=== PATIENT | female | born 1990 | race Caucasian/White ===

== ENCOUNTER 2018-06-11 11:48 | Emergency (ER) | payer OTHER, SELFPAY ==
[2018-06-11 13:01] LABS: Urine Blood 3+ (NEG); Urine Glucose NEGATIVE (NEG); Urine Protein TRACE (NEG)
--- NOTE | 2018-06-11 13:08 | RAD REPORT ---
EXAM DESCRIPTION: CT - Stone Protocol - 06/11/2018 12:57 pm CLINICAL HISTORY: Left flank pain COMPARISON: CT April 2016 TECHNIQUE: Axial 5 mm thick images were obtained without oral or IV contrast. The [id number] span s the entirety of the system partially obscuring uppermost abdomen and lung bases. All CT scans are performed using dose optimization technique as appropriate and may include automated exposure control or mA/KV adjustment according to patient size. FINDINGS: Mild left-sided hydronephrosis is present secondary to a 4 mm calcification near the left UVJ. Left kidney is slightly edematous. No other left-sided calculi. No right-sided hydronephrosis. A 2 mm calcification is present mid right kidney. No suspicious renal masses. Isodense masses and pyel onephritis are not excluded on a stone protocol CT scan. Urinary bladder is fully contracted. No blad neena calculus seen. No significant adrenal finding. Uterus and ovaries show no suspicious findings. Liver is prominent in size and shows a diffuse fatty infiltration. No focal liver lesion on noncontra st imaging. No splenomegaly or focal splenic finding. Gallstones are present. No acute gallbladder fi nding. No biliary tree dilatation. No suspicious bowel findings. No hernia, mass or bulky lymphadenopathy noted. No free air, free fluid or inflammatory stranding. No significant bony abnormality. A 6 mm nodule is present lateral lower right lung field. Comparison did not extend this far into the chest. No other acute lung base finding. Long-term significance is doubtful. This is probably a granu juliet that is not calcified. IMPRESSION: Mild left-sided hydronephrosis secondary to a 4 mm calculus near the left UVJ. Isodense masses and pyelonephritis are not excluded on stone protocol technique.A nonobstructing calc ification is present mid right kidney. A 6 mm noncalcified pulmonary nodule is present in the lateral right lung field. Long-term significan ce is doubtful in a patient this age unless there is some additional history to elevate patient risk.
[2018-06-11 13:13] LABS: Absolute Lymphocytes (CBC) 1.9 K/uL (0.7-4.9); Absolute Monocytes 0.8 K/uL (0.1-1.3); Absolute Neutrophil 10.5 K/uL (1.8-8.0); Basophils % 0.5 % (0-1.3); Eosinophils % 0.6 % (0-4.4); Hematocrit 42.3 % (36.0-45.0); Lymphocytes % 14.2 % (15.3-44.8); MPV 7.9 fL (7.6-11.3); Monocytes % 6.1 % (3.3-12.3); RBC Red Blood Cell Count 4.83 M/uL (3.86-4.86)
[2018-06-11] MEDS ORDERED: ONDANSETRON 4 MG/2 ML VIAL ONE (13:14)
[2018-06-11] MEDS ORDERED: KETOROLAC 30 MG/ML INJ ONE (13:14)
[2018-06-11] MEDS ORDERED: NA CHLORIDE 0.9% 500 ML ONE (13:15)
[2018-06-11 13:20] LABS: Urine Bacteria <20 /HPF (<20); Urine Culture Reflex Order NOT NEEDED
[2018-06-11 13:22] LABS: Urine Mucus 1+ /HPF (NONE SEEN)
[2018-06-11 13:28] LABS: Potassium 4.5 mmol/L (3.5-5.1)
--- NOTE | 2018-06-11 13:30 | EDPHYS ---
Physician Documentation [facility] Name: Gideon Chapa Age: 27 yrs Sex: Female : 1990 Arrival Date: 06/11/2018 Time: 11:51 Bed 15 Private MD: Sterling Edward ED Physician Munira Dennis HPI: 06/11 13:15 This 27 yrs old Female presents to ER via Ambulatory with complaints of jr8 Abdominal Pain. 13:15 The patient presents with abdominal pain in the left lower quadrant. Onset: The jr8 symptoms/episode began/occurred acutely, today. The symptoms do not radiate. Associated signs and symptoms: Pertinent positives: nausea and vomiting. The symptoms are described as stabbing. Modifying factors: The symptoms are alleviated by nothing, the symptoms are aggravated by nothing. Severity of pain: At its worst the pain was moderate in the emergency department the pain is unchanged. The patient has not experienced similar symptoms in the past. The patient has not recently seen a physician. Historical: - Allergies: 12:01 Codeine; sv - PMHx: 12:01 Hypertension; Kidney stones; sv - PSHx: 12:01 None; sv ROS: 13:15 Eyes: Negative for injury, pain, redness, and discharge, ENT: Negative for injury, jr8 pain, and discharge, Neck: Negative for injury, pain, and swelling, Cardiovascular: Negative for chest pain, palpitations, and edema, Respiratory: Negative for shortness of breath, cough, wheezing, and pleuritic chest pain, Back: Negative for injury and pain, MS/Extremity: Negative for injury and deformity, Skin: Negative for injury, rash, and discoloration, Neuro: Negative for headache, weakness, numbness, tingling, and seizure. 13:15 Abdomen/GI: Positive for abdominal pain, nausea and vomiting, Negative for diarrhea, constipation, abdominal cramps, abdominal distension, anorexia, dysphagia, hematemesis, black/tarry stool, rectal pain, rectal bleeding, bowel incontinence, flatulence. Exam: 13:15 Eyes: Pupils equal round and reactive to light, extra-ocular motions intact. Lids and jr8 lashes normal. Conjunctiva and sclera are non-icteric and not injected. Cornea within normal limits. Periorbital areas with no swelling, redness, or edema. ENT: Nares patent. No nasal discharge, no septal abnormalities noted. Tympanic membranes are normal and external auditory canals are clear. Oropharynx with no redness, swelling, or masses, exudates, or evidence of obstruction, uvula midline. Mucous membranes moist. Neck: Trachea midline, no thyromegaly or masses palpated, and no cervical lymphadenopathy. Supple, full range of motion without nuchal rigidity, or vertebral point tenderness. No Meningismus. Cardiovascular: Regular rate and rhythm with a normal S1 and S2. No gallops, murmurs, or rubs. Normal PMI, no JVD. No pulse deficits. Respiratory: Lungs have equal breath sounds bilaterally, clear to auscultation and percussion. No rales, rhonchi or wheezes noted. No increased work of breathing, no retractions or nasal flaring. Back: No spinal tenderness. No costovertebral tenderness. Full range of motion. Skin: Warm, dry with normal turgor. Normal color with no rashes, no lesions, and no evidence of cellulitis. MS/ Extremity: Pulses equal, no cyanosis. Neurovascular intact. Full, normal range of motion. Neuro: Awake and alert, GCS 15, oriented to person, place, time, and situation. Cranial nerves II-XII grossly intact. Motor strength 5/5 in all extremities. Sensory grossly intact. Cerebellar exam normal. Normal gait. 13:15 Abdomen/GI: Inspection: abdomen appears normal, Bowel sounds: active, all quadrants, Palpation: soft, in all quadrants, moderate abdominal tenderness, in the anterior aspect of left lateral abdomen and left lower quadrant, mass, is not appreciated, rebound tenderness, is not appreciated, voluntary guarding, is not appreciated, involuntary guarding, is not appreciated, no appreciated organomegaly, Indicators: McBurney's point is not tender, Sandoval's sign is negative, Rovsing's sign is negative, Liver: tenderness, is not appreciated. Vital Signs: 12:01 BP 131 / 92; Pulse 84; Resp 18; Temp 98.1; Pulse Ox 99% ; Weight 102.06 kg; Height 5 sv ft. 8 in. (172.72 cm); Pain 10/10; 12:01 Body Mass Index 34.21 (102.06 kg, 172.72 cm) sv MDM: 12:05 Patient medically screened. [facility] 13:15 Data reviewed: vital signs, nurses notes, lab test result(s), radiologic studies, CT jr8 scan. Data interpreted: Pulse oximetry: on room air is 99 %. Interpretation: normal. Counseling: I had a detailed discussion with the patient and/or guardian regarding: the historical points, exam findings, and any diagnostic results supporting the discharge/admit diagnosis, lab results, radiology results, the need for outpatient follow up, a urologist, to return to the emergency department if symptoms worsen or persist or if there are any questions or concerns that arise at home. 13:25 ED course: Patient doing better. Will send home on antibiotics and pain medicine. Knows jr8 to come back if worse. 06/11 12:39 Order name: Urine Dipstick--Ancillary (enter results); Complete Time: 13:13 06/11 12:39 Order name: Urine Microscopic Only; Complete Time: 13:31 eb 06/11 12:39 Order name: Urine --Ancillary (enter results); Complete Time: 13:13 06/11 12:41 Order name: CBC with Diff; Complete Time: 13:18 8 06/11 12:41 Order name: Basic Metabolic Panel; Complete Time: 13:31 8 06/11 12:42 Order name: CT Stone Protocol; Complete Time: 13:13 8 06/11 12:41 Order name: IV; Complete Time: 12:54 jr8 Administered Medications: 13:07 Drug: TORadol - Ketorolac 15 mg Route: IVP; Site: right antecubital; aj 14:02 Follow up: Response: No adverse reaction em 13:07 Drug: Zofran 4 mg Route: IVP; Site: right antecubital; aj 14:03 Follow up: Response: No adverse reaction em 13:07 Drug: NS 0.9% 500 ml Route: IV; Rate: bolus; Site: right antecubital; aj 14:03 Follow up: IV Status: IV infiltrated; IV Intake: 200ml em 13:40 Drug: Rocephin 1 grams Route: IV; Rate: calculated rate; Site: right antecubital; aj 14:02 Follow up: Response: No adverse reaction; IV Status: Completed infusion; IV Intake: 10mlem Disposition: 17:14 Co-signature as Attending Physician, Munira Dennis MD. ma2 Disposition: 06/11/18 13:29 Discharged to Home. Impression: Hydronephrosis with renal and ureteral calculous obstruction. - Condition is Stable. - Discharge Instructions: Kidney Stones, Hydronephrosis. - Prescriptions for Ultracet 37.5- 325 mg Oral Tablet - take 2 tablet by ORAL route every 6 hours - for up to 5 days; do not exceed 8 tablets per day.; 30 tablet. Zofran 4 mg Oral Tablet - take 1 tablet by ORAL route every 12 hours As needed; 20 tablet. Flomax 0.4 mg Oral Capsule, Sust. Release 24 hr - take 1 capsule by ORAL route once daily 1/2 hour following the same meal each day; 30 capsule. Augmentin 875- 125 mg Oral Tablet - take 1 tablet by ORAL route every 12 hours for 7 days; 14 tablet. - Work release form, Medication Reconciliation Form, Thank You Letter, Antibiotic Education, Prescription Opioid Use form. - Follow up: Suleiman Mosqueda MD; When: 5 - 6 days; Reason: Recheck today's complaints, Continuance of care, Re-evaluation by your physician. - Problem is new. - Symptoms have improved. Signatures: Dispatcher [employer] Maria Del Rosario Rodríguez RN RN Connie Vega RN RN aj Munoz, Edgar, GUIDE DOG INSTRUCTOR GUIDE DOG INSTRUCTOR Sheldon Guerrero PA PA jr8 Munira Dennis MD MD ma2 Corrections: (The following items were deleted from the chart) 14:03 13:29 06/11/2018 13:29 Discharged to Home. Impression: Hydronephrosis with renal and em ureteral calculous obstruction. Condition is Stable. Forms are Medication Reconciliation Form, Thank You Letter, Antibiotic Education, Prescription Opioid Use. Follow up: Suleiman Mosqueda; When: 5 - 6 days; Reason: Recheck today's complaints, Continuance of care, Re-evaluation by your physician. Problem is new. Symptoms have improved. jr8
--- NOTE | 2018-06-11 13:30 | ER ---
[facility] Name: Gideon Chapa Age: 27 yrs Sex: Female : 1990 Arrival Date: 06/11/2018 Time: 11:51 Bed 15 Private MD: Sterling Edward Diagnosis: Hydronephrosis with renal and ureteral calculous obstruction Presentation: 06/11 12:00 Presenting complaint: Patient states: left flank pain started yesterday. Uninary sv frequency. Transition of care: patient was not received from another setting of care. Onset of symptoms was June 10, 2018. Care prior to arrival: None. 12:00 Method Of Arrival: Ambulatory sv 12:00 Acuity: AGUSTO 3 sv Historical: - Allergies: 12:01 Codeine; sv - PMHx: 12:01 Hypertension; Kidney stones; sv - PSHx: 12:01 None; sv Screenin:31 Abuse screen: Denies threats or abuse. Denies injuries from another. Nutritional aj screening: No deficits noted. Tuberculosis screening: No symptoms or risk factors identified. Fall Risk None identified. Assessment: 12:30 General: Appears in no apparent distress. comfortable, Behavior is calm, cooperative, aj appropriate for age. Pain: Complains of pain in pelvis. Neuro: Level of Consciousness is awake, alert, obeys commands, Oriented to person, place, time, situation, Appropriate for age. Respiratory: Airway is patent Respiratory effort is even, unlabored, Respiratory pattern is regular, symmetrical. GI: Abdomen is non-distended, obese, Bowel sounds present X 4 quads. Abd is soft and non tender. Derm: Skin is intact, is healthy with good turgor, Skin is pink, warm \T\ dry. normal. Vital Signs: 12:01 BP 131 / 92; Pulse 84; Resp 18; Temp 98.1; Pulse Ox 99% ; Weight 102.06 kg; Height 5 sv ft. 8 in. (172.72 cm); Pain 10/10; 12:01 Body Mass Index 34.21 (102.06 kg, 172.72 cm) sv ED Course: 11:51 Patient arrived in ED. mr 11:51 Sterling Edward MD is Private Physician. mr 12:01 Triage completed. sv 12:02 Arm band placed on. sv 12:05 Sheldon Snyder PA is PHCP. jr8 12:05 Munira Dennis MD is Attending Physician. jr8 12:28 Connie Carpenter, RN is Primary Nurse. aj 12:31 Patient has correct armband on for positive identification. aj 12:53 Initial lab(s) drawn, by Zenia paralegal secretary. Inserted saline lock: 20 gauge in right 3 antecubital area, using aseptic technique. Blood collected. 12:56 CT Stone Protocol In Process Unspecified. EDMS 13:29 Suleiman Mosqueda MD is Referral Physician. jr8 13:55 IV discontinued, intact, infiltration, warm compresses, pressure dressing applied. 3 14:01 No provider procedures requiring assistance completed. em Administered Medications: 13:07 Drug: TORadol - Ketorolac 15 mg Route: IVP; Site: right antecubital; aj 14:02 Follow up: Response: No adverse reaction em 13:07 Drug: Zofran 4 mg Route: IVP; Site: right antecubital; aj 14:03 Follow up: Response: No adverse reaction em 13:07 Drug: NS 0.9% 500 ml Route: IV; Rate: bolus; Site: right antecubital; aj 14:03 Follow up: IV Status: IV infiltrated; IV Intake: 200ml em 13:40 Drug: Rocephin 1 grams Route: IV; Rate: calculated rate; Site: right antecubital; aj 14:02 Follow up: Response: No adverse reaction; IV Status: Completed infusion; IV Intake: 10mlem Intake: 14:02 IV: 10ml; Total: 10ml. em 14:03 IV: 200ml; Total: 210ml. em Outcome: 13:29 Discharge ordered by . jr8 14:01 Discharged to home ambulatory. em 14:01 Condition: good 14:01 Discharge instructions given to patient, Instructed on discharge instructions, follow up and referral plans. medication usage, Demonstrated understanding of instructions, follow-up care, medications, Prescriptions given X 4. 14:03 Patient left the ED. em Signatures: Dispatcher [employer] EDFL Maria Del Rosario Henry, Connie Calvillo RN, RN RN aj Rivera, Leni Nair, Kavin, FUEL PILOT ENGINEER FUEL PILOT ENGINEER em Sheldon Snyder PA PA jr8 Xochitl Nolan [facility] Corrections: (The following items were deleted from the chart) 12:03 12:01 Pulse 84bpm; Resp 18bpm; Pulse Ox 99%; Temp 98.1F; 102.06 kg; Height 5 ft. 8 in.; sv BMI: 34.2; Pain 10/; sv
[2018-06-11] MEDS ORDERED: CEFTRIAXONE/SWI 1gm 1 GM/10 ML SYR ONE (13:50)
== END 2018-06-11 14:03 | disposition home or self-care (01) ==
LOC: ER 11:48
DX: N13.2 Hydronephrosis with renal and ureteral calculous obstruction (principal); Z88.6 Allergy status to analgesic agent
CPT/HCPCS: 36415; 74176; 76377; 80048; 81003; 81015; 81025; 85025; 96361; 96365; 96375; 99284; J0696; J2405

== ENCOUNTER 2018-06-20 18:29 | Emergency (ER) | payer SELFPAY ==
[2018-06-20 19:31] LABS: Urine Blood 2+ (NEG); Urine Glucose NEGATIVE (NEG); Urine Protein 2+ (NEG); Urine Specific Gravity >1.030 (1.005-1.030); Urine pH 5.5 (5.0-7.0)
[2018-06-20 19:36] LABS: Calcium Oxalate Crystals- Ur FEW (NONE SEEN); Urine Bacteria 20-50 /HPF (<20); Urine Culture Reflex Order REFLEXED
--- NOTE | 2018-06-20 20:03 | RAD REPORT ---
EXAM DESCRIPTION: CT - Stone Protocol - 06/20/2018 7:42 pm CLINICAL HISTORY: Left lower quadrant pain and history of recent stone passage COMPARISON: CT June 11 TECHNIQUE: Axial 5 mm thick images were obtained without oral or IV contrast. The [id number] span s the entirety of the system partially obscuring uppermost abdomen and lung bases. All CT scans are performed using dose optimization technique as appropriate and may include automated exposure control or mA/KV adjustment according to patient size. FINDINGS: Mild hydronephrosis of the left collecting system is present improved from the June 11 st udy. No remnant stone or stone fragment. This is believed to be incomplete resolution of the obstruct abram process. This is not unexpected given the short interval. The obstructing 4 millimeter calcificat ion is in the urinary bladder. Urinary bladder is contracted limiting assessment. No right-sided hydr onephrosis. No nonobstructing renal or ureteral calculi seen. Left kidney remains slightly edematous. No suspicious renal masses. Isodense masses and pyelonephritis are not excluded on a stone protocol CT scan. No significant adrenal finding. Imaged portions of the liver, spleen and pancreas show no suspicious findings on non-contrast imaging . Gallbladder is contracted. Gallstone is present. No biliary tree dilatation. No suspicious bowel findings. No hernia, mass or bulky lymphadenopathy noted. No free air, free fluid or inflammatory stranding. No significant bony abnormality. No acute lung base finding. Nodule seen in the lateral lower right lung field subpleural location has not changed over the very short interval from prior study. IMPRESSION: Previously detailed 4 mm left UVJ calculus is now within the urinary bladder. There is m ild remnant hydronephrosis present on the left. No renal or ureteral calculi. Isodense masses and pyelonephritis are not excluded on stone protocol technique. Cholelithiasis.
[2018-06-20] MEDS ORDERED: NA CHLORIDE 0.9% 2,000 ML ONE (20:23)
[2018-06-20] MEDS ORDERED: ONDANSETRON 4 MG/2 ML VIAL ONE (20:23)
[2018-06-20] MEDS ORDERED: MORPHINE 4 MG/ML SYR ONE (20:23)
--- NOTE | 2018-06-20 21:41 | ER ---
Nurse's Notes [facility] Name: Gideon Chapa Age: 27 yrs Sex: Female : 1990 Arrival Date: 06/20/2018 Time: 18:30 Bed 8 Private MD: Sterling Edward Diagnosis: Ureterolithiasis Presentation: 06/20 18:47 Presenting complaint: Significant other states: "she came in last week for kidney aj1 stones and they said she was going to pass it. She thought she had passed it so she stopped taking the medicine, but now she's been throwing up since Thursday." Patient reports left sided flank pain, patient did not follow up with a urologist after being seen in the emergency room. Transition of care: patient was not received from another setting of care. Onset of symptoms was June 18, 2017. Risk Assessment: Do you want to hurt yourself or someone else? Patient reports no desire to harm self or others. Initial Sepsis Screen: Does the patient meet any 2 criteria? HR > 90 bpm. No. Patient's initial sepsis screen is negative. Does the patient have a suspected source of infection? No. Patient's initial sepsis screen is negative. Care prior to arrival: None. 18:47 Method Of Arrival: Ambulatory aj1 18:47 Acuity: AGUSTO 3 aj1 Triage Assessment: 18:49 General: Appears in no apparent distress. uncomfortable, Behavior is calm, cooperative, aj1 appropriate for age. Pain: Complains of pain in posterior aspect of left lateral abdomen Pain currently is 10 out of 10 on a pain scale. Neuro: Level of Consciousness is awake, alert, obeys commands. Cardiovascular: Patient's skin is warm and dry. Respiratory: Airway is patent Respiratory effort is even, unlabored, Respiratory pattern is regular, symmetrical. GI: Reports vomiting. : Reports flank pain. MANAGER FASHION: 18:49 LMP 06/10/2018 aj1 Historical: - Allergies: 18:49 Codeine; aj1 - Home Meds: 18:49 None [Active]; aj1 - PMHx: 18:49 Hypertension; Kidney stones; gallstones; aj1 - Immunization history:: Flu vaccine is not up to date. - Social history:: Smoking status: Patient uses tobacco products, smokes one pack cigarettes per day. - Ebola Screening: : Patient denies travel to an Ebola-affected area in the 21 days before illness onset. - Family history:: not pertinent. - Hospitalizations: : No recent hospitalization is reported. Screenin:10 Abuse screen: Denies threats or abuse. Denies injuries from another. Nutritional aa1 screening: No deficits noted. Tuberculosis screening: No symptoms or risk factors identified. Fall Risk None identified. Assessment: 19:10 General: Appears in no apparent distress. uncomfortable, Behavior is calm, cooperative, aa1 appropriate for age. Pain: Complains of pain in left lower quadrant and posterior aspect of left lateral abdomen Pain began 2-3 days ago. Is continuous. Neuro: Level of Consciousness is awake, alert, obeys commands, Oriented to person, place, time, situation, Moves all extremities. Gait is steady. Cardiovascular: Denies chest pain, palpitations, shortness of breath. Respiratory: Airway is patent Respiratory effort is even, unlabored, Respiratory pattern is regular, symmetrical. GI: Abdomen is non-distended, Abd is soft X 4 quads Reports nausea, vomiting. : Reports pain in left flank(s). EENT: No signs and/or symptoms were reported regarding the EENT system. Derm: Skin is intact, is healthy with good turgor, Skin is pink, warm \\T\\ dry. Musculoskeletal: Circulation, motion, and sensation intact. Capillary refill < 3 seconds. 19:38 Reassessment: Patient appears in no apparent distress at this time. Patient is alert, aa1 oriented x 3, equal unlabored respirations, skin warm/dry/pink. Pt taken to CT at this time. Charge nurse to attempt u/s IV once pt returns. 20:26 Reassessment: Patient appears in no apparent distress at this time. Patient and/or aa1 family updated on plan of care and expected duration. Pain level reassessed. Patient is alert/active/playful, equal unlabored respirations, skin warm/dry/pink. Per MD, ok to d/c pt once 2L NS bolus complete. 21:30 Reassessment: Patient appears in no apparent distress at this time. Patient and/or aa1 family updated on plan of care and expected duration. Pain level reassessed. Patient is alert, oriented x 3, equal unlabored respirations, skin warm/dry/pink. Awaiting completion of NS bolus for d/c. 21:50 Reassessment: Patient appears in no apparent distress at this time. Patient is alert, aa1 oriented x 3, equal unlabored respirations, skin warm/dry/pink. NS bolus complete. Discussed d/c \\T\\ f/u instructions with pt; denies questions or concerns at this time. Amb to lobby with steady gait. Patient denies pain at this time. Patient states feeling better. Patient states symptoms have improved. Vital Signs: 18:49 BP 125 / 80; Pulse 97; Resp 20; Temp 98.2; Pulse Ox 97% on R/A; Weight 103.42 kg (R); aj1 Height 5 ft. 8 in. (172.72 cm) (R); Pain 10/10; 20:25 BP 125 / 76; Pulse 57; Resp 16; Pulse Ox 99% on R/A; Pain 5/10; aa1 21:30 BP 117 / 65; Pulse 64; Resp 16; Temp 97.9; Pulse Ox 98% on R/A; Pain 0/10; aa1 18:49 Body Mass Index 34.67 (103.42 kg, 172.72 cm) aj1 ED Course: 18:30 Patient arrived in ED. as 18:30 Sterling Edward MD is Private Physician. as 18:49 Triage completed. aj1 18:49 Arm band placed on Patient placed in an exam room. aj1 19:03 David Angel MD is Attending Physician. rn 19:10 Patient has correct armband on for positive identification. Bed in low position. Call aa1 light in reach. Pulse ox on. NIBP on. Warm blanket given. 19:11 Robyn Malagon, ENOC is Primary Nurse. aa1 19:16 Urine collected: clean catch specimen. aa1 19:25 Missed attempt(s): 22 gauge in right forearm. Bleeding controlled, band aid applied, aa1 catheter tip intact. 19:30 Missed attempt(s): 22 gauge in right wrist. Bleeding controlled, band aid applied, aa1 catheter tip intact. 19:42 CT completed. Patient tolerated procedure well. Patient moved back from CT. mw3 19:42 CT Stone Protocol In Process Unspecified. EDMS 20:14 Inserted saline lock: 20 gauge in right antecubital area, using aseptic technique. bb 21:54 No provider procedures requiring assistance completed. IV discontinued, intact, aa1 bleeding controlled, No redness/swelling at site. Pressure dressing applied. Administered Medications: 20:15 Drug: Zofran 4 mg Route: IVP; Site: right antecubital; aa1 21:15 Follow up: Response: No adverse reaction; Nausea is decreased aa1 20:15 Drug: NS 0.9% 1000 ml Route: IV; Rate: 1000 ml; Site: right antecubital; aa1 21:50 Follow up: IV Status: Completed infusion; IV Intake: 1000ml aa1 20:15 Drug: NS 0.9% 1000 ml Route: IV; Rate: 1000 ml; Site: right antecubital; aa1 21:50 Follow up: IV Status: Completed infusion; IV Intake: 1000ml aa1 20:17 Drug: morphine 4 mg Route: IVP; Site: right antecubital; aa1 21:17 Follow up: Response: No adverse reaction; Pain is decreased aa1 Intake: 21:50 IV: 1000ml; Total: 1000ml. aa1 21:50 IV: 1000ml; Total: 2000ml. aa1 Outcome: 21:41 Discharge ordered by . rn 21:54 Discharged to home ambulatory, with family. aa1 21:54 Condition: good 21:54 Discharge instructions given to patient, family, Instructed on discharge instructions, follow up and referral plans. medication usage, Demonstrated understanding of instructions, follow-up care, medications, Prescriptions given X 1. 21:57 Patient left the ED. aa1 Signatures: Dispatcher [employer] EDMaribell Tovar RN RN aj1 Robyn Malagon RN RN aa1 Kirstin Martinez Brenda, RN RN bb Nieto, Roman, MD MD rn Willis, Michelle mw3
--- NOTE | 2018-06-20 21:41 | EDPHYS ---
Physician Documentation [facility] Name: Gideon Chapa Age: 27 yrs Sex: Female : 1990 Arrival Date: 06/20/2018 Time: 18:30 Bed 8 Private MD: Sterling Edward ED Physician David Angel HPI: 06/20 19:18 This 27 yrs old Female presents to ER via Ambulatory with complaints of rn Vomiting. 19:18 The patient presents to the emergency department with nausea, vomiting, abdominal pain, rn of the left lower quadrant. Onset: The symptoms/episode began/occurred 2 day(s) ago. Possible causes: unknown. Associated signs and symptoms: Pertinent positives: abdominal pain, nausea, vomiting. Severity of symptoms: At their worst the symptoms were moderate in the emergency department the symptoms are unchanged. The patient has experienced similar episodes in the past. The patient has not recently seen a physician. Reports vomiting, LLQ abd pain, recently diagnosed with stone last week, got better, now having pain again similar to the other time. No diarrhea. + vomiting. . 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 - Social history:: Smoking status: Patient uses tobacco products, smokes one pack cigarettes per day. - Ebola Screening: : Patient denies travel to an Ebola-affected area in the 21 days before illness onset. - Family history:: not pertinent. - Hospitalizations: : No recent hospitalization is reported. ROS: 19:18 Constitutional: Negative for fever, chills, and weight loss, Eyes: Negative for injury, rn pain, redness, and discharge, Neck: Negative for injury, pain, and swelling, Cardiovascular: Negative for chest pain, palpitations, and edema, Respiratory: Negative for shortness of breath, cough, wheezing, and pleuritic chest pain, Abdomen/GI: Negative for diarrhea, and constipation MS/Extremity: Negative for injury and deformity, Skin: Negative for injury, rash, and discoloration, Neuro: Negative for headache, numbness, tingling, and seizure. Exam: 19:18 Constitutional: This is a well developed, well nourished patient who is awake, alert, rn vomiting Head/Face: Normocephalic, atraumatic. Eyes: Pupils equal round and reactive to light, extra-ocular motions intact. ENT: dry MM Neck: Trachea midline, no thyromegaly or masses palpated, and no cervical lymphadenopathy. Supple, full range of motion without nuchal rigidity, or vertebral point tenderness. No Meningismus. Cardiovascular: Regular rate and rhythm. No pulse deficits. Respiratory: Lungs have equal breath sounds bilaterally, clear to auscultation. No increased work of breathing, no retractions or nasal flaring. Abdomen/GI: soft, + LLQ abd tenderness, no rebound, no masses MS/ Extremity: Pulses equal, no cyanosis. Neurovascular intact. Full, normal range of motion. Equal circumference. Neuro: Awake and alert, GCS 15, oriented to person, place, time, and situation. Cranial nerves II-XII grossly intact. Motor strength 5/5 in all extremities. Sensory grossly intact Vital Signs: 18:49 BP 125 / 80; Pulse 97; Resp 20; Temp 98.2; Pulse Ox 97% on R/A; Weight 103.42 kg (R); aj1 Height 5 ft. 8 in. (172.72 cm) (R); Pain 10/10; 20:25 BP 125 / 76; Pulse 57; Resp 16; Pulse Ox 99% on R/A; Pain 5/10; aa1 21:30 BP 117 / 65; Pulse 64; Resp 16; Temp 97.9; Pulse Ox 98% on R/A; Pain 0/10; aa1 18:49 Body Mass Index 34.67 (103.42 kg, 172.72 cm) aj1 MDM: 19:03 Patient medically screened. rn 20:11 ED course: Ct shows stone in bladder and resolution of hydronephrosis, bloodwork rn canceled given obvious diagnosis and patient is now pain free, must have just passed stone into bladder between initial eval and ct scan. + dehydration so IV fluids and meds still ordered. . 21:40 Differential diagnosis: passed kidney stone, obstruction. Data reviewed: vital signs, rn nurses notes, old medical records, lab test result(s), radiologic studies, and as a result, I will discharge patient. Counseling: I had a detailed discussion with the patient and/or guardian regarding: the historical points, exam findings, and any diagnostic results supporting the discharge/admit diagnosis, lab results, radiology results, the need for outpatient follow up, to return to the emergency department if symptoms worsen or persist or if there are any questions or concerns that arise at home. Response to treatment: the patient's symptoms have markedly improved after treatment, the patient's condition has returned to base line, the patient is now symptom free, patient is well hydrated. and as a result, I will discharge patient. 06/20 19:11 Order name: Basic Metabolic Panel rn 06/20 19:11 Order name: CBC with Diff rn 06/20 19:11 Order name: Hepatic Function rn 06/20 19:11 Order name: Lipase rn 06/20 19:11 Order name: Urine Microscopic Only; Complete Time: 20:00 rn 06/20 19:11 Order name: CT Stone Protocol; Complete Time: 20:05 06/20 19:21 Order name: Urine Dipstick--Ancillary (enter results); Complete Time: 20:00 [facility] 06/20 19:21 Order name: Urine --Ancillary (enter results); Complete Time: 20:00 [facility] 06/20 19:38 Order name: Urine Culture EDMS 06/20 19:11 Order name: IV Saline Lock; Complete Time: 20:15 rn 06/20 19:11 Order name: Urine Test (obtain specimen); Complete Time: 19:37 rn 06/20 19:11 Order name: Urine Dipstick-Ancillary (obtain specimen); Complete Time: 19:37 rn Administered Medications: 20:15 Drug: Zofran 4 mg Route: IVP; Site: right antecubital; aa1 21:15 Follow up: Response: No adverse reaction; Nausea is decreased aa1 20:15 Drug: NS 0.9% 1000 ml Route: IV; Rate: 1000 ml; Site: right antecubital; aa1 21:50 Follow up: IV Status: Completed infusion; IV Intake: 1000ml aa1 20:15 Drug: NS 0.9% 1000 ml Route: IV; Rate: 1000 ml; Site: right antecubital; aa1 21:50 Follow up: IV Status: Completed infusion; IV Intake: 1000ml aa1 20:17 Drug: morphine 4 mg Route: IVP; Site: right antecubital; aa1 21:17 Follow up: Response: No adverse reaction; Pain is decreased aa1 Disposition: 06/20/18 21:41 Discharged to Home. Impression: Ureterolithiasis. - Condition is Stable. - Discharge Instructions: Kidney Stones, Dietary Guidelines to Help Prevent Kidney Stones. - Prescriptions for Diflucan 150 mg Oral Tablet - take 1 tablet by ORAL route one time for 3 days; 3 tablet. - Work release form, Medication Reconciliation Form, Thank You Letter, Antibiotic Education, Prescription Opioid Use form. - Follow up: Private Physician; When: As needed; Reason: Recheck today's complaints, Re-evaluation by your physician. - Problem is an ongoing problem. - Symptoms have improved. Signatures: Dispatcher [employer] Maribell Castillo RN RN aj1 Robyn Malagon RN RN aa1 David Angel MD MD rn Corrections: (The following items were deleted from the chart) 20:12 19:12 CBC with Automated Diff ordered. EDUT EDMS 20:13 19:12 Basic Metabolic Panel ordered. EDUT EDMS 20:13 19:12 Liver (Hepatic) Function ordered. EDMS EDMS 20:13 19:12 Lipase ordered. EDUT EDMS 20:28 19:11 Labs collected and sent ordered. rn aa1 21:57 21:41 06/20/2018 21:41 Discharged to Home. Impression: Ureterolithiasis. Condition is aa1 Stable. Discharge Instructions: Kidney Stones, Dietary Guidelines to Help Prevent Kidney Stones. Prescriptions for Diflucan 150 mg Oral Tablet - take 1 tablet by ORAL route one time for 3 days; 3 tablet. and Forms are Work release form, Medication Reconciliation Form, Thank You Letter, Antibiotic Education, Prescription Opioid Use. Follow up: Private Physician; When: As needed; Reason: Recheck today's complaints, Re-evaluation by your physician. Problem is an ongoing problem. Symptoms have improved. rn
== END 2018-06-20 21:57 | disposition home or self-care (01) ==
LOC: ER 18:29
DX: N20.1 Calculus of ureter (principal); F17.210 Nicotine dependence, cigarettes, uncomplicated; Z88.0 Allergy status to penicillin
CPT/HCPCS: 74176; 76377; 81003; 81015; 81025; 87086; 87088; 96361; 96374; 96375; 99284; J2405; J7030

== ENCOUNTER 2019-01-13 07:44 | Emergency (ER) | payer OTHER, SELFPAY ==
--- OUTSIDE RECORDS SUMMARY | 2019-01-13 07:45 | XMS REPORT ---
:1990 [facility] Address [address] [place] [address] Care Team Providers Name Role Phone Unavailable Unavailable Unavailable Problems This patient has no known problems. Allergies, Adverse Reactions, Alerts This patient has no known allergies or adverse reactions. Medications This patient has no known medications.
[2019-01-13] MEDS ORDERED: ONDANSETRON 4 MG/2 ML VIAL ONE ×2 (08:19→09:43)
[2019-01-13] MEDS ORDERED: NA CHLORIDE 0.9% 1,000 ML ONE ×2 (08:19→08:55)
[2019-01-13] MEDS ORDERED: FENTANYL CITR 100 MCG/2 ML ONE (08:19)
[2019-01-13 08:20] LABS: Absolute Lymphocytes (CBC) 2.6 K/uL (0.7-4.9); Basophils % 0.7 % (0-1.3); Hematocrit 40.6 % (36.0-45.0); Lymphocytes % 31.1 % (15.3-44.8); MPV 7.5 fL (7.6-11.3); RBC Red Blood Cell Count 4.62 M/uL (3.86-4.86)
[2019-01-13 08:59] LABS: ALT/SGPT 39 U/L (12-78); AST/SGOT 13 U/L (15-37); Albumin 3.5 g/dL (3.4-5.0); Alkaline Phosphatase 54 U/L (45-117); BUN Blood Urea Nitrogen 10 mg/dL (7-18); Bicarbonate 25 mmol/L (21-32); Bilirubin Direct 0.1 mg/dL (0-0.2); Bilirubin Total 0.3 mg/dL (0.2-1.0); Glucose Level 130 mg/dL (74-106); HCG, Quantitative 1755 mIU/mL (1-3); Lipase 54 U/L (73-393); Potassium 3.9 mmol/L (3.5-5.1); Protein, Total 6.9 g/dL (6.4-8.2); Sodium Level 139 mmol/L (136-145)
[2019-01-13] MEDS ORDERED: MORPHINE 4 MG/ML SYR ONE (09:43)
[2019-01-13 10:19] LABS: Urine Blood 2+ (NEG); Urine Glucose NEGATIVE (NEG); Urine Protein 1+ (NEG)
--- NOTE | 2019-01-13 11:23 | EDPHYS ---
Physician Documentation [facility] Name: Gideon Chapa Age: 28 yrs Sex: Female : 1990 Arrival Date: 01/13/2019 Time: 07:46 Bed 20 Private MD: Sterling Edward ED Physician Fabien Green HPI: 01/13 08:05 This 28 yrs old Female presents to ER via Ambulatory with complaints of 6 wks abdullahi , Abdominal Pain. 08:05 The patient presents with abdominal pain in the upper abdomen, in the lower abdomen. abdullahi Onset: The symptoms/episode began/occurred 1 day(s) ago. The patient presents to the emergency department with nausea, that is moderate, vomiting, that is continuous, abdominal pain, of the posterior aspect of right lateral abdomen, anterior aspect of right lateral abdomen, right upper quadrant and right lower quadrant. Onset: The symptoms/episode began/occurred just prior to arrival, this morning. Possible causes: unknown. The symptoms are aggravated by nothing. The symptoms are alleviated by nothing. Associated signs and symptoms: The patient has no apparent associated signs or symptoms. Associated signs and symptoms: none. 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 - Social history:: Smoking status: Patient uses tobacco products, smokes one pack cigarettes per day. - Ebola Screening: : No symptoms or risks identified at this time Patient denies exposure to infectious person Patient denies travel to an Ebola-affected area in the 21 days before illness onset. ROS: 08:05 Constitutional: Negative for fever, chills, and weight loss, Eyes: Negative for injury, abdullahi pain, redness, and discharge, ENT: Negative for injury, pain, and discharge, Neck: Negative for injury, pain, and swelling, Cardiovascular: Negative for chest pain, palpitations, and edema, Respiratory: Negative for shortness of breath, cough, wheezing, and pleuritic chest pain, : Negative for injury, bleeding, discharge, and swelling, MS/Extremity: Negative for injury and deformity, Skin: Negative for injury, rash, and discoloration, Neuro: Negative for headache, weakness, numbness, tingling, and seizure, Psych: Negative for depression, anxiety, suicide ideation, homicidal ideation, and hallucinations, Allergy/Immunology: Negative for hives, rash, and allergies, Endocrine: Negative for neck swelling, polydipsia, polyuria, polyphagia, and marked weight changes, Hematologic/Lymphatic: Negative for swollen nodes, abnormal bleeding, and unusual bruising. 08:05 Abdomen/GI: Positive for abdominal pain, abdominal cramps, abdominal distension, of the posterior aspect of right lateral abdomen, anterior aspect of right lateral abdomen, right upper quadrant and right lower quadrant. Exam: 08:05 Constitutional: This is a well developed, well nourished patient who is awake, alert, abdullahi and in no acute distress. Head/Face: Normocephalic, atraumatic. Eyes: Pupils equal round and reactive to light, extra-ocular motions intact. Lids and lashes normal. Conjunctiva and sclera are non-icteric and not injected. Cornea within normal limits. Periorbital areas with no swelling, redness, or edema. ENT: Nares patent. No nasal discharge, no septal abnormalities noted. Tympanic membranes are normal and external auditory canals are clear. Oropharynx with no redness, swelling, or masses, exudates, or evidence of obstruction, uvula midline. Mucous membranes moist. Neck: Trachea midline, no thyromegaly or masses palpated, and no cervical lymphadenopathy. Supple, full range of motion without nuchal rigidity, or vertebral point tenderness. No Meningismus. Chest/axilla: Normal chest wall appearance and motion. Nontender with no deformity. No lesions are appreciated. Cardiovascular: Regular rate and rhythm with a normal S1 and S2. No gallops, murmurs, or rubs. Normal PMI, no JVD. No pulse deficits. Respiratory: Lungs have equal breath sounds bilaterally, clear to auscultation and percussion. No rales, rhonchi or wheezes noted. No increased work of breathing, no retractions or nasal flaring. Back: No spinal tenderness. No costovertebral tenderness. Full range of motion. Skin: Warm, dry with normal turgor. Normal color with no rashes, no lesions, and no evidence of cellulitis. MS/ Extremity: Pulses equal, no cyanosis. Neurovascular intact. Full, normal range of motion. Neuro: Awake and alert, GCS 15, oriented to person, place, time, and situation. Cranial nerves II-XII grossly intact. Motor strength 5/5 in all extremities. Sensory grossly intact. Cerebellar exam normal. Normal gait. Psych: Awake, alert, with orientation to person, place and time. Behavior, mood, and affect are within normal limits. 08:05 Abdomen/GI: Inspection: distension, that is moderate, Bowel sounds: normal, Palpation: mild abdominal tenderness, moderate abdominal tenderness, in the posterior aspect of right lateral abdomen, anterior aspect of right lateral abdomen and right upper quadrant, Liver: no appreciated palpable abnormalities, Hernia: not appreciated. Vital Signs: 08:00 BP 133 / 85; Pulse 99; Resp 16; Temp 97.5(O); Pulse Ox 97% on R/A; Weight 112.04 kg; ss Height 5 ft. 8 in. (172.72 cm); Pain 10/10; 09:00 BP 115 / 82; Pulse 97; Resp 18; Pulse Ox 99% on R/A; ph 10:02 BP 104 / 78; Pulse 95; Resp 16; Pulse Ox 96% on R/A; ph 11:30 BP 119 / 78; Pulse 94; Resp 18; Temp 97.8; Pulse Ox 99% on R/A; Pain 3/10; ph 08:00 Body Mass Index 37.56 (112.04 kg, 172.72 cm) ss MDM: 07:50 Patient medically screened. [facility] 08:07 Data reviewed: vital signs, nurses notes, lab test result(s), radiologic studies, CT abdullahi scan, ultrasound. 01/13 08:03 Order name: Basic Metabolic Panel; Complete Time: 09:[address] [facility] 01/13 08:03 Order name: CBC with Diff; Complete Time: 09:[address] [facility] 01/13 08:03 Order name: Creatinine for Radiology; Complete Time: 09: [facility] 01/13 08:03 Order name: Hepatic Function; Complete Time: 09:[address] [facility] 01/13 08:03 Order name: Lipase; Complete Time: 09:[address] [facility] 01/13 08:03 Order name: Quantitative Hcg; Complete Time: 09: [facility] 01/13 08:03 Order name: Abo/rh Typing; Complete Time: 09:[address] [facility] 01/13 08:03 Order name: US Abdomen Limited: right renal as well [facility] 01/13 08:03 Order name: US Transvaginal Ob [facility] 01/13 08:21 Order name: Urine Dipstick--Ancillary (enter results) 01/13 08:21 Order name: Urine --Ancillary (enter results) 01/13 08:22 Order name: Urine Culture [facility] 01/13 10:19 Order name: Urine --Ancillary; Complete Time: 11:07 [facility] 01/13 10:19 Order name: Urine Dipstick-Ancillary; Complete Time: 11:07 [facility] 01/13 08:03 Order name: IV Saline Lock; Complete Time: 09:[address] [facility] 01/13 08:03 Order name: Labs collected and sent; Complete Time: 09:[address] [facility] 01/13 08:03 Order name: Urine Test (obtain specimen); Complete Time: 08:[address] [facility] 01/13 08:03 Order name: NPO; Complete Time: 08:[address] [facility] 01/13 08:03 Order name: Urine Dipstick-Ancillary (obtain specimen); Complete Time: 08:[address] [facility] 01/13 11:35 Order name: EDPA 01/13 11:37 Order name: [facility] Administered Medications: 08:30 Drug: NS 0.9% 1000 ml Route: IV; Rate: 1 bolus; Site: right antecubital; ph 10:30 Follow up: Response: No adverse reaction; IV Status: Completed infusion; IV Intake: ph 1000ml 08:30 Drug: Zofran 4 mg Route: IVP; Site: right antecubital; ph 09:00 Follow up: Response: No adverse reaction; Nausea is decreased ph 08:32 Drug: fentaNYL (PF) 50 mcg Route: IVP; Site: right antecubital; ph 09:00 Follow up: Response: No adverse reaction; Pain is decreased; RASS: Alert and Calm (0) ph 09:00 Drug: fentaNYL (PF) 50 mcg Route: IVP; Site: right antecubital; ph 09:15 Follow up: Response: No adverse reaction; Pain is decreased; RASS: Alert and Calm (0) ph 09:53 Drug: morphine 4 mg Route: IVP; Site: right antecubital; ph 10:30 Follow up: Response: No adverse reaction; Pain is decreased; RASS: Alert and Calm (0) ph 09:55 Drug: Zofran 4 mg Route: IVP; Site: right antecubital; ph 10:30 Follow up: Response: No adverse reaction; Nausea is decreased; Vomiting decreased ph 11:42 Drug: Rocephin 1 grams Route: IV; Rate: per protocol; Site: right antecubital; ph 11:50 Follow up: Response: No adverse reaction; IV Status: Completed infusion ph 13:36 Not Given (Physician Discretion): NS 0.9% 1000 ml IV at 1 bolus Per protocol; 1000 mL ph bolus 13:37 Not Given (Other Intervention Used): NS 0.9% 1000 ml IV at 125 ml/hr continuous ph Disposition: 01/13/19 11:22 Discharged to Home. Impression: Hydronephrosis with renal and ureteral calculous obstruction, related conditions, unspecified, first trimester, Abdominal tenderness, Cholelithiasis, Urinary tract infection, site not specified. - Condition is Stable. - Discharge Instructions: Abdominal Pain, Adult, Abdominal Pain During , Kidney Stones, Nausea and Vomiting, Adult, Urinary Tract Infection, Adult, First Trimester of , [id number], Kidney Stones, [id number], Urinary Tract Infection, Adult, Dlrw-[id number]-Alah, Abdominal Pain, Adult, Lznq-[id number], Hydronephrosis, First Trimester of , Pelvic Rest. - Prescriptions for Augmentin 875- 125 mg Oral Tablet - take 1 tablet by ORAL route every 12 hours for 10 days; 20 tablet. Vitamin 27- 0.8 mg Oral Tablet - take 1 tablet by ORAL route once daily; 30 tablet. Zofran 4 mg Oral Tablet - take 1 tablet by ORAL route every 12 hours As needed; 20 tablet. Diclegis 10- 10 mg Oral tablet,delayed release (DR/EC) - take 1 tablet by ORAL route 3 times per day and 2 tablets at bedtime; 60 tablet. - Medication Reconciliation Form, Thank You Letter, Antibiotic Education, Prescription Opioid Use form. - Follow up: Sterling Edward; When: 2 - 3 days; Reason: Recheck today's complaints, Continuance of care, Re-evaluation by your physician. Follow up: Nikhil Sheppard; When: 2 - 3 days; Reason: Recheck today's complaints, Re-evaluation by your physician. - Problem is new. - Symptoms have improved. Signatures: Dispatcher [employer] EDMS Fabien Green MD MD cha Smirch, Shelby, RN RN ss Livier Rojas RN RN ph Corrections: (The following items were deleted from the chart) 07:59 07:58 Social history: Smoking status: Patient uses tobacco products, smokes one pack ss cigarettes per day. 07:59 07:59 Allergies: Codeine; [facility] 07:59 07:59 Home Meds: None; [facility] 07:59 07:59 PMHx: Kidney stones; [facility] 07:59 07:59 PSHx: None; [facility] 11:43 11:22 01/13/2019 11:22 Discharged to Home. Impression: Hydronephrosis with renal and ph ureteral calculous obstruction; related conditions, unspecified, first trimester; Abdominal tenderness; Cholelithiasis; Urinary tract infection, site not specified. Condition is Stable. Discharge Instructions: Abdominal Pain, Adult, Abdominal Pain During , Kidney Stones, Nausea and Vomiting, Adult, Urinary Tract Infection, Adult, First Trimester of , Kywz-ud-Tacw, Kidney Stones, Nfah-co-Ygvx, Urinary Tract Infection, Adult, Zrkl-tz-Yzqo, Abdominal Pain, Adult, Ttuo-oh-Muyb, Hydronephrosis, First Trimester of , Pelvic Rest. Prescriptions for Augmentin 875-125 mg Oral Tablet - take 1 tablet by ORAL route every 12 hours for 10 days; 20 tablet, Vitamin 27-0.8 mg Oral Tablet - take 1 tablet by ORAL route once daily; 30 tablet, Zofran 4 mg Oral Tablet - take 1 tablet by ORAL route every 12 hours As needed; 20 tablet. and Forms are Medication Reconciliation Form, Thank You Letter, Antibiotic Education, Prescription Opioid Use. Follow up: Sterling Edward; When: 2 - 3 days; Reason: Recheck today's complaints, Continuance of care, Re-evaluation by your physician. Follow up: Nikhil Sheppard; When: 2 - 3 days; Reason: Recheck today's complaints, Re-evaluation by your physician. Problem is new. Symptoms have improved. abdullahi
--- NOTE | 2019-01-13 11:23 | ER ---
Nurse's Notes [facility] Name: Gideon Chapa Age: 28 yrs Sex: Female : 1990 Arrival Date: 01/13/2019 Time: 07:46 Bed 20 Private MD: Sterling Edward Diagnosis: Hydronephrosis with renal and ureteral calculous obstruction; related conditions, unspecified, first trimester;Abdominal tenderness;Cholelithiasis;Urinary tract infection, site not specified Presentation: 01/13 07:55 Transition of care: patient was not received from another setting of care. Onset of ph symptoms. Risk Assessment: Do you want to hurt yourself or someone else? Patient reports no desire to harm self or others. Care prior to arrival: None. 07:58 Presenting complaint: Patient states: RLQ pain and nausea that began at 0600 this AM . ss Patient states, "it feels like it's a kidney stone." Pt also reports she is 6 weeks . Initial Sepsis Screen: Does the patient meet any 2 criteria? HR > 90 bpm. Does the patient have a suspected source of infection? No. Patient's initial sepsis screen is negative. 07:58 Method Of Arrival: Ambulatory 07:58 Acuity: AGUSTO 3 ss PERFORMING ARTIST: 08:00 LMP 12/01/2018 Historical: - Allergies: 07:58 Codeine; ph - Home Meds: 08:00 None [Active]; ss - PMHx: 07:58 GALLSTONES; Hypertension; Kidney stones; ph - PSHx: 08:00 None; ss - Immunization history:: Adult Immunizations unknown, Adult Immunizations up to date. - Social history:: Smoking status: Patient uses tobacco products, smokes one pack cigarettes per day. - Ebola Screening: : No symptoms or risks identified at this time Patient denies exposure to infectious person Patient denies travel to an Ebola-affected area in the 21 days before illness onset. Screenin:59 Abuse screen: Denies threats or abuse. Denies injuries from another. Nutritional ph screening: No deficits noted. Tuberculosis screening: No symptoms or risk factors identified. Fall Risk None identified. Assessment: 08:00 General: Appears in no apparent distress. uncomfortable, obese, well groomed, Behavior ph is calm, cooperative, appropriate for age, Denies fever, chills. Pain: Complains of pain in posterior aspect of right lateral abdomen Pain radiates to right lower quadrant. Neuro: Level of Consciousness is awake, alert, obeys commands, Oriented to person, place, time, situation. Cardiovascular: Capillary refill < 3 seconds in bilateral fingers Patient's skin is warm and dry. Respiratory: Airway is patent Respiratory effort is even, unlabored. GI: Abdomen is round non-distended, Bowel sounds present X 4 quads. Reports lower abdominal pain, nausea, vomiting. : Reports pain in right flank(s), lower quadrant(s) in lower back Denies cramping in suprapubic area vaginal bleeding. Derm: Skin is intact, Skin is pink, warm \\T\\ dry. Musculoskeletal: Circulation, motion, and sensation intact. Range of motion: intact in all extremities. 09:00 Reassessment: Patient appears in no apparent distress at this time. Patient and/or ph family updated on plan of care and expected duration. Pain level reassessed. Patient is alert, oriented x 3, equal unlabored respirations, skin warm/dry/pink. 09:45 Reassessment: Pt reports that pain has returned and has moved to RLQ/groin area, also ph noted to be actively vomiting ERP notified, see MAR. 09:59 Reassessment: Patient appears in no apparent distress at this time. Patient and/or ph family updated on plan of care and expected duration. Pain level reassessed. Patient is alert, oriented x 3, equal unlabored respirations, skin warm/dry/pink. Pt reports that pain has improved after IV meds, denies nausea at this time, awaiting lab results and US. Vital Signs: 08:00 BP 133 / 85; Pulse 99; Resp 16; Temp 97.5(O); Pulse Ox 97% on R/A; Weight 112.04 kg; ss Height 5 ft. 8 in. (172.72 cm); Pain 10/10; 09:00 BP 115 / 82; Pulse 97; Resp 18; Pulse Ox 99% on R/A; ph 10:02 BP 104 / 78; Pulse 95; Resp 16; Pulse Ox 96% on R/A; ph 11:30 BP 119 / 78; Pulse 94; Resp 18; Temp 97.8; Pulse Ox 99% on R/A; Pain 3/10; ph 08:00 Body Mass Index 37.56 (112.04 kg, 172.72 cm) ED Course: 07:46 Patient arrived in ED. mr 07:46 Sterling Edward MD is Private Physician. mr 07:50 Fabien Green MD is Attending Physician. abdullahi 07:51 Livier Rojas RN is Primary Nurse. ph 07:58 Triage completed. ss 08:00 Arm band placed on right wrist. ss 08:30 Inserted saline lock: 22 gauge in right antecubital area, using aseptic technique. ph 09:59 Patient has correct armband on for positive identification. Placed in gown. Bed in low ph position. Call light in reach. Side rails up X 1. Pulse ox on. NIBP on. Door closed. Noise minimized. Lights dimmed. Warm blanket given. Pillow given. Head of bed lowered. 11:22 Sterling Edward MD is Referral Physician. abdullahi 11:22 Nikhil Sheppard MD is Referral Physician. abdullahi 11:40 Assist provider with bone marrow aspiration. IV discontinued, intact, bleeding ph controlled, No redness/swelling at site. Pressure dressing applied. Administered Medications: 08:30 Drug: NS 0.9% 1000 ml Route: IV; Rate: 1 bolus; Site: right antecubital; ph 10:30 Follow up: Response: No adverse reaction; IV Status: Completed infusion; IV Intake: ph 1000ml 08:30 Drug: Zofran 4 mg Route: IVP; Site: right antecubital; ph 09:00 Follow up: Response: No adverse reaction; Nausea is decreased ph 08:32 Drug: fentaNYL (PF) 50 mcg Route: IVP; Site: right antecubital; ph 09:00 Follow up: Response: No adverse reaction; Pain is decreased; RASS: Alert and Calm (0) ph 09:00 Drug: fentaNYL (PF) 50 mcg Route: IVP; Site: right antecubital; ph 09:15 Follow up: Response: No adverse reaction; Pain is decreased; RASS: Alert and Calm (0) ph 09:53 Drug: morphine 4 mg Route: IVP; Site: right antecubital; ph 10:30 Follow up: Response: No adverse reaction; Pain is decreased; RASS: Alert and Calm (0) ph 09:55 Drug: Zofran 4 mg Route: IVP; Site: right antecubital; ph 10:30 Follow up: Response: No adverse reaction; Nausea is decreased; Vomiting decreased ph 11:42 Drug: Rocephin 1 grams Route: IV; Rate: per protocol; Site: right antecubital; ph 11:50 Follow up: Response: No adverse reaction; IV Status: Completed infusion ph 13:36 Not Given (Physician Discretion): NS 0.9% 1000 ml IV at 1 bolus Per protocol; 1000 mL ph bolus 13:37 Not Given (Other Intervention Used): NS 0.9% 1000 ml IV at 125 ml/hr continuous ph Intake: 10:30 IV: 1000ml; Total: 1000ml. ph Outcome: 11:22 Discharge ordered by . abdullahi 11:43 Patient left the ED. ph 11:43 Discharged to home ambulatory, with significant other. ph 11:43 Condition: improved 11:43 Discharge instructions given to patient, Instructed on discharge instructions, follow up and referral plans. medication usage, Demonstrated understanding of instructions, follow-up care, medications, Prescriptions given X 4. Signatures: Fabien Green MD MD cha Rivera, Mary mr Smirch, Shelby, ENOC RN Livier Rojas RN RN ph Corrections: (The following items were deleted from the chart) 07:59 07:58 Social history: Smoking status: Patient uses tobacco products, smokes one pack ss cigarettes per day. 07:59 07:59 Allergies: Codeine; [facility] 07:59 07:59 Home Meds: None; [facility] 07:59 07:59 PMHx: Kidney stones; [facility] 07:59 07:59 PSHx: None; [facility]
[2019-01-13] MEDS ORDERED: CEFTRIAXONE/SWI 1gm 1 GM/10 ML SYR ONE (11:32)
--- NOTE | 2019-01-13 11:32 | RAD REPORT ---
EXAM DESCRIPTION: US - Abdomen Exam Limited - 01/13/2019 11:13 am CLINICAL HISTORY: Abdominal pain. COMPARISON: None. FINDINGS: Multiple gallstones are present. The gallbladder wall is not thickened. The biliary tree is normal caliber. Mild right hydronephrosis Fatty liver suspected IMPRESSION: Cholelithiasis Mild right hydronephrosis
--- NOTE | 2019-01-13 11:35 | RAD REPORT ---
EXAM DESCRIPTION: US - Transvaginal OB - 01/13/2019 11:13 am CLINICAL HISTORY: with pelvic pain COMPARISON: None. FINDINGS: The uterus 10 x 5 x 5 centimeters. A 4 millimeter sac is present within the endometrium. A yolk sac is not seen. A pole is not demonstrated Neither ovary was visualized. . An adnexal mass is not noted. No significant free fluid IMPRESSION: 4 millimeter sac within the endometrium may represent an intrauterine in which the pole is not seen secondary to the early gestation. Estimated gestational age would be 5 we eks 1 day AUSTEN 09/14/2019 Incomplete and even a pseudo gestational sac associated with an ectopic can also r esult in this appearance This all should be correlated clinically and with serial beta HCG levels. Followup endovaginal sonogr am in 1 week recommended
[2019-01-13 12:13] VITALS: TEMP 97.5
[2019-01-13 12:15] VITALS: BP 104/78; O2SAT 96
== END 2019-01-13 11:43 | disposition home or self-care (01) ==
LOC: ER 07:44
DX: O23.41 Unspecified infection of urinary tract in pregnancy, first trimester (principal); O99.611 Diseases of the digestive system complicating pregnancy, first trimester; O99.331 Smoking (tobacco) complicating pregnancy, first trimester; O99.89 Other specified diseases and conditions complicating pregnancy, childbirth and the puerperium; F17.210 Nicotine dependence, cigarettes, uncomplicated; N13.2 Hydronephrosis with renal and ureteral calculous obstruction; Z3A.01 Less than 8 weeks gestation of pregnancy; Z88.5 Allergy status to narcotic agent
CPT/HCPCS: 96361; 87088; 85025; 87086; 80048; 36415; 86900; 81025; 86901; 80076; 84702; 81003; 83690; 76705; 76817; 96375; 96374; 99284; J3010; J0696; J7030 ×2; J2405 ×2

== ENCOUNTER 2022-01-08 22:52 | Emergency (ER) | payer OTHER ==
--- OUTSIDE RECORDS SUMMARY | 2022-01-08 23:01 | XMS REPORT | Continuity of Care Document ---
:1990 Author Organization [facility] t Address [address] [place] [address] Care Team Providers Name Role Phone CHENTE NARANJO Primary Care Physician Unavailable CHENTE NARANJO Attending Clinician Unavailable Neel Contreras DO Attending Clinician Jose A [facility] Attending Clinician [phone] Jeanette Mitchell Attending Clinician JEANETTE LIVE Attending Clinician Unavailable Marcia Scott MD Attending Clinician Adin STUBBS, Maddi Davis Attending Clinician Unavailable Risk, Urp-Kcoig-Lr/High Attending Clinician Unavailable Candace Catarina PERKINS Attending Clinician [place] PERKINS Attending Clinician Doctor Unassigned, [place] Attending Clinician Unavailable Ultrasound, Ang-Mfm Attending Clinician Unavailable Hollis Soliman Attending Clinician Ben BARR, Zenia Mccoy Attending Clinician HOLLIS COHEN Attending Clinician Unavailable Jerilyn Alexnader MD Attending Clinician MERLYN RUBIN Attending Clinician Unavailable Merlyn Rubin MD Attending Clinician Buck STUBBS, China Wood Attending Clinician Unavailable Peggy STUBBS, Antonieta [place] Attending Clinician Unavailable Jose BARR, Roberto Dolan Attending Clinician ROBERTO LOBATO Attending Clinician Unavailable Faculty, Dean Marp Mfm Attending Clinician Unavailable Daina Castro Attending Clinician Jamari Hoang MD Attending Clinician MERLYN RUBIN Admitting Clinician Unavailable Tyler BARR, Marcia Admitting Clinician Merlyn Rubin MD Admitting Clinician Payers Payer Name Policy Type Policy Number Effective Date Expiration Date Katy gaston [facility] [id number] 2019 [facility] MEDICAID 00:00:00 [employer] [id number] 2021 OUT OF NETWORK 00:00:00 Problems Condition Condition Condition Status Onset Resolution Last Treating Co mments Source Name Details Category Date Date Treatment Clinician Date Other Other Disease Active 2020-0 Univers general general 9-04 ity of counseling [place] and advice and advice 00 [facility]ical for [facility] contracept contracept abram abram management management Obesity Obesity Disease Active 2020-0 Univers (BMI (BMI 9-04 ity of 30-39.9) 30-39.9) 00:00: [place] [facility] 39 weeks 39 weeks Disease Active 2020-0 Unive rs gestation gestation 7-15 ity of of of 00:00: [place] 00 [facility] BMI BMI Disease Active 2020-0 Univers 36.0-36.9, 36.0-36.9, 6-08 it y of adult adult 00:00: [place] [facility] Pain of Pain of Disease Active 2020-0 Univers round round 5-19 ity of ligament ligament 00:00: [place] during during 00 Medical Bran ch History of History of Disease Active 2020-0 Overview : Univers oligohydra oligohydra 4-21 Reports i ty of mnios mnios 00:00: with last Medical Branch Heartburn Heartburn Disease Active 2020-0 Uni vers during during 4-06 [place] of [place] [facility] [place] History of History of Disease Active 2020-0 U nivers asthma asthma 1-09 ity of 00:00: [place] [facility] Pregestati Pregestati Disease Active 2018-02 Overview : Univers onal onal 2-02 Failed ity of diabetes diabetes 00:00: 3hr gtt [place] mellitus, mellitus, 00 Medi edinson modified modified Branch White White class B class B Rh Rh Disease Active 2018-02 Overview: Univer s negative negative 03-13 Rhogam at ity of state in state in 00:00: 28 weeks [place] antepartum antepartum 00 Me dical period period Branch Rubella Rubella Disease Active 2018-02 Overview: Univ ers non-immune non-immune 03-13 Address i ty of status, status, 00:00: pp [place] antepartum antepartum 00 Me dical Branch Obesity in Obesity in Disease Active 2018-02 U nivers -25 ity of 00:00: [place] [facility] Multiparit Multiparit Disease Active 2018-02 U nivers y y -25 ity of 00:00: [place] [facility] Branch Supervisio Supervisio Disease Active 2018-02 U nivers n of high n of high -25 ity of risk risk 00:00: [place] , , 00 Me dical antepartum antepartum Br anch History of History of Disease Active U nivers pre-eclamp pre-eclamp 7-29 it y of luke luke 00:00: [place] [address] Medical Branch History of History of Disease Active U nivers anxiety anxiety 3-15 ity of 00:00: [place] 00 [facility] Allergies, Adverse Reactions, Alerts Allergy Allergy Status Severity Reaction(s) Onset Inactive Treating Comm ents Source Name Type Date Date Clinician CODEINE DRUG Active N/V 2014-02 Univers INGREDI 0-15 ity of 00:00: [place] 00 [facility] Codeine Propensi Active Rash 2014-02 Univers ty to 0-15 ity of adverse 00:00: [place] reaction 00 Medical s [place] Social History Social Habit Start Date Stop Date Quantity Comments Source ASSERTION 2018-12-15 University of 00:00:00 [facility] History of tobacco 2007-01-10 Cigarette Smoker University of use 00:00:00 [facility] Exposure to Not sure University of SARS-CoV-2 (event) [facility] Tobacco use and 2019-10-21 2019-10-21 Never used Universit y of exposure 00:00:00 00:00:00 [facility] Cigarettes smoked 2019-10-21 2019-10-21 Univers ity of current (pack per 00:00:00 00:00:00 ) - Reported Branch Cigarette 2019-10-21 2019-10-21 University of pack-years 00:00:00 00:00:00 [facility] Alcohol intake 2019-10-21 2019-10-21 Current University of 00:00:00 00:00:00 non-drinker of [facility] alcohol Branch (finding) Sex Ass[birth year] At [birth year] Universit y of 00:00:00 00:00:00 [facility] Smoking Status Start Date Stop Date Source Current every day smoker 2019-10-21 00:00:00 Uni versity of [facility] Medications Ordered Filled Start Stop Current Ordering Indication Dosage Frequency Signature Comments Components Source Medication Medication Date Date Medication? Clinician (SIG) Name Name norethindro 2020-0 Yes [id number] 1{tbl} Take 1 Univers ne-ethinyl 9-04 tablet by ity of estradiol 00:00: mouth [place] (LOESTRIN 00 daily. Medical ,) Branch 1-20 mg-mcg per tablet norethindro 2020-0 Yes [id number] 1{tbl} Take 1 Univers ne-ethinyl 9-04 tablet by ity of estradiol 00:00: mouth [place] (LOESTRIN 00 daily. Medical ,) Branch 1-20 mg-mcg per tablet norethindro 2020-0 Yes [id number] 1{tbl} Take 1 Univers ne-ethinyl 9-04 tablet by ity of estradiol 00:00: mouth [place] (LOESTRIN 00 daily. Medical ,) Branch 1-20 mg-mcg per tablet metFORMIN 2020-0 Yes 500mg 500 mg, Univ ers (GLUCOPHAGE 7-17 Oral, QAM ity of ) tablet 13:00: WITH [place] 500 mg 00 BREAKFAST, Medical First dose Branch on Thu09/02/19 at 0800, Until Discontinu ed, Routine PNV 2019-0 2020- No Take by [facility] [place] [facility] no.153/FA/o 7-17 07-17 mouth. ity o f m3/dha/epa/ 11:13: 00:00 [place] fish 01 :00 Medical ( Branch GUMMIES ORAL) 2020-0 Yes [id number] 1{tbl} Take 1 Univers vitamin 7-17 tablet by ity of w/FA tablet 00:00: mouth [place] 00 daily. Medical Branch docusate 2020-0 Yes [id number] 240mg Take 1 U nivers calcium 240 7-17 capsule by it y of mg capsule 00:00: mouth once [place] 00 daily as Medical needed for Branch Constipati on. ferrous 2020-0 Yes [id number] 325mg Take 1 Un [place] sulfate 325 7-17 tablet by ity of mg (65 mg 00:00: mouth 2 [place] iron) 00 (two) Medical tablet times Branch daily. ibuprofen 2020-0 Yes [id number] 600mg Take 1 Univers 600 mg 7-17 tablet by ity of tablet 00:00: mouth [place] 00 every 6 Medical (six) Branch hours as needed (Pain). Take with food or milk. 2020-0 Yes [id number] 1{tbl} Take 1 Univers vitamin 7-17 tablet by ity of w/FA tablet 00:00: mouth [place] 00 daily. Medical Branch docusate 2020-0 Yes [id number] 240mg Take 1 U nivers calcium 240 7-17 capsule by it y of mg capsule 00:00: mouth once [place] 00 daily as Medical needed for Branch Constipati on. ferrous 2020-0 Yes [id number] 325mg Take 1 Un [place] sulfate 325 7-17 tablet by ity of mg (65 mg 00:00: mouth 2 [place] iron) 00 (two) Medical tablet times Branch daily. ibuprofen 2020-0 Yes [id number] 600mg Take 1 Univers 600 mg 7-17 tablet by ity of tablet 00:00: mouth [place] 00 every 6 Medical (six) Branch hours as needed (Pain). Take with food or milk. 2020-0 Yes [id number] 1{tbl} Take 1 Univers vitamin 7-17 tablet by ity of w/FA tablet 00:00: mouth [place] 00 daily. Medical Branch ferrous 2020-0 Yes [id number] 325mg Take 1 Un [place] sulfate 325 7-17 tablet by ity of mg (65 mg 00:00: mouth 2 [place] iron) 00 (two) Medical tablet times Branch daily. ibuprofen 2020-0 Yes [id number] 600mg Take 1 Univers 600 mg 7-17 tablet by ity of tablet 00:00: mouth [place] 00 every 6 Medical (six) Branch hours as needed (Pain). Take with food or milk. 2020-0 Yes [id number] 1{tbl} Take 1 Univers vitamin 7-17 tablet by ity of w/FA tablet 00:00: mouth [place] 00 daily. Medical Branch ferrous 2020-0 Yes [id number] 325mg Take 1 Un [place] sulfate 325 7-17 tablet by ity of mg (65 mg 00:00: mouth 2 [place] iron) 00 (two) Medical tablet times Branch daily. ibuprofen 2020-0 Yes [id number] 600mg Take 1 Univers 600 mg 7-17 tablet by ity of tablet 00:00: mouth [place] 00 every 6 Medical (six) Branch hours as needed (Pain). Take with food or milk. 2020-0 Yes [id number] 1{tbl} Take 1 Univers vitamin 7-17 tablet by ity of w/FA tablet 00:00: mouth [place] 00 daily. Medical Branch ferrous 2020-0 Yes [id number] 325mg Take 1 Un [place] sulfate 325 7-17 tablet by ity of mg (65 mg 00:00: mouth 2 [place] iron) 00 (two) Medical tablet times Branch daily. ibuprofen 2020-0 Yes [id number] 600mg Take 1 Univers 600 mg 7-17 tablet by ity of tablet 00:00: mouth [place] 00 every 6 Medical (six) Branch hours as needed (Pain). Take with food or milk. 2020-0 Yes [id number] 1{tbl} Take 1 Univers vitamin 7-17 tablet by ity of w/FA tablet 00:00: mouth [place] 00 daily. Medical Branch ferrous 2020-0 Yes [id number] 325mg Take 1 Un [place] sulfate 325 7-17 tablet by ity of mg (65 mg 00:00: mouth 2 [place] iron) 00 (two) Medical tablet times Branch daily. ibuprofen 2020-0 Yes [id number] 600mg Take 1 Univers 600 mg 7-17 tablet by ity of tablet 00:00: mouth [place] 00 every 6 Medical (six) Branch hours as needed (Pain). Take with food or milk. 2020-0 Yes [id number] 1{tbl} Take 1 Univers vitamin 7-17 tablet by ity of w/FA tablet 00:00: mouth [place] 00 daily. Medical Branch ferrous 2020-0 Yes [id number] 325mg Take 1 Un [place] sulfate 325 7-17 tablet by ity of mg (65 mg 00:00: mouth 2 [place] iron) 00 (two) Medical tablet times Branch daily. ibuprofen 2020-0 Yes [id number] 600mg Take 1 Univers 600 mg 7-17 tablet by ity of tablet 00:00: mouth [place] 00 every 6 Medical (six) Branch hours as needed (Pain). Take with food or milk. 2020-0 Yes [id number] 1{tbl} Take 1 Univers vitamin 7-17 tablet by ity of w/FA tablet 00:00: mouth [place] 00 daily. Medical Branch ferrous 2020-0 Yes [id number] 325mg Take 1 Un [place] sulfate 325 7-17 tablet by ity of mg (65 mg 00:00: mouth 2 [place] iron) 00 (two) Medical tablet times Branch daily. ibuprofen 2020-0 Yes [id number] 600mg Take 1 Univers 600 mg 7-17 tablet by ity of tablet 00:00: mouth [place] 00 every 6 Medical (six) Branch hours as needed (Pain). Take with food or milk. 2020-0 Yes [id number] 1{tbl} Take 1 Univers vitamin 7-17 tablet by ity of w/FA tablet 00:00: mouth [place] 00 daily. Medical Branch ferrous 2020-0 Yes [id number] 325mg Take 1 Un [place] sulfate 325 7-17 tablet by ity of mg (65 mg 00:00: mouth 2 [place] iron) 00 (two) Medical tablet times Branch daily. ibuprofen 2020-0 Yes [id number] 600mg Take 1 Univers 600 mg 7-17 tablet by ity of tablet 00:00: mouth [place] 00 every 6 Medical (six) Branch hours as needed (Pain). Take with food or milk. 2020-0 Yes [id number] 1{tbl} Take 1 Univers vitamin 7-17 tablet by ity of w/FA tablet 00:00: mouth [place] 00 daily. Medical Branch ferrous 2020-0 Yes [id number] 325mg Take 1 Un [place] sulfate 325 7-17 tablet by ity of mg (65 mg 00:00: mouth 2 [place] iron) 00 (two) Medical tablet times Branch daily. ibuprofen 2020-0 Yes [id number] 600mg Take 1 Univers 600 mg 7-17 tablet by ity of tablet 00:00: mouth [place] 00 every 6 Medical (six) Branch hours as needed (Pain). Take with food or milk. 2020-0 Yes [id number] 1{tbl} Take 1 Univers vitamin 7-17 tablet by ity of w/FA tablet 00:00: mouth [place] 00 daily. Medical Branch ferrous 2020-0 Yes [id number] 325mg Take 1 Un [place] sulfate 325 7-17 tablet by ity of mg (65 mg 00:00: mouth 2 [place] iron) 00 (two) Medical tablet times Branch daily. ibuprofen 2019-0 Yes [id number] 600mg Take 1 Univers 600 mg 7-17 tablet by ity of tablet 00:00: mouth [place] 00 every 6 Medical (six) Branch hours as needed (Pain). Take with food or milk. metFORMIN 2019- 2020- No [id number] 500mg Take 1 Univers 500 mg 7-17 -16 tablet by ity of tablet 00:00: 04:59 mouth [place] 00 :00 daily with Medical breakfast Branch for 60 days. metFORMIN 2019-0 2020- No [id number] 500mg Take 1 Univers 500 mg 7-17 -16 tablet by ity of tablet 00:00: 04:59 mouth [place] 00 :00 daily with Medical breakfast Branch for 60 days. docusate 2019- 2020- No [id number] 240mg Take 1 Univers calcium 240 7-17 08-20 capsule by i ty of mg capsule 00:00: 00:00 mouth once [place] 00 :00 daily as Medical needed for Branch Constipati on. metFORMIN 2019- 2020- No [id number] 500mg Take 1 Univers 500 mg 7-17 08-20 tablet by ity of tablet 00:00: 00:00 mouth [place] 00 :00 daily with Medical breakfast Branch for 60 days. human 2019-0 Yes .5mL 0.5 mL, Univers papillomav -16 Intramuscu ity of vac,9-deb(P 10:46: lar, [place] F) 54 ONCE-PRIOR Medical (GARDASIL-9 TO Branch ) syringe DISCHARGE, 0.5 mL 1 dose, Starting [place] 09/01/19 at 0546, Until Discontinu ed, Routine, Give vaccine prior to discharge rho(D) 0 Yes 300ug 300 mcg, Univer s immune 7-16 Intramuscu ity of globulin 09:57: lar, ONCE, [place]hav[place] as (RHOGAM) 09 For 1 Medical syringe 300 dose, Branch mcg Conditiona l, Routine ibuprofen 0 Yes 600mg 600 mg, Univ ers (IBU) 7-16 Oral, ity of tablet 600 09:57: Q6HPRN, [place] mg 05 Starting Medical [place] Branch 09/01/19 at 0457, Until Discontinu ed, Routine, Pain (scale 4-6) diphenhydrA 2020-0 Yes 25mg 25 mg, IV U nivers MINE-0.9 % 08-31 Piggyback, ity of sod.chlr 09:57: Administer [place] as (BENADRYL) 05 over 30 Medica l 25 mg/50 mL Minutes, Bran ch piggyback Q6HPRN, 25 mg Starting [place] 09/01/19 at 0457, Until Discontinu ed, Routine, Itching ondansetron 2020-0 Yes 4mg 4 mg, Slow Univers (ZOFRAN 08-31 IV Push, ity of (PF)) 09:57: Q8HPRN, [place] injection 4 05 Starting Medi edinson mg [place] Branch 09/01/19 at 0457, Until Discontinu ed, Routine, Nausea and Vomiting (N/V) simethicone 2020-0 Yes 160mg 160 mg, Un [place] (GAS RELIEF 08-31 Oral, ity of (SIMETHICON 09:57: PC+HSPRN, [place] E)) 05 Starting Medical chewable [place] Branch tablet 160 09/01/19 at mg 0457, Until Discontinu ed, Routine, Gas docusate 2020-0 Yes 240mg 240 mg, Unive rs calcium 08-31 Oral, ity of (SURFAK) 09:57: QDAILYPRN, [place] capsule 240 05 Starting Medi edinson mg [place] Branch 09/01/19 at 0457, Until Discontinu ed, Routine, Constipati on magnesium 2020-0 Yes 30mL 30 mL, Univer s hydroxide 08-31 Oral, ity of (MILK OF 09:57: QDAILYPRN, [place] MAGNESIA) 05 Starting Medica l 400 mg/5 mL [place] Branch suspension 09/01/19 at 30 mL 0457, Until Discontinu ed, Routine, Constipati on acetaminoph 2020-0 Yes 650mg 650 mg, Un [place] en 08-31 Oral, ity of (TYLENOL) 09:57: Q6HPRN, [place] tablet 650 04 Starting Medic al mg [place] Branch 09/01/19 at 0457, Until Discontinu ed, Routine, Pain (scale 1-3) diphenhydrA 2020-0 Yes 25mg 25 mg, Univ ers MINE 08-31 Oral, ity of (BENADRYL) 09:57: Q6HPRN, [place] tablet 25 04 Starting Medica l mg [place] Branch 09/01/19 at 0457, Until Discontinu ed, Routine, Sleep, Itching benzocaine- 2020-0 Yes Topical, [place] menthol 16 PRN, ity of (DERMOPLAST 09:57: Starting [place] ) 20-0.5 % 04 [place] Medical topical 09/01/19 at Branch spray 0457, Until Discontinu ed, Routine, Perineum discomfort LR 1000 mL 2020-0 2020- No at 125 [facility] ers + oxytocin 08-31-16 mL/hr, IV ity of 20 units IV 07:15: 08:07 Infusion, [place] Solution 00 :00 ONCE, 1 Medical dose, [place] Branch 09/01/19 at 0215, Routine LR 1000 mL 2020-0 2020- No at 125 [facility] ers + oxytocin 08-31 07-16 mL/hr, IV ity of 20 units IV 07:15: 07:15 Infusion, [place] Solution 00 :00 ONCE, 1 Medical dose, [place] Branch 09/01/19 at 0215, Routine ondansetron 2019-0 2020- No 4mg 4 mg, Slow Univers (ZOFRAN 08-31 IV Push, ity of (PF)) 03:45: 02:45 ONCE, 1 [place] injection 4 00 :00 dose, Wed Med ical mg 08/31/19 at Branch 2245, Routine lactated 2020-0 2020- No 500mL at 999 Unive rs ringers IV 08-31-16 mL/hr, 500 it y of infusion 03:30: 02:49 mL, IV [place] 500 mL 00 :00 Infusion, Medical ONCE, 1 Branch dose, 08/31/19 at 2230, Routine sodium 2020-0 2020- No 30mL 30 mL, Univers citrate-cit 08-3116 Oral, ity of niall acid 02:25: 02:50 PRE-PROCED [place] (BICITRA) 22 :00 URE ONCE, Medic al 500-334 1 dose, Branch mg/5 mL Starting solution 30 Wed mL 08/31/19 at 2125, Until Discontinu ed, Routine, Surgery/Pr ocedure butorphanol 2019- 2020- No 1mg 1 mg, IV U nivers (STADOL) 08-30 Push, ity of injection 1 23:30: 23:05 ONCE, 1 [place] mg 00 :00 dose, [facility] Medical 08/31/19 at Branch 1830, Routine acetaminoph 2019-0 2020- No 650mg 650 mg, U nivers en 08-3015 Oral, ity of (TYLENOL) 19:45: 18:50 ONCE, 1 [place] tablet 650 00 :00 dose, Thu Medi edinson mg 08/31/19 at Branch 1445, Routine D5W-LR IV 2019-0 2020- No 1000mL at 125 Uni vers infusion 08-30 07-16 mL/hr, IV ity o f 1,000 mL 15:30: 09:57 Infusion, [place] as 00 :10 CONTINUOUS Medical , Starting Branch [facility] 08/31/19 at 1030, Until [place] 09/01/19 at 0457, Routine LR 1000 mL 2019-0 2020- No 2mU/min at 6-120 Univers + oxytocin 08-30 07-16 mL/hr, IV ity of 20 units IV 15:26: 09:57 Infusion, [place] Solution 06 :10 TITRATE, Medical Starting Branch [facility] 08/31/19 at 1026, Until [place] 09/01/19 at 0457, CARLOS PNV 2019-0 Yes Take by Univers no.153/FA/o 08-30 mouth. ity of m3/dha/epa/ 12:47: [place] fish 48 Medical ( Branch GUMMIES ORAL) glyBURIDE 2020-0 Yes [id number] 2.5mg Take 1 U nivers 2.5 mg 6-04 tablet by ity of tablet 00:00: mouth at [place] 00 bedtime. Medical Branch glyBURIDE 2020-0 Yes [id number] 2.5mg Take 1 U nivers 2.5 mg 6-04 tablet by ity of tablet 00:00: mouth at [place] 00 bedtime. Medical Branch glyBURIDE 2020-0 Yes [id number] 2.5mg Take 1 U nivers 2.5 mg 6-04 tablet by ity of tablet 00:00: mouth at [place] 00 bedtime. Medical Branch glyBURIDE 2020-0 Yes [id number] 2.5mg Take 1 U nivers 2.5 mg 6-04 tablet by ity of tablet 00:00: mouth at [place] [address] bedtime. Medical Branch glyBURIDE 2020-0 Yes [id number] 2.5mg Take 1 U nivers 2.5 mg 6-04 tablet by ity of tablet 00:00: mouth at [place] [address] bedtime. Medical Branch glyBURIDE 2020-0 Yes [id number] 2.5mg Take 1 U nivers 2.5 mg 6-04 tablet by ity of tablet 00:00: mouth at [place] [address] bedtime. Medical Branch glyBURIDE 2020-0 Yes [id number] 2.5mg Take 1 U nivers 2.5 mg 6-04 tablet by ity of tablet 00:00: mouth at [place] [address] bedtime. Medical Branch glyBURIDE 2020-0 Yes [id number] 2.5mg Take 1 U nivers 2.5 mg 6-04 tablet by ity of tablet 00:00: mouth at [place] [address] bedtime. Medical Branch glyBURIDE 2020-0 Yes [id number] 2.5mg Take 1 U nivers 2.5 mg 6-04 tablet by ity of tablet 00:00: mouth at [place] [address] bedtime. Medical Branch glyBURIDE 2020-0 Yes [id number] 2.5mg Take 1 U nivers 2.5 mg 6-04 tablet by ity of tablet 00:00: mouth at [place] [address] bedtime. Medical Branch glyBURIDE 2020-0 Yes [id number] 2.5mg Take 1 U nivers 2.5 mg 6-04 tablet by ity of tablet 00:00: mouth at [place] [address] bedtime. Medical Branch glyBURIDE 2020-0 Yes [id number] 2.5mg Take 1 U nivers 2.5 mg 6-04 tablet by ity of tablet 00:00: mouth at [place] [address] bedtime. Medical Branch glyBURIDE 2020-0 Yes [id number] 2.5mg Take 1 U nivers 2.5 mg 6-04 tablet by ity of tablet 00:00: mouth at [place] [address] bedtime. Medical Branch glyBURIDE 2020-0 Yes [id number] 2.5mg Take 1 U nivers 2.5 mg 6-04 tablet by ity of tablet 00:00: mouth at [place] [address] bedtime. Medical Branch glyBURIDE 2020-0 Yes [id number] 2.5mg Take 1 U nivers 2.5 mg 6-04 tablet by ity of tablet 00:00: mouth at [place] [address] bedtime. Medical Branch glyBURIDE 2020-0 Yes [id number] 2.5mg Take 1 U nivers 2.5 mg 6-04 tablet by ity of tablet 00:00: mouth at [place] [address] bedtime. Medical Branch glyBURIDE 2020-0 Yes [id number] 2.5mg Take 1 U nivers 2.5 mg 6-04 tablet by ity of tablet 00:00: mouth at [place] [address] bedtime. Medical Branch glyBURIDE 2020-0 Yes [id number] 2.5mg Take 1 U nivers 2.5 mg 6-04 tablet by ity of tablet 00:00: mouth at [place] [address] bedtime. Medical Branch famotidine 2020-0 2020- No [id number] 20mg Take 1 Univers 20 mg 5-30 06-14 tablet by ity of tablet 00:00: 04:59 mouth 2 [place] 00 :00 (two) Medical times [place] daily for 14 days. famotidine 2020-0 2020- No [id number] 20mg Take 1 Univers 20 mg 5-30 06-14 tablet by ity of tablet 00:00: 04:59 mouth 2 [place] 00 :00 (two) Medical times [place] daily for 14 days. famotidine 2020-0 2020- No [id number] 20mg Take 1 Univers 20 mg 5-30 06-14 tablet by ity of tablet 00:00: 04:59 mouth 2 [place] 00 :00 (two) Medical times [place] daily for 14 days. famotidine 2020-0 2020- No [id number] 20mg Take 1 Univers 20 mg 5-30 06-14 tablet by ity of tablet 00:00: 04:59 mouth 2 [place] 00 :00 (two) Medical times [place] daily for 14 days. blood sugar 2020-0 Yes Test Univer s diagnostic 5-15 glucose x4 ity of strip 00:00: daily. [place] [facility] blood sugar 2020-0 Yes Test Univer s diagnostic 5-15 glucose x4 ity of strip 00:00: daily. [place] [facility] blood sugar 2020-0 Yes Test Univer s diagnostic 5-15 glucose x4 ity of strip 00:00: daily. [place] [facility] blood sugar 2020-0 Yes Test Univer s diagnostic 5-15 glucose x4 ity of strip 00:00: daily. [place] [facility] Branch blood sugar 2020-0 Yes Test Univer s diagnostic 5-15 glucose x4 ity of strip 00:00: daily. [place] [facility] blood sugar 2020-0 Yes Test Univer s diagnostic 5-15 glucose x4 ity of strip 00:00: daily. [place] [facility] blood sugar 2020-0 Yes Test Univer s diagnostic 5-15 glucose x4 ity of strip 00:00: daily. [place] [facility] blood sugar 2020-0 Yes Test Univer s diagnostic 5-15 glucose x4 ity of strip 00:00: daily. [place] [facility] blood sugar 2020-0 Yes Test Univer s diagnostic 5-15 glucose x4 ity of strip 00:00: daily. [place] [facility] blood sugar 2020-0 Yes Test Univer s diagnostic 5-15 glucose x4 ity of strip 00:00: daily. [place] [facility] blood sugar 2020-0 Yes Test Univer s diagnostic 5-15 glucose x4 ity of strip 00:00: daily. [place] [facility] blood sugar 2020-0 Yes Test Univer s diagnostic 5-15 glucose x4 ity of strip 00:00: daily. [place] [facility] blood sugar 2020-0 Yes Test Univer s diagnostic 5-15 glucose x4 ity of strip 00:00: daily. [place] [facility] blood sugar 2020-0 Yes Test Univer s diagnostic 5-15 glucose x4 ity of strip 00:00: daily. [place] [facility] blood sugar 2020-0 Yes Test Univer s diagnostic 5-15 glucose x4 ity of strip 00:00: daily. [place] [facility] blood sugar 2020-0 Yes Test Univer s diagnostic 5-15 glucose x4 ity of strip 00:00: daily. [place] [facility] Branch blood sugar 2020-0 Yes Test Univer s diagnostic 5-15 glucose x4 ity of strip 00:00: daily. [place] [facility] Branch blood sugar 2020-0 Yes Test Univer s diagnostic 5-15 glucose x4 ity of strip 00:00: daily. [place] [facility] Branch blood sugar 2020-0 Yes Test Univer s diagnostic 5-15 glucose x4 ity of strip 00:00: daily. [place] [facility] Branch blood sugar 2020-0 Yes Test Univer s diagnostic 5-15 glucose x4 ity of strip 00:00: daily. [place] [facility] Branch blood sugar 2020-0 Yes Test Univer s diagnostic 5-15 glucose x4 ity of strip 00:00: daily. Medical Branch blood sugar 2020-0 Yes Test Univer s diagnostic 5-15 glucose x4 ity of strip 00:00: daily. [place] [facility] blood sugar 2020-0 2020- No Test Unive rs diagnostic 5-15 08-20 glucose x4 it y of strip 00:00: 00:00 daily. [place] 00 :00 Medical Branch rho(D) 2020-0 2020- No [id number] 300ug Unive rs immune 5-05 05-05 ity of globulin 15:30: 14:24 [place] (RHOGAM) 00 :00 Medical syringe 300 Branch mcg rho(D) 2019-0 2020- No [id number] 300ug 300 mcg, U nivers immune 5-05 05-05 Intramuscu ity of globulin 15:30: 14:24 [place], [place]CE, [place] (RHOGAM) 00 :00 1 dose, Medical syringe 300 06/21/19 Br anch mcg at 1030, Routine PNV 2020-0 Yes Take by [facility] no.153/FA/o 4-23 mouth. ity of m3/dha/epa/ 02:35: [place] fish 08 Medical ( Branch GUMMIES ORAL) PNV 2020-0 Yes Take by [facility] no.153/FA/o 4-23 mouth. ity of m3/dha/epa/ 02:35: [place] fish 08 Medical ( Branch GUMMIES ORAL) PNV 2020-0 Yes Take by [facility] no.153/FA/o 4-23 mouth. ity of m3/dha/epa/ 02:35: [place] fish 08 Medical ( Branch GUMMIES ORAL) PNV 2020-0 Yes Take by [facility] no.153/FA/o 4-23 mouth. ity of m3/dha/epa/ 02:35: [place] fish 08 Medical ( Branch GUMMIES ORAL) PNV 2020-0 Yes Take by Univers no.153/FA/o 4-23 mouth. ity of m3/dha/epa/ 02:35: [place] fish 08 Medical ( Branch GUMMIES ORAL) PNV 2020-0 Yes Take by [facility] no.153/FA/o 4-23 mouth. ity of m3/dha/epa/ 02:35: [place] fish 08 Medical ( Branch GUMMIES ORAL) PNV 2020-0 Yes Take by Univers no.153/FA/o 4-23 mouth. ity of m3/dha/epa/ 02:35: [place] fish 08 Medical ( Branch GUMMIES ORAL) PNV 2020-0 Yes Take by Univers no.153/FA/o 4-23 mouth. ity of m3/dha/epa/ 02:35: [place] fish 08 Medical ( Branch GUMMIES ORAL) PNV 2020-0 Yes Take by [facility] no.153/FA/o 4-23 mouth. ity of m3/dha/epa/ 02:35: [place] fish 08 Medical ( Branch GUMMIES ORAL) PNV 2020-0 Yes Take by Univers no.153/FA/o 4-23 mouth. ity of m3/dha/epa/ 02:35: [place] fish 08 Medical ( Branch GUMMIES ORAL) PNV 2020-0 Yes Take by Univers no.153/FA/o 4-23 mouth. ity of m3/dha/epa/ 02:35: [place] fish 08 Medical ( Branch GUMMIES ORAL) PNV 2020-0 Yes Take by Univers no.153/FA/o 4-23 mouth. ity of m3/dha/epa/ 02:35: [place] fish 08 Medical ( Branch GUMMIES ORAL) PNV 2020-0 Yes Take by Univers no.153/FA/o 4-23 mouth. ity of m3/dha/epa/ 02:35: [place] fish 08 Medical ( Branch GUMMIES ORAL) PNV 2020-0 Yes Take by Univers no.153/FA/o 4-23 mouth. ity of m3/dha/epa/ 02:35: [place] fish 08 Medical ( Branch GUMMIES ORAL) PNV 2020-0 Yes Take by Univers no.153/FA/o 4-23 mouth. ity of m3/dha/epa/ 02:35: [place] fish 08 Medical ( Branch GUMMIES ORAL) PNV 2020-0 Yes Take by Univers no.153/FA/o 4-23 mouth. ity of m3/dha/epa/ 02:35: [place] fish 08 Medical ( Branch GUMMIES ORAL) PNV 2020-0 Yes Take by Univers no.153/FA/o 4-23 mouth. ity of m3/dha/epa/ 02:35: [place] fish 08 Medical ( Branch GUMMIES ORAL) PNV 2020-0 Yes Take by Univers no.153/FA/o 06-08 mouth. ity of m3/dha/epa/ 02:35: [place] fish 08 Medical ( Branch GUMMIES ORAL) PNV 2020-0 Yes Take by Univers no.153/FA/o 06-08 mouth. ity of m3/dha/epa/ 02:35: [place] fish 08 Medical ( Branch GUMMIES ORAL) PNV 2020-0 Yes Take by Univers no.153/FA/o - mouth. ity of m3/dha/epa/ 02:35: [place] fish 08 Medical ( Branch GUMMIES ORAL) PNV 2020-0 Yes Take by Univers no.153/FA/o 06-08 mouth. ity of m3/dha/epa/ 02:35: [place] fish 08 Medical ( Branch GUMMIES ORAL) PNV 2020-0 Yes Take by Univers no.153/FA/o 06-08 mouth. ity of m3/dha/epa/ 02:35: [place] fish 08 Medical ( Branch GUMMIES ORAL) PNV 2020-0 Yes Take by Univers no.153/FA/o 06-08 mouth. ity of m3/dha/epa/ 02:35: [place] fish 08 Medical ( Branch GUMMIES ORAL) PNV 2020-0 Yes Take by Univers no.153/FA/o 06-08 mouth. ity of m3/dha/epa/ 02:35: [place] fish Medical ( Branch GUMMIES ORAL) proMETHazin 2019-0 2020- No 12.5mg 12.5 mg, Univers e 06-08 Intramuscu ity of (PHENERGAN) 01:34: 01:41 lar, ONCE, [place] injection 00 :00 1 dose, Medical 12.5 mg Wed Branch 06/08/19 at 204, Routine acetaminoph 2020-0 2020- No 1000mg 1,000 mg, Univers en 06-08 Oral, ity of (TYLENOL) 00:45: 23:44 ONCE, 1 [place] 00 :[place] dose, Wed Medical 1,000 mg 06/08/19 at [facility] h 1945, Routine blood sugar 2020-0 Yes Test Univer s diagnostic 3-26 glucose x4 ity of strip 00:00: daily. [place] [facility] blood sugar 2020-0 Yes Test Univer s diagnostic 3-26 glucose x4 ity of strip 00:00: daily. [place] [facility] blood sugar 2020-0 Yes Test Univer s diagnostic 3-26 glucose x4 ity of strip 00:00: daily. [place] [facility] blood sugar 2020-0 Yes Test Univer s diagnostic 3-26 glucose x4 ity of strip 00:00: daily. [place] [facility] blood sugar 2020-0 Yes Test Univer s diagnostic 3-26 glucose x4 ity of strip 00:00: daily. [place] [facility] blood sugar 2020-0 Yes Test Univer s diagnostic 3-26 glucose x4 ity of strip 00:00: daily. [place] [facility] blood sugar 2020-0 Yes Test Univer s diagnostic 3-26 glucose x4 ity of strip 00:00: daily. [place] [facility] Branch blood sugar 2020-0 Yes Test Univer s diagnostic 3-26 glucose x4 ity of strip 00:00: daily. [place] [facility] Branch blood sugar 2020-0 Yes Test Univer s diagnostic 3-26 glucose x4 ity of strip 00:00: daily. [place] [facility] blood sugar 2020-0 Yes Test Univer s diagnostic 3-26 glucose x4 ity of strip 00:00: daily. [place] [facility] blood sugar 2020-0 Yes Test Univer s diagnostic 3-26 glucose x4 ity of strip 00:00: daily. [place] [facility] blood sugar 2020-0 Yes Test Univer s diagnostic 3-26 glucose x4 ity of strip 00:00: daily. [place] [facility] blood sugar 2020-0 Yes Test Univer s diagnostic 3-26 glucose x4 ity of strip 00:00: daily. [place] [facility] blood sugar 2020-0 Yes Test Univer s diagnostic 3-26 glucose x4 ity of strip 00:00: daily. [place] [facility] Branch blood sugar 2020-0 Yes Test Univer s diagnostic 3-26 glucose x4 ity of strip 00:00: daily. [place] [facility] Branch blood sugar 2020-0 2020- No Test Unive rs diagnostic 3-26 05-15 glucose x4 it y of strip 00:00: 00:00 daily. [place] 00 : Medical Branch blood sugar 2020-0 Yes [id number] Check U nivers diagnostic 2-24 glucose 4x ity of (TRUE 00:00: daily [place] METRIX 00 Medical GLUCOSE Branch TEST STRIP) strip blood sugar 2020-0 Yes [id number] Check U nivers diagnostic 2-24 glucose 4x ity of (TRUE 00:00: daily [place] METRIX 00 Medical GLUCOSE Branch TEST STRIP) strip blood sugar 2020-0 Yes [id number] Check U nivers diagnostic 2-24 glucose 4x ity of (TRUE 00:00: daily [place] METRIX 00 Medical GLUCOSE Branch TEST STRIP) strip blood sugar 2020-0 Yes [id number] Check U nivers diagnostic 2-24 glucose 4x ity of (TRUE 00:00: daily [place] METRIX 00 Medical GLUCOSE Branch TEST STRIP) strip blood sugar 2020-0 Yes [id number] Check U nivers diagnostic 2-24 glucose 4x ity of (TRUE 00:00: daily [place] METRIX 00 Medical GLUCOSE Branch TEST STRIP) strip blood sugar 2020-0 Yes [id number] Check U nivers diagnostic 2-24 glucose 4x ity of (TRUE 00:00: daily [place] METRIX 00 Medical GLUCOSE Branch TEST STRIP) strip blood sugar 2020-0 Yes [id number] Check U nivers diagnostic 2-24 glucose 4x ity of (TRUE 00:00: daily [place] METRIX 00 Medical GLUCOSE Branch TEST STRIP) strip blood sugar 2020-0 Yes [id number] Check U nivers diagnostic 2-24 glucose 4x ity of (TRUE 00:00: daily [place] METRIX 00 Medical GLUCOSE Branch TEST STRIP) strip blood sugar 2020-0 Yes [id number] Check U nivers diagnostic 2-24 glucose 4x ity of (TRUE 00:00: daily [place] METRIX 00 Medical GLUCOSE Branch TEST STRIP) strip blood sugar 2020-0 Yes [id number] Check U nivers diagnostic 2-24 glucose 4x ity of (TRUE 00:00: daily [place] METRIX 00 Medical GLUCOSE Branch TEST STRIP) strip blood sugar 2020-0 Yes [id number] Check U nivers diagnostic 2-24 glucose 4x ity of (TRUE 00:00: daily [place] METRIX 00 Medical GLUCOSE Branch TEST STRIP) strip blood sugar 2020-0 Yes [id number] Check U nivers diagnostic 2-24 glucose 4x ity of (TRUE 00:00: daily [place] METRIX 00 Medical GLUCOSE Branch TEST STRIP) strip blood sugar 2020-0 Yes [id number] Check U nivers diagnostic 2-24 glucose 4x ity of (TRUE 00:00: daily [place] METRIX 00 Medical GLUCOSE Branch TEST STRIP) strip blood sugar 2020-0 2020- No [id number] Check Univers diagnostic 2-24 03-26 glucose 4x it y of (TRUE 00:00: 00:00 daily [place] METRIX 00 :00 Medical GLUCOSE Branch TEST STRIP) strip blood sugar 2019-0 2020- No [id number] Check Univers diagnostic 2-24 -26 glucose 4x it y of (TRUE 00:00: 00:00 daily [place] METRIX 00 :00 Medical GLUCOSE Branch TEST STRIP) strip blood sugar 2020-0 2020- No [id number] Check Univers diagnostic 2-24 -26 glucose 4x it y of (TRUE 00:00: 00:00 daily [place] METRIX 00 :00 Medical GLUCOSE Branch TEST STRIP) strip blood sugar 2019-0 2020- No [id number] Check Univers diagnostic 2-24 -26 glucose 4x it y of (TRUE 00:00: 00:00 daily [place] METRIX 00 :00 Medical GLUCOSE Branch TEST STRIP) strip lancets 28 2020-0 Yes [id number] Check [place] gauge Misc 1-29 glucose 4x ity of 00:00: daily [place] 00 Medical Branch lancets 28 2020-0 Yes [id number] Check [place] gauge Misc 1-29 glucose 4x ity of 00:00: daily [place] [facility] lancets 28 2020-0 Yes [id number] Check [place] gauge Misc 1-29 glucose 4x ity of 00:00: daily [place] [facility] lancets 28 2020-0 Yes [id number] Check [place] gauge Misc 1-29 glucose 4x ity of 00:00: daily [place] 00 Medical Branch lancets 28 2020-0 Yes [id number] Check [place] gauge Misc 1-29 glucose 4x ity of 00:00: daily [place] [facility] lancets 28 2020-0 Yes [id number] Check [place] gauge Misc 1-29 glucose 4x ity of 00:00: daily [place] 00 Medical Branch lancets 28 2020-0 Yes [id number] Check [place] gauge Misc 1-29 glucose 4x ity of 00:00: daily [place] [facility] lancets 28 2020-0 Yes [id number] Check [place] gauge Misc 1-29 glucose 4x ity of 00:00: daily Medical Branch lancets 28 2020-0 Yes [id number] Check [place] gauge Misc 1-29 glucose 4x ity of 00:00: daily Medical Branch lancets 28 2020-0 Yes [id number] Check [place] gauge Misc 1-29 glucose 4x ity of 00:00: daily Medical Branch lancets 28 2020-0 Yes [id number] Check [place] gauge Misc 1-29 glucose 4x ity of 00:00: daily Medical Branch lancets 28 2020-0 Yes [id number] Check [place] gauge Misc 1-29 glucose 4x ity of 00:00: daily Medical Branch lancets 28 2020-0 Yes [id number] Check [place] gauge Misc 1-29 glucose 4x ity of 00:00: daily Medical Branch lancets 28 2020-0 Yes [id number] Check [place] gauge Misc 1-29 glucose 4x ity of 00:00: daily Medical Branch lancets 28 2020-0 Yes [id number] Check [place] gauge Misc 1-29 glucose 4x ity of 00:00: daily Medical Branch lancets 28 2020-0 Yes [id number] Check [place] gauge Misc 1-29 glucose 4x ity of 00:00: daily Medical Branch lancets 28 2020-0 Yes [id number] Check [place] gauge Misc 1-29 glucose 4x ity of 00:00: daily Medical Branch lancets 28 2020-0 Yes [id number] Check [place] gauge Misc 1-29 glucose 4x ity of 00:00: daily Medical Branch lancets 28 2020-0 Yes [id number] Check [place] gauge Misc 1-29 glucose 4x ity of 00:00: daily Medical Branch lancets 28 2020-0 Yes [id number] Check [place] gauge Misc 1-29 glucose 4x ity of 00:00: daily Medical Branch lancets 28 2020-0 Yes [id number] Check [place] gauge Misc 1-29 glucose 4x ity of 00:00: daily Medical Branch lancets 28 2020-0 Yes [id number] Check [place] gauge Misc 1-29 glucose 4x ity of 00:00: daily Medical Branch lancets 28 2020-0 Yes [id number] Check [place] gauge Misc 1-29 glucose 4x ity of 00:00: daily Medical Branch lancets 28 2020-0 Yes [id number] Check [place] gauge Misc 1-29 glucose 4x ity of 00:00: daily Medical Branch lancets 28 2020-0 Yes [id number] Check [place] gauge Misc 1-29 glucose 4x ity of 00:00: daily Medical Branch lancets 28 2020-0 Yes [id number] Check [place] gauge Misc 1-29 glucose 4x ity of 00:00: daily Medical Branch lancets 28 2020-0 Yes [id number] Check [place] gauge Misc 1-29 glucose 4x ity of 00:00: daily Medical Branch lancets 28 2020-0 Yes [id number] Check [place] gauge Misc 1-29 glucose 4x ity of 00:00: daily Medical Branch lancets 28 2020-0 Yes [id number] Check [place] gauge Misc 1-29 glucose 4x ity of 00:00: daily Medical Branch lancets 28 2020-0 Yes [id number] Check [place] gauge Misc 1-29 glucose 4x ity of 00:00: daily Medical Branch lancets 28 2020-0 Yes [id number] Check [place] gauge Misc 1-29 glucose 4x ity of 00:00: daily Medical Branch lancets 28 2020-0 Yes [id number] Check [place] gauge Misc 1-29 glucose 4x ity of 00:00: daily Medical Branch lancets 28 2020-0 Yes [id number] Check [place] gauge Misc 1-29 glucose 4x ity of 00:00: daily Medical Branch lancets 28 2020-0 Yes [id number] Check [place] gauge Misc 1-29 glucose 4x ity of 00:00: daily Medical Branch lancets 28 2020-0 Yes [id number] Check [place] gauge Misc 1-29 glucose 4x ity of 00:00: daily Medical Branch lancets 28 2020-0 Yes [id number] Check [place] gauge Misc 1-29 glucose 4x ity of 00:00: daily [place] 00 Medical Branch lancets 28 2020-0 Yes [id number] Check [place] gauge Misc 1-29 glucose 4x ity of 00:00: daily Medical Branch lancets 28 2020-0 Yes [id number] Check [place] gauge Misc 1-29 glucose 4x ity of 00:00: daily Medical Branch lancets 28 2020-0 Yes [id number] Check [place] gauge Misc 1-29 glucose 4x ity of 00:00: daily Medical Branch lancets 28 2020-0 Yes [id number] Check [place] gauge Misc 1-29 glucose 4x ity of 00:00: daily Medical Branch lancets 28 2020-0 Yes [id number] Check [place] gauge Misc 1-29 glucose 4x ity of 00:00: daily Medical Branch lancets 28 2020-0 Yes [id number] Check [place] gauge Misc 1-29 glucose 4x ity of 00:00: daily Medical Branch lancets 28 2020-0 Yes [id number] Check [place] gauge Misc 1-29 glucose 4x ity of 00:00: daily Medical Branch lancets 28 2020-0 Yes [id number] Check [place] gauge Misc 1-29 glucose 4x ity of 00:00: daily Medical Branch lancets 28 2020-0 Yes [id number] Check [place] gauge Misc 1-29 glucose 4x ity of 00:00: daily Medical Branch lancets 28 2020-0 Yes [id number] Check [place] gauge Misc 1-29 glucose 4x ity of 00:00: daily Medical Branch lancets 28 2020-0 Yes [id number] Check [place] gauge Misc 1-29 glucose 4x ity of 00:00: daily Medical Branch lancets 28 2020-0 Yes [id number] Check [place] gauge Misc 1-29 glucose 4x ity of 00:00: daily Medical Branch lancets 28 2020-0 Yes [id number] Check [place] gauge Misc 1-29 glucose 4x ity of 00:00: daily Medical Branch lancets 28 2020-0 Yes [id number] Check [place] gauge Misc 1-29 glucose 4x ity of 00:00: daily Medical Branch lancets 28 2020-0 Yes [id number] Check [place] gauge Misc 1-29 glucose 4x ity of 00:00: daily [place] [facility] lancets 28 2019-0 Yes [id number] Check [place] gauge Misc 1-29 glucose 4x ity of 00:00: daily Medical Branch lancets 28 2019-0 Yes [id number] Check [place] gauge Misc 1-29 glucose 4x ity of 00:00: daily [place] [facility] lancets 28 2019-0 Yes [id number] Check [place] gauge Misc 1-29 glucose 4x ity of 00:00: daily [place] [facility] lancets 28 2019-0 2020- No [id number] Check U nivers gauge Misc 1-29 08-20 glucose 4x it y of 00:00: 00:00 daily [place] 00 :00 [facility] cephALEXin 2020- No 500mg 500 mg, [place] (KEFLEX) 03-14 Oral, ity of capsule 500 20:00: 18:55 ONCE, 1 [place] mg 00 :00 dose, [facility] 03/14/19 at Branch 1400, CARLOS
Re ason for Anti-Infec tive: Documented Infection< br>Documen sergey Infection Site: Urine
D uration of Therapy: 10 days metoclopram 2019- No 10mg 10 mg, Uni vers [place] HCl 03-14 Slow IV ity of (REGLAN) 19:15: 18:11 Push, [place] injection 00 :00 ONCE, 1 Medical 10 mg dose, [facility] 03/14/19 at 1315, CARLOS proMETHazin 2019- No 12.5mg 12.5 mg, Univers e 03-14 IV ity of (PHENERGAN) 18:00: 16:52 Piggyback, [place] 12.5 mg in 00 :00 ONCE, 1 Medica l NaCl 0.9% dose, [facility] Branc h (NS) 50 mL 03/14/19 at piggyback 1200, 50 mL morpHINE 2019- No 4mg 4 mg, Slow [place] injection 4 03-14 IV Push, ity of mg 17:45: 16:51 ONCE, 1 [place] 00 :00 dose, [facility] 03/14/19 at Branch 1145, Routine NaCl 0.9% 2019- No 1000mL at 999 Uni vers (NS) bolus 03-14 mL/hr, ity of infusion 17:30: 18:55 1,000 mL, [place] 1,000 mL 00 :00 IV Medical Infusion, Branch ONCE, 1 dose, 03/14/19 at 1130, STAT proMETHazin 2019- No 12.5mg 12.5 mg, Univers e 03-14 IV ity of (PHENERGAN) 16:29: 16:31 Piggyback, [place] 12.5 mg in 00 :00 ONCE, 1 Medica l NaCl 0.9% dose, [facility] Branc h (NS) 50 mL 03/14/19 at piggyback 1030, 50 mL cephALEXin 2019- No [id number] 500mg Take 1 Univers (KEFLEX) 03-14 capsule by ity of 500 mg 00:00: 05:59 mouth 3 [place] capsule 00 :00 (three) Medical times Branch daily for 10 days. cephALEXin 2019- No [id number] 500mg Take 1 Univers (KEFLEX) 03-14 capsule by ity of 500 mg 00:00: 05:59 mouth 3 [place] capsule 00 :00 (three) Medical times Branch daily for 10 days. norgestimat 2020- No 1{tbl} Take 1 U nivers e-ethinyl 02-28 tablet by ity of estradiol 20:06: 00:00 mouth [place] (TRI-SPRINT 44 :00 daily. Medica l EC) Branch 0.18/0.215/ 0.25 mg-35 mcg (28) tablet albuterol 2019-0 Yes [id number] 2{puff} Inhale 2 Univers 90 1-13 Puffs ity of mcg/actuati 00:00: every 6 [place] on inhaler 00 (six) Medical hours as Branch needed for Wheezing or Shortness of Breath. albuterol 2019-0 Yes [id number] 2{puff} Inhale 2 Univers 90 1-13 Puffs ity of mcg/actuati 00:00: every 6 [place] on inhaler 00 (six) Medical hours as Branch needed for Wheezing or Shortness of Breath. aspirin 81 2019-0 Yes [id number] 81mg Take 1 U nivers mg EC 1-13 tablet by ity of tablet 00:00: mouth [place] 00 daily. Medical Branch aspirin 81 2019-0 Yes [id number] 81mg Take 1 U nivers mg EC 1-13 tablet by ity of tablet 00:00: mouth [place] 00 daily. Medical Branch albuterol 2019-0 Yes [id number] 2{puff} Inhale 2 Univers 90 1-13 Puffs ity of mcg/actuati 00:00: every 6 [place] on inhaler 00 (six) Medical hours as Branch needed for Wheezing or Shortness of Breath. aspirin 81 2019-0 Yes [id number] 81mg Take 1 U nivers mg EC 1-13 tablet by ity of tablet 00:00: mouth [place] 00 daily. Medical Branch albuterol 0 Yes [id number] 2{puff} Inhale 2 Univers 90 1-13 Puffs ity of mcg/actuati 00:00: every 6 [place] on inhaler 00 (six) Medical hours as Branch needed for Wheezing or Shortness of Breath. albuterol 0 Yes [id number] 2{puff} Inhale 2 Univers 90 1-13 Puffs ity of mcg/actuati 00:00: every 6 [place] on inhaler 00 (six) Medical hours as Branch needed for Wheezing or Shortness of Breath. albuterol 0 Yes [id number] 2{puff} Inhale 2 Univers 90 1-13 Puffs ity of mcg/actuati 00:00: every 6 [place] on inhaler 00 (six) Medical hours as Branch needed for Wheezing or Shortness of Breath. aspirin 81 2019-0 Yes [id number] 81mg Take 1 U nivers mg EC 1-13 tablet by ity of tablet 00:00: mouth [place] 00 daily. Medical Branch albuterol 2019-0 Yes [id number] 2{puff} Inhale 2 Univers 90 1-13 Puffs ity of mcg/actuati 00:00: every 6 [place] as on inhaler 00 (six) Medical hours as Branch needed for Wheezing or Shortness of Breath. aspirin 81 2019-0 Yes [id number] 81mg Take 1 U nivers mg EC 1-13 tablet by ity of tablet 00:00: mouth [place] 00 daily. Medical Branch albuterol 2019-0 Yes [id number] 2{puff} Inhale 2 Univers 90 1-13 Puffs ity of mcg/actuati 00:00: every 6 [place] on inhaler 00 (six) Medical hours as Branch needed for Wheezing or Shortness of Breath. aspirin 81 2020-0 Yes [id number] 81mg Take 1 U nivers mg EC 1-13 tablet by ity of tablet 00:00: mouth [place] 00 daily. Medical Branch albuterol 2020-0 Yes [id number] 2{puff} Inhale 2 Univers 90 1-13 Puffs ity of mcg/actuati 00:00: every 6 [place] on inhaler 00 (six) Medical hours as Branch needed for Wheezing or Shortness of Breath. aspirin 81 2019-0 Yes [id number] 81mg Take 1 U nivers mg EC 1-13 tablet by ity of tablet 00:00: mouth [place] 00 daily. Medical Branch albuterol 2019-0 Yes [id number] 2{puff} Inhale 2 Univers 90 1-13 Puffs ity of mcg/actuati 00:00: every 6 [place] as on inhaler 00 (six) Medical hours as Branch needed for Wheezing or Shortness of Breath. aspirin 81 2019-0 Yes [id number] 81mg Take 1 U nivers mg EC 1-13 tablet by ity of tablet 00:00: mouth [place] 00 daily. Medical Branch albuterol 2020-0 Yes [id number] 2{puff} Inhale 2 Univers 90 1-13 Puffs ity of mcg/actuati 00:00: every 6 [place] as on inhaler 00 (six) Medical hours as Branch needed for Wheezing or Shortness of Breath. aspirin 81 2019-0 Yes [id number] 81mg Take 1 U nivers mg EC 1-13 tablet by ity of tablet 00:00: mouth [place] 00 daily. Medical Branch albuterol 2019-0 Yes [id number] 2{puff} Inhale 2 Univers 90 1-13 Puffs ity of mcg/actuati 00:00: every 6 [place] as on inhaler 00 (six) Medical hours as Branch needed for Wheezing or Shortness of Breath. aspirin 81 2019-0 Yes [id number] 81mg Take 1 U nivers mg EC 1-13 tablet by ity of tablet 00:00: mouth [place] 00 daily. Medical Branch albuterol 2020-0 Yes [id number] 2{puff} Inhale 2 Univers 90 1-13 Puffs ity of mcg/actuati 00:00: every 6 [place] as on inhaler 00 (six) Medical hours as Branch needed for Wheezing or Shortness of Breath. aspirin 81 2020-0 Yes [id number] 81mg Take 1 U nivers mg EC 1-13 tablet by ity of tablet 00:00: mouth [place] 00 daily. Medical Branch albuterol 2020-0 Yes [id number] 2{puff} Inhale 2 Univers 90 1-13 Puffs ity of mcg/actuati 00:00: every 6 [place] as on inhaler 00 (six) Medical hours as Branch needed for Wheezing or Shortness of Breath. aspirin 81 2020-0 Yes [id number] 81mg Take 1 U nivers mg EC 1-13 tablet by ity of tablet 00:00: mouth [place] 00 daily. Medical Branch albuterol 2020-0 Yes [id number] 2{puff} Inhale 2 Univers 90 1-13 Puffs ity of mcg/actuati 00:00: every 6 [place] as on inhaler 00 (six) Medical hours as Branch needed for Wheezing or Shortness of Breath. aspirin 81 2019-0 Yes [id number] 81mg Take 1 U nivers mg EC 1-13 tablet by ity of tablet 00:00: mouth [place] 00 daily. Medical Branch albuterol 2020-0 Yes [id number] 2{puff} Inhale 2 Univers 90 1-13 Puffs ity of mcg/actuati 00:00: every 6 [place] as on inhaler 00 (six) Medical hours as Branch needed for Wheezing or Shortness of Breath. aspirin 81 2019-0 Yes [id number] 81mg Take 1 U nivers mg EC 1-13 tablet by ity of tablet 00:00: mouth [place] 00 daily. Medical Branch albuterol 2020-0 Yes [id number] 2{puff} Inhale 2 Univers 90 1-13 Puffs ity of mcg/actuati 00:00: every 6 [place] as on inhaler 00 (six) Medical hours as Branch needed for Wheezing or Shortness of Breath. aspirin 81 2020-0 Yes [id number] 81mg Take 1 U nivers mg EC 1-13 tablet by ity of tablet 00:00: mouth [place] 00 daily. Medical Branch albuterol 2020-0 Yes [id number] 2{puff} Inhale 2 Univers 90 1-13 Puffs ity of mcg/actuati 00:00: every 6 [place] as on inhaler 00 (six) Medical hours as Branch needed for Wheezing or Shortness of Breath. aspirin 81 2020-0 Yes [id number] 81mg Take 1 U nivers mg EC 1-13 tablet by ity of tablet 00:00: mouth [place] 00 daily. Medical Branch albuterol 2020-0 Yes [id number] 2{puff} Inhale 2 Univers 90 1-13 Puffs ity of mcg/actuati 00:00: every 6 [place] as on inhaler 00 (six) Medical hours as Branch needed for Wheezing or Shortness of Breath. aspirin 81 2020-0 Yes [id number] 81mg Take 1 U nivers mg EC 1-13 tablet by ity of tablet 00:00: mouth [place] 00 daily. Medical Branch albuterol 2020-0 Yes [id number] 2{puff} Inhale 2 Univers 90 1-13 Puffs ity of mcg/actuati 00:00: every 6 [place] as on inhaler 00 (six) Medical hours as Branch needed for Wheezing or Shortness of Breath. aspirin 81 2019-0 Yes [id number] 81mg Take 1 U nivers mg EC 1-13 tablet by ity of tablet 00:00: mouth [place] 00 daily. Medical Branch albuterol 2020-0 Yes [id number] 2{puff} Inhale 2 Univers 90 1-13 Puffs ity of mcg/actuati 00:00: every 6 [place] as on inhaler 00 (six) Medical hours as Branch needed for Wheezing or Shortness of Breath. aspirin 81 2020-0 Yes [id number] 81mg Take 1 U nivers mg EC 1-13 tablet by ity of tablet 00:00: mouth [place] 00 daily. Medical Branch albuterol 2020-0 Yes [id number] 2{puff} Inhale 2 Univers 90 1-13 Puffs ity of mcg/actuati 00:00: every 6 [place] as on inhaler 00 (six) Medical hours as Branch needed for Wheezing or Shortness of Breath. aspirin 81 2020-0 Yes [id number] 81mg Take 1 U nivers mg EC 1-13 tablet by ity of tablet 00:00: mouth [place] 00 daily. Medical Branch albuterol 2020-0 Yes [id number] 2{puff} Inhale 2 Univers 90 1-13 Puffs ity of mcg/actuati 00:00: every 6 [place] as on inhaler 00 (six) Medical hours as Branch needed for Wheezing or Shortness of Breath. aspirin 81 2019-0 Yes [id number] 81mg Take 1 [facility] mg EC 1-13 tablet by [facility] of tablet 00:00: mouth [place] 00 daily. [facility] albuterol 2020-0 Yes [id number] 2{puff} Inhale 2 [facility] 90 1-13 Puffs ity of mcg/actuati 00:00: every 6 [place] on inhaler 00 (six) Medical hours as Branch needed for Wheezing or Shortness of Breath. albuterol 2019-0 Yes [id number] 2{puff} Inhale 2 [facility] 90 1-13 Puffs ity of mcg/actuati 00:00: every 6 [place] on inhaler 00 (six) Medical hours as Branch needed for Wheezing or Shortness of Breath. aspirin 81 0 Yes [id number] 81mg Take 1 [facility] mg EC 1-13 tablet by ity of tablet 00:00: mouth [place] 00 daily. [facility] aspirin 81 0 Yes [id number] 81mg Take 1 [facility] mg EC 1-13 tablet by [facility] of tablet 00:00: mouth [place] 00 daily. [facility] albuterol 2019-0 Yes [id number] 2{puff} Inhale 2 [facility] 90 1-13 Puffs ity of mcg/actuati 00:00: every 6 [place] on inhaler 00 (six) Medical hours as Branch needed for Wheezing or Shortness of Breath. aspirin 81 2019-0 Yes [id number] 81mg Take 1 [facility] mg EC 1-13 tablet by [facility]y of tablet 00:00: mouth [place] 00 daily. [facility] albuterol 2019-0 Yes [id number] 2{puff} Inhale 2 [facility] 90 1-13 Puffs [facility]y of mcg/actuati 00:00: every 6 [place] on inhaler 00 (six) Medical hours as Branch needed for Wheezing or Shortness of Breath. aspirin 81 2019-0 Yes [id number] 81mg Take 1 [facility] mg EC 1-13 tablet by ity of tablet 00:00: mouth [place] 00 daily. [facility] albuterol 2019-0 Yes [id number] 2{puff} Inhale 2 [facility] 90 1-13 Puffs ity of mcg/actuati 00:00: every 6 [place] on inhaler 00 (six) Medical hours as Branch needed for Wheezing or Shortness of Breath. aspirin 81 2020-0 Yes [id number] 81mg Take 1 [facility] mg EC 1-13 tablet by [facility]y of tablet 00:00: mouth [place] 00 daily. [facility] albuterol 2020-0 Yes [id number] 2{puff} Inhale 2 [facility] 90 1-13 Puffs ity of mcg/actuati 00:00: every 6 [place] on inhaler 00 (six) Medical hours as Branch needed for Wheezing or Shortness of Breath. aspirin 81 2019-0 Yes [id number] 81mg Take 1 [facility] mg EC 1-13 tablet by [facility]y of tablet 00:00: mouth [place] 00 daily. [facility] albuterol 2020-0 Yes [id number] 2{puff} Inhale 2 [facility] 90 1-13 Puffs ity of mcg/actuati 00:00: every 6 [place] on inhaler 00 (six) Medical hours as Branch needed for Wheezing or Shortness of Breath. aspirin 81 2019-0 Yes [id number] 81mg Take 1 [facility] mg EC 1-13 tablet by [facility]y of tablet 00:00: mouth [place] 00 daily. [facility] albuterol 2020-0 Yes [id number] 2{puff} Inhale 2 [facility] 90 1-13 Puffs ity of mcg/actuati 00:00: every 6 [place] on inhaler 00 (six) Medical hours as Branch needed for Wheezing or Shortness of Breath. aspirin 81 2020-0 Yes [id number] 81mg Take 1 [facility] mg EC 1-13 tablet by [facility] of tablet 00:00: mouth [place] 00 daily. [facility] albuterol 2020-0 Yes [id number] 2{puff} Inhale 2 [facility] 90 1-13 Puffs ity of mcg/actuati 00:00: every 6 [place] inhaler 00 (six) Medical hours as Branch needed for Wheezing or Shortness of Breath. aspirin 81 2019-0 Yes [id number] 81mg Take 1 [facility] mg EC 1-13 tablet by [facility]y of tablet 00:00: mouth [place] 00 daily. [facility] albuterol 2020-0 Yes [id number] 2{puff} Inhale 2 [facility] 90 1-13 Puffs ity of mcg/actuati 00:00: every 6 [place] inhaler 00 (six) Medical hours as Branch needed for Wheezing or Shortness of Breath. aspirin 81 2020-0 Yes [id number] 81mg Take 1 [facility] mg EC 1-13 tablet by [facility] of tablet 00:00: mouth [place] 00 daily. [facility] albuterol 2020-0 Yes [id number] 2{puff} Inhale 2 [facility] 90 1-13 Puffs ity of mcg/actuati 00:00: every 6 [place] inhaler 00 (six) Medical hours as Branch needed for Wheezing or Shortness of Breath. aspirin 81 2019-0 Yes [id number] 81mg Take 1 [facility] mg EC 1-13 tablet by [facility] of tablet 00:00: mouth [place] 00 daily. [facility] albuterol 2020-0 Yes [id number] 2{puff} Inhale 2 [facility] 90 1-13 Puffs ity of mcg/actuati 00:00: every 6 [place] on inhaler 00 (six) Medical hours as Branch needed for Wheezing or Shortness of Breath. aspirin 81 2019-0 Yes [id number] 81mg Take 1 [facility] mg EC 1-13 tablet by [facility] of tablet 00:00: mouth [place] 00 daily. [facility] albuterol 2019-0 Yes [id number] 2{puff} Inhale 2 [facility] 90 1-13 Puffs ity of mcg/actuati 00:00: every 6 [place] on inhaler 00 (six) Medical hours as Branch needed for Wheezing or Shortness of Breath. aspirin 81 2019-0 Yes [id number] 81mg Take 1 [facility] mg EC 1-13 tablet by [facility] of tablet 00:00: mouth [place] 00 daily. [facility] albuterol 2020-0 Yes [id number] 2{puff} Inhale 2 [facility] 90 1-13 Puffs ity of mcg/actuati 00:00: every 6 [place] on inhaler 00 (six) Medical hours as Branch needed for Wheezing or Shortness of Breath. aspirin 81 2019-0 Yes [id number] 81mg Take 1 [facility] mg EC 1-13 tablet by [facility] of tablet 00:00: mouth [place] 00 daily. [facility] albuterol 2020-0 Yes [id number] 2{puff} Inhale 2 [facility] 90 1-13 Puffs ity of mcg/actuati 00:00: every 6 [place] inhaler 00 (six) Medical hours as Branch needed for Wheezing or Shortness of Breath. aspirin 81 2020-0 Yes [id number] 81mg Take 1 [facility] mg EC 1-13 tablet by [facility]y of tablet 00:00: mouth [place] 00 daily. [facility] albuterol 2020-0 Yes [id number] 2{puff} Inhale 2 [facility] 90 1-13 Puffs ity of mcg/actuati 00:00: every 6 [place] on inhaler 00 (six) Medical hours as Branch needed for Wheezing or Shortness of Breath. aspirin 81 2020-0 Yes [id number] 81mg Take 1 [facility] mg EC 1-13 tablet by [facility]y of tablet 00:00: mouth [place] 00 daily. [facility] albuterol 2020-0 Yes [id number] 2{puff} Inhale 2 [facility] 90 1-13 Puffs ity of mcg/actuati 00:00: every 6 [place] on inhaler 00 (six) Medical hours as Branch needed for Wheezing or Shortness of Breath. albuterol 2020-0 Yes [id number] 2{puff} Inhale 2 [facility] 90 1-13 Puffs ity of mcg/actuati 00:00: every 6 [place] on inhaler 00 (six) Medical hours as Branch needed for Wheezing or Shortness of Breath. aspirin 81 2020-0 Yes [id number] 81mg Take 1 [facility] mg EC 1-13 tablet by [facility] of tablet 00:00: mouth [place] 00 daily. [facility] aspirin 81 2020-0 Yes [id number] 81mg Take 1 [facility] mg EC 1-13 tablet by ity of tablet 00:00: mouth [place] 00 daily. [facility] albuterol 2020-0 Yes [id number] 2{puff} Inhale 2 [facility] 90 1-13 Puffs ity of mcg/actuati 00:00: every 6 [place] on inhaler 00 (six) Medical hours as Branch needed for Wheezing or Shortness of Breath. aspirin 81 2020-0 Yes [id number] 81mg Take 1 [facility] mg EC 1-13 tablet by [facility]y of tablet 00:00: mouth [place] 00 daily. [facility] albuterol 2020-0 Yes [id number] 2{puff} Inhale 2 [facility] 90 1-13 Puffs ity of mcg/actuati 00:00: every 6 [place] on inhaler 00 (six) Medical hours as Branch needed for Wheezing or Shortness of Breath. aspirin 81 2020-0 Yes [id number] 81mg Take 1 [facility] mg EC 1-13 tablet by [facility] of tablet 00:00: mouth [place] 00 daily. [facility] albuterol 2020-0 Yes [id number] 2{puff} Inhale 2 [facility] 90 1-13 Puffs ity of mcg/actuati 00:00: every 6 [place] inhaler 00 (six) Medical hours as Branch needed for Wheezing or Shortness of Breath. aspirin 81 2019-0 Yes [id number] 81mg Take 1 [facility] mg EC 1-13 tablet by [facility]y of tablet 00:00: mouth [place] 00 daily. [facility] albuterol 2020-0 Yes [id number] 2{puff} Inhale 2 [facility] 90 1-13 Puffs ity of mcg/actuati 00:00: every 6 [place] on inhaler 00 (six) Medical hours as Branch needed for Wheezing or Shortness of Breath. aspirin 81 2019-0 Yes [id number] 81mg Take 1 [facility] mg EC 1-13 tablet by [facility] of tablet 00:00: mouth [place] 00 daily. [facility] albuterol 2019-0 Yes [id number] 2{puff} Inhale 2 [facility] 90 1-13 Puffs ity of mcg/actuati 00:00: every 6 [place] on inhaler 00 (six) Medical hours as Branch needed for Wheezing or Shortness of Breath. aspirin 81 2019-0 Yes [id number] 81mg Take 1 [facility] mg EC 1-13 tablet by [facility]y of tablet 00:00: mouth [place] 00 daily. [facility] albuterol 2020-0 Yes [id number] 2{puff} Inhale 2 [facility] 90 1-13 Puffs ity of mcg/actuati 00:00: every 6 [place] on inhaler 00 (six) Medical hours as Branch needed for Wheezing or Shortness of Breath. aspirin 81 2020-0 Yes [id number] 81mg Take 1 [facility] mg EC 1-13 tablet by [facility] of tablet 00:00: mouth [place] 00 daily. [facility] albuterol 2020-0 Yes [id number] 2{puff} Inhale 2 [facility] 90 1-13 Puffs ity of mcg/actuati 00:00: every 6 [place] on inhaler 00 (six) Medical hours as Branch needed for Wheezing or Shortness of Breath. aspirin 81 2019-0 Yes [id number] 81mg Take 1 [facility] mg EC 1-13 tablet by [facility] of tablet 00:00: mouth [place] 00 daily. [facility] albuterol 2020-0 Yes [id number] 2{puff} Inhale 2 [facility] 90 1-13 Puffs ity of mcg/actuati 00:00: every 6 [place] on inhaler 00 (six) Medical hours as Branch needed for Wheezing or Shortness of Breath. aspirin 81 2019-0 Yes [id number] 81mg Take 1 [facility] mg EC 1-13 tablet by [facility]y of tablet 00:00: mouth [place] 00 daily. [facility] albuterol 2020-0 Yes [id number] 2{puff} Inhale 2 [facility] 90 1-13 Puffs ity of mcg/actuati 00:00: every 6 [place] on inhaler 00 (six) Medical hours as Branch needed for Wheezing or Shortness of Breath. aspirin 81 2019-0 Yes [id number] 81mg Take 1 [facility] mg EC 1-13 tablet by [facility]y of tablet 00:00: mouth [place] 00 daily. [facility] albuterol 2019-0 Yes [id number] 2{puff} Inhale 2 [facility] 90 1-13 Puffs ity of mcg/actuati 00:00: every 6 [place] on inhaler 00 (six) Medical hours as Branch needed for Wheezing or Shortness of Breath. aspirin 81 2019-0 Yes [id number] 81mg Take 1 [facility] mg EC 1-13 tablet by ity of tablet 00:00: mouth [place] 00 daily. [facility] albuterol 2020-0 Yes [id number] 2{puff} Inhale 2 [facility] 90 1-13 Puffs ity of mcg/actuati 00:00: every 6 [place] on inhaler 00 (six) Medical hours as Branch needed for Wheezing or Shortness of Breath. aspirin 81 2019-0 Yes [id number] 81mg Take 1 [facility] mg EC 1-13 tablet by [facility] of tablet 00:00: mouth [place] 00 daily. [facility] albuterol 2020-0 Yes [id number] 2{puff} Inhale 2 [facility] 90 1-13 Puffs ity of mcg/actuati 00:00: every 6 [place] on inhaler 00 (six) Medical hours as Branch needed for Wheezing or Shortness of Breath. aspirin 81 2020-0 Yes [id number] 81mg Take 1 [facility] mg EC 1-13 tablet by ity of tablet 00:00: mouth [place] 00 daily. [facility] albuterol 0 Yes [id number] 2{puff} Inhale 2 [facility] 90 1-13 Puffs ity of mcg/actuati 00:00: every 6 [place] on inhaler 00 (six) Medical hours as Branch needed for Wheezing or Shortness of Breath. aspirin 81 Yes [id number] 81mg Take 1 [facility] mg EC 1-13 tablet by ity of tablet 00:00: mouth [place] 00 daily. [facility] albuterol Yes [id number] 2{puff} Inhale 2 [facility] 90 1-13 Puffs ity of mcg/actuati 00:00: every 6 [place] on inhaler 00 (six) Medical hours as Branch needed for Wheezing or Shortness of Breath. aspirin 81 Yes [id number] 81mg Take 1 [facility] mg EC 1-13 tablet by ity of tablet 00:00: mouth [place] 00 daily. [facility] Branch albuterol Yes [id number] 2{puff} Inhale 2 [facility] 90 1-13 Puffs ity of mcg/actuati 00:00: every 6 [place] on inhaler 00 (six) Medical hours as Branch needed for Wheezing or Shortness of Breath. aspirin 81 Yes [id number] 81mg Take 1 [facility] mg EC 1-13 tablet by ity of tablet 00:00: mouth [place] 00 daily. [facility] Branch albuterol 2020- No [id number] 2{puff} Inhale 2 [facility] 90 1-13 08-20 Puffs ity of mcg/actuati 00:00: 00:00 every 6 [place] on inhaler 00 :00 (six) Medical hours as Branch needed for Wheezing or Shortness of Breath. aspirin 81 2020- No [id number] 81mg Take 1 [facility] mg EC 1-13 07-17 tablet by ity of tablet 00:00: 00:00 mouth [place] 00 :00 daily. Medical Branch proMETHazin 2018-02 Yes [id number] 25mg Take 1 [facility] e 25 mg 2-23 tablet by ity of tablet 00:00: mouth [place] 00 every 6 Medical (six) Branch hours as needed for Nausea and Vomiting (N/V). proMETHazin 2018-02 Yes [id number] 25mg Take 1 [facility] e 25 mg 2-23 tablet by ity of tablet 00:00: mouth [place] 00 every 6 Medical (six) Branch hours as needed for Nausea and Vomiting (N/V). proMETHazin 2018-02 Yes [id number] 25mg Take 1 [facility] e 25 mg 2-23 tablet by ity of tablet 00:00: mouth [place] 00 every 6 Medical (six) Branch hours as needed for Nausea and Vomiting (N/V). proMETHazin 2018-02 Yes [id number] 25mg Take 1 [facility] e 25 mg 2-23 tablet by ity of tablet 00:00: mouth [place] 00 every 6 Medical (six) Branch hours as needed for Nausea and Vomiting (N/V). proMETHazin 2018-02 Yes [id number] 25mg Take 1 [facility] e 25 mg 2-23 tablet by ity of tablet 00:00: mouth [place] 00 every 6 Medical (six) Branch hours as needed for Nausea and Vomiting (N/V). proMETHazin 2018-02 Yes [id number] 25mg Take 1 [facility] e 25 mg 2-23 tablet by ity of tablet 00:00: mouth [place] 00 every 6 Medical (six) Branch hours as needed for Nausea and Vomiting (N/V). proMETHazin 2018-02 Yes [id number] 25mg Take 1 [facility] e 25 mg 2-23 tablet by ity of tablet 00:00: mouth [place] 00 every 6 Medical (six) Branch hours as needed for Nausea and Vomiting (N/V). proMETHazin 2018-02 Yes [id number] 25mg Take 1 [facility] e 25 mg 2-23 tablet by ity of tablet 00:00: mouth [place] 00 every 6 Medical (six) Branch hours as needed for Nausea and Vomiting (N/V). proMETHazin 2018-02 Yes [id number] 25mg Take 1 [facility] e 25 mg 2-23 tablet by ity of tablet 00:00: mouth [place] 00 every 6 Medical (six) Branch hours as needed for Nausea and Vomiting (N/V). proMETHazin 2018-02 Yes [id number] 25mg Take 1 [facility] e 25 mg 2-23 tablet by ity of tablet 00:00: mouth [place] 00 every 6 Medical (six) Branch hours as needed for Nausea and Vomiting (N/V). proMETHazin 2018-02 Yes [id number] 25mg Take 1 [facility] e 25 mg 2-23 tablet by ity of tablet 00:00: mouth [place] 00 every 6 Medical (six) Branch hours as needed for Nausea and Vomiting (N/V). proMETHazin 2018-02 Yes [id number] 25mg Take 1 [facility] e 25 mg 2-23 tablet by ity of tablet 00:00: mouth [place] 00 every 6 Medical (six) Branch hours as needed for Nausea and Vomiting (N/V). proMETHazin 2018-02 Yes [id number] 25mg Take 1 [facility] e 25 mg 2-23 tablet by ity of tablet 00:00: mouth [place] 00 every 6 Medical (six) Branch hours as needed for Nausea and Vomiting (N/V). proMETHazin 2018-02 Yes [id number] 25mg Take 1 [facility] e 25 mg 2-23 tablet by ity of tablet 00:00: mouth [place] 00 every 6 Medical (six) Branch hours as needed for Nausea and Vomiting (N/V). proMETHazin 2018-02 Yes [id number] 25mg Take 1 [facility] e 25 mg 2-23 tablet by ity of tablet 00:00: mouth [place] 00 every 6 Medical (six) Branch hours as needed for Nausea and Vomiting (N/V). proMETHazin 2018-02 Yes [id number] 25mg Take 1 [facility] e 25 mg 2-23 tablet by ity of tablet 00:00: mouth [place] 00 every 6 Medical (six) Branch hours as needed for Nausea and Vomiting (N/V). proMETHazin 2018-02 Yes [id number] 25mg Take 1 [facility] e 25 mg 2-23 tablet by ity of tablet 00:00: mouth [place] 00 every 6 Medical (six) Branch hours as needed for Nausea and Vomiting (N/V). proMETHazin 2018-02 Yes [id number] 25mg Take 1 [facility] e 25 mg 2-23 tablet by ity of tablet 00:00: mouth [place] 00 every 6 Medical (six) Branch hours as needed for Nausea and Vomiting (N/V). proMETHazin 2018-02 Yes [id number] 25mg Take 1 [facility] e 25 mg 2-23 tablet by ity of tablet 00:00: mouth [place] 00 every 6 Medical (six) Branch hours as needed for Nausea and Vomiting (N/V). proMETHazin 2018-02 Yes [id number] 25mg Take 1 [facility] e 25 mg 2-23 tablet by ity of tablet 00:00: mouth [place] 00 every 6 Medical (six) Branch hours as needed for Nausea and Vomiting (N/V). proMETHazin 2018-02 Yes [id number] 25mg Take 1 [facility] e 25 mg 2-23 tablet by ity of tablet 00:00: mouth [place] 00 every 6 Medical (six) Branch hours as needed for Nausea and Vomiting (N/V). proMETHazin 2018-02 Yes [id number] 25mg Take 1 [facility] e 25 mg 2-23 tablet by ity of tablet 00:00: mouth [place] 00 every 6 Medical (six) Branch hours as needed for Nausea and Vomiting (N/V). proMETHazin 2018-02 Yes [id number] 25mg Take 1 [facility] e 25 mg 2-23 tablet by ity of tablet 00:00: mouth [place] 00 every 6 Medical (six) Branch hours as needed for Nausea and Vomiting (N/V). proMETHazin 2018-02 Yes [id number] 25mg Take 1 [facility] e 25 mg 2-23 tablet by ity of tablet 00:00: mouth [place] 00 every 6 Medical (six) Branch hours as needed for Nausea and Vomiting (N/V). proMETHazin 2018-02 Yes [id number] 25mg Take 1 [facility] e 25 mg 2-23 tablet by ity of tablet 00:00: mouth [place] 00 every 6 Medical (six) Branch hours as needed for Nausea and Vomiting (N/V). proMETHazin 2018-02 Yes [id number] 25mg Take 1 [facility] e 25 mg 2-23 tablet by ity of tablet 00:00: mouth [place] 00 every 6 Medical (six) Branch hours as needed for Nausea and Vomiting (N/V). proMETHazin 2018-02 Yes [id number] 25mg Take 1 [facility] e 25 mg 2-23 tablet by ity of tablet 00:00: mouth [place] 00 every 6 Medical (six) Branch hours as needed for Nausea and Vomiting (N/V). proMETHazin 2018-02 Yes [id number] 25mg Take 1 [facility] e 25 mg 2-23 tablet by ity of tablet 00:00: mouth [place] 00 every 6 Medical (six) Branch hours as needed for Nausea and Vomiting (N/V). proMETHazin 2018-02 Yes [id number] 25mg Take 1 [facility] e 25 mg 2-23 tablet by ity of tablet 00:00: mouth [place] 00 every 6 Medical (six) Branch hours as needed for Nausea and Vomiting (N/V). proMETHazin 2018-02 Yes [id number] 25mg Take 1 [facility] e 25 mg 2-23 tablet by ity of tablet 00:00: mouth [place] 00 every 6 Medical (six) Branch hours as needed for Nausea and Vomiting (N/V). proMETHazin 2018-02 Yes [id number] 25mg Take 1 [facility] e 25 mg 2-23 tablet by ity of tablet 00:00: mouth [place] 00 every 6 Medical (six) Branch hours as needed for Nausea and Vomiting (N/V). proMETHazin 2018-02 Yes [id number] 25mg Take 1 [facility] e 25 mg 2-23 tablet by ity of tablet 00:00: mouth [place] 00 every 6 Medical (six) Branch hours as needed for Nausea and Vomiting (N/V). proMETHazin 2018-02 Yes [id number] 25mg Take 1 [facility] e 25 mg 2-23 tablet by ity of tablet 00:00: mouth [place] 00 every 6 Medical (six) Branch hours as needed for Nausea and Vomiting (N/V). proMETHazin 2018-02 Yes [id number] 25mg Take 1 [facility] e 25 mg 2-23 tablet by ity of tablet 00:00: mouth [place] 00 every 6 Medical (six) Branch hours as needed for Nausea and Vomiting (N/V). proMETHazin 2018-02 Yes [id number] 25mg Take 1 [facility] e 25 mg 2-23 tablet by ity of tablet 00:00: mouth [place] 00 every 6 Medical (six) Branch hours as needed for Nausea and Vomiting (N/V). proMETHazin 2018-02 Yes [id number] 25mg Take 1 [facility] e 25 mg 2-23 tablet by ity of tablet 00:00: mouth [place] 00 every 6 Medical (six) Branch hours as needed for Nausea and Vomiting (N/V). proMETHazin 2018-02 Yes [id number] 25mg Take 1 [facility] e 25 mg 2-23 tablet by ity of tablet 00:00: mouth [place] 00 every 6 Medical (six) Branch hours as needed for Nausea and Vomiting (N/V). proMETHazin 2018-02 Yes [id number] 25mg Take 1 [facility] e 25 mg 2-23 tablet by ity of tablet 00:00: mouth [place] 00 every 6 Medical (six) Branch hours as needed for Nausea and Vomiting (N/V). proMETHazin 2018-02 Yes [id number] 25mg Take 1 [facility] e 25 mg 2-23 tablet by ity of tablet 00:00: mouth [place] 00 every 6 Medical (six) Branch hours as needed for Nausea and Vomiting (N/V). proMETHazin 2018-02 Yes [id number] 25mg Take 1 [facility] e 25 mg 2-23 tablet by ity of tablet 00:00: mouth [place] 00 every 6 Medical (six) Branch hours as needed for Nausea and Vomiting (N/V). proMETHazin 2018-02 Yes [id number] 25mg Take 1 [facility] e 25 mg 2-23 tablet by ity of tablet 00:00: mouth [place] 00 every 6 Medical (six) Branch hours as needed for Nausea and Vomiting (N/V). proMETHazin 2018-02 Yes [id number] 25mg Take 1 [facility] e 25 mg 2-23 tablet by ity of tablet 00:00: mouth [place] 00 every 6 Medical (six) Branch hours as needed for Nausea and Vomiting (N/V). proMETHazin 2018-02 Yes [id number] 25mg Take 1 [facility] e 25 mg 2-23 tablet by ity of tablet 00:00: mouth [place] 00 every 6 Medical (six) Branch hours as needed for Nausea and Vomiting (N/V). proMETHazin 2018-02 Yes [id number] 25mg Take 1 [facility] e 25 mg 2-23 tablet by ity of tablet 00:00: mouth [place] 00 every 6 Medical (six) Branch hours as needed for Nausea and Vomiting (N/V). proMETHazin 2018-02 Yes [id number] 25mg Take 1 [facility] e 25 mg 2-23 tablet by ity of tablet 00:00: mouth [place] 00 every 6 Medical (six) Branch hours as needed for Nausea and Vomiting (N/V). proMETHazin 2018-02 Yes [id number] 25mg Take 1 [facility] e 25 mg 2-23 tablet by ity of tablet 00:00: mouth [place] 00 every 6 Medical (six) Branch hours as needed for Nausea and Vomiting (N/V). proMETHazin 2018-02 Yes [id number] 25mg Take 1 [facility] e 25 mg 2-23 tablet by ity of tablet 00:00: mouth [place] 00 every 6 Medical (six) Branch hours as needed for Nausea and Vomiting (N/V). proMETHazin 2018-02 Yes [id number] 25mg Take 1 [facility] e 25 mg 2-23 tablet by ity of tablet 00:00: mouth [place] 00 every 6 Medical (six) Branch hours as needed for Nausea and Vomiting (N/V). proMETHazin 2018-02 Yes [id number] 25mg Take 1 [facility] e 25 mg 2-23 tablet by ity of tablet 00:00: mouth [place] 00 every 6 Medical (six) Branch hours as needed for Nausea and Vomiting (N/V). proMETHazin 2018-02 Yes [id number] 25mg Take 1 [facility] e 25 mg 2-23 tablet by ity of tablet 00:00: mouth [place] 00 every 6 Medical (six) Branch hours as needed for Nausea and Vomiting (N/V). proMETHazin 2018-02 Yes [id number] 25mg Take 1 [facility] e 25 mg 2-23 tablet by ity of tablet 00:00: mouth [place] 00 every 6 Medical (six) Branch hours as needed for Nausea and Vomiting (N/V). proMETHazin 2018-02 Yes [id number] 25mg Take 1 [facility] e 25 mg 2-23 tablet by ity of tablet 00:00: mouth [place] 00 every 6 Medical (six) Branch hours as needed for Nausea and Vomiting (N/V). proMETHazin 2018-02 Yes [id number] 25mg Take 1 [facility] e 25 mg 2-23 tablet by ity of tablet 00:00: mouth [place] 00 every 6 Medical (six) Branch hours as needed for Nausea and Vomiting (N/V). proMETHazin 2018-02 Yes [id number] 25mg Take 1 [facility] e 25 mg 2-23 tablet by ity of tablet 00:00: mouth [place] 00 every 6 Medical (six) Branch hours as needed for Nausea and Vomiting (N/V). proMETHazin 2018-02 2020- No [id number] 25mg Take 1 [facility] e 25 mg 2-23 07-17 tablet by ity of tablet 00:00: 00:00 mouth [place] 00 :00 every 6 Medical (six) Branch hours as needed for Nausea and Vomiting (N/V). Blood-Gluco 2018-02 Yes [id number] Check U nivers se Meter 2-02 glucose 4x ity o f (TRUE 00:00: daily [place] METRIX 00 Medical GLUCOSE Branch METER) Misc Blood-Gluco 2018-02 Yes [id number] Check U nivers se Meter 2-02 glucose 4x ity o f (TRUE 00:00: daily [place] METRIX 00 Medical GLUCOSE Branch METER) [facility] Blood-Gluco 2018-02 Yes [id number] Check U nivers se Meter 2-02 glucose 4x ity o f (TRUE 00:00: daily [place] METRIX 00 Medical GLUCOSE Branch METER) [facility] Blood-Gluco 2018-02 Yes [id number] Check U nivers se Meter 2-02 glucose 4x ity o f (TRUE 00:00: daily [place] METRIX 00 Medical GLUCOSE Branch METER) [facility] Blood-Gluco 2018-02 Yes [id number] Check U nivers se Meter 2-02 glucose 4x ity o f (TRUE 00:00: daily [place] METRIX 00 Medical GLUCOSE Branch METER) [facility] blood sugar 2018-02 Yes [id number] Check U nivers diagnostic 2-02 glucose 4x ity of (TRUE 00:00: daily [place] METRIX 00 Medical GLUCOSE Branch TEST STRIP) strip Blood-Gluco 2018-02 Yes [id number] Check U nivers se Meter 2-02 glucose 4x ity o f (TRUE 00:00: daily [place] METRIX 00 Medical GLUCOSE Branch METER) [facility] Blood-Gluco 2018-02 Yes [id number] Check U nivers se Meter 2-02 glucose 4x ity o f (TRUE 00:00: daily [place] METRIX 00 Medical GLUCOSE Branch METER) [facility] Blood-Gluco 2018-02 Yes [id number] Check U nivers se Meter 2-02 glucose 4x ity o f (TRUE 00:00: daily [place] METRIX 00 Medical GLUCOSE Branch METER) [facility] Blood-Gluco 2018-02 Yes [id number] Check U nivers se Meter 2-02 glucose 4x ity o f (TRUE 00:00: daily [place] METRIX 00 Medical GLUCOSE Branch METER) Misc Blood-Gluco 2018-02 Yes [id number] Check U nivers se Meter 2-02 glucose 4x ity o f (TRUE 00:00: daily [place] METRIX 00 Medical GLUCOSE Branch METER) [facility] Blood-Gluco 2018-02 Yes [id number] Check U nivers se Meter 2-02 glucose 4x ity o f (TRUE 00:00: daily [place] METRIX 00 Medical GLUCOSE Branch METER) [facility] Blood-Gluco 2018-02 Yes [id number] Check U nivers se Meter 2-02 glucose 4x ity o f (TRUE 00:00: daily [place] METRIX 00 Medical GLUCOSE Branch METER) Misc Blood-Gluco 2018-02 Yes [id number] Check U nivers se Meter 2-02 glucose 4x ity o f (TRUE 00:00: daily [place] METRIX 00 Medical GLUCOSE Branch METER) Misc Blood-Gluco 2018-02 Yes [id number] Check U nivers se Meter 2-02 glucose 4x ity o f (TRUE 00:00: daily [place] METRIX 00 Medical GLUCOSE Branch METER) Misc Blood-Gluco 2018-02 Yes [id number] Check U nivers se Meter 2-02 glucose 4x ity o f (TRUE 00:00: daily [place] METRIX 00 Medical GLUCOSE Branch METER) Misc Blood-Gluco 2018-02 Yes [id number] Check U nivers se Meter 2-02 glucose 4x ity o f (TRUE 00:00: daily [place] METRIX 00 Medical GLUCOSE Branch METER) Misc Blood-Gluco 2018-02 Yes [id number] Check U nivers se Meter 2-02 glucose 4x ity o f (TRUE 00:00: daily [place] METRIX 00 Medical GLUCOSE Branch METER) Misc Blood-Gluco 2018-02 Yes [id number] Check U nivers se Meter 2-02 glucose 4x ity o f (TRUE 00:00: daily [place] METRIX 00 Medical GLUCOSE Branch METER) Misc Blood-Gluco 2018-02 Yes [id number] Check U nivers se Meter 2-02 glucose 4x ity o f (TRUE 00:00: daily [place] METRIX 00 Medical GLUCOSE Branch METER) Misc Blood-Gluco 2018-02 Yes [id number] Check U nivers se Meter 2-02 glucose 4x ity o f (TRUE 00:00: daily [place] METRIX 00 Medical GLUCOSE Branch METER) Misc blood sugar 2018-02 Yes [id number] Check U nivers diagnostic 2-02 glucose 4x ity of (TRUE 00:00: daily [place] METRIX 00 Medical GLUCOSE Branch TEST STRIP) strip Blood-Gluco 2018-02 Yes [id number] Check U nivers se Meter 2-02 glucose 4x ity o f (TRUE 00:00: daily [place] METRIX 00 Medical GLUCOSE Branch METER) [facility] lancets 28 2018-02 Yes [id number] Check Un [place] gauge Misc 2-02 glucose 4x ity of 00:00: daily [place] 00 Medical Branch Blood-Gluco 2018- Yes [id number] Check U nivers se Meter 2-02 glucose 4x ity o f (TRUE 00:00: daily [place] METRIX 00 Medical GLUCOSE Branch METER) [facility] Blood-Gluco 2018-02 Yes [id number] Check U nivers se Meter 2-02 glucose 4x ity o f (TRUE 00:00: daily [place] METRIX 00 Medical GLUCOSE Branch METER) [facility] Blood-Gluco 2018-02 Yes [id number] Check U nivers se Meter 2-02 glucose 4x ity o f (TRUE 00:00: daily [place] METRIX 00 Medical GLUCOSE Branch METER) [facility] Blood-Gluco 2018-02 Yes [id number] Check U nivers se Meter 2-02 glucose 4x ity o f (TRUE 00:00: daily [place] METRIX 00 Medical GLUCOSE Branch METER) [facility] Blood-Gluco 2018-02 Yes [id number] Check U nivers se Meter 2-02 glucose 4x ity o f (TRUE 00:00: daily [place] METRIX 00 Medical GLUCOSE Branch METER) [facility] Blood-Gluco 2018-02 Yes [id number] Check U nivers se Meter 2-02 glucose 4x ity o f (TRUE 00:00: daily [place] METRIX 00 Medical GLUCOSE Branch METER) [facility] Blood-Gluco 2018-02 Yes [id number] Check U nivers se Meter 2-02 glucose 4x ity o f (TRUE 00:00: daily [place] METRIX 00 Medical GLUCOSE Branch METER) [facility] Blood-Gluco 2018- Yes [id number] Check U nivers se Meter 2-02 glucose 4x ity o f (TRUE 00:00: daily [place] METRIX 00 Medical GLUCOSE Branch METER) [facility] Blood-Gluco 2018-02 Yes [id number] Check U nivers se Meter 2-02 glucose 4x ity o f (TRUE 00:00: daily [place] METRIX 00 Medical GLUCOSE Branch METER) [facility] Blood-Gluco 2018- Yes [id number] Check U nivers se Meter 2-02 glucose 4x ity o f (TRUE 00:00: daily [place] METRIX 00 Medical GLUCOSE Branch METER) [facility] Blood-Gluco 2018-02 Yes [id number] Check U nivers se Meter 2-02 glucose 4x ity o f (TRUE 00:00: daily [place] METRIX 00 Medical GLUCOSE Branch METER) Misc Blood-Gluco 2018-02 Yes [id number] Check U nivers se Meter 2-02 glucose 4x ity o f (TRUE 00:00: daily [place] METRIX 00 Medical GLUCOSE Branch METER) Misc Blood-Gluco 2018-02 Yes [id number] Check U nivers se Meter 2-02 glucose 4x ity o f (TRUE 00:00: daily [place] METRIX 00 Medical GLUCOSE Branch METER) Misc Blood-Gluco 2018-02 Yes [id number] Check U nivers se Meter 2-02 glucose 4x ity o f (TRUE 00:00: daily [place] METRIX 00 Medical GLUCOSE Branch METER) Misc Blood-Gluco 2018-02 Yes [id number] Check U nivers se Meter 2-02 glucose 4x ity o f (TRUE 00:00: daily [place] METRIX 00 Medical GLUCOSE Branch METER) Mis Blood-Gluco 2018-02 Yes [id number] Check U nivers se Meter 2-02 glucose 4x ity o f (TRUE 00:00: daily [place] METRIX 00 Medical GLUCOSE Branch METER) Mis Blood-Gluco 2018-02 Yes [id number] Check U nivers se Meter 2-02 glucose 4x ity o f (TRUE 00:00: daily [place] METRIX 00 Medical GLUCOSE Branch METER) [facility] blood sugar 2018-02 Yes [id number] Check U nivers diagnostic 2-02 glucose 4x ity of (TRUE 00:00: daily [place] METRIX 00 Medical GLUCOSE Branch TEST STRIP) strip Blood-Gluco 2018-02 Yes [id number] Check U nivers se Meter 2-02 glucose 4x ity o f (TRUE 00:00: daily [place] METRIX 00 Medical GLUCOSE Branch METER) [facility] lancets 28 2018-02 Yes [id number] Check Un [place] gauge Misc 2-02 glucose 4x ity of 00:00: daily [place] 00 Medical Branch Blood-Gluco 2018-02 Yes [id number] Check U nivers se Meter 2-02 glucose 4x ity o f (TRUE 00:00: daily [place] METRIX 00 Medical GLUCOSE Branch METER) [facility] Blood-Gluco 2018- Yes [id number] Check U nivers se Meter 2-02 glucose 4x ity o f (TRUE 00:00: daily [place] METRIX 00 Medical GLUCOSE Branch METER) [facility] Blood-Gluco 2018-02 Yes [id number] Check U nivers se Meter 2-02 glucose 4x ity o f (TRUE 00:00: daily [place] METRIX 00 Medical GLUCOSE Branch METER) [facility] Blood-Gluco 2018-02 Yes [id number] Check U nivers se Meter 2-02 glucose 4x ity o f (TRUE 00:00: daily [place] METRIX 00 Medical GLUCOSE Branch METER) [facility] Blood-Gluco 2018-02 Yes [id number] Check U nivers se Meter 2-02 glucose 4x ity o f (TRUE 00:00: daily [place] METRIX 00 Medical GLUCOSE Branch METER) [facility] Blood-Gluco 2018-02 Yes [id number] Check U nivers se Meter 2-02 glucose 4x ity o f (TRUE 00:00: daily [place] METRIX 00 Medical GLUCOSE Branch METER) [facility] Blood-Gluco 2018-02 Yes [id number] Check U nivers se Meter 2-02 glucose 4x ity o f (TRUE 00:00: daily [place] METRIX 00 Medical GLUCOSE Branch METER) [facility] Blood-Gluco 2018-02 Yes [id number] Check U nivers se Meter 2-02 glucose 4x ity o f (TRUE 00:00: daily [place] METRIX 00 Medical GLUCOSE Branch METER) [facility] Blood-Gluco 2018- Yes [id number] Check U nivers se Meter 2-02 glucose 4x ity o f (TRUE 00:00: daily [place] METRIX 00 Medical GLUCOSE Branch METER) [facility] Blood-Gluco 2018-02 Yes [id number] Check U nivers se Meter 2-02 glucose 4x ity o f (TRUE 00:00: daily [place] METRIX 00 Medical GLUCOSE Branch METER) [facility] Blood-Gluco 2018-02 Yes [id number] Check U nivers se Meter 2-02 glucose 4x ity o f (TRUE 00:00: daily [place] METRIX 00 Medical GLUCOSE Branch METER) [facility] Blood-Gluco 2018- Yes [id number] Check U nivers se Meter 2-02 glucose 4x ity o f (TRUE 00:00: daily [place] METRIX 00 Medical GLUCOSE Branch METER) [facility] Blood-Gluco 2018-02 Yes [id number] Check U nivers se Meter 2-02 glucose 4x ity o f (TRUE 00:00: daily [place] METRIX 00 Medical GLUCOSE Branch METER) [facility] Blood-Gluco 2018-02 Yes [id number] Check U nivers se Meter 2-02 glucose 4x ity o f (TRUE 00:00: daily [place] METRIX 00 Medical GLUCOSE Branch METER) Mis Blood-Gluco 2018-02 Yes [id number] Check U nivers se Meter 2-02 glucose 4x ity o f (TRUE 00:00: daily [place] METRIX 00 Medical GLUCOSE Branch METER) Misc Blood-Gluco 2018-02 Yes [id number] Check U nivers se Meter 2-02 glucose 4x ity o f (TRUE 00:00: daily [place] METRIX 00 Medical GLUCOSE Branch METER) [facility] blood sugar 2018-02 Yes [id number] Check U nivers diagnostic 2-02 glucose 4x ity of (TRUE 00:00: daily [place] METRIX 00 Medical GLUCOSE Branch TEST STRIP) strip Blood-Gluco 2018-02 Yes [id number] Check U nivers se Meter 2-02 glucose 4x ity o f (TRUE 00:00: daily [place] METRIX 00 Medical GLUCOSE Branch METER) [facility] Blood-Gluco 2018-02 2020- No [id number] Check Univers se Meter 2-02 08-20 glucose 4x ity of (TRUE 00:00: 00:00 daily [place] METRIX 00 :00 Medical GLUCOSE Branch METER) [facility] blood sugar 2018-02 2020- No [id number] Check Univers diagnostic 2-02 02-24 glucose 4x it y of (TRUE 00:00: 00:00 daily [place] METRIX 00 :00 Medical GLUCOSE Branch TEST STRIP) strip lancets 28 2018-02 2020- No [id number] Check U nivers gauge [facility] 2-03 19-29 glucose 4x it y of 00:00: 00:00 daily [place] 00 :00 Medical Branch PNV 2019- Yes Take by Univers no.153/FA/o 1-25 mouth. ity of m3/dha/epa/ 14:24: [place] fish 14 Medical ( Branch GUMMIES ORAL) PNV 2019- Yes Take by Univers no.153/FA/o 1-25 mouth. ity of m3/dha/epa/ 14:24: [place] fish 14 Medical ( Branch GUMMIES ORAL) PNV 2019- Yes Take by Univers no.153/FA/o 1-25 mouth. ity of m3/dha/epa/ 14:24: [place] fish 14 Medical ( Branch GUMMIES ORAL) PNV 2019- Yes Take by Univers no.153/FA/o 1-25 mouth. ity of m3/dha/epa/ 14:24: [place] fish 14 Medical ( Branch GUMMIES ORAL) PNV 2019- Yes Take by Univers no.153/FA/o 1-25 mouth. ity of m3/dha/epa/ 14:24: [place] fish 14 Medical ( Branch GUMMIES ORAL) PNV 2019- Yes Take by Univers no.153/FA/o 1-25 mouth. ity of m3/dha/epa/ 14:24: [place] fish 14 Medical ( Branch GUMMIES ORAL) PNV 2019- Yes Take by Univers no.153/FA/o 1-25 mouth. ity of m3/dha/epa/ 14:24: [place] fish 14 Medical ( Branch GUMMIES ORAL) PNV 2019- Yes Take by Univers no.153/FA/o 1-25 mouth. ity of m3/dha/epa/ 14:24: [place] fish 14 Medical ( Branch GUMMIES ORAL) PNV 2019- Yes Take by Univers no.153/FA/o 1-25 mouth. ity of m3/dha/epa/ 14:24: [place] fish 14 Medical ( Branch GUMMIES ORAL) PNV 2019- Yes Take by Univers no.153/FA/o 1-25 mouth. ity of m3/dha/epa/ 14:24: [place] fish 14 Medical ( Branch GUMMIES ORAL) PNV 2019- Yes Take by Univers no.153/FA/o 1-25 mouth. ity of m3/dha/epa/ 14:24: [place] fish 14 Medical ( Branch GUMMIES ORAL) PNV 2019- Yes Take by Univers no.153/FA/o 1-25 mouth. ity of m3/dha/epa/ 14:24: [place] fish 14 Medical ( Branch GUMMIES ORAL) PNV 2019- Yes Take by Univers no.153/FA/o 1-25 mouth. ity of m3/dha/epa/ 14:24: [place] fish 14 Medical ( Branch GUMMIES ORAL) PNV 2019- Yes Take by Univers no.153/FA/o 1-25 mouth. ity of m3/dha/epa/ 14:24: [place] fish 14 Medical ( Branch GUMMIES ORAL) PNV 2019- Yes Take by Univers no.153/FA/o 1-25 mouth. ity of m3/dha/epa/ 14:24: [place] fish 14 Medical ( Branch GUMMIES ORAL) PNV 2019- Yes Take by Univers no.153/FA/o 1-25 mouth. ity of m3/dha/epa/ 14:24: [place] fish 14 Medical ( Branch GUMMIES ORAL) PNV 2019- Yes Take by Univers no.153/FA/o 1-25 mouth. ity of m3/dha/epa/ 14:24: [place] fish 14 Medical ( Branch GUMMIES ORAL) PNV 2019- Yes Take by Univers no.153/FA/o 1-25 mouth. ity of m3/dha/epa/ 14:24: [place] fish 14 Medical ( Branch GUMMIES ORAL) PNV 2019- Yes Take by Univers no.153/FA/o 1-25 mouth. ity of m3/dha/epa/ 14:24: [place] fish 14 Medical ( Branch GUMMIES ORAL) PNV 2019- Yes Take by Univers no.153/FA/o 1-25 mouth. ity of m3/dha/epa/ 14:24: [place] fish 14 Medical ( Branch GUMMIES ORAL) PNV 2019- Yes Take by Univers no.153/FA/o 1-25 mouth. ity of m3/dha/epa/ 14:24: [place] fish 14 Medical ( Branch GUMMIES ORAL) PNV 2019- Yes Take by Univers no.153/FA/o 1-25 mouth. ity of m3/dha/epa/ 14:24: [place] fish 14 Medical ( Branch GUMMIES ORAL) PNV 2019- Yes Take by Univers no.153/FA/o 1-25 mouth. ity of m3/dha/epa/ 14:24: [place] fish 14 Medical ( Branch GUMMIES ORAL) PNV 2019- Yes Take by Univers no.153/FA/o 1-25 mouth. ity of m3/dha/epa/ 14:24: [place] fish 14 Medical ( Branch GUMMIES ORAL) PNV 2019- Yes Take by Univers no.153/FA/o 1-25 mouth. ity of m3/dha/epa/ 14:24: [place] fish 14 Medical ( Branch GUMMIES ORAL) PNV 2019- Yes Take by Univers no.153/FA/o 1-25 mouth. ity of m3/dha/epa/ 14:24: [place] fish 14 Medical ( Branch GUMMIES ORAL) PNV 2019- Yes Take by Univers no.153/FA/o 1-25 mouth. ity of m3/dha/epa/ 14:24: [place] fish 14 Medical ( Branch GUMMIES ORAL) PNV 2019- Yes Take by Univers no.153/FA/o 1-25 mouth. ity of m3/dha/epa/ 14:24: [place] fish 14 Medical ( Branch GUMMIES ORAL) PNV 2019- Yes Take by Univers no.153/FA/o 1-25 mouth. ity of m3/dha/epa/ 14:24: [facility] 14 Medical ( Branch GUMMIES ORAL) ondansetron 2019- No 8mg Take 1 Uni vers (ZOFRAN 10-21 tablet by ity of ODT) 8 mg 00:00: 00:00 mouth [place] disintegrat 00 :00 every 8 Medic al ing tablet (eight) Branch hours as needed for Nausea and Vomiting (N/V). ketorolac 2019- No 10mg Take 1 Unive rs (TORADOL) 10-21 tablet by ity of 10 mg 00:00: 00:00 mouth [place] tablet 00 :00 every 6 Medical (six) Branch hours as needed for Pain (scale 4-6). traMADOL 2019- No 50mg Take 1 Univer s (ULTRAM) 50 10-21 tablet by it y of mg tablet 00:00: 00:00 mouth [place] 00 :00 every 6 Medical (six) Branch hours as needed for Pain (scale 4-6). Immunizations Ordered Filled Immunization Date Status Comments [facility] e Immunization Name Name TDAP 2019-06-21 Completed University 00:00:00 [facility] Rho (d) Immune 2019-06-21 Completed Psychiatric 00:00:00 [facility] TDAP 2019-06-21 Completed University 00:00:00 [facility] Rho (d) Immune 2019-06-21 Completed University of Globulin 00:00:00 [facility] TDAP 2019-06-21 Completed University of 00:00:00 [facility] Rho (d) Immune 2019-06-21 Completed University of Globulin 00:00:00 [facility] TDAP 2019-06-21 Completed University of 00:00:00 [facility] Rho (d) Immune 2019-06-21 Completed University of Globulin 00:00:00 [facility] TDAP 2019-06-21 Completed University of 00:00:00 [facility] Rho (d) Immune 2019-06-21 Completed University of Globulin 00:00:00 [facility] TDAP 2019-06-21 Completed University of 00:00:00 [facility] Rho (d) Immune 2019-06-21 Completed University of Globulin 00:00:00 [facility] TDAP 2019-06-21 Completed University of 00:00:00 [facility] Rho (d) Immune 2019-06-21 Completed University of Globulin 00:00:00 [facility] TDAP 2019-06-21 Completed University of 00:00:00 [facility] Rho (d) Immune 2019-06-21 Completed University of Globulin 00:00:00 [facility] TDAP 2019-06-21 Completed University of 00:00:00 [facility] Rho (d) Immune 2019-06-21 Completed University of Globulin 00:00:00 [facility] TDAP 2019-06-21 Completed University of 00:00:00 [facility] Rho (d) Immune 2019-06-21 Completed University of Globulin 00:00:00 [facility] TDAP 2019-06-21 Completed University of 00:00:00 [facility] Rho (d) Immune 2019-06-21 Completed University of Globulin 00:00:00 [facility] TDAP 2019-06-21 Completed University of 00:00:00 [facility] Rho (d) Immune 2019-06-21 Completed University of Globulin 00:00:00 [facility] TDAP 2019-06-21 Completed University of 00:00:00 [facility] Rho (d) Immune 2019-06-21 Completed University of Globulin 00:00:00 [facility] Tdap 2019-06-21 Completed University of 00:00:00 [facility] Rho (d) Immune 2019-06-21 Completed University of Globulin 00:00:00 [facility] Tdap 2019-06-21 Completed University of 00:00:00 [facility] Rho (d) Immune 2019-06-21 Completed University of Globulin 00:00:00 [facility] Tdap 2019-06-21 Completed University of 00:00:00 [facility] Rho (d) Immune 2019-06-21 Completed University of Globulin 00:00:00 [facility] Tdap 2019-06-21 Completed University of 00:00:00 [facility] Rho (d) Immune 2019-06-21 Completed University of Globulin 00:00:00 [facility] Tdap 2019-06-21 Completed University of 00:00:00 [facility] Rho (d) Immune 2019-06-21 Completed University of Globulin 00:00:00 [facility] Tdap 2019-06-21 Completed University of 00:00:00 [facility] Rho (d) Immune 2019-06-21 Completed University of Globulin 00:00:00 [facility] Tdap 2019-06-21 Completed University of 00:00:00 [facility] Rho (d) Immune 2019-06-21 Completed University of Globulin 00:00:00 [facility] Tdap 2019-06-21 Completed University of 00:00:00 [facility] Rho (d) Immune 2019-06-21 Completed University of Globulin 00:00:00 [facility] Tdap 2019-06-21 Completed University of 00:00:00 [facility] Rho (d) Immune 2019-06-21 Completed University of Globulin 00:00:00 [facility] Tdap 2019-06-21 Completed University of 00:00:00 [facility] Rho (d) Immune 2019-06-21 Completed University of Globulin 00:00:00 [facility] TDAP 2019-06-21 Completed University of 00:00:00 [facility] Rho (d) Immune 2019-06-21 Completed University of Globulin 00:00:00 [facility] TDAP 2019-06-21 Completed University of 00:00:00 [facility] Rho (d) Immune 2019-06-21 Completed University of Globulin 00:00:00 [facility] TDAP 2019-06-21 Completed University of 00:00:00 [facility] Rho (d) Immune 2019-06-21 Completed University of Globulin 00:00:00 [facility] TDAP 2019-06-21 Completed University of 00:00:00 [facility] Rho (d) Immune 2019-06-21 Completed University of Globulin 00:00:00 [facility] TDAP 2019-06-21 Completed University of 00:00:00 [facility] Rho (d) Immune 2019-06-21 Completed University of Globulin 00:00:00 [facility] TDAP 2019-06-21 Completed University of 00:00:00 [facility] Rho (d) Immune 2019-06-21 Completed University of Globulin 00:00:00 [facility] TDAP 2019-06-21 Completed University of 00:00:00 [facility] Rho (d) Immune 2019-06-21 Completed University of Globulin 00:00:00 [facility] TDAP 2019-06-21 Completed University of 00:00:00 [facility] Rho (d) Immune 2019-06-21 Completed University of Globulin 00:00:00 [facility] TDAP 2019-06-21 Completed University of 00:00:00 [facility] Rho (d) Immune 2019-06-21 Completed University of Globulin 00:00:00 [facility] TDAP 2019-06-21 Completed University of 00:00:00 [facility] Rho (d) Immune 2019-06-21 Completed University of Globulin 00:00:00 [facility] TDAP 2019-06-21 Completed University of 00:00:00 [facility] Rho (d) Immune 2019-06-21 Completed University of Globulin 00:00:00 [facility] Influenza Virus 2019-01-10 Completed Universit y of Vaccine Quad .5 mL 00:00:00 [facility] IM 6+ MO Branch Influenza Virus 2019-01-10 Completed Universit y of Vaccine Quad .5 mL 00:00:00 [facility] IM 6+ MO Branch Influenza Virus 2019-01-10 Completed Universit y of Vaccine Quad .5 mL 00:00:00 [place] [facility] IM 6+ MO Branch Influenza Virus 2019-01-10 Completed Universit y of Vaccine Quad .5 mL 00:00:00 [place] [facility] IM 6+ MO Branch Influenza Virus 2019-01-10 Completed Universit y of Vaccine Quad .5 mL 00:00:00 [place] [facility] IM 6+ MO Branch Influenza Virus 2019-01-10 Completed Universit y of Vaccine Quad .5 mL 00:00:00 [place] [facility] IM 6+ MO Branch Influenza Virus 2019-01-10 Completed Universit y of Vaccine Quad .5 mL 00:00:00 [place] [facility] IM 6+ MO Branch Influenza Virus 2019-01-10 Completed Universit y of Vaccine Quad .5 mL 00:00:00 [place] [facility] IM 6+ MO Branch Influenza Virus 2019-01-10 Completed Universit y of Vaccine [place] .5 mL 00:00:00 [place] [facility] IM 6+ MO Branch Influenza Virus 2019-01-10 Completed Universit y of Vaccine [place] .5 mL 00:00:00 [place] [facility] IM 6+ MO Branch Influenza Virus 2019-01-10 Completed Universit y of Vaccine [place] .5 mL 00:00:00 [place] [facility] IM 6+ MO Branch Influenza Virus 2019-01-10 Completed Universit y of Vaccine [place] .5 mL 00:00:00 [place] [facility] IM 6+ MO Branch Influenza Virus 2019-01-10 Completed Universit y of Vaccine [place] .5 mL 00:00:00 [place] [facility] IM 6+ MO Branch Influenza Virus 2019-01-10 Completed Universit y of Vaccine [place] .5 mL 00:00:00 [place] [facility] IM 6+ MO Branch Influenza Virus 2019-01-10 Completed Universit y of Vaccine [place] .5 mL 00:00:00 [place] [facility] IM 6+ MO Branch Influenza Virus 2019-01-10 Completed Universit y of Vaccine [place] .5 mL 00:00:00 [place] [facility] IM 6+ MO Branch Influenza Virus 2019-01-10 Completed Universit y of Vaccine [place] .5 mL 00:00:00 [place] [facility] IM 6+ MO Branch Influenza Virus 2019-01-10 Completed Universit y of Vaccine [place] .5 mL 00:00:00 [place] [facility] IM 6+ MO Branch Influenza Virus 2019-01-10 Completed Universit y of Vaccine [place] .5 mL 00:00:00 [place] [facility] IM 6+ MO Branch Influenza Virus 2019-01-10 Completed Universit y of Vaccine [place] .5 mL 00:00:00 [place] [facility] IM 6+ MO Branch Influenza Virus 2019-01-10 Completed Universit y of Vaccine [place] .5 mL 00:00:00 [place] [facility] IM 6+ MO Branch Influenza Virus 2019-01-10 Completed Universit y of Vaccine [place] .5 mL 00:00:00 [place] [facility] IM 6+ MO Branch Influenza Virus 2019-01-10 Completed Universit y of Vaccine Quad .5 mL 00:00:00 [place] [facility] IM 6+ MO Branch Influenza Virus 2019-01-10 Completed Universit y of Vaccine Quad .5 mL 00:00:00 [place] [facility] IM 6+ MO Branch Influenza Virus 2019-01-10 Completed Universit y of Vaccine Quad .5 mL 00:00:00 [place] [facility] IM 6+ MO Branch Influenza Virus 2019-01-10 Completed Universit y of Vaccine Quad .5 mL 00:00:00 [place] [facility] IM 6+ MO Branch Influenza Virus 2019-01-10 Completed Universit y of Vaccine Quad .5 mL 00:00:00 [place] [facility] IM 6+ MO Branch Influenza Virus 2019-01-10 Completed Universit y of Vaccine Quad .5 mL 00:00:00 [place] [facility] IM 6+ MO Branch Influenza Virus 2019-01-10 Completed Universit y of Vaccine Quad .5 mL 00:00:00 [place] [facility] IM 6+ MO Branch Influenza Virus 2019-01-10 Completed Universit y of Vaccine Quad .5 mL 00:00:00 [place] [facility] IM 6+ MO Branch Influenza Virus 2019-01-10 Completed Universit y of Vaccine Quad .5 mL 00:00:00 [place] [facility] IM 6+ MO Branch Influenza Virus 2019-01-10 Completed Universit y of Vaccine Quad .5 mL 00:00:00 [place] [facility] IM 6+ MO Branch Influenza Virus 2019-01-10 Completed Universit y of Vaccine Quad .5 mL 00:00:00 [place] [facility] IM 6+ MO Branch Influenza Virus 2019-01-10 Completed Universit y of Vaccine Quad .5 mL 00:00:00 [place] [facility] IM 6+ MO Branch Influenza Virus 2019-01-10 Completed [facility] .5 mL 00:00:00 [facility] 6+ MO [facility] Influenza Virus 2019-01-10 Completed [facility] .5 mL 00:00:00 [facility] IM 6+ MO [facility] Influenza Virus 2019-01-10 Completed [facility] .5 mL 00:00:00 [facility] IM 6+ MO [facility] Influenza Virus 2019-01-10 Completed [facility] .5 mL 00:00:00 [facility] IM 6+ MO [facility] Influenza Virus 2019-01-10 Completed [facility] .5 mL 00:00:00 [facility] IM 6+ MO [facility] Influenza Virus 2019-01-10 Completed [facility] .5 mL 00:00:00 [facility] IM 6+ MO [facility] Influenza Virus 2019-01-10 Completed [facility] .5 mL 00:00:00 [facility] IM 6+ MO [facility] Influenza Virus 2019-01-10 Completed [facility] .5 mL 00:00:00 [facility] IM 6+ MO [facility] Influenza Virus 2019-01-10 Completed [facility] .5 mL 00:00:00 [facility] IM 6+ MO [facility] Influenza Virus 2019-01-10 Completed [facility] .5 mL 00:00:00 [facility] IM 6+ MO [facility] Influenza Virus 2019-01-10 Completed [facility] .5 mL 00:00:00 [facility] IM 6+ MO [facility] Influenza Virus 2019-01-10 Completed [facility] .5 mL 00:00:00 [facility] IM 6+ MO [facility] Influenza Virus 2019-01-10 Completed [facility] .5 mL 00:00:00 [facility] IM 6+ MO [facility] Influenza Virus 2019-01-10 Completed [facility] .5 mL 00:00:00 [facility] IM 6+ MO [facility] Influenza Virus 2019-01-10 Completed [facility] .5 mL 00:00:00 [facility] IM 6+ MO [facility] Influenza Virus 2019-01-10 Completed [facility] .5 mL 00:00:00 [facility] IM 6+ MO [facility] Influenza Virus 2019-01-10 Completed [facility] .5 mL 00:00:00 [facility] IM 6+ MO [facility] Influenza Virus 2019-01-10 Completed [facility] .5 mL 00:00:00 [facility] IM 6+ MO [facility] Influenza Virus 2019-01-10 Completed [facility] .5 mL 00:00:00 [facility] IM 6+ MO [facility] Influenza Virus 2019-01-10 Completed [facility] .5 mL 00:00:00 [facility] IM 6+ MO [facility] Influenza Virus 2019-01-10 Completed [facility] .5 mL 00:00:00 [facility] IM 6+ MO [facility] Influenza Virus 2019-01-10 Completed [facility] .5 mL 00:00:00 [facility] IM 6+ MO [facility] Influenza Virus 2019-01-10 Completed [facility] .5 mL 00:00:00 [facility] IM 6+ MO [facility] Influenza Virus 2019-01-10 Completed [facility] .5 mL 00:00:00 [facility] IM 6+ MO [facility] Influenza Virus 2019-01-10 Completed [facility] .5 mL 00:00:00 [facility] 6+ MO [facility] Influenza Virus 2019-01-10 Completed [facility] .5 mL 00:00:00 [facility] IM 6+ MO [facility] Influenza Virus 2019-01-10 Completed [facility] .5 mL 00:00:00 [facility] IM 6+ MO [facility] Influenza Virus 2019-01-10 Completed [facility] .5 mL 00:00:00 [facility] IM 6+ MO [facility] Influenza Virus 2019-01-10 Completed [facility] .5 mL 00:00:00 [facility] IM 6+ MO [facility] Influenza Virus 2019-01-10 Completed [facility] .5 mL 00:00:00 [facility] IM 6+ MO [facility] Influenza Virus 2019-01-10 Completed [facility] .5 mL 00:00:00 [facility] IM 6+ MO [facility] Vital Signs Vital Name Observation Time Observation Value Comments Source Systolic blood 2019-10-21 18:18:00 123 mm[Hg] Univer sity of pressure [facility] Diastolic blood 2019-10-21 18:18:00 78 mm[Hg] Unive rsity of pressure [facility] Heart rate 2019-10-21 18:18:00 80 /min Universi ty [facility] Body temperature 2019-10-21 18:18:00 36.89 Ana [facility] 2019-10-21 18:18:00 16 /min [facility] Body height 2019-10-21 18:18:00 172.7 cm Universi ty [facility] Body weight 2019-10-21 18:18:00 103.59 kg Universi ty [facility] BMI 2019-10-21 18:18:00 34.72 kg/m2 Universi ty [facility] Systolic blood 2019-10-06 20:42:00 131 mm[Hg] Univer sity of pressure [facility] Diastolic blood 2019-10-06 20:42:00 80 mm[Hg] Unive rsity of pressure [facility] Heart rate 2019-10-06 20:42:00 98 /min Universi ty [facility] Body temperature 2019-10-06 20:42:00 36.17 Ana [facility] Respiratory rate 2019-10-06 20:42:00 16 /min Univ ersity of [facility] Body height 2019-10-06 20:42:00 172.7 cm [facility]i ty [facility] Body weight 2019-10-06 20:42:00 103.108 kg [facility]i [facility] BMI 2019-10-06 20:42:00 34.56 kg/m2 Universi ty of [facility] Heart rate 2019-09-02 12:53:00 75 /min Universi ty of [facility] Body temperature 2019-09-02 12:53:00 36 Ana Univ ersity of [facility] Respiratory rate 2019-09-02 12:53:00 18 /min Univ ersity of [facility] Oxygen saturation in 2019-09-02 12:53:00 97 /min University of Arterial blood by [facility] Pulse oximetry Branch Systolic blood 2019-09-02 04:07:00 133 mm[Hg] Univer sity of pressure [facility] Diastolic blood 2019-09-02 04:07:00 74 mm[Hg] Unive rsity of pressure [facility] BMI 2019-08-25 20:08:00 37.14 kg/m2 Universi ty of [facility] Systolic blood 2019-08-25 20:08:00 132 mm[Hg] Univer sity of pressure [facility] Diastolic blood 2019-08-25 20:08:00 83 mm[Hg] Unive rsity of pressure [facility] Heart rate 2019-08-25 20:08:00 97 /min Universi ty of [facility] Body temperature 2019-08-25 20:08:00 37 Ana Univ ersity of [facility] Respiratory rate 2019-08-25 20:08:00 16 /min Univ ersity of [facility] Body height 2019-08-25 20:08:00 172.7 cm Universi ty of [facility] Body weight 2019-08-25 20:08:00 110.791 kg Universi ty of [facility] Systolic blood 2019-08-29 20:27:00 119 mm[Hg] Univer sity of pressure [facility] Diastolic blood 2019-08-29 20:27:00 76 mm[Hg] Unive rsity of pressure [facility] Heart rate 2019-08-29 20:27:00 100 /min [facility]i ty of [facility] Body temperature 2019-08-29 20:27:00 36.28 Ana Univ ersity of [facility] Respiratory rate 2019-08-29 20:27:00 16 /min Univ ersity of [facility] Body height 2019-08-29 20:27:00 172.7 cm [facility] Body weight 2019-08-29 20:27:00 109.77 kg [facility] BMI 2019-08-29 20:27:00 36.80 kg/m2 [facility] Systolic blood 2019-08-22 12:59:00 133 mm[Hg] Univer sity of pressure [facility] Diastolic blood 2019-08-22 12:59:00 85 mm[Hg] Unive rsity of pressure [facility] Heart rate 2019-08-22 12:59:00 102 /min [facility]i [facility] Body temperature 2019-08-22 12:59:00 36.33 Ana Univ ers[facility] of [facility] Respiratory rate 2019-08-22 12:59:00 16 /min Univ ersity of [facility] Body height 2019-08-22 12:59:00 172.7 cm [facility] Body weight 2019-08-22 12:59:00 110.394 kg [facility] BMI 2019-08-22 12:59:00 37.01 kg/m2 [facility] Systolic blood 2019-08-18 19:33:00 124 mm[Hg] Univer sity of pressure [facility] Diastolic blood 2019-08-18 19:33:00 72 mm[Hg] Unive rsity of pressure [facility] Heart rate 2019-08-18 19:33:00 96 /min [facility]i [facility] Body temperature 2019-08-18 19:33:00 37.06 Ana Univ ersity of [facility] Respiratory rate 2019-08-18 19:33:00 16 /min Univ ersity of [facility] Body height 2019-08-18 19:33:00 172.7 cm [facility] Body weight 2019-08-18 19:33:00 109.856 kg [facility] BMI 2019-08-18 19:33:00 36.82 kg/m2 [facility] Systolic blood 2019-08-15 19:23:00 128 mm[Hg] Univer sity of pressure [facility] Diastolic blood 2019-08-15 19:23:00 76 mm[Hg] Unive rsity of pressure [facility] Heart rate 2019-08-15 19:23:00 68 /min [facility]i ty [facility] Body temperature 2019-08-15 19:23:00 36.94 Ana Univ ersity of [facility] Respiratory rate 2019-08-15 19:23:00 16 /min Univ ersity of [facility] Body height 2019-08-15 19:23:00 172.7 cm [facility] Body weight 2019-08-15 19:23:00 109.997 kg [facility] BMI 2019-08-15 19:23:00 36.87 kg/m2 [facility] Systolic blood 2019-08-12 20:10:00 131 mm[Hg] Univer sity of pressure [facility] Diastolic blood 2019-08-12 20:10:00 83 mm[Hg] Unive rsity of pressure [facility] Heart rate 2019-08-12 20:10:00 100 /min [facility]i ty of [facility] Body temperature 2019-08-12 20:10:00 36.89 Ana Univ ersity of [facility] Respiratory rate 2019-08-12 20:10:00 16 /min Univ ersity of [facility] Body height 2019-08-12 20:10:00 172.7 cm [facility] Body weight 2019-08-12 20:10:00 109.856 kg [facility]i ty of [facility] BMI 2019-08-12 20:10:00 36.82 kg/m2 [facility] ty [facility] Systolic blood 2019-08-09 19:31:00 133 mm[Hg] Univer sity of pressure [facility] Diastolic blood 2019-08-09 19:31:00 89 mm[Hg] Unive rsity of pressure [facility] Heart rate 2019-08-09 19:30:00 89 /min [facility]i ty [facility] Body temperature 2019-08-09 19:30:00 36.44 Ana Univ ersity of [facility] Respiratory rate 2019-08-09 19:30:00 16 /min Univ ersity of [facility] Body height 2019-08-09 19:30:00 172.7 cm [facility] Body weight 2019-08-09 19:30:00 111.188 kg [facility] BMI 2019-08-09 19:30:00 37.27 kg/m2 [facility] Systolic blood 2019-08-03 19:37:00 127 mm[Hg] Univer sity of pressure [facility] Diastolic blood 2019-08-03 19:37:00 78 mm[Hg] Unive rsity of pressure [facility] Heart rate 2019-08-03 19:37:00 93 /min [facility] ty [facility] Body temperature 2019-08-03 19:37:00 36.22 Ana Univ ersity of [facility] Respiratory rate 2019-08-03 19:37:00 16 /min Univ ersity of [facility] Body height 2019-08-03 19:37:00 172.7 cm [facility] Body weight 2019-08-03 19:37:00 110.819 kg [facility] BMI 2019-08-03 19:37:00 37.15 kg/m2 [facility] Systolic blood 2019-07-21 13:13:00 139 mm[Hg] Univer sity of pressure [facility] Diastolic blood 2019-07-21 13:13:00 78 mm[Hg] Unive rsity of pressure [facility] Heart rate 2019-07-21 13:13:00 76 /min [facility] ty [facility] Body temperature 2019-07-21 13:13:00 36.56 Ana Univ ersity [facility] Respiratory rate 2019-07-21 13:13:00 16 /min Univ ersity of [facility] Body height 2019-07-21 13:13:00 172.7 cm [facility] Body weight 2019-07-21 13:13:00 110.423 kg [facility] BMI 2019-07-21 13:13:00 37.01 kg/m2 [facility] Systolic blood 2019-07-25 19:22:00 129 mm[Hg] Univer sity of pressure [facility] Diastolic blood 2019-07-25 19:22:00 79 mm[Hg] Unive rsity of pressure [facility] Heart rate 2019-07-25 19:22:00 104 /min [facility]i ty [facility] Body temperature 2019-07-25 19:22:00 36.94 Ana Univ ersity [facility] Respiratory rate 2019-07-25 19:22:00 16 /min Univ ersity of [facility] Body height 2019-07-25 19:22:00 172.7 cm [facility] Body weight 2019-07-25 19:22:00 109.969 kg [facility] BMI 2019-07-25 19:22:00 36.86 kg/m2 [facility] Systolic blood 2019-07-05 15:59:00 131 mm[Hg] Univer sity of pressure [facility] Diastolic blood 2019-07-05 15:59:00 78 mm[Hg] Unive rsity of pressure [facility] Heart rate 2019-07-05 15:59:00 107 /min [facility]i ty [facility] Body temperature 2019-07-05 15:59:00 36.78 Ana Univ ersity of [facility] Respiratory rate 2019-07-05 15:59:00 16 /min Univ ersity of [facility] Body height 2019-07-05 15:59:00 172.7 cm [facility] ty [facility] Body weight 2019-07-05 15:59:00 110.678 kg [facility] ty [facility] BMI 2019-07-05 15:59:00 37.10 kg/m2 [facility] Systolic blood 2019-06-21 13:51:00 130 mm[Hg] Univer sity of pressure [facility] Diastolic blood 2019-06-21 13:51:00 80 mm[Hg] Unive rsity of pressure [facility] Heart rate 2019-06-21 13:51:00 103 /min [facility]i ty [facility] Body temperature 2019-06-21 13:51:00 36.22 Ana Univ ersity of [facility] Respiratory rate 2019-06-21 13:51:00 16 /min Univ ersity of [facility] Body weight 2019-06-21 13:51:00 109.345 kg [facility] ty [facility] BMI 2019-06-21 13:51:00 36.65 kg/m2 [facility] ty [facility] Systolic blood 2019-06-09 01:00:00 120 mm[Hg] Univer sity of pressure [facility] Diastolic blood 2019-06-09 01:00:00 65 mm[Hg] Unive rsity of pressure [facility] Heart rate 2019-06-09 01:00:00 87 /min Universi ty of [facility] Oxygen saturation in 2019-06-09 01:00:00 99 /min University of Arterial blood by [facility] Pulse oximetry Branch Respiratory rate 2019-06-09 00:56:00 18 /min Univ ersity of [facility] Body temperature 2019-06-09 00:30:00 36.83 Ana Univ ersity of [facility] Body height 2019-06-08 23:05:00 172.7 cm Universi ty of [facility] Body weight 2019-06-08 23:05:00 108.41 kg [facility] ty [facility] BMI 2019-06-08 23:05:00 36.34 kg/m2 [facility] ty [facility] Systolic blood 2019-06-07 15:03:00 120 mm[Hg] Univer sity of pressure [facility] Diastolic blood 2019-06-07 15:03:00 78 mm[Hg] Unive rsity of pressure [facility] Heart rate 2019-06-07 15:03:00 96 /min [facility]i ty of [facility] Body temperature 2019-06-07 15:03:00 36.72 Ana Univ ersity of [facility] Respiratory rate 2019-06-07 15:03:00 16 /min Univ ersity of [facility] Body height 2019-06-07 15:03:00 172.7 cm [facility]i ty [facility] Body weight 2019-06-07 15:03:00 109.118 kg [facility] ty [facility] BMI 2019-06-07 15:03:00 36.58 kg/m2 [facility] ty [facility] Systolic blood 2019-05-23 13:23:00 135 mm[Hg] Univer sity of pressure [facility] Diastolic blood 2019-05-23 13:23:00 72 mm[Hg] Unive rsity of pressure [facility] Heart rate 2019-05-23 13:23:00 101 /min [facility]i ty [facility] Body temperature 2019-05-23 13:23:00 36.5 Ana Univ ersity of [facility] Respiratory rate 2019-05-23 13:23:00 16 /min Univ ersity of [facility] Body height 2019-05-23 13:23:00 172.7 cm Universi ty of [facility] Body weight 2019-05-23 13:23:00 107.162 kg [facility] ty [facility] BMI 2019-05-23 13:23:00 35.92 kg/m2 [facility] ty [facility] Systolic blood 2019-05-09 13:21:00 113 mm[Hg] Univer sity of pressure [facility] Diastolic blood 2019-05-09 13:21:00 71 mm[Hg] Unive rsity of pressure [facility] Heart rate 2019-05-09 13:21:00 90 /min [facility]i ty [facility] Body temperature 2019-05-09 13:21:00 36.28 Ana Univ ersity of [facility] Respiratory rate 2019-05-09 13:21:00 16 /min Univ ersity of [facility] Body height 2019-05-09 13:21:00 172.7 cm [facility] ty [facility] Body weight 2019-05-09 13:21:00 106.198 kg [facility] ty [facility] BMI 2019-05-09 13:21:00 35.60 kg/m2 [facility] ty [facility] Systolic blood 2019-04-25 13:17:00 116 mm[Hg] Univer sity of pressure [facility] Diastolic blood 2019-04-25 13:17:00 70 mm[Hg] Unive rsity of pressure [facility] Heart rate 2019-04-25 13:17:00 93 /min Universi ty [facility] Body temperature 2019-04-25 13:17:00 36.28 Ana Univ ersity of [facility] Respiratory rate 2019-04-25 13:17:00 16 /min Univ ersity of [facility] Body height 2019-04-25 13:17:00 172.7 cm [facility] ty [facility] Body weight 2019-04-25 13:17:00 106.652 kg [facility] ty [facility] BMI 2019-04-25 13:17:00 35.75 kg/m2 [facility] ty [facility] Systolic blood 2019-03-28 20:36:00 134 mm[Hg] Univer sity of pressure [facility] Diastolic blood 2019-03-28 20:36:00 74 mm[Hg] Unive rsity of pressure [facility] Heart rate 2019-03-28 20:36:00 100 /min Universi ty of [facility] Body temperature 2019-03-28 20:36:00 36.56 Ana Univ ersity of [facility] Respiratory rate 2019-03-28 20:36:00 16 /min Univ ersity of [facility] Body height 2019-03-28 20:36:00 172.7 cm Universi ty of [facility] Body weight 2019-03-28 20:36:00 106.595 kg Universi ty of [facility] BMI 2019-03-28 20:36:00 35.73 kg/m2 Universi ty of [facility] Systolic blood 2019-03-14 20:00:00 130 mm[Hg] Univer sity of pressure [facility] Diastolic blood 2019-03-14 20:00:00 65 mm[Hg] Unive rsity of pressure [facility] Heart rate 2019-03-14 20:00:00 93 /min Universi ty of [facility] Respiratory rate 2019-03-14 20:00:00 24 /[facility] Oxygen saturation in 2019-03-14 20:00:00 97 /min University of Arterial blood by [facility] Pulse oximetry Branch Body temperature 2019-03-14 16:10:00 35.94 Ana Univ ersity of [facility] Body height 2019-03-14 16:10:00 172.7 cm Universi ty of [facility] Body weight 2019-03-14 16:10:00 107.502 kg Universi ty of [facility] BMI 2019-03-14 16:10:00 36.04 kg/m2 Universi ty of [facility] Systolic blood 2019-02-28 19:40:00 123 mm[Hg] Univer sity of pressure [facility] Diastolic blood 2019-02-28 19:40:00 78 mm[Hg] Unive rsity of pressure [facility] Heart rate 2019-02-28 19:40:00 94 /min Universi ty of [facility] Body temperature 2019-02-28 19:40:00 36.56 Ana Univ ersity of [facility] Respiratory rate 2019-02-28 19:40:00 16 /min Univ ersity of [facility] Body height 2019-02-28 19:40:00 172.7 cm Universi ty of [facility] Body weight 2019-02-28 19:40:00 108.155 kg [facility] BMI 2019-02-28 19:40:00 36.25 kg/m2 [facility] Procedures Procedure Date / Time Performing Clinician Source Performed POCT TEST 2019-10-21 18:24:00 Chente Naranjo [facility] POCT GLUCOSE (AUTOMATED) 2019-09-02 11:11:00 Marcia Scott Uni [facility] CBC WITH DIFF 2019-09-02 08:40:00 Kei [facility] POCT GLUCOSE (AUTOMATED) 2019-09-02 01:58:00 Marcia Scott [facility] POCT GLUCOSE (AUTOMATED) 2019-09-01 19:30:00 Marcia Scott Uni [facility] POCT GLUCOSE (AUTOMATED) 2019-09-01 11:18:00 Marcia Scott [facility] VENOUS CORD GAS 2019-09-01 07:04:00 Sonal [facility] POCT GLUCOSE (AUTOMATED) 2019-09-01 05:28:00 Marcia Scott [facility] POCT GLUCOSE (AUTOMATED) 2019-08-31 23:08:00 Marcia Scott [facility] POCT GLUCOSE (AUTOMATED) 2019-08-31 18:45:00 Marcia Scott [facility] URINALYSIS 2019-08-31 16:43:00 Maria L [facility] PROTEIN CREAT RATIO URINE 2019-08-31 16:43:00 Alicia Lisa [facility] SGOT (ASPARTATE AMINO 2019-08-31 16:07:00 Alicia Lisa [facility]) Medical Branch CREATININE 2019-08-31 16:07:00 Maria L [facility] ALANINE AMINO 2019-08-31 16:07:00 Maria L [facility] TRANSFERASE(SGPT Medical Branch LACTATE DEHYDROGENASE 2019-08-31 16:07:00 Alicia Lisa [facility] URIC ACID 2019-08-31 16:07:00 Maria L [facility] CBC WITH DIFF 2019-08-31 16:07:[facility]FACE 2019-08-31 16:07:00 Sonal [facility] ANTIGEN [facility] CBC WITH DIFFERENTIAL 2019-08-31 16:07:[address] [facility] GALV ONLY - SYPHILIS 2019-08-31 16:07:[facility] HB ABO GROUPING 2019-08-31 15:45[facility] IMMUNE GLOBULIN 2019-08-31 15:45:00 Dmitry Choudhury [facility] POCT GLUCOSE (AUTOMATED) 2019-08-31 14:38:00 Marcia Scott [facility] COVID-19 (ID NOW RAPID 2019-08-31 13:03:00 Marcia Scott [facility] TESTING) Medical Branch HOSPITAL ADMISSION 2019-08-31 05:01:00 Doctor Unassigned, [facility] Keizer [facility] POCT URINALYSIS 2019-08-29 20:30:00 Akinsipe, Chente C [facility] NON-STRESS TEST 2019-08-26 00:39:52 Therese Gallegos [facility] POCT URINALYSIS 2019-08-25 20:10:00 Akinsipe Chente C [facility] NON-STRESS TEST 2019-08-22 13:35:32 Akinsipe, Chente C U [facility] POCT URINALYSIS 2019-08-22 13:01:00 Akinsipe, Chente C [facility] NON-STRESS TEST 2019-08-18 20:00:54 Catarina Maria [facility] POCT URINALYSIS 2019-08-18 19:33:00 Akinsipe, Chente C [facility] NON-STRESS TEST 2019-08-15 20:15:53 [facility]Chente [facility] 2019-08-15 19:25:00 Chente Naranjo C Univers ity [facility] PATIENT QUESTIONNAIRE 2019-08-15 05:01:00 Doctor Unassigned, Uni versity of [facility] NON-STRESS TEST 2019-08-12 20:58:13 [facility] URINALYSIS 2019-08-12 20:10:00 Chente Naranjo Univers ity [facility] NON-STRESS TEST 2019-08-09 20:28:40 Hollis Cohen Uni versity of [facility] POCT URINALYSIS 2019-08-09 19:34:00 Chente Naranjo C [facility] ity [facility] NON-STRESS TEST 2019-08-03 20:24:14 Hollis Cohen Uni versity of [facility] NON-STRESS TEST 2019-08-03 20:23:04 Hollis [facility] POCT URINALYSIS 2019-08-03 19:38:00 Chente Naranjo [facility]STION[facility] 2019-08-03 05:01:00 Doctor Unassigned, Uni versity of [facility] NON-STRESS TEST 2019-07-25 19:41:05 Hollis Cohen [facility] PATIENT QUESTIONNAIRE 2019-07-25 05:01:00 Doctor Unassigned, Uni versity of [facility] POCT URINALYSIS 2019-07-21 13:18:00 Chente Naranjo [facility] ity [facility] POCT URINALYSIS 2019-07-05 16:00:00 Chente Naranjo [facility] ity [facility] PATIENT QUESTIONNAIRE 2019-07-05 05:01:00 Doctor Unassigned, Uni versity of [facility] POCT URINALYSIS 2019-06-21 13:53:00 Chente Naranjo [facility] TDAP VACCINE, >11 YRS, IM 2019-06-21 13:51:39 Chente Naranjo [facility] PATIENT QUESTIONNAIRE 2019-06-21 05:01:00 Doctor Unassromy, Uni [facility] [place] US RETROPERITONEAL 2019-06-09 00:40:16 Adum, Merlyn Herrera [facility] COMPLETE [facility] ADC / LCC - DRUG SCREEN 2019-06-08 23:50:00 Adum, Merlyn Herrera [facility] TRIAGE [facility] L&D VISIT (NON-DELIVERED) 2019-06-08 05:01:00 Doctor Feliciano, [facility] POCT URINALYSIS 2019-06-07 15:05:00 Chente Naranjo [facility] PATIENT QUESTIONNAIRE 2019-06-07 05:01:00 Doctor Feliciano, [facility] POCT URINALYSIS 2019-05-23 13:26:00 Chente Naranjo [facility] PATIENT QUESTIONNAIRE 2019-05-23 05:01:00 Doctor Feliciano, [facility] POCT URINALYSIS 2019-05-09 13:22:00 Chente Naranjo [facility] PATIENT QUESTIONNAIRE 2019-05-09 05:01:00 Doctor Feliciano, [facility] POCT RAPID STREP SCREEN 2019-04-25 14:03:00 Chente Naranjo [facility] FOR GROUP A [facility] POCT URINALYSIS 2019-04-25 13:22:00 Chente Naranjo [facility] PATIENT QUESTIONNAIRE 2019-04-25 05:01:00 Doctor Feliciano, [facility] LIPASE 2019-03-14 16:19:00 Gee Turcios [facility] COMP. METABOLIC PANEL 2019-03-14 16:19:00 Gee Turcios [facility] ([id number]) [facility] CBC WITH DIFFERENTIAL 2019-03-14 16:19:00 Gee Turcios [facility] URINALYSIS 2019-03-14 16:19:00 Gee Turcios [facility] CONSENT/REFUSAL FOR 2019-03-14 16:05:17 Doctor Feliciano [facility] DIAGNOSIS AND TREATMENT [facility] NOTICE OF PRIVACY 2019-03-14 16:04:39 Doctor Unassigned, [facility] PRACTICES [facility] GLYCOSYLATED HEMOGLOBIN 2019-02-28 20:17:00 Zenia Contreras Uni [facility] (A1C) [facility] PROTEIN CREAT RATIO URINE 2019-02-28 20:07:00 [facility] BASIC METABOLIC PANEL (NA, 2019-02-28 20:06:00 Zenia Contreras [facility] K, CL, CO2, GLUCOSE, BUN, [facility] [place] CREATININE, CA) POCT URINALYSIS 2019-02-28 19:54:00 Chente Naranjo [facility] Encounters Start End Encounter Admission Attending Care Care Encounter Source Date/Time Date/Time Type Type Clinicians Facility Department ID 2020-12-13 Emergency [facility] [id number] [facility] 2020-12-13 Outpatient P [facility] PURVI [id number] Univers 18:46:01 ity [facility] 2020-12-13 Emergency [facility] [id number] Univers 18:45[facility] 2021-09-30 2021-09-30 Outpatient R JOSE A [facility] [id number] Univers 14:15:00 14:15:00 CHENTE cervantes o f [facility] 2020-05-08 2020-05-08 Patient Ben [facility] 1.2.840.114 [id number] Univers 00:00:00 00:00:00 Outreach Neel PRIMARY 350.1.13.10 i ty of [facility] [place].2.7.2.[place]AV[place] [phone] [address] 2019-10-21 2019-10-21 Office Jose A [facility] 1.2.906.596 [id number] Univers 13:08:17 14:21:13 Visit Chente Waters [employer] 350.1.13.10 ity of [facility] 4.2.7.2.686 Bhavin as MATERNAL [phone] Med ical & CHILD [address] [place] [address] 2019-10-21 2019-10-21 Outpatient R JOSE A [facility] [id number] Univers 13:15:00 13:15:00 CHENTE dolan [facility] 2019-10-14 2019-10-14 Outpatient R JOSE A [facility] [id number] Univers 10:30:00 10:30:00 CHENTE dolan [facility] 2019-10-14 2019-10-14 Telephone [facility] 1.2.840.114 [id number] Univers 00:00:00 00:00:00 Chente Waters [employer] 350.1.13.10 ity of [place] [id number] Bhavin as MATERNAL [phone] [facility] ical & CHILD [address] [place] [address] 2019-10-06 2019-10-06 Routine [facility] 1.2.959.678 [id number] Univers 15:37:54 16:07:08 Jeanette Carey [employer] 350.1.13.10 i ty of Visit [facility] 4.2.7.2.686 Bhavin as MATERNAL [phone] [facility] ical & CHILD [address] [place] [address] 2019-10-06 2019-10-06 Outpatient R CALOS [facility] [id number] Univers 15:45:00 15:45:00 JEANETTE cervantes [facility] 2019-08-31 2019-09-02 Hospital GULSHAN Scott 1.2.840.114 [id number] Univers 07:47:00 11:59:00 Encounter Marcia MCELROY 350.1.13.10 ity of [facility] 4.2.7.2.686 Bhavin as [phone] [facility] [address] [place] 2019-09-01 2019-09-01 Telephone Adin GULSHAN 1.2.840.114 [id number] Univers 00:00:00 00:00:00 Maddi MCELROY 350.1.13.10 i ty of [facility] 4.2.7.2.686 Bhavin as [phone] [facility] 019 [place] 2019-08-25 2019-08-31 Routine Risk, Zhs-Cfagz-Sp/High [facility] 1. 2.840.114 [id number] Univers 14:33:40 06:32:54 Catarina Maria [employer] 350.1.13.10 ity of Visit Therese Gallegos REGIONAL 4.2.7.2.686 [place] MATERNAL [phone] [facility] & CHILD [address] [place] [address] 2019-08-31 2019-08-31 Orders Doctor GULSHAN 1.2.840.114 [id number] Univers 00:00:00 00:00:00 Only Unassigned, LILIBETH 350.1.13.10 ity of [place] [facility] 4.2.7.2.686 Bhavin as [phone] [address] 2019-08-29 2019-08-29 Routine Akinsipe, [facility] 1.2.677.862 [id number] Univers 15:19:37 16:00:52 Chente C [employer] 350.1.13.10 ity of Visit [facility] 4.2.7.2.686 Bhavin as MATERNAL [phone] [facility] & CHILD [address] [place] [address] 2019-08-29 2019-08-29 Outpatient [facility] [id number] Univers 15:45:00 15:45:00 CHENTE ity o f [facility] 2019-08-26 2019-08-26 Abstract [facility], [facility] 1.2.840.114 [id number] Univers 00:00:00 00:00:00 Chente Waters [employer] 350.1.13.10 ity of [facility] 4.2.7.2.686 Bhavin as MATERNAL [phone] [facility] & [address] 2019-08-25 2019-08-25 Cookie Breaker Ultrasound, [facility] 1.2 .840.114 [id number] Univers 15:46:14 16:16:14 Visit Nadia Mariady Lula [employer] 350.1.13.10 ity of ElRejicody Herrera [facility] 4.2.7.2.686 [place] Marcia Scott MATERNAL [phone] Medical & CHILD [address] [place] [address] 2019-08-25 2019-08-25 Outpatient R [facility] [id number] Univers 14:30:00 14:30:00 ity of [facility] 2019-08-22 2019-08-22 Routine Akinsipe, [facility] 1.2.728.421 [id number] Univers 07:46:16 08:36:03 Chente Waters [employer] 350.1.13.10 ity of Visit REGIONAL 4.2.7.2.686 Bhavin as MATERNAL [id number] [facility] ical & CHILD [address] [place] [address] 2019-08-22 2019-08-22 Outpatient R AKINELMOPE, [facility] [id number] Univers 07:45:00 07:45:00 CHENTE ity o f [facility] 2019-08-18 2019-08-18 Routine Risk, Oqd-Emsdo-Km/High [facility] 1. 2.840.114 [id number] Univers 14:16:55 14:31:55 Catarina Maria [employer] 350.1.13.10 ity of Visit REGIONAL 4.2.7.2.686 Bhavin as MATERNAL [phone] [facility] & [address] 2019-08-18 2019-08-18 Outpatient R [facility] [id number] Univers 14:30:00 14:30:00 ity of [facility] 2019-08-15 2019-08-15 Routine Akinpe, [facility] 1.2.518.823 [id number] Univers 14:01:22 14:59:00 Chente Waters [employer] 350.1.13.10 ity of Visit REGIONAL 4.2.7.2.686 Bhavin as MATERNAL [phone] [facility] & CHILD [address] [place] [address] 2019-08-15 2019-08-15 Outpatient R AKINSIPE, [facility] [id number] Univers 14:45:00 14:45:00 CHENTE ity o f [facility] 2019-08-15 2019-08-15 Orders Doctor GAFFNEY 1.2.840.114 [id number] Univers 00:00:00 00:00:00 Only Unassigned, LILIBETH 350.1.13.10 ity of [place] [facility] 4.2.7.2.686 Bhavin as [phone] [address] 2019-08-12 2019-08-12 Routine Akinsipe, [facility] 1.2.115.279 [id number] Univers 14:51:29 15:06:29 Chente Waters [employer] 350.1.13.10 ity of Visit REGIONAL 4.2.7.2.686 Bhavin as MATERNAL [id number] [facility] & [address] 2019-08-12 2019-08-12 Outpatient R [facility] [id number] Univers 14:45:00 14:45:00 ity of [facility] 2019-08-09 2019-08-09 [facility] 1.2.840.114 [id number] Univers 14:21:39 15:34:09 Rospaulnda R [employer] 350.1.13.10 ity of Visit REGIONAL 4.2.7.2.686 Bhavin as MATERNAL [phone] [facility] & [address] 2019-08-09 2019-08-09 Outpatient R [facility] [id number] Univers 14:30:00 14:30:00 ity of [facility] 2019-08-03 2019-08-03 Routine [facility] 1.2.840.114 [id number] Univers 14:24:37 15:27:07 Rospaulnda R [employer] 350.1.13.10 ity of Visit REGIONAL 4.2.7.2.686 Bhavin as MATERNAL [phone] [facility] & [address] 2019-08-03 2019-08-03 Outpatient R AKINRORY [facility] [id number] Univers 14:30:00 14:30:00 CHENTE cervantes o f [facility] 2019-08-03 2019-08-03 Orders Doctor GULSHAN 1.2.840.114 [id number] Univers 00:00:00 00:00:00 Only Unassigned, LILIBETH 350.1.13.10 ity of [place] [facility] 4.2.7.2.686 Bhavin as [phone] [address] 2019-07-28 2019-07-28 Cookie Breaker Ultrasound, [facility] 1.2 .840.114 [id number] Univers 15:02:04 15:32:04 Visit Zenia Contreras [employer] 350.1.13.10 ity of REGIONAL 4.2.7.2.686 Bhavin as MATERNAL [phone] Med ical & CHILD [address] [facility] 2019-07-28 2019-07-28 Outpatient P [facility] [id number] Univers 14:30:00 14:30:00 ity of [facility] 2019-07-28 2019-07-28 Abstract [facility] 1.2.840.114 [id number] Univers 00:00:00 00:00:00 Chente Waters [employer] 350.1.13.10 ity of [facility] 4.2.7.2.686 Bhavin as MATERNAL [phone] [facility] ical & CHILD [address] [place] [address] 2019-07-21 2019-07-27 Routine Risk, Nxo-Lmsdp-Ia/High [facility] 1. 2.840.114 [id number] Univers 07:56:06 15:09:25 Therese Gallegos [employer] 350.1.13.10 ity of Visit [facility] 4.2.7.2.686 Bhavin as MATERNAL [phone] [facility] ical & CHILD [address] [place] [address] 2019-07-25 2019-07-25 Routine [facility] 1.2.840.114 [id number] Univers 14:05:06 14:20:06 Hollis Carlson [employer] 350.1.13.10 ity of Visit [facility] 4.2.7.2.686 Bhavin as MATERNAL [phone] [facility] & CHILD [address] [place] [address] 2019-07-25 2019-07-25 [facility] [id number] Univers 14:00:00 14:00:00 ROSPAULNDA ity o f [facility] 2019-07-25 2019-07-25 Orders Doctor GULSHAN 1.2.840.114 [id number] Univers 00:00:00 00:00:00 Only Unassigned, LILIBETH 350.1.13.10 ity of [place] [facility] 4.2.7.2.686 Bhavin as [phone] [address] 2019-07-21 2019-07-21 Outpatient R [facility] [id number] Univers 08:00:00 08:00:00 ity of [facility] 2019-07-05 2019-07-05 Routine Akinelmope, [facility] 1.2.367.707 [id number] Univers 10:35:04 11:32:12 Chente C [employer] 350.1.13.10 ity of Visit REGIONAL 4.2.7.2.686 Bhavin as MATERNAL [phone] [facility] & CHILD [address] [place] [address] 2019-07-05 2019-07-05 Out[facility] [id number] Univers 10:45:00 10:45:00 CHENTE ity o f [facility] 2019-07-05 2019-07-05 Orders Doctor GULSHAN 1.2.840.114 [id number] Univers 00:00:00 00:00:00 Only Unassigned, LILIBETH 350.1.13.10 ity of [place] [facility] 4.2.7.2.686 Bhavin as [phone] [address] 2019-07-01 2019-07-01 Refill [facility] 1.2.329.390 [id number] Univers 00:00:00 00:00:00 Chente C [employer] 350.1.13.10 ity of REGIONAL 4.2.7.2.686 Bhavin as MATERNAL [id number] [address] 2019-06-21 2019-06-21 Outpatient R JOSE A, [facility] [id number] Univers 09:30:00 09:30:00 CHENTE cervantes o f [facility] 2019-06-21 2019-06-21 Routine [facility] 1.2.262.354 [id number] Univers 08:37:19 09:24:27 Chente C [employer] 350.1.13.10 ity of Visit REGIONAL 4.2.7.2.686 Bhavin as MATERNAL [phone] [address] 2019-06-21 2019-06-21 Cookie Breaker Ultrasound, [facility] 1.2 .840.114 [id number] Univers 08:00:39 08:29:09 Visit Jerilyn Alexander [employer] 350.1.13.10 ity of REGIONAL 4.2.7.2.686 Bhavin as MATERNAL [phone] Med ical & CHILD [address] [facility] 2019-06-21 2019-06-21 Orders Doctor GULSHAN 1.2.840.114 [id number] Univers 00:00:00 00:00:00 Only Unassigned, LILIBETH 350.1.13.10 ity of [place] [facility] 4.2.7.2.686 Bhavin as [phone] [facility] [address] [place] 2019-06-21 2019-06-21 Abstract [facility] 1.2.840.114 [id number] Univers 00:00:00 00:00:00 Chente C [employer] 350.1.13.10 ity of [facility] 4.2.7.2.686 Bhavin as MATERNAL [phone] [facility] ical & CHILD [address] [place] [address] 2019-06-08 2019-06-08 Out[facility] [id number] Univers 17:57:00 21:20:00 MERLYN cervantes of [facility] 2019-06-08 2019-06-08 [facility] 1.2.840.114 [id number] Univers 17:57:00 21:20:00 Encounter Merlyn Kearns 350.1.13.10 ity of [place] 4.2.7.2.686 [facility] [id number] [facility] [address] [place] 2019-06-08 2019-06-08 Nurse GULSHAN Jane 1.2.840.114 [id number] Univers 00:00:00 00:00:00 Triage Chnia MCELROY 350.1.13.10 i ty of [facility] 4.2.7.2.686 Bhavin as [id number] [facility] [address] [place] 2019-06-07 2019-06-07 Routine [facility] 1.2.588.704 [id number] Univers 09:56:26 10:53:56 Chente C [employer] 350.1.13.10 ity of Visit [facility] 4.2.7.2.686 Bhavin as MATERNAL [phone] [facility] & CHILD [address] [place] [address] 2019-06-07 2019-06-07 [facility] [id number] Univers 10:15:00 10:15:00 CHENTE ngo f [facility] 2019-06-07 2019-06-07 Orders Doctor GULSHAN 1.2.840.114 [id number] Univers 00:00:00 00:00:00 Only Unassigned, LILIBETH 350.1.13.10 ity of [place] [facility] 4.2.7.2.686 Bhavin as [phone] [address] 2019-05-23 2019-05-23 Routine [facility] 1.2.345.770 [id number] Univers 08:13:36 08:41:45 Chente C [employer] 350.1.13.10 ity of Visit REGIONAL 4.2.7.2.686 Bhavin as MATERNAL [phone] [facility] ical & CHILD [address] [place] [address] 2019-05-23 2019-05-23 Outpatient R [facility] [id number] Univers 08:00:00 08:00:00 CHENTE dolan [facility] 2019-05-23 2019-05-23 Orders Doctor GULSHAN 1.2.840.114 [id number] Univers 00:00:00 00:00:00 Only Unassigned, LILIBETH 350.1.13.10 ity of [place] [facility] 4.2.7.2.686 Bhavin as [phone] [address] 2019-05-12 2019-05-12 Telephone [facility] 1.2.840.114 [id number] Univers 00:00:00 00:00:00 Chente C [employer] 350.1.13.10 ity of REGIONAL 4.2.7.2.686 Bhavin as MATERNAL [id number] [facility] & CHILD [address] [place] [address] 2019-05-12 2019-05-12 Nurse GULSHAN Woods 1.2.840.114 [id number] Univers 00:00:00 00:00:00 Triage Antonieta Toledo LILIBETH 350.1.13.10 i ty of HOSPITAL 4.2.7.2.686 Bhavin as [phone] [address] 2019-05-11 2019-05-11 Telephone [facility] 1.2.840.114 [id number] Univers 00:00:00 00:00:00 Chente C [employer] CO[employer]ER 350.1.13.10 ity of [facility] 4.2.7.2.686 Bhavin as MATERNAL [phone] [facility] & [address] 2019-05-11 2019-05-11 [facility] 1.2.013.017 [id number] Univers 00:00:00 00:00:00 Marcia [employer] WINDER 350.1.13.10 i ty of [facility] 4.2.7.2.686 Bhavin as MATERNAL [phone] [address] 2019-05-09 2019-05-09 [facility] 1.2.325.398 [id number] Univers 08:12:20 08:27:20 Chente C [employer] 350.1.13.10 ity of Visit [facility] 4.2.7.2.686 Bhavin as MATERNAL [phone] [address] 2019-05-09 2019-05-09 Outpatient [facility] [id number] Univers 08:00:00 08:00:00 CHENTE dolan [facility] 2019-05-09 2019-05-09 Orders Doctor GULSHAN 1.2.840.114 [id number] Univers 00:00:00 00:00:00 Only Unassigned, LILIBETH 350.1.13.10 ity of [place] [facility] 4.2.7.2.686 Bhavin as [phone] [address] 2019-04-25 2019-04-25 [facility] 1.2.723.798 [id number] Univers 07:56:58 09:09:40 Chente C [employer] 350.1.13.10 ity of Visit [facility] 4.2.7.2.686 Bhavin as MATERNAL [phone] [address] 2019-04-25 2019-04-25 Outpatient [facility] [id number] Univers 08:00:00 08:00:00 CHENTE dolan [facility] 2019-04-25 2019-04-25 Orders Doctor GULSHAN 1.2.840.114 [id number] Univers 00:00:00 00:00:00 Only Unassigned, LILIBETH 350.1.13.10 ity of [place] [facility] 4.2.7.2.686 Bhavin as [id number] [address] 2019-04-12 2019-04-12 Cookie Breaker Ultrasound, [facility] 1.2 .840.114 [id number] Univers 08:21:07 09:49:34 Visit Roberto Lobato [employer] 350.1.13.10 ity of [facility] 4.2.7.2.686 Bhavin as MATERNAL [phone] Med ical & CHILD [address] [facility] 2019-04-12 2019-04-12 Outpatient P JOSE [facility] [id number] Univers 08:30:00 08:30:00 ROBERTO cervantes [facility] 2019-04-12 2019-04-12 Abstract [facility] 1.2.840.114 [id number] Univers 00:00:00 00:00:00 Chente C [employer] 350.1.13.10 ity of [facility] 4.2.7.2.686 Bhavin as MATERNAL [phone] [facility] ical & CHILD [address] [place] [address] 2019-04-12 2019-04-12 Telephone [facility] 1.2.840.114 [id number] Univers 00:00:00 00:00:00 Chente C [employer] 350.1.13.10 ity of [facility] 42.7.2.686 Bhavin as MATERNAL [id number] [facility] ical & CHILD [address] [place] [address] 2019-04-11 2019-04-11 Telephone [facility] 1.2.840.114 [id number] Univers 00:00:00 00:00:00 Chente C [employer] W[employer]ER 350.1.13.10 ity of [facility] 4.2.7.2.686 Bhavin as MATERNAL [phone] [facility] ical & CHILD [address] [place] [address] 2019-03-28 2019-03-28 Routine Faculty, [facility] 1.2 .840.114 [id number] Univers 13:56:14 14:26:14 En Alexandermiguel Mccoy [employer] 350.1.13.10 ity of Visit [facility] 4.2.7.2.686 Bhavin as MATERNAL [phone] [facility] & CHILD [address] [place] [address] 2019-03-16 2019-03-16 Telephone [facility] 1.2.840.114 [id number] Univers 00:00:00 00:00:00 Chente Waters [employer] 350.1.13.10 ity of [facility] 4.2.7.2.686 Bhavin as MATERNAL [phone] [facility] & CHILD [address] [place] [address] 2019-03-14 2019-03-14 Emergency Daina Ann [facility] 1.2.840.114 [id number] Univers 10:06:49 14:40:00 Crystal Glencoe 350.1.13.10 i ty of [place] 4.2.7.2.686 [place] [facility] [phone] [place] 013444 [place] 2019-02-28 2019-03-01 Routine Faculty, [facility] 1.2 .840.114 [id number] Univers 13:30:53 10:06:52 Jamari Hoang [employer] [id number] ity of Visit Roberto Lobato [facility] [id number] [place] Zenia Contreras MATERNAL [phone] Medical & CHILD [address] [place] [address] Results Test Description Test Time Test Comments Results Result Comments Source POCT TEST 2019-10-21 18:24:00 Test Item Value Reference Range Interpretation Comme nts POCT PREG (test code = 1605) Negative On board controls acceptable with C Line (test code = 3574) Yes POCT PREG LOT # (test code = 3575) POCT PREG TEST DATE (test code = 3576) [facility] [id number] 18:24:00 Test Item Value Reference Range Interpretation Comments POCT PREG (test code = 1605) Negative On board controls acceptable with C Yes Line (test code = 3574) POCT PREG LOT # (test code = 3575) POCT PREG TEST DATE (test code = 3576) [facility] GLUCOSE (AUTOMATED)2019-09-02 11:13:00 Test Item Value Reference Range Interpretation Comments POCT GLU (test code = [id number]) 91 mg/dL 70-110 Lab Interpretation (test code = Normal 17709-9) [facility] [id number] 09:18:00 Test Item Value Reference Range Interpretation Comments WBC (test code = See_Comment [Automated 6690-2) message] The sy stem which generated this result transmitted reference range : 4.30 - 11.10 10*3/?L. The reference range was not used to interpret this result as normal/abnormal . RBC (test code = See_Comment L [Automated 789-8) message] The sy stem which generated this result transmitted reference range : 3.93 - 5.25 10*6/?L. The reference range was not used to interpret this result as normal/abnormal . HGB (test code = 10.1 g/dL 11.6-15 L 718-7) HCT (test code = 30.2 % 35.7-45.2 L 4544-3) MCV (test code = 91.2 fL 80.6-95.5 787-2) MCH (test code = 30.5 pg 25.9-32.8 785-6) MCHC (test code = 33.4 g/dL 31.6-35.1 786-4) RDW-SD (test code = 42.6 fL 39-49.9 06841-4) RDW-CV (test code = 12.9 % 12-15.5 788-0) PLT (test code = See_Comment [Automated 777-3) message] The sy stem which generated this result transmitted reference range : 166 - 358 10*3/ ?L. The reference r madie was not used to interpret this result as normal/abnormal . MPV (test code = 9.4 fL 9.5-12.9 L 43466-3) NRBC/100 WBC (test See_Comment [Automat ed code = 8758157543) message] The system which generated this result transmitted reference range : 0.0 - 10.0 /100 WBCs. The refer ence range was not u sed to interpret th is result as normal/abnormal . NRBC x10^3 (test code <0.01 See_Comment [Auto mated = 7982466533) message] The s ystem which generated this result transmitted reference range : 10*3/?L. The reference range was not used to interpret this result as normal/abnormal . GRAN MAT (NEUT) % 57.1 % (test code = 770-8) IMM GRAN % (test code 0.50 % = 5694216666) LYMPH % (test code = 31.8 % 736-9) MONO % (test code = 7.6 % 5905-5) EOS % (test code = 2.7 % 713-8) BASO % (test code = 0.3 % 706-2) GRAN MAT x10^3(ANC) 5.94 10*3/uL 1.88-7.09 (test code = 1567796057) IMM GRAN x10^3 (test 0.05 10*3/uL 0-0.06 code = 0728554969) LYMPH x10^3 (test code 3.30 10*3/uL 1.32-3.29 H = 731-0) MONO x10^3 (test code 0.79 10*3/uL 0.33-0.92 = 742-7) EOS x10^3 (test code = 0.28 10*3/uL 0.03-0.39 711-2) BASO x10^3 (test code 0.03 10*3/uL 0.01-0.07 = 704-7) Lab Interpretation Abnormal (test code = 96687-1) [facility] GLUCOSE (AUTOMATED)2019-09-02 02:00:00 Test Item Value Reference Range Interpretation Comments POCT GLU (test code = 1369528724) 103 mg/dL 70-110 Lab Interpretation (test code = Normal 78180-6) [facility] GLUCOSE (AUTOMATED)2019-09-01 19:31:00 Test Item Value Reference Range Interpretation Comments POCT GLU (test code = 3805891279) 105 mg/dL 70-110 Lab Interpretation (test code = Normal 11278-0) [facility] ONLY - SYPHILIS [id number] 14:07:00 Test Item Value Reference Range Interpretation Comments Syphilis IgG/IgM (test Non-reactive Non-reactive code = 61879-9) BALTA (test code = BALTA) Non-reactive - No serologic evidence of T. pallidum infection. Cannot exclude incubating or early syphilis. Submit a second specimen in 2-4 weeks if syphilis is clinically suspected. Equivocal - Further testing to follow. Reactive - Further testing to follow. Lab Interpretation (test Normal code = 15468-5) [facility] 11:19:00 Test Item Value Reference Range Interpretation Comments POCT GLU (test code = 2168825600) 119 mg/dL 70-110 H Lab Interpretation (test code = Abnormal 05556-3) [facility]) IMMUNE [id number] 10:58:29 Test Item Value Reference Range Interpretation Comments RHIG CANDIDATE? No- see comment Patient i s not a (test code = candidate for R hIg- 5055) Patient is Rh N egative and baby is Rh Negative.Perfor med at [facility] Laboratory Services - [facility] Blood [place] [id number] Free: [phone] A No. [id number] [facility] CenterVENOUS CORD [id number] 07:21:00 Test Item Value Reference Range Interpretation Comments VENOUS BASE EXCESS, mEq/L CORD (test code = 2412884380) VENOUS PH, CORD (test 7.25-7.45 code = 7917363923) VENOUS PC02, CORD See_Comment [Automate d message] The (test code = system which ge nerated 8569775391) this result tra nsmitted reference range : 27 - 49 mmHg. The refer ence range was not used to interpret this result as normal/abnormal . VENOUS PO2, CORD (test See_Comment [Aut omated message] The code = 6709408467) system wh ich generated this result tra nsmitted reference range : 17 - 41 mmHg. The refer ence range was not used to interpret this result as normal/abnormal . VENOUS BICARBONATE, See_Comment QUES [Au tomated message] CORD (test code = The system which generated 7701386736) this result tra nsmitted reference range : 12 - 29 mEq/L. The refe rence range was not used to interpret this result as normal/abnormal . [facility]AR[facility] CORD [id number] 07:21:00 Test Item Value Reference Range Interpretation Comments BASE EXCESS, CORD mEq/L (test code = 5932044866) AC PH, CORD (BEAKER) 7.18-7.38 (test code = 1106274641) PC02, CORD (test code See_Comment [Auto mated message] The = 1311446105) system which g enerated this result transmit sergey reference range : 32 - 66 mmHg. The refer ence range was not used to interpret this result as normal/abnormal . PO2, CORD (test code See_Comment [Autom ated message] The = 9385048655) system which g enerated this result transmit sergey reference range : 10 - 30 mmHg. The refer ence range was not used to interpret this result as normal/abnormal . BICARBONATE, CORD See_Comment [Automate d message] The (test code = system which ge nerated this 3077054896) result transmit sergey reference range : 17 - 27 mEq/L. The refe rence range was not used to interpret this result as normal/abnormal . [facility] GLUCOSE (AUTOMATED)2019-09-01 05:35:00 Test Item Value Reference Range Interpretation Comments POCT GLU (test code = 9314390006) 93 mg/dL 70-110 Lab Interpretation (test code = Normal 74846-1) [facility] GLUCOSE (AUTOMATED)2019-08-31 23:09:00 Test Item Value Reference Range Interpretation Comments POCT GLU (test code = 7925283424) 92 mg/dL 70-110 Lab Interpretation (test code = Normal 13065-6) [facility] GLUCOSE (AUTOMATED)2019-08-31 18:58:00 Test Item Value Reference Range Interpretation Comments POCT GLU (test code = 1838559773) 92 mg/dL 70-110 Lab Interpretation (test code = Normal 34490-7) [facility] CenterHepatitis B Surface [id number] 18:14:00 Test Item Value Reference Range Interpretation Comments HBsAg Semi-Quantitative (test code = Negative Negative 5195-3) [facility] CenterType and Screen - ONCE [id number] 17:55:08 Test Item Value Reference Range Interpretation Comments ABO & RH (test code A NEGATIVE Performe d at [facility] = 20) Laboratory Serv [facility] Blood [facility]3 [address] [facility] s [address]Nznn Free: [phone] A No. [id number] IAT (test code = Negative Performed a t [facility] 1185) Laboratory Serv [facility] Blood [facility] [place] [address] [facility] [address]Wepz Free: [phone] A No. [id number] [facility] CenterProtein CREAT Ratio Urine [id number] 17:46:00 Test Item Value Reference Range Interpretation Comments T. PROT U (test code = 2888-6) 19 mg/dL CREAT U (test code = 1299630536) 81.4 mg/dL Protein/Creatinine Ratio Urine 0.0-2.0 (test code = 6319816278) [facility] CenterUric Acid [id number] 17:44:00 Test Item Value Reference Range Interpretation Comments URIC ACID (test code = 7175394268) 4.5 mg/dL 2.9-6 Lab Interpretation (test code = Normal 84205-2) [facility] CenterSerum [id number] 17:44:00 Test Item Value Reference Range Interpretation Comments CREATININE (test code 0.64 mg/dL 0.5-1.04 = 4154796278) eGFR Calculation mL/min/1.73m2 (Non-) (test code = 8018733622) eGFR Calculation mL/min/1.73m2 () (test code = 8009801122) BALTA (test code = BALTA) Association of Glomerular Filtration Rate (GFR) and Staging of Kidney Disease* + -+ + ---+| GFR (mL/min/1.73 m2) ?| With Kidney Damage ?| ?Without Kidney Damage+ -------+ ------+ ---------+| ?>90 ?| ?Stage one ?| ? Normal ?+ --+ -+ ----+| ?60-89 ?| ?Stage two ?| ? Decreased GFR ? + -+ + ---+| ?30-59 ?| ?Stage three ?| ? Stage three ? + -+ + ---+| ?15-29 ?| ?Stage four ? | ? Stage four ?+ --+ -+ ----+| ?<15 (or dialysis) ? ?| ?Stage five ? | ? Stage five ?+ --+ -+ ----+ *Each stage assumes the associated GFR level has been in effect for at least three months. ?Stages 1 to 5, with or without kidney disease, indicate chronic kidney disease. Notes: Determination of stages one and two (with eGFR >59mL/min/1.73 m2) requires estimation of kidney damage for at least three months as defined by structural or functional abnormalities of the kidney, manifested by either:Pathological abnormalities or Markers of kidney damage (including abnormalities in the composition of the blood or urine or abnormalities in imaging tests). [facility] CenterSGOT (Asparate Amino Transfer)2019-08-31 17:44:00 Test Item Value Reference Range Interpretation Comments AST(SGOT) (test code = 28 U/L 13-40 Sligh t hemolysis 2851223222) Lab Interpretation (test code Normal = 80634-1) [facility] CenterAlanine Amino Transferase (SGPT)2019-08-31 17:44:00 Test Item Value Reference Range Interpretation Comments ALTv (test code = 1742-6) 15 U/L 5-35 Lab Interpretation (test code = Normal 65706-3) [facility] CenterLactate [id number] 17:43:00 Test Item Value Reference Range Interpretation Comments LDH (test code = 1008639645) 551 U/L 300-600 Slight hemolysis Lab Interpretation (test code Normal = 93469-5) [facility] CenterUrinalysis2020-07-15 17:03:00 Test Item Value Reference Range Interpretation Comments APPEARANCE (test code = Hazy Clear A 9728473015) COLOR (test code = Yellow Yellow 6965764944) PH (test code = 4.8-8.0 3003257131) SP GRAVITY (test code = 1.003-1.030 4149251871) GLU U QUAL (test code = Normal Normal 1583654965) BLOOD (test code = Negative Negative 7693661141) KETONES (test code = Negative Negative 9728409428) PROTEIN (test code = Negative Negative 2887-8) UROBILIN (test code = Normal Normal 8776169236) BILIRUBIN (test code = Negative Negative 7165706472) NITRITE (test code = Negative Negative 0293992009) LEUK RONALD (test code = 250/uL Negative A 3491952941) RBC/HPF (test code = See_Comment [Autom ated message] 0493459285) The system [employer] generated this result transmitted ref erence range: 0 - 3 HP F. The reference range was not used to int erpret this result as normal/abnormal . WBC/HPF (test code = See_Comment H [Autom ated message] 9127297963) The system [employer] generated this result transmitted ref erence range: 0 - 5 HP F. The reference range was not used to int erpret this result as normal/abnormal . BACTERIA (test code = Few Negative A 2071729736) MUCOUS (test code = Slight Negative LPF A 3891567159) SQ EPITH (test code = See_Comment H [Auto mated message] 1681916267) The system [employer] generated this result transmitted ref erence range: <=2 HPF. The reference range was not used to int erpret this result as normal/abnormal . Lab Interpretation (test Abnormal code = 27361-6) [facility] [id number] 16:33:00 Test Item Value Reference Range Interpretation Comments WBC (test code = See_Comment [Automated 6690-2) message] The sy stem which generated this result transmitted reference range : 4.30 - 11.10 10*3/?L. The reference range was not used to interpret this result as normal/abnormal . RBC (test code = See_Comment L [Automated 789-8) message] The sy stem which generated this result transmitted reference range : 3.93 - 5.25 10*6/?L. The reference range was not used to interpret this result as normal/abnormal . HGB (test code = 11.3 g/dL 11.6-15 L 718-7) HCT (test code = 32.9 % 35.7-45.2 L 4544-3) MCV (test code = 88.9 fL 80.6-95.5 787-2) MCH (test code = 30.5 pg 25.9-32.8 785-6) MCHC (test code = 34.3 g/dL 31.6-35.1 786-4) RDW-SD (test code = 42.1 fL 39-49.9 98333-9) RDW-CV (test code = 12.9 % 12-15.5 788-0) PLT (test code = See_Comment [Automated 777-3) message] The sy stem which generated this result transmitted reference range : 166 - 358 10*3/ ?L. The reference r madie was not used to interpret this result as normal/abnormal . MPV (test code = 9.8 fL 9.5-12.9 82302-6) NRBC/100 WBC (test See_Comment [Automat ed code = 7341095072) message] The system which generated this result transmitted reference range : 0.0 - 10.0 /100 WBCs. The refer ence range was not u sed to interpret th is result as normal/abnormal . NRBC x10^3 (test code <0.01 See_Comment [Auto mated = 6174770534) message] The s ystem which generated this result transmitted reference range : 10*3/?L. The reference range was not used to interpret this result as normal/abnormal . GRAN MAT (NEUT) % 75.3 % (test code = 770-8) IMM GRAN % (test code 0.40 % = 0655605412) LYMPH % (test code = 17.4 % 736-9) MONO % (test code = 5.8 % 5905-5) EOS % (test code = 0.9 % 713-8) BASO % (test code = 0.2 % 706-2) GRAN MAT x10^3(ANC) 7.58 10*3/uL 1.88-7.09 H (test code = 6888552113) IMM GRAN x10^3 (test 0.04 10*3/uL 0-0.06 code = 5031615140) LYMPH x10^3 (test code 1.75 10*3/uL 1.32-3.29 = 731-0) MONO x10^3 (test code 0.58 10*3/uL 0.33-0.92 = 742-7) EOS x10^3 (test code = 0.09 10*3/uL 0.03-0.39 711-2) BASO x10^3 (test code <0.03 0.01-0.07 = 704-7) Lab Interpretation Abnormal (test code = 24795-0) [facility] GLUCOSE (AUTOMATED)2019-08-31 15:13:00 Test Item Value Reference Range Interpretation Comments POCT GLU (test code = 3171325553) 121 mg/dL 70-110 H Lab Interpretation (test code = Abnormal 48689-6) [facility] CenterCOVID-19 (ID NOW RAPID TESTING)2019-08-31 13:50:00 Test Item Value Reference Range Interpretation Comments SARS-CoV-2 Rapid ID NOW Not Detected Not Detected (test code = 26878-7) BALTA (test code = BALTA) ID NOW COVID-19 Assay is an isothermal nucleic acid amplification test intended for the qualitative detection of nucleic acid from SARS-CoV-2 viral RNA in nasopharyngeal (WELLNESS INSTRUCTOR) specimens. It is used under Emergency Use Authorization (EUA) by FDA. The limit of detection (LOD) of the assay is 125 Genome Equivalents/mL. A positive result is indicative of the presence of SARS-CoV-2 RNA. ?Clinical correlation with patient history and other diagnostic information is necessary to determine patient infection status. A negative (Not Detected) result does not preclude SARS-CoV-2 infection. In patients with clinical symptoms and other tests that are consistent with SARS-CoV-2 infection, negative results should be treated as presumptive negative and a new specimen should be tested with alternative PCR molecular test. Invalid: Please collect a new specimen for repeat patient testing if clinically indicated. Lab Interpretation Normal (test code = 29589-8) [facility] URINALYSIS W SPECIFIC [id number] 20:30:00 Test Item Value Reference Range Interpretation Comments POCT U SP GRAV (test code = 3255) . 1.005-1.025 POCT PH U (test code = 3254) . 5-8 POCT U LEUK EST (test code = 3263) . Negative - Negative POCT U NIT (test code = 3262) . Negative - Negative POCT U PROT (test code = 3259) 1+ Negative - Negative POCT U GLU (test code = 3256) Neg Negative - Negative POCT U KETONE (test code = 3258) . Negative - Negative POCT U UROBILI (test code = 3260) . 0.2-1 POCT U BILI (test code = 3261) . Negative - Negative POCT U BLD (test code = 3257) . Negative - Negative POCT U COLOR (test code = 3266) POCT U APPEAR (test code = 3267) [facility] NON-STRESS [id number] 00:40:34NST reactive and reassuring, [facility] [id number] 00:40:34NST reactive and reassuring, no ctxUnMayhill HospitalPOLA URINALYSIS W SPECIFIC [id number] 20:10:00 Test Item Value Reference Range Interpretation Comments POCT U SP GRAV (test code = 3255) . 1.005-1.025 POCT PH U (test code = 3254) 7 mg/dl 5-8 POCT U LEUK EST (test code = Trace Negative - Negative 3263) POCT U NIT (test code = 3262) Neg Negative - Negative POCT U PROT (test code = 3259) Trace Negative - Negative POCT U GLU (test code = 3256) Neg Negative - Negative POCT U KETONE (test code = 3258) None Negative - Negative POCT U UROBILI (test code = 3260) . 0.2-1 POCT U BILI (test code = 3261) . Negative - Negative POCT U BLD (test code = 3257) Neg Negative - Negative POCT U COLOR (test code = 3266) POCT U APPEAR (test code = 3267) [facility] URINALYSIS W SPECIFIC [id number] 20:10:00 Test Item Value Reference Range Interpretation Comments POCT U SP GRAV (test code = 3255) . 1.005-1.025 POCT PH U (test code = 3254) 7 mg/dl 5-8 POCT U LEUK EST (test code = Trace Negative - Negative 3263) POCT U NIT (test code = 3262) Neg Negative - Negative POCT U PROT (test code = 3259) Trace Negative - Negative POCT U GLU (test code = 3256) Neg Negative - Negative POCT U KETONE (test code = 3258) None Negative - Negative POCT U UROBILI (test code = 3260) . 0.2-1 POCT U BILI (test code = 3261) . Negative - Negative POCT U BLD (test code = 3257) Neg Negative - Negative POCT U COLOR (test code = 3266) POCT U APPEAR (test code = 3267) [facility] NON-STRESS [id number] 13:36:11NST: cat 1, reactive/reassuring, no ctx, +accels, neg decls, moderate variability [facility] NON-STRESS [id number] 13:36:11NST: cat 1, reactive/reassuring, no ctx, +accels, neg decls, moderate variability [facility] URINALYSIS W SPECIFIC [id number] 13:01:00 Test Item Value Reference Range Interpretation Comments POCT U SP GRAV (test code = 3255) . 1.005-1.025 POCT PH U (test code = 3254) . 5-8 POCT U LEUK EST (test code = 3263) . Negative - Negative POCT U NIT (test code = 3262) . Negative - Negative POCT U PROT (test code = 3259) Trace Negative - Negative POCT U GLU (test code = 3256) Neg Negative - Negative POCT U KETONE (test code = 3258) . Negative - Negative POCT U UROBILI (test code = 3260) . 0.2-1 POCT U BILI (test code = 3261) . Negative - Negative POCT U BLD (test code = 3257) . Negative - Negative POCT U COLOR (test code = 3266) POCT U APPEAR (test code = 3267) [facility] URINALYSIS W SPECIFIC [id number] 13:01:00 Test Item Value Reference Range Interpretation Comments POCT U SP GRAV (test code = 3255) . 1.005-1.025 POCT PH U (test code = 3254) . 5-8 POCT U LEUK EST (test code = 3263) . Negative - Negative POCT U NIT (test code = 3262) . Negative - Negative POCT U PROT (test code = 3259) Trace Negative - Negative POCT U GLU (test code = 3256) Neg Negative - Negative POCT U KETONE (test code = 3258) . Negative - Negative POCT U UROBILI (test code = 3260) . 0.2-1 POCT U BILI (test code = 3261) . Negative - Negative POCT U BLD (test code = 3257) . Negative - Negative POCT U COLOR (test code = 3266) POCT U APPEAR (test code = 3267) [facility] NON-STRESS [id number] 20:01:17Cat I [facility] URINALYSIS W SPECIFIC [id number] 19:33:00 Test Item Value Reference Range Interpretation Comments POCT U SP GRAV (test code = 3255) . 1.005-1.025 POCT PH U (test code = 3254) 7 mg/dl 5-8 POCT U LEUK EST (test code = 1+ Negative - Negative 3263) POCT U NIT (test code = 3262) Neg Negative - Negative POCT U PROT (test code = 3259) Trace Negative - Negative POCT U GLU (test code = 3256) Neg Negative - Negative POCT U KETONE (test code = 3258) None Negative - Negative POCT U UROBILI (test code = 3260) . 0.2-1 POCT U BILI (test code = 3261) . Negative - Negative POCT U BLD (test code = 3257) Large Negative - Negative POCT U COLOR (test code = 3266) POCT U APPEAR (test code = 3267) [facility] NON-STRESS [id number] 20:16:24NST: cat 1, reactive/reassuring, no ctx, +accels, neg decls, moderate variability [facility] URINALYSIS W SPECIFIC [id number] 19:25:00 Test Item Value Reference Range Interpretation Comments POCT U SP GRAV (test code = . 1.005-1.025 3255) POCT PH U (test code = 3254) . 5-8 POCT U LEUK EST (test code = . Negative - Negative 3263) POCT U NIT (test code = 3262) . Negative - Negative POCT U PROT (test code = 3259) trace Negative - Negative POCT U GLU (test code = 3256) neg Negative - Negative POCT U KETONE (test code = 3258) . Negative - Negative POCT U UROBILI (test code = . 0.2-1 3260) POCT U BILI (test code = 3261) . Negative - Negative POCT U BLD (test code = 3257) . Negative - Negative POCT U COLOR (test code = 3266) POCT U APPEAR (test code = 3267) Lab Interpretation (test code = Abnormal 87621-6) [facility] NON-STRESS [id number] 20:58:42NST: cat 1, reactive/reassuring, no ctx, +accels, neg decls, moderate variability [facility] URINALYSIS W SPECIFIC [id number] 20:10:00 Test Item Value Reference Range Interpretation Comments POCT U SP GRAV (test code = . 1.005-1.025 3255) POCT PH U (test code = 3254) . 5-8 POCT U LEUK EST (test code = . Negative - Negative 3263) POCT U NIT (test code = 3262) . Negative - Negative POCT U PROT (test code = 3259) 1+ Negative - Negative POCT U GLU (test code = 3256) neg Negative - Negative POCT U KETONE (test code = 3258) . Negative - Negative POCT U UROBILI (test code = . 0.2-1 3260) POCT U BILI (test code = 3261) . Negative - Negative POCT U BLD (test code = 3257) . Negative - Negative POCT U COLOR (test code = 3266) POCT U APPEAR (test code = 3267) Lab Interpretation (test code = Abnormal 74172-2) [facility] NON-STRESS [id number] 20:29:19 Re[facility] and [facility]UnVal[facility] [id number] 19:34:00 Test Item Value Reference Range Interpretation Comments POCT U SP GRAV (test code = . 1.005-1.025 3255) POCT PH U (test code = 3254) . 5-8 POCT U LEUK EST (test code = . Negative - Negative 3263) POCT U NIT (test code = 3262) . Negative - Negative POCT U PROT (test code = 3259) trace Negative - Negative POCT U GLU (test code = 3256) negaitve Negative - Negative POCT U KETONE (test code = 3258) . Negative - Negative POCT U UROBILI (test code = . 0.2-1 3260) POCT U BILI (test code = 3261) . Negative - Negative POCT U BLD (test code = 3257) . Negative - Negative POCT U COLOR (test code = 3266) POCT U APPEAR (test code = 3267) [facility] NON-STRESS [id number] 20:28:49 Reactive and ReassuringUnMayhill HospitalFEFOSTOR[facility] TEST 2019-08-03 20:28:49Reactive and ReassuringUnMayhill HospitalPOLA URINALYSIS W SPECIFIC [id number] 19:38:00 Test Item Value Reference Range Interpretation Comments POCT U SP GRAV (test code = 3255) . 1.005-1.025 POCT PH U (test code = 3254) . 5-8 POCT U LEUK EST (test code = 3263) . Negative - Negative POCT U NIT (test code = 3262) . Negative - Negative POCT U PROT (test code = 3259) Trace Negative - Negative POCT U GLU (test code = 3256) Neg Negative - Negative POCT U KETONE (test code = 3258) . Negative - Negative POCT U UROBILI (test code = 3260) . 0.2-1 POCT U BILI (test code = 3261) . Negative - Negative POCT U BLD (test code = 3257) . Negative - Negative POCT U COLOR (test code = 3266) POCT U APPEAR (test code = 3267) [facility] URINALYSIS W SPECIFIC [id number] 19:38:00 Test Item Value Reference Range Interpretation Comments POCT U SP GRAV (test code = 3255) . 1.005-1.025 POCT PH U (test code = 3254) . 5-8 POCT U LEUK EST (test code = 3263) . Negative - Negative POCT U NIT (test code = 3262) . Negative - Negative POCT U PROT (test code = 3259) Trace Negative - Negative POCT U GLU (test code = 3256) Neg Negative - Negative POCT U KETONE (test code = 3258) . Negative - Negative POCT U UROBILI (test code = 3260) . 0.2-1 POCT U BILI (test code = 3261) . Negative - Negative POCT U BLD (test code = 3257) . Negative - Negative POCT U COLOR (test code = 3266) POCT U APPEAR (test code = 3267) [facility] [id number] 19:45:12 Reactive, patient was turned to left side and given waterUnVal[facility] W SPECIFIC [id number] 13:18:00 Test Item Value Reference Range Interpretation Comments POCT U SP GRAV (test code = 3255) . 1.005-1.025 POCT PH U (test code = 3254) . 5-8 POCT U LEUK EST (test code = 3263) . Negative - Negative POCT U NIT (test code = 3262) . Negative - Negative POCT U PROT (test code = 3259) TRACE Negative - Negative POCT U GLU (test code = 3256) TRACE Negative - Negative POCT U KETONE (test code = 3258) . Negative - Negative POCT U UROBILI (test code = 3260) . 0.2-1 POCT U BILI (test code = 3261) . Negative - Negative POCT U BLD (test code = 3257) . Negative - Negative POCT U COLOR (test code = 3266) POCT U APPEAR (test code = 3267) [facility] URINALYSIS W SPECIFIC [id number] 16:00:00 Test Item Value Reference Range Interpretation Comments POCT U SP GRAV (test code = 3255) . 1.005-1.025 POCT PH U (test code = 3254) . 5-8 POCT U LEUK EST (test code = 3263) . Negative - Negative POCT U NIT (test code = 3262) .. Negative - Negative POCT U PROT (test code = 3259) Trace Negative - Negative POCT U GLU (test code = 3256) Neg Negative - Negative POCT U KETONE (test code = 3258) . Negative - Negative POCT U UROBILI (test code = 3260) . 0.2-1 POCT U BILI (test code = 3261) . Negative - Negative POCT U BLD (test code = 3257) . Negative - Negative POCT U COLOR (test code = 3266) POCT U APPEAR (test code = 3267) [facility] [id number] 13:54:00 Test Item Value Reference Range Interpretation Comments POCT U SP GRAV (test code = 3255) . 1.005-1.025 POCT PH U (test code = 3254) . 5-8 POCT U LEUK EST (test code = 3263) . Negative - Negative POCT U NIT (test code = 3262) . Negative - Negative POCT U PROT (test code = 3259) Trace Negative - Negative POCT U GLU (test code = 3256) Neg Negative - Negative POCT U KETONE (test code = 3258) . Negative - Negative POCT U UROBILI (test code = 3260) . 0.2-1 POCT U BILI (test code = 3261) . Negative - Negative POCT U BLD (test code = 3257) . Negative - Negative POCT U COLOR (test code = 3266) POCT U APPEAR (test code = 3267) [facility] [id number] 02:26:35 Bilateral renal enlargement and mild right hydronephrosis. Visualized portions of the liver appearsdiffusely steatotic. Preliminary Report Dictated by Resident: Blaine Vu MD., have reviewed this study and agree with theabove report.RENAL ULTRASOUND HISTORY: Right back pain . TECHNIQUE: A transabdominal renal ultrasound with color Doppler wasperformed. COMPARISON: None. FINDINGS: RIGHT KIDNEY: The right kidney to demonstrates a normal contour andechotexture, ybvfjdquy27.0 x 6.3 x 6.3 cm. No appreciable corticalthinning. Mild hydronephrosis is seen. No echogenic structure suggestive ofrenal stone is present. Normal color Doppler flow. LEFT KIDNEY: The left kidney todemonstrates a normal contour andechotexture, measuring 14.0 x 6.9 x 6.1 cm. No cortical thinning. Nohydronephrosis. No echogenic structures suggestive of renal stone ispresent. Normal color Doppler flow. BLADDER: The urinary bladder is decompressed. [facility], Radiant Results Inft User - 06/08/2019 9:27 PM CDTRENAL ULTRASOUNDHISTORY: Right back pain . TECHNIQUE: A transabdominal renal ultrasound with color Doppler wasperformed.COMPARISON: None.FINDINGS: RIGHT KIDNEY: The right kidney to demonstrates a normal contour andechotexture, measuring 14.0 x 6.3 x 6.3 cm. No appreciable corticalthinning. Mild hydronephrosis is seen. No echogenic structure suggestive ofrenal stone is present. Normal color Doppler flow.LEFT KIDNEY: The left kidney to demonstrates a normal contour andechotexture, measuring 14.0 x6.9 x 6.1 cm. No cortical thinning. Nohydronephrosis. No echogenic structures suggestive of renal stone ispresent. Normal color Doppler flow.BLADDER: The urinary bladder is decompressed.IMPRESSIONBilateral renal enlargement and mild right hydronephrosis.Visualized portions of the liver appears diffusely steatotic.Preliminary Report Dictated by Resident: Channing Purcell, Blaine Malone MD., have reviewed this study and agree with theabove report. [facility] / [facility] - DRUG SCREEN [id number] 00:55:00 Test Item Value Reference Range Interpretation Comments BENZO U (test code = Negative Negative 3913523112) SCOOTER U (test code = Negative Negative 7106255622) AMPHET (test code = Negative Negative 9166865903) THC (test code = Negative Negative 0853478624) METHADONE (test code = Negative Negative 4300550840) Meth U (test code = Negative Negative 2322153368) OPIATES (test code = Negative Negative 6443326837) Cocaine Metabolite (test Negative Negative code = 4670568120) PROPOXY (test code = Negative Negative 5350693773) Tric U (test code = Negative Negative 5293851752) PCP (test code = Negative Negative 4963482932) OXYCOD (test code = Negative Negative 2614333464) BALTA (test code = BALTA) Urine Drug Cutoff Ranges Benzodiazepines: ? ? 150 ng/mLBarbiturates: ?200 ng/mLAmphetamine: ? 500 ng/mLCannabinoids: ?50 ?ng/mLMethadone: ? 200 ng/mLMethamphetamine: ? ? 500 ng/mL Opiates: ? 100 ng/mL or 2000 ng/mLCocaine: ? 150 ng/mLPropoxyphene: ?300 ng/mLTricyclics: ?300 ng/mLOxycodone: ? 100 ng/mLPCP: ? 25 ?ng/mL The results are to be used only for medical (i.e., treatment) purposes. Unconfirmed screening results must not be used for non-medical purposes (e.g., employment testing, legal testing). Lab Interpretation (test Normal code = 16917-6) [facility] URINALYSIS W SPECIFIC [id number] 15:05:00 Test Item Value Reference Range Interpretation Comments POCT U SP GRAV (test code = 3255) . 1.005-1.025 POCT PH U (test code = 3254) . 5-8 POCT U LEUK EST (test code = 3263) . Negative - Negative POCT U NIT (test code = 3262) . Negative - Negative POCT U PROT (test code = 3259) Trace Negative - Negative POCT U GLU (test code = 3256) Neg Negative - Negative POCT U KETONE (test code = 3258) . Negative - Negative POCT U UROBILI (test code = 3260) . 0.2-1 POCT U BILI (test code = 3261) . Negative - Negative POCT U BLD (test code = 3257) . Negative - Negative POCT U COLOR (test code = 3266) POCT U APPEAR (test code = 3267) [facility] URINALYSIS W SPECIFIC [id number] 13:26:00 Test Item Value Reference Range Interpretation Comments POCT U SP GRAV (test code = 3255) . 1.005-1.025 POCT PH U (test code = 3254) . 5-8 POCT U LEUK EST (test code = 3263) . Negative - Negative POCT U NIT (test code = 3262) . Negative - Negative POCT U PROT (test code = 3259) Trace Negative - Negative POCT U GLU (test code = 3256) 1+ Negative - Negative POCT U KETONE (test code = 3258) . Negative - Negative POCT U UROBILI (test code = 3260) . 0.2-1 POCT U BILI (test code = 3261) . Negative - Negative POCT U BLD (test code = 3257) . Negative - Negative POCT U COLOR (test code = 3266) POCT U APPEAR (test code = 3267) [facility] URINALYSIS W SPECIFIC [id number] 13:26:00 Test Item Value Reference Range Interpretation Comments POCT U SP GRAV (test code = 3255) . 1.005-1.025 POCT PH U (test code = 3254) . 5-8 POCT U LEUK EST (test code = 3263) . Negative - Negative POCT U NIT (test code = 3262) . Negative - Negative POCT U PROT (test code = 3259) Trace Negative - Negative POCT U GLU (test code = 3256) 1+ Negative - Negative POCT U KETONE (test code = 3258) . Negative - Negative POCT U UROBILI (test code = 3260) . 0.2-1 POCT U BILI (test code = 3261) . Negative - Negative POCT U BLD (test code = 3257) . Negative - Negative POCT U COLOR (test code = 3266) POCT U APPEAR (test code = 3267) [facility] URINALYSIS W SPECIFIC [id number] 13:22:00 Test Item Value Reference Range Interpretation Comments POCT U SP GRAV (test code = 3255) . 1.005-1.025 POCT PH U (test code = 3254) . 5-8 POCT U LEUK EST (test code = 3263) . Negative - Negative POCT U NIT (test code = 3262) . Negative - Negative POCT U PROT (test code = 3259) Trace Negative - Negative POCT U GLU (test code = 3256) Neg Negative - Negative POCT U KETONE (test code = 3258) . Negative - Negative POCT U UROBILI (test code = 3260) . 0.2-1 POCT U BILI (test code = 3261) . Negative - Negative POCT U BLD (test code = 3257) . Negative - Negative POCT U COLOR (test code = 3266) POCT U APPEAR (test code = 3267) [facility] RAPID STREP SCREEN FOR GROUP [id number] 14:13:00 Test Item Value Reference Range Interpretation Comments POCT GP A STREP (test code = NEGATIVE Negative - Negative 53176-1) [facility] RAPID STREP SCREEN FOR GROUP [id number] 14:13:00 Test Item Value Reference Range Interpretation Comments POCT GP A STREP (test code = NEGATIVE Negative - Negative 56863-2) [facility] RAPID STREP SCREEN FOR GROUP [id number] 14:13:00 Test Item Value Reference Range Interpretation Comments POCT GP A STREP (test code = NEGATIVE Negative - Negative 34887-6) [facility] URINALYSIS W SPECIFIC [id number] 13:22:00 Test Item Value Reference Range Interpretation Comments POCT U SP GRAV (test code = 3255) . 1.005-1.025 POCT PH U (test code = 3254) . 5-8 POCT U LEUK EST (test code = 3263) . Negative - Negative POCT U NIT (test code = 3262) . Negative - Negative POCT U PROT (test code = 3259) Trace Negative - Negative POCT U GLU (test code = 3256) Neg. Negative - Negative POCT U KETONE (test code = 3258) . Negative - Negative POCT U UROBILI (test code = 3260) . 0.2-1 POCT U BILI (test code = 3261) . Negative - Negative POCT U BLD (test code = 3257) . Negative - Negative POCT U COLOR (test code = 3266) POCT U APPEAR (test code = 3267) [facility] URINALYSIS W SPECIFIC [id number] 13:22:00 Test Item Value Reference Range Interpretation Comments POCT U SP GRAV (test code = 3255) . 1.005-1.025 POCT PH U (test code = 3254) . 5-8 POCT U LEUK EST (test code = 3263) . Negative - Negative POCT U NIT (test code = 3262) . Negative - Negative POCT U PROT (test code = 3259) Trace Negative - Negative POCT U GLU (test code = 3256) Neg. Negative - Negative POCT U KETONE (test code = 3258) . Negative - Negative POCT U UROBILI (test code = 3260) . 0.2-1 POCT U BILI (test code = 3261) . Negative - Negative POCT U BLD (test code = 3257) . Negative - Negative POCT U COLOR (test code = 3266) POCT U APPEAR (test code = 3267) [facility] [id number] 13:22:00 Test Item Value Reference Range Interpretation Comments POCT U SP GRAV (test code = 3255) . 1.005-1.025 POCT PH U (test code = 3254) . 5-8 POCT U LEUK EST (test code = 3263) . Negative - Negative POCT U NIT (test code = 3262) . Negative - Negative POCT U PROT (test code = 3259) Trace Negative - Negative POCT U GLU (test code = 3256) Neg. Negative - Negative POCT U KETONE (test code = 3258) . Negative - Negative POCT U UROBILI (test code = 3260) . 0.2-1 POCT U BILI (test code = 3261) . Negative - Negative POCT U BLD (test code = 3257) . Negative - Negative POCT U COLOR (test code = 3266) POCT U APPEAR (test code = 3267) [facility] Metabolic [id number] 16:52:00 Test Item Value Reference Range Interpretation Comments NA (test code = 137 mmol/L 135-145 7989710622) K (test code = 3.7 mmol/L 3.5-5 5840983310) CL (test code = 105 mmol/L 98-108 7935727096) CO2 TOTAL (test code = 21 mmol/L 23-31 L 5336843299) AGAP (test code = 2-16 3102883811) BUN (test code = 12 mg/dL 7-23 0468943123) GLUCOSE (test code = 96 mg/dL 70-110 8983381503) CREATININE (test code = 0.52 mg/dL 0.5-1.04 9888076746) TOTAL BILI (test code = 0.2 mg/dL 0.1-1.8 6503419373) CALCIUM (test code = 9.9 mg/dL 8.6-10.6 3299462958) T PROTEIN (test code = 7.8 g/dL 6.3-8.2 4713752760) ALBUMIN (test code = 4.2 g/dL 3.5-5 5851317553) ALK PHOS (test code = 48 U/L 34-122 9925628508) ALTv (test code = 29 U/L 5-35 1742-6) AST(SGOT) (test code = 23 U/L 13-40 2989870376) eGFR Calculation mL/min/1.73m2 (Non-) (test code = 9409225226) eGFR Calculation mL/min/1.73m2 () (test code = 7155234388) BALTA (test code = BALTA) Association of Glomerular Filtration Rate (GFR) and Staging of Kidney Disease* + --+ --+ ------+| GFR (mL/min/1.73 m2) ?| With Kidney Damage ?| ?Without Kidney Damage+ --------+ --------+ +| ?>90 ?| ?Stage one ?| ? Normal ?+ ---+ ---+ -------+| ?60-89 ?| ?Stage two ?| ? Decreased GFR ? + --+ --+ ------+| ?30-59 ?| ?Stage three ?| ? Stage three ? + --+ --+ ------+| ?15-29 ?| ?Stage four ? | ? Stage four ?+ ---+ ---+ -------+| ?<15 (or dialysis) ? ?| ?Stage five ? | ? Stage five ?+ ---+ ---+ -------+ *Each stage assumes the associated GFR level has been in effect for at least three months. ?Stages 1 to 5, with or without kidney disease, indicate chronic kidney disease. Notes: Determination of stages one and two (with eGFR >59mL/min/1.73 m2) requires estimation of kidney damage for at least three months as defined by structural or functional abnormalities of the kidney, manifested by either:Pathological abnormalities or Markers of kidney damage (including abnormalities in the composition of the blood or urine or abnormalities in imaging tests). Lab Interpretation Abnormal (test code = 03536-9) [facility] CenterUrinalysis2020-01-[facility] 16:52:00 Test Item Value Reference Range Interpretation Comments APPEARANCE (test code = Cloudy Clear A 0230812729) COLOR (test code = Yellow Yellow 5115109353) PH (test code = 4.8-8.0 5293680453) SP GRAVITY (test code = 1.003-1.030 3677174755) GLU U QUAL (test code = Normal Normal 1021338717) BLOOD (test code = 1+ Negative A 1591411104) KETONES (test code = 20 mg/dL Negative A 6301090049) PROTEIN (test code = Negative Negative 2887-8) UROBILIN (test code = 2.0 mg/dL Normal A 9966852661) BILIRUBIN (test code = Negative Negative 9388593332) NITRITE (test code = Negative Negative 1372153517) LEUK RONALD (test code = 500/uL Negative A 5384271374) RBC/HPF (test code = See_Comment H [Autom ated message] 0178650897) The system [employer] generated this result transmit sergey reference range : 0 - 3 HPF. The refe rence range was not u sed to interpret th is result as normal/abnormal . WBC/HPF (test code = See_Comment H [Autom ated message] 3276773127) The system [employer] generated this result transmit sergey reference range : 0 - 5 HPF. The refe rence range was not u sed to interpret th is result as normal/abnormal . BACTERIA (test code = Many Negative A 0467930393) MUCOUS (test code = Slight Negative LPF A 3335641049) SQ EPITH (test code = HPF 6573497115) Lab Interpretation (test Abnormal code = 04193-9) [facility] CenterLipase, [id number] 16:51:00 Test Item Value Reference Range Interpretation Comments LIPASE (test code = 2804222938) 30 U/L 0-220 Lab Interpretation (test code = Normal 53671-4) [facility] CenterCBC WITH [id number] 16:41:00 Test Item Value Reference Range Interpretation Comments WBC (test code = See_Comment [Automated 5390-2) message] The [employer] stem which generated this result transmitted reference range : 4.30 - 11.10 10*3/?L. The reference range was not used to interpret this result as normal/abnormal . RBC (test code = See_Comment [Automated 789-8) message] The sy stem which generated this result transmitted reference range : 3.93 - 5.25 10*6/?L. The reference range was not used to interpret this result as normal/abnormal . HGB (test code = 14.3 g/dL 11.6-15 718-7) HCT (test code = 40.4 % 35.7-45.2 4544-3) MCV (test code = 86.0 fL 80.6-95.5 787-2) MCH (test code = 30.4 pg 25.9-32.8 785-6) MCHC (test code = 35.4 g/dL 31.6-35.1 H 786-4) RDW-SD (test code = 38.8 fL 39-49.9 L 29006-2) RDW-CV (test code = 12.4 % 12-15.5 788-0) PLT (test code = See_Comment [Automated 777-3) message] The sy stem which generated this result transmitted reference range : 166 - 358 10*3/ ?L. The reference r madie was not used to interpret this result as normal/abnormal . MPV (test code = 9.6 fL 9.5-12.9 29803-6) NRBC/100 WBC (test See_Comment [Automat ed code = 3696331313) message] The system which generated this result transmitted reference range : 0.0 - 10.0 /100 WBCs. The refer ence range was not u sed to interpret th is result as normal/abnormal . NRBC x10^3 (test code <0.01 See_Comment [Auto mated = 4087228498) message] The s ystem which generated this result transmitted reference range : 10*3/?L. The reference range was not used to interpret this result as normal/abnormal . GRAN MAT (NEUT) % 67.9 % (test code = 770-8) IMM GRAN % (test code 0.30 % = 0016308932) LYMPH % (test code = 23.1 % 736-9) MONO % (test code = 6.7 % 5905-5) EOS % (test code = 1.9 % 713-8) BASO % (test code = 0.1 % 706-2) GRAN MAT x10^3(ANC) 7.13 10*3/uL 1.88-7.09 H (test code = 9066659348) IMM GRAN x10^3 (test 0.03 10*3/uL 0-0.06 code = 0638346025) LYMPH x10^3 (test code 2.42 10*3/uL 1.32-3.29 = 731-0) MONO x10^3 (test code 0.70 10*3/uL 0.33-0.92 = 742-7) EOS x10^3 (test code = 0.20 10*3/uL 0.03-0.39 711-2) BASO x10^3 (test code <0.03 0.01-0.07 = 704-7) Lab Interpretation Abnormal (test code = 17965-5) [facility] CenterGLYCOSYLATED HEMOGLOBIN (A1C)2019-03-01 09:53:00 Test Item Value Reference Range Interpretation Comments HGB A1C (test code = 4548-4) 5.3 % 4-6 Lab Interpretation (test code = Normal 95944-6) [facility] CenterPROTEIN CREAT RATIO URINE [id number] 05:47:00 Test Item Value Reference Range Interpretation Comments T. PROT U (test code = 2888-6) 17 mg/dL CREAT U (test code = 1578365799) 142.3 mg/dL Protein/Creatinine Ratio Urine 0.0-2.0 (test code = 2079631660) [facility] CenterBASIC METABOLIC PANEL (NA, K, CL, CO2, GLUCOSE, BUN, CREATININE, CA)2019-03-01 05:37:00 Test Item Value Reference Range Interpretation Comments NA (test code = 137 mmol/L 135-145 4026392846) K (test code = 4.1 mmol/L 3.5-5 1720414117) CL (test code = 103 mmol/L 98-108 3653090993) CO2 TOTAL (test code = 21 mmol/L 23-31 L 7026675542) AGAP (test code = 2-16 5256908334) BUN (test code = 7 mg/dL 7-23 1930464400) GLUCOSE (test code = 85 mg/dL 70-110 5935932999) CREATININE (test code = 0.37 mg/dL 0.5-1.04 L 0636951322) CALCIUM (test code = 9.3 mg/dL 8.6-10.6 6630083214) eGFR Calculation mL/min/1.73m2 (Non-) (test code = 7080653467) eGFR Calculation mL/min/1.73m2 () (test code = 2091427887) BALTA (test code = BALTA) Association of Glomerular Filtration Rate (GFR) and Staging of Kidney Disease* + --+ --+ ------+| GFR (mL/min/1.73 m2) ?| With Kidney Damage ?| ?Without Kidney Damage+ --------+ --------+ +| ?>90 ?| ?Stage one ?| ? Normal ?+ ---+ ---+ -------+| ?60-89 ?| ?Stage two ?| ? Decreased GFR ? + --+ --+ ------+| ?30-59 ?| ?Stage three ?| ? Stage three ? + --+ --+ ------+| ?15-29 ?| ?Stage four ? | ? Stage four ?+ ---+ ---+ -------+| ?<15 (or dialysis) ? ?| ?Stage five ? | ? Stage five ?+ ---+ ---+ -------+ *Each stage assumes the associated GFR level has been in effect for at least three months. ?Stages 1 to 5, with or without kidney disease, indicate chronic kidney disease. Notes: Determination of stages one and two (with eGFR >59mL/min/1.73 m2) requires estimation of kidney damage for at least three months as defined by structural or functional abnormalities of the kidney, manifested by either:Pathological abnormalities or Markers of kidney damage (including abnormalities in the composition of the blood or urine or abnormalities in imaging tests). Lab Interpretation Abnormal (test code = 47866-8) [facility] URINALYSIS W SPECIFIC [id number] 19:54:00 Test Item Value Reference Range Interpretation Comments POCT U SP GRAV (test code = . 1.005-1.025 3255) POCT PH U (test code = 3254) 5 mg/dl 5-8 POCT U LEUK EST (test code = 1+ Negative - Negative 3263) POCT U NIT (test code = 3262) negative Negative - Negative POCT U PROT (test code = 3259) trace Negative - Negative POCT U GLU (test code = 3256) negative Negative - Negative POCT U KETONE (test code = 3258) negative Negative - Negative POCT U UROBILI (test code = . 0.2-1 3260) POCT U BILI (test code = 3261) . Negative - Negative POCT U BLD (test code = 3257) negative Negative - Negative POCT U COLOR (test code = 3266) POCT U APPEAR (test code = 3267) [facility]"
--- NOTE | 2022-01-08 23:57 | RAD REPORT ---
EXAM DESCRIPTION: US - Abdomen Exam Limited - 01/08/2022 11:45 pm CLINICAL HISTORY: ABD PAIN COMPARISON: Abdomen Exam Limited dated 01/13/2019 FINDINGS: The gallbladder demonstrates shadowing gallstones No pericholecystic fluid or gallbladder wall thickening. The common bile duct is normal measuring 1 mm. The liver demonstrates increased echogenicity consistent with hepatic steatosis. IMPRESSION: Cholelithiasis without sonographic evidence of acute cholecystitis.
--- NOTE | 2022-01-09 01:08 | EDPHYS ---
Physician Documentation [facility] Name: Gideon Chapa Age: 31 yrs Sex: Female : 1990 Arrival Date: 01/08/2022 Time: 22:55 Bed 13 Private MD: ED Physician David Angel HPI: 01/09 01:03 This 31 yrs old Female presents to ER via Ambulatory with complaints of Abdominal Pain. rn 01:03 The patient presents with abdominal pain in the right upper quadrant. Onset: The rn symptoms/episode began/occurred 2 week(s) ago. The symptoms radiate to the right shoulder. Associated signs and symptoms: Pertinent positives: nausea and vomiting, Pertinent negatives: blood in stools, chest pain, fever, shortness of breath. The symptoms are described as crampy, sharp, stabbing. Modifying factors: The symptoms are alleviated by nothing, the symptoms are aggravated by nothing. Severity of pain: At its worst the pain was moderate in the emergency department the pain is unchanged. The patient has experienced similar episodes in the past. The patient has not recently seen a physician. Pt reports gallstones in past, popped up last , again, approx 18 weeks gestation, now having 2 weeks of RUQ abd pain, nausea/vomiting, pain better now after arrival. Reports morning sickness and not any worse vomiting. No chest pain. NO difficulty breathing. . 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 - Social history:: Smoking status: unknown. - Family history:: not pertinent. - Hospitalizations: : No recent hospitalization is reported. ROS: 01/09 01:03 Constitutional: Negative for fever, chills, and weight loss, Eyes: Negative for injury, rn pain, redness, and discharge, Neck: Negative for injury, pain, and swelling, Cardiovascular: Negative for chest pain, palpitations, and edema, Respiratory: Negative for shortness of breath, cough, wheezing, and pleuritic chest pain, Abdomen/GI: + RUQ abd pain and nausea/vomiting Back: Negative for injury and pain, MS/Extremity: Negative for injury and deformity, Skin: Negative for injury, rash, and discoloration, Neuro: Negative for headache, weakness, numbness, tingling, and seizure. Exam: 01:03 Constitutional: This is a well developed, well nourished patient who is awake, alert, rn and in no acute distress. Head/Face: Normocephalic, atraumatic. Cardiovascular: Regular rate and rhythm. No pulse deficits. Respiratory: Speaking full sentences, unlabored. No increased work of breathing, no retractions or nasal flaring. Abdomen/GI: soft, neg booker, mild RUQ tenderness, no rebound Skin: Warm, dry MS/ Extremity: Pulses equal, no cyanosis. Neuro: Awake and alert, GCS 15 Vital Signs: 01/08 23:14 BP 121 / 71; Pulse 92; Resp 22; Temp 98.4; Pulse Ox 99% on R/A; Weight 113.4 kg; Height kd3 5 ft. 8 in. (172.72 cm); Pain 5/10; 23:14 Body Mass Index 38.01 (113.40 kg, 172.72 cm) kd3 MDM: 22:59 Patient medically screened. rn 01/09 01:03 Differential diagnosis: cholecystitis, Cholelithiasis, gastritis, gastroesophageal rn reflux disease, non-specific abd pain, Peptic Ulcer Disease. Data reviewed: vital signs, nurses notes, radiologic studies, ultrasound, and as a result, I will discharge patient. Counseling: I had a detailed discussion with the patient and/or guardian regarding: the historical points, exam findings, and any diagnostic results supporting the discharge/admit diagnosis, radiology results, the need for outpatient follow up, to return to the emergency department if symptoms worsen or persist or if there are any questions or concerns that arise at home. Response to treatment: the patient's symptoms have markedly improved after treatment, and as a result, I will discharge patient. Special discussion: I discussed with the patient/guardian in detail that at this point there is no indication for admission to the hospital. It is understood, however, that if the symptoms persist or worsen the patient needs to return immediately for re-evaluation. Based on the history and exam findings, there is no indication for further emergent testing or inpatient evaluation. I discussed with the patient/guardian the need to see the general surgeon for further evaluation of the symptoms. I discussed with the patient/guardian the need to see the OB Gyne specialist for further evaluation of the symptoms. ED course: Pt improved without treatment, states wants to go home. U/S shows gallstones but neg for PCF or duct abnormalities. Pt still pending bloodwork, does not want to wait for blood test results, understands blood tests can show other abnormalities, states is tired and happy that pain is gone and that u/s does not show surgical abnormality. Return precautions given and understood. . 01/08 23:18 Order name: US Abdomen Limited; Complete Time: 00:47 rn 01/08 23:19 Order name: XRAY Chest (1 view) rn Administered Medications: 01:12 CANCELLED (Physician Discretion): Zofran (Ondansetron) 4 mg IVP once; over 2 minutes ke1 01:12 CANCELLED (Physician Discretion): morphine 2 mg IVP once over 4 mins ke1 Disposition Summary: 01/09/22 01:08 Discharge Ordered Location: Home rn Problem: an ongoing problem rn Symptoms: have improved rn Condition: Stable rn Diagnosis - Other cholelithiasis without obstruction rn Followup: rn - With: Private Physician - When: As needed - Reason: Recheck today's complaints, Re-evaluation by your physician Discharge Instructions: - Discharge Summary Sheet rn - Cholelithiasis rn Forms: - Medication Reconciliation Form rn - Thank You Letter rn - Antibiotic rn infusion - Prescription Opioid Use rn Signatures: Dispatcher [employer] EDMS David Angel MD MD rn Doucette, Kyli, RN RN kd3 Ray Finch RN ke1 Corrections: (The following items were deleted from the chart) 01:04 01:03 Pt reports gallstones in past, popped up last , again, approx rn 18 weeks gestation, now having 2 weeks of RUQ abd pain, nausea/vomiting, pain better now after arrival. Reports morning sickness and not any worse vomiting. . rn 01:12 01/08 23:18 Zofran (Ondansetron) 4 mg IVP once; over 2 minutes ordered. rn ke1 01/09 01:12 01/08 23:18 morphine 2 mg IVP once over 4 mins ordered. rn ke1 01/09 01:13 01/08 23:18 IV Saline Lock ordered. rn ke1 01/09 01:13 01/08 23:18 Labs collected and sent ordered. jeremias [email or web address] 01/09 01:13 01/08 23:18 Urine Dipstick-Ancillary ordered. jeremias [email or web address]
--- NOTE | 2022-01-09 01:08 | ER ---
Nurse's Notes [facility] Name: Gideon Chapa Age: 31 yrs Sex: Female : 1990 Arrival Date: 01/08/2022 Time: 22:55 Bed 13 Private MD: Diagnosis: Other cholelithiasis without obstruction Presentation: 01/08 23:10 Chief complaint: Patient states: I have something that feels like gas bubbles. I've kd3 tried gas ex, hot baths, heating pads. It hurts under my right ribs when i breath in. I am . I also have a cough and congestion as well. Ebola Screen: No symptoms or risks identified at this time. Onset of symptoms was January 08, 2022. 23:10 Method Of Arrival: Ambulatory kd3 23:10 Acuity: AGUSTO 3 kd3 23:13 Risk Assessment: Do you want to hurt yourself or someone else? Patient reports no kd3 desire to harm self or others. 23:14 Coronavirus screen: Vaccine status: Patient reports being unvaccinated. kd3 23:19 Initial Sepsis Screen: Does the patient meet any 2 criteria? No. Patient's initial kd3 sepsis screen is negative. Does the patient have a suspected source of infection? No. Patient's initial sepsis screen is negative. Triage Assessment: 23:11 General: Appears uncomfortable, Behavior is calm, cooperative. Pain: Complains of pain kd3 in right upper quadrant. Neuro: Level of Consciousness is awake, alert, obeys commands, Oriented to person, place, time, situation. Respiratory: Airway is patent Trachea deviated to right Respiratory effort is even, unlabored, Respiratory pattern is regular, symmetrical. GI: Abdomen is non-distended, Reports upper abdominal pain. 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 - Social history:: Smoking status: unknown. - Family history:: not pertinent. - Hospitalizations: : No recent hospitalization is reported. Screenin:13 Abuse screen: Denies threats or abuse. Denies injuries from another. Nutritional kd3 screening: No deficits noted. Tuberculosis screening: No symptoms or risk factors identified. Fall Risk None identified. Assessment: 23:13 GI: Bowel sounds present X 4 quads. Abdomen is tender to palpation in right upper kd3 quadrant. Vital Signs: 23:14 BP 121 / 71; Pulse 92; Resp 22; Temp 98.4; Pulse Ox 99% on R/A; Weight 113.4 kg; Height kd3 5 ft. 8 in. (172.72 cm); Pain 5/10; 23:14 Body Mass Index 38.01 (113.40 kg, 172.72 cm) kd3 ED Course: 22:55 Patient arrived in ED. ja2 22:58 David Angel MD is Attending Physician. rn 23:11 Triage completed. kd3 23:12 Arm band placed on right wrist. kd3 23:13 Patient has correct armband on for positive identification. kd3 23:13 No provider procedures requiring assistance completed. kd3 23:47 US Abdomen Limited In Process Unspecified. EDMS 01/09 00:00 XRAY Chest (1 view) In Process Unspecified. EDMS 00:49 Ray Finch, ENOC is Primary Nurse. ke1 01:14 Patient did not have IV access during this emergency room visit. ke1 Administered Medications: 01:12 CANCELLED (Physician Discretion): Zofran (Ondansetron) 4 mg IVP once; over 2 minutes ke1 01:12 CANCELLED (Physician Discretion): morphine 2 mg IVP once over 4 mins ke1 Medication: 01/08 23:19 VIS not applicable for this client. kd3 Outcome: 01/09 01:08 Discharge ordered by . rn 01:13 Discharged to home ambulatory. ke1 01:13 Condition: good 01:13 Discharge instructions given to patient. 01:14 Patient left the ED. ke1 Signatures: Dispatcher [employer] EDMO David Angel MD MD rn Alexander, Jessica ja2 Ana Muhammad RN RN kd3 Ray Finch RN RN ke1
[2022-01-09 01:54] VITALS: BP 121/71; TEMP 98.4; O2SAT 99
--- NOTE | 2022-01-09 13:55 | RAD REPORT ---
EXAM DESCRIPTION: RAD - Chest Single View - 01/08/2022 11:58 pm CLINICAL HISTORY: 31 years, Female, COUGH COMPARISON: None FINDINGS: Single view of the chest was obtained portable. No prior films are available for compariso n. The cardiomediastinal silhouette demonstrate to be unremarkable. The heart is not enlarged. The th oracic aorta is unremarkable. The pulmonary vasculature is normal distribution. Costophrenic angles a re sharp. No areas of consolidation or masses are seen. The rest of the soft tissue and bony stru ctures demonstrate to be unremarkable. IMPRESSION: NO ACUTE CARDIOPULMONARY DISEASE SEEN. Electronically signed by: Negro Cyr MD 01/09/2022 12:11 AM BATH STEWARD/STEWARDESS Due to temporary technical issues with the PACS/Fluency reporting system, reports are being signed by the in house radiologists without review as a courtesy to insure prompt reporting. The interpreting radiologist is fully responsible for the content of the report.
== END 2022-01-09 01:14 | disposition home or self-care (01) ==
LOC: ER 22:52
DX: O99.612 Diseases of the digestive system complicating pregnancy, second trimester (principal); K80.80 Other cholelithiasis without obstruction; Z3A.18 18 weeks gestation of pregnancy; Z88.5 Allergy status to narcotic agent
CPT/HCPCS: 71045; 76705; 99283

== ENCOUNTER 2022-01-09 21:02 | Emergency (ER) | payer OTHER ==
--- OUTSIDE RECORDS SUMMARY | 2022-01-09 21:13 | XMS REPORT | Continuity of Care Document ---
:1990 Author Organization [facility] t Address [address] [place] [address] Care Team Providers Name Role Phone CHENTE NARANJO Primary Care Physician Unavailable CHENTE NARANJO Attending Clinician Unavailable Neel Contreras DO Attending Clinician [facility] [phone] Jeanette Mitchell Attending Clinician JEANETTE LIVE Attending Clinician Unavailable Marcia Scott MD Attending Clinician Adin STUBBS, Maddi Davis Attending Clinician Unavailable Risk, Urk-Dvkol-So/High Attending Clinician Unavailable Candace Catarina PERKINS Attending Clinician El Therese PERKINS Attending Clinician Doctor Unassigned, [place] Attending Clinician Unavailable Ultrasound, Ang-Mfm Attending Clinician Unavailable Hollis Soliman Attending Clinician Ben BARR, Zenia Mccoy Attending Clinician HOLLIS COHEN Attending Clinician Unavailable Jerilyn Alexander MD Attending Clinician MERLYN RUBIN Attending Clinician [...] Number Effective Date Expiration Date Katy gaston [facility] [id number] 2019 [facility] MEDICAID 00:00:00 [employer] [id number] 2021 OUT OF NETWORK 00:00:00 Problems Condition Condition Condition Status Onset Resolution Last Treating Co mments Source Name Details Category Date Date Treatment Clinician Date Other Other Disease Active 2020-0 Univers general general 9-04 ity of counseling [place] and advice and advice 00 Ri dical for [facility] contracept contracept abram abram management management Obesity Obesity Disease Active 2020-0 Univers (BMI (BMI 9-04 ity of 30-39.9) 30-39.9) 00:00: [place] [facility] 39 weeks 39 weeks Disease Active 2020-0 Unive rs gestation gestation 7-15 ity of of of 00:00: [place] 00 [facility] BMI BMI Disease Active 2020-0 Univers 36.0-36.9, 36.0-36.9, 6-08 it y of adult adult 00:00: [place] [facility] Pain of Pain of Disease [...] nivers asthma asthma 1-09 ity of 00:00: [place] [facility] Pregestati Pregestati Disease Active 2018-02 Overview : Univers onal onal 2-02 Failed ity of diabetes diabetes 00:00: 3hr gtt [place] mellitus, mellitus, 00 Medi edinson modified modified [...] 2018-02 U nivers -25 ity of 00:00: [place] [facility] Multiparit Multiparit Disease Active 2018-02 U nivers y y -25 ity of 00:00: [place] [facility] Supervisio Supervisio Disease Active 2018-02 U nivers n of high n of high -25 ity of risk risk 00:00: [place] , , 00 Me dical antepartum antepartum Br anch History of History of Disease Active U nivers pre-eclamp pre-eclamp 7-29 it y of luke [place]uke 00:00: [place] [address] Medical Branch History of History of Disease Active U nivers anxiety anxiety 3-15 ity of 00:00: [place] 00 [facility] Allergies, Adverse Reactions, Alerts Allergy Allergy Status Severity Reaction(s) Onset Inactive Treating Comm ents Source Name Type Date Date Clinician CODEINE DRUG Active N/V 2014-02 Univers INGREDI 0-15 ity of 00:00: [place] 00 [facility] Codeine Propensi Active Rash 2014-02 Univers ty to 0-15 ity of adverse 00:00: [place] reaction 00 [facility] [place] Social History Social Habit Start Date Stop Date Quantity Comments Source ASSERTION 2018-12-15 University of 00:00:00 [facility] History of tobacco 2007-01-10 Cigarette Smoker University of use 00:00:00 [facility] Exposure to Not sure University of SARS-CoV-2 (event) [facility] Tobacco use and 2019-10-21 2019-10-21 Never used Universit y of exposure 00:00:00 00:00:00 [facility] Cigarettes smoked 2019-10-21 2019-10-21 Univers ity of current (pack per 00:00:00 00:00:00 ) - Reported Branch Cigarette 2019-10-21 2019-10-21 University of pack-years 00:00:00 00:00:00 [facility] Alcohol intake 2019-10-21 2019-10-21 Current University of 00:00:00 00:00:00 non-drinker of [facility] alcohol Branch (finding) Sex Ass[birth year] At [birth year] Universit y of 00:00:00 00:00:00 [facility] Smoking Status Start Date Stop Date Source Current every day smoker 2019-10-21 00:00:00 Uni versity of [facility] Medications Ordered Filled Start Stop Current Ordering Indication Dosage Frequency Signature Comments Components Source Medication Medication Date Date Medication? Clinician (SIG) Name Name norethindro 2020-0 Yes [id number] 1{tbl} Take 1 Univers ne-ethinyl 9-04 tablet by ity of estradiol 00:00: mouth [place] (LOESTRIN 00 daily. Medical ,) Branch 1-20 mg-mcg per tablet norethindro 2020-0 Yes [id number] 1{tbl} Take 1 Univers ne-ethinyl 9-04 tablet by ity of estradiol 00:00: mouth [place] (LOESTRIN 00 daily. Medical ,) Branch 1-20 mg-mcg per tablet norethindro 2020-0 Yes [id number] 1{tbl} Take 1 Univers ne-ethinyl 9-04 tablet by ity of estradiol 00:00: mouth [place] (LOESTRIN 00 daily. Medical ,) Branch 1-20 mg-mcg per tablet metFORMIN 2020-0 Yes 500mg 500 mg, Univ ers (GLUCOPHAGE 7-17 Oral, QAM ity of ) tablet 13:00: WITH [place] 500 mg 00 BREAKFAST, Medical First dose Branch on Thu09/02/19 at 0800, Until Discontinu ed, Routine PNV 2019-0 2020- No Take by [place] [facility] no.153/FA/o 7-17 07-17 mouth. ity o f m3/dha/epa/ 11:13: 00:00 [place] fish 01 :00 Medical ( Branch GUMMIES ORAL) 2020-0 Yes [id number] 1{tbl} Take 1 Univers vitamin 7-17 tablet by ity of w/FA tablet 00:00: mouth [place] 00 daily. Medical Branch docusate 2020-0 Yes [id number] 240mg Take 1 U nivers calcium 240 7-17 capsule by it y of mg capsule 00:00: mouth once [place] 00 daily as Medical needed for Branch Constipati on. ferrous 2020-0 Yes [id number] 325mg Take 1 Un [place] sulfate 325 7-17 tablet by ity of mg (65 mg 00:00: mouth 2 [place] iron) 00 (two) Medical tablet times Branch daily. ibuprofen 2020-0 Yes [id number] 600mg Take 1 Univers 600 mg 7-17 tablet by ity of tablet 00:00: mouth [place] 00 every 6 Medical (six) Branch hours as needed (Pain). Take with food or milk. 2020-0 Yes [id number] 1{tbl} Take 1 Univers vitamin 7-17 tablet by ity of w/FA tablet 00:00: mouth [place] 00 daily. Medical Branch docusate 2020-0 Yes [id number] 240mg Take 1 U nivers calcium 240 7-17 capsule by it y of mg capsule 00:00: mouth once [place] 00 daily as Medical needed for Branch Constipati on. ferrous 2020-0 Yes [id number] 325mg Take 1 Un [place] sulfate 325 7-17 tablet by ity of mg (65 mg 00:00: mouth 2 [place] iron) 00 (two) Medical tablet times Branch daily. ibuprofen 2020-0 Yes [id number] 600mg Take 1 Univers 600 mg 7-17 tablet by ity of tablet 00:00: mouth [place] 00 every 6 Medical (six) Branch hours as needed (Pain). Take with food or milk. 2020-0 Yes [id number] 1{tbl} Take 1 Univers vitamin 7-17 tablet by ity of w/FA tablet 00:00: mouth [place] 00 daily. Medical Branch ferrous 2020-0 Yes [id number] 325mg Take 1 Un [place] sulfate 325 7-17 tablet by ity of mg (65 mg 00:00: mouth 2 [place] iron) 00 (two) Medical tablet times Branch daily. ibuprofen 2020-0 Yes [id number] 600mg Take 1 Univers 600 mg 7-17 tablet by ity of tablet 00:00: mouth [place] 00 every 6 Medical (six) Branch hours as needed (Pain). Take with food or milk. 2020-0 Yes [id number] 1{tbl} Take 1 Univers vitamin 7-17 tablet by ity of w/FA tablet 00:00: mouth [place] 00 daily. Medical Branch ferrous 2020-0 Yes [id number] 325mg Take 1 Un [place] sulfate 325 7-17 tablet by ity of mg (65 mg 00:00: mouth 2 [place] iron) 00 (two) Medical tablet times Branch daily. ibuprofen 2020-0 Yes [id number] 600mg Take 1 Univers 600 mg 7-17 tablet by ity of tablet 00:00: mouth [place] 00 every 6 Medical (six) Branch hours as needed (Pain). Take with food or milk. 2020-0 Yes [id number] 1{tbl} Take 1 Univers vitamin 7-17 tablet by ity of w/FA tablet 00:00: mouth [place] 00 daily. Medical Branch ferrous 2020-0 Yes [id number] 325mg Take 1 Un [place] sulfate 325 7-17 tablet by ity of mg (65 mg 00:00: mouth 2 [place] iron) 00 (two) Medical tablet times Branch daily. ibuprofen 2020-0 Yes [id number] 600mg Take 1 Univers 600 mg 7-17 tablet by ity of tablet 00:00: mouth [place] 00 every 6 Medical (six) Branch hours as needed (Pain). Take with food or milk. 2020-0 Yes [id number] 1{tbl} Take 1 Univers vitamin 7-17 tablet by ity of w/FA tablet 00:00: mouth [place] 00 daily. Medical Branch ferrous 2020-0 Yes [id number] 325mg Take 1 Un [place] sulfate 325 7-17 tablet by ity of mg (65 mg 00:00: mouth 2 [place] iron) 00 (two) Medical tablet times Branch daily. ibuprofen 2020-0 Yes [id number] 600mg Take 1 Univers 600 mg 7-17 tablet by ity of tablet 00:00: mouth [place] 00 every 6 Medical (six) Branch hours as needed (Pain). Take with food or milk. 2020-0 Yes [id number] 1{tbl} Take 1 Univers vitamin 7-17 tablet by ity of w/FA tablet 00:00: mouth [place] 00 daily. Medical Branch ferrous 2020-0 Yes [id number] 325mg Take 1 Un [place] sulfate 325 7-17 tablet by ity of mg (65 mg 00:00: mouth 2 [place] iron) 00 (two) Medical tablet times Branch daily. ibuprofen 2020-0 Yes [id number] 600mg Take 1 Univers 600 mg 7-17 tablet by ity of tablet 00:00: mouth [place] 00 every 6 Medical (six) Branch hours as needed (Pain). Take with food or milk. 2020-0 Yes [id number] 1{tbl} Take 1 Univers vitamin 7-17 tablet by ity of w/FA tablet 00:00: mouth [place] 00 daily. Medical Branch ferrous 2020-0 Yes [id number] 325mg Take 1 Un [place] sulfate 325 7-17 tablet by ity of mg (65 mg 00:00: mouth 2 [place] iron) 00 (two) Medical tablet times Branch daily. ibuprofen 2020-0 Yes [id number] 600mg Take 1 Univers 600 mg 7-17 tablet by ity of tablet 00:00: mouth [place] 00 every 6 Medical (six) Branch hours as needed (Pain). Take with food or milk. 2020-0 Yes [id number] 1{tbl} Take 1 Univers vitamin 7-17 tablet by ity of w/FA tablet 00:00: mouth [place] 00 daily. Medical Branch ferrous 2020-0 Yes [id number] 325mg Take 1 Un [place] sulfate 325 7-17 tablet by ity of mg (65 mg 00:00: mouth 2 [place] iron) 00 (two) Medical tablet times Branch daily. ibuprofen 2020-0 Yes [id number] 600mg Take 1 Univers 600 mg 7-17 tablet by ity of tablet 00:00: mouth [place] 00 every 6 Medical (six) Branch hours as needed (Pain). Take with food or milk. 2020-0 Yes [id number] 1{tbl} Take 1 Univers vitamin 7-17 tablet by ity of w/FA tablet 00:00: mouth [place] 00 daily. Medical Branch ferrous 2020-0 Yes [id number] 325mg Take 1 Un [place] sulfate 325 7-17 tablet by ity of mg (65 mg 00:00: mouth 2 [place] iron) 00 (two) Medical tablet times Branch daily. ibuprofen 2020-0 Yes [id number] 600mg Take 1 Univers 600 mg 7-17 tablet by ity of tablet 00:00: mouth [place] 00 every 6 Medical (six) Branch hours as needed (Pain). Take with food or milk. 2020-0 Yes [id number] 1{tbl} Take 1 Univers vitamin 7-17 tablet by ity of w/FA tablet 00:00: mouth [place] 00 daily. Medical Branch ferrous 2020-0 Yes [id number] 325mg Take 1 Un [place] sulfate 325 7-17 tablet by ity of mg (65 mg 00:00: mouth 2 [place] iron) 00 (two) Medical tablet times Branch daily. ibuprofen 2019-0 Yes [id number] 600mg Take 1 Univers 600 mg 7-17 tablet by ity of tablet 00:00: mouth [place] 00 every 6 Medical (six) Branch hours as needed (Pain). Take with food or milk. metFORMIN 2019- 2020- No [id number] 500mg Take 1 Univers 500 mg 7-17 -16 tablet by ity of tablet 00:00: 04:59 mouth [place] 00 :00 daily with Medical breakfast Branch for 60 days. metFORMIN 2019-0 2020- No [id number] 500mg Take 1 Univers 500 mg 7-17 -16 tablet by ity of tablet 00:00: 04:59 mouth [place] 00 :00 daily with Medical breakfast Branch for 60 days. docusate 2019- 2020- No [id number] 240mg Take 1 Univers calcium 240 7-17 08-20 capsule by i ty of mg capsule 00:00: 00:00 mouth once [place] 00 :00 daily as Medical needed for Branch Constipati on. metFORMIN 2019- 2020- No [id number] 500mg Take 1 Univers 500 mg 7-17 [...] 1000 mL 2020-0 2020- No at 125 [facility] ers + oxytocin 08-31-16 mL/hr, IV ity of 20 units IV 07:15: 08:07 Infusion, [place] Solution 00 :00 ONCE, 1 Medical dose, [place] Branch 09/01/19 at 0215, Routine LR 1000 mL 2020-0 2020- No at 125 [facility] ers + oxytocin 08-31 07-16 mL/hr, IV ity of 20 units IV 07:15: 07:15 Infusion, [place] Solution 00 :00 ONCE, 1 Medical dose, [place] Branch 09/01/19 at 0215, Routine ondansetron 2019-0 2020- No 4mg 4 mg, Slow Univers (ZOFRAN 08-31 IV Push, ity of (PF)) 03:45: 02:45 ONCE, 1 [place] injection 4 00 :00 dose, Wed Med [...] 1 [place] mg 00 :00 dose, [facility] Medical 08/31/19 at Branch 1830, Routine acetaminoph [...] 00 :10 CONTINUOUS Medical , Starting Branch [facility] 08/31/19 at 1030, Until Marybeth 09/01/19 at 0457, Routine LR 1000 mL 2019-0 2020- No 2mU/min at 6-120 Univers + oxytocin 08-30 07-16 mL/hr, IV ity of 20 units IV 15:26: 09:57 Infusion, [place] Solution 06 :10 TITRATE, Medical Starting Branch [facility] 08/31/19 at 1026, Until Marybeth 09/01/19 at 0457, CARLOS PNV 2019-0 Yes Take by Univers no.153/FA/o 08-30 mouth. ity of m3/dha/epa/ 12:47: [place] fish 48 Medical ( Branch GUMMIES ORAL) glyBURIDE 2020-0 Yes [id number] 2.5mg Take 1 U nivers 2.5 mg 6-04 tablet by ity of tablet 00:00: mouth at [place] 00 bedtime. Medical Branch glyBURIDE 2020-0 Yes [id number] 2.5mg Take 1 U nivers 2.5 mg 6-04 tablet by ity of tablet 00:00: mouth at [place] 00 bedtime. Medical Branch glyBURIDE 2020-0 Yes [id number] 2.5mg Take 1 U nivers 2.5 mg 6-04 tablet by ity of tablet 00:00: mouth at [place] 00 bedtime. Medical Branch glyBURIDE 2020-0 Yes [id number] 2.5mg Take 1 U nivers 2.5 mg 6-04 tablet by ity of tablet 00:00: mouth at [place] [address] bedtime. Medical Branch glyBURIDE 2020-0 Yes [id number] 2.5mg Take 1 U nivers 2.5 mg 6-04 tablet by ity of tablet 00:00: mouth at [place] [address] bedtime. Medical Branch glyBURIDE 2020-0 Yes [id number] 2.5mg Take 1 U nivers 2.5 mg 6-04 tablet by ity of tablet 00:00: mouth at [place] [address] bedtime. Medical Branch glyBURIDE 2020-0 Yes [id number] 2.5mg Take 1 U nivers 2.5 mg 6-04 tablet by ity of tablet 00:00: mouth at [place] [address] bedtime. Medical Branch glyBURIDE 2020-0 Yes [id number] 2.5mg Take 1 U nivers 2.5 mg 6-04 tablet by ity of tablet 00:00: mouth at [place] [address] bedtime. Medical Branch glyBURIDE 2020-0 Yes [id number] 2.5mg Take 1 U nivers 2.5 mg 6-04 tablet by ity of tablet 00:00: mouth at [place] [address] bedtime. Medical Branch glyBURIDE 2020-0 Yes [id number] 2.5mg Take 1 U nivers 2.5 mg 6-04 tablet by ity of tablet 00:00: mouth at [place] [address] bedtime. Medical Branch glyBURIDE 2020-0 Yes [id number] 2.5mg Take 1 U nivers 2.5 mg 6-04 tablet by ity of tablet 00:00: mouth at [place] [address] bedtime. Medical Branch glyBURIDE 2020-0 Yes [id number] 2.5mg Take 1 U nivers 2.5 mg 6-04 tablet by ity of tablet 00:00: mouth at [place] [address] bedtime. Medical Branch glyBURIDE 2020-0 Yes [id number] 2.5mg Take 1 U nivers 2.5 mg 6-04 tablet by ity of tablet 00:00: mouth at [place] [address] bedtime. Medical Branch glyBURIDE 2020-0 Yes [id number] 2.5mg Take 1 U nivers 2.5 mg 6-04 tablet by ity of tablet 00:00: mouth at [place] [address] bedtime. Medical Branch glyBURIDE 2020-0 Yes [id number] 2.5mg Take 1 U nivers 2.5 mg 6-04 tablet by ity of tablet 00:00: mouth at [place] [address] bedtime. Medical Branch glyBURIDE 2020-0 Yes [id number] 2.5mg Take 1 U nivers 2.5 mg 6-04 tablet by ity of tablet 00:00: mouth at [place] [address] bedtime. Medical Branch glyBURIDE 2020-0 Yes [id number] 2.5mg Take 1 U nivers 2.5 mg 6-04 tablet by ity of tablet 00:00: mouth at [place] [address] bedtime. Medical Branch glyBURIDE 2020-0 Yes [id number] 2.5mg Take 1 U nivers 2.5 mg 6-04 tablet by ity of tablet 00:00: mouth at [place] [address] bedtime. Medical Branch famotidine 2020-0 2020- No [id number] 20mg Take 1 Univers 20 mg 5-30 06-14 tablet by ity of tablet 00:00: 04:59 mouth 2 [place] 00 :00 (two) Medical times [place] daily for 14 days. famotidine 2020-0 2020- No [id number] 20mg Take 1 Univers 20 mg 5-30 06-14 tablet by ity of tablet 00:00: 04:59 mouth 2 [place] 00 :00 (two) Medical times [place] daily for 14 days. famotidine 2020-0 2020- No [id number] 20mg Take 1 Univers 20 mg 5-30 06-14 tablet by ity of tablet 00:00: 04:59 mouth 2 [place] 00 :00 (two) Medical times [place] daily for 14 days. famotidine 2020-0 2020- No [id number] 20mg Take 1 Univers 20 mg 5-30 06-14 tablet by ity of tablet 00:00: 04:59 mouth 2 [place] 00 :00 (two) Medical times [place] daily for 14 days. blood sugar 2020-0 Yes Test Univer s diagnostic 5-15 glucose x4 ity of strip 00:00: daily. [place] [facility] blood sugar 2020-0 Yes Test Univer s diagnostic 5-15 glucose x4 ity of strip 00:00: daily. [place] [facility] blood sugar 2020-0 Yes Test Univer s diagnostic 5-15 glucose x4 ity of strip 00:00: daily. [place] [facility] blood sugar 2020-0 Yes Test Univer s diagnostic 5-15 glucose x4 ity of strip 00:00: daily. [place] [facility] blood sugar 2020-0 Yes Test Univer s diagnostic 5-15 glucose x4 ity of strip 00:00: daily. [place] [facility] blood sugar 2020-0 Yes Test Univer s diagnostic 5-15 glucose x4 ity of strip 00:00: daily. [place] [facility] blood sugar 2020-0 Yes Test Univer s diagnostic 5-15 glucose x4 ity of strip 00:00: daily. [place] [facility] blood sugar 2020-0 Yes Test Univer s diagnostic 5-15 glucose x4 ity of strip 00:00: daily. [place] [facility] blood sugar 2020-0 Yes Test Univer s diagnostic 5-15 glucose x4 ity of strip 00:00: daily. [place] [facility] blood sugar 2020-0 Yes Test Univer s diagnostic 5-15 glucose x4 ity of strip 00:00: daily. [place] [facility] blood sugar 2020-0 Yes Test Univer s diagnostic 5-15 glucose x4 ity of strip 00:00: daily. [place] [facility] blood sugar 2020-0 Yes Test Univer s diagnostic 5-15 glucose x4 ity of strip 00:00: daily. [place] [facility] blood sugar 2020-0 Yes Test Univer s diagnostic 5-15 glucose x4 ity of strip 00:00: daily. [place] [facility] blood sugar 2020-0 Yes Test Univer s diagnostic 5-15 glucose x4 ity of strip 00:00: daily. [place] [facility] blood sugar 2020-0 Yes Test Univer s diagnostic 5-15 glucose x4 ity of strip 00:00: daily. [place] [facility] blood sugar 2020-0 Yes Test Univer s diagnostic 5-15 glucose x4 ity of strip 00:00: daily. [place] [facility] blood sugar 2020-0 Yes Test Univer s diagnostic 5-15 glucose x4 ity of strip 00:00: daily. [place] [facility] blood sugar 2020-0 Yes Test Univer s diagnostic 5-15 glucose x4 ity of strip 00:00: daily. [place] [facility] blood sugar 2020-0 Yes Test Univer s diagnostic 5-15 glucose x4 ity of strip 00:00: daily. [place] [facility] blood sugar 2020-0 Yes Test Univer s diagnostic 5-15 glucose x4 ity of strip 00:00: daily. [place] [facility] blood sugar 2020-0 Yes Test Univer s diagnostic 5-15 glucose x4 ity of strip 00:00: daily. Medical Branch blood sugar 2020-0 Yes Test Univer s diagnostic 5-15 glucose x4 ity of strip 00:00: daily. [place] [facility] blood sugar 2020-0 2020- No Test Unive rs diagnostic 5-15 08-20 glucose x4 it y of strip 00:00: 00:00 daily. [place] 00 :00 Medical Branch rho(D) 2020-0 2020- No [id number] 300ug Unive rs immune 5-05 05-05 ity of globulin 15:30: 14:24 [place] (RHOGAM) 00 :00 Medical syringe 300 Branch mcg rho(D) 2019-0 2020- No [id number] 300ug 300 mcg, U nivers immune 5-05 [...] no.153/FA/o 06-08 mouth. ity of m3/dha/epa/ 02:35: [place] fish Medical ( Branch GUMMIES ORAL) proMETHazin [...] dose, Wed Medical 1,000 mg 06/08/19 at [facility] h 1945, Routine blood sugar 2020-0 Yes Test Univer s diagnostic 3-26 glucose x4 ity of strip 00:00: daily. [place] [facility] blood sugar 2020-0 Yes Test Univer s diagnostic 3-26 glucose x4 ity of strip 00:00: daily. [place] [facility] blood sugar 2020-0 Yes Test Univer s diagnostic 3-26 glucose x4 ity of strip 00:00: daily. [place] [facility] blood sugar 2020-0 Yes Test Univer s diagnostic 3-26 glucose x4 ity of strip 00:00: daily. [place] [facility] blood sugar 2020-0 Yes Test Univer s diagnostic 3-26 glucose x4 ity of strip 00:00: daily. [place] [facility] blood sugar 2020-0 Yes Test Univer s diagnostic 3-26 glucose x4 ity of strip 00:00: daily. [place] [facility] blood sugar 2020-0 Yes Test Univer s diagnostic 3-26 glucose x4 ity of strip 00:00: daily. [place] [facility] Branch blood sugar 2020-0 Yes Test Univer s diagnostic 3-26 glucose x4 ity of strip 00:00: daily. [place] [facility] blood sugar 2020-0 Yes Test Univer s diagnostic 3-26 glucose x4 ity of strip 00:00: daily. [place] [facility] blood sugar 2020-0 Yes Test Univer s diagnostic 3-26 glucose x4 ity of strip 00:00: daily. [place] [facility] blood sugar 2020-0 Yes Test Univer s diagnostic 3-26 glucose x4 ity of strip 00:00: daily. [place] [facility] blood sugar 2020-0 Yes Test Univer s diagnostic 3-26 glucose x4 ity of strip 00:00: daily. [place] [facility] blood sugar 2020-0 Yes Test Univer s diagnostic 3-26 glucose x4 ity of strip 00:00: daily. [place] [facility] blood sugar 2020-0 Yes Test Univer s diagnostic 3-26 glucose x4 ity of strip 00:00: daily. [place] [facility] blood sugar 2020-0 Yes Test Univer s diagnostic 3-26 glucose x4 ity of strip 00:00: daily. [place] [facility] blood sugar 2020-0 2020- No Test Unive rs diagnostic 3-26 05-15 glucose x4 it y of strip 00:00: 00:00 daily. [place] 00 : Medical Branch blood sugar 2020-0 Yes [id number] Check U nivers diagnostic 2-24 glucose 4x ity of (TRUE 00:00: daily [place] METRIX 00 Medical GLUCOSE Branch TEST STRIP) strip blood sugar 2020-0 Yes [id number] Check U nivers diagnostic 2-24 glucose 4x ity of (TRUE 00:00: daily [place] METRIX 00 Medical GLUCOSE Branch TEST STRIP) strip blood sugar 2020-0 Yes [id number] Check U nivers diagnostic 2-24 glucose 4x ity of (TRUE 00:00: daily [place] METRIX 00 Medical GLUCOSE Branch TEST STRIP) strip blood sugar 2020-0 Yes [id number] Check U nivers diagnostic 2-24 glucose 4x ity of (TRUE 00:00: daily [place] METRIX 00 Medical GLUCOSE Branch TEST STRIP) strip blood sugar 2020-0 Yes [id number] Check U nivers diagnostic 2-24 glucose 4x ity of (TRUE 00:00: daily [place] METRIX 00 Medical GLUCOSE Branch TEST STRIP) strip blood sugar 2020-0 Yes [id number] Check U nivers diagnostic 2-24 glucose 4x ity of (TRUE 00:00: daily [place] METRIX 00 Medical GLUCOSE Branch TEST STRIP) strip blood sugar 2020-0 Yes [id number] Check U nivers diagnostic 2-24 glucose 4x ity of (TRUE 00:00: daily [place] METRIX 00 Medical GLUCOSE Branch TEST STRIP) strip blood sugar 2020-0 Yes [id number] Check U nivers diagnostic 2-24 glucose 4x ity of (TRUE 00:00: daily [place] METRIX 00 Medical GLUCOSE Branch TEST STRIP) strip blood sugar 2020-0 Yes [id number] Check U nivers diagnostic 2-24 glucose 4x ity of (TRUE 00:00: daily [place] METRIX 00 Medical GLUCOSE Branch TEST STRIP) strip blood sugar 2020-0 Yes [id number] Check U nivers diagnostic 2-24 glucose 4x ity of (TRUE 00:00: daily [place] METRIX 00 Medical GLUCOSE Branch TEST STRIP) strip blood sugar 2020-0 Yes [id number] Check U nivers diagnostic 2-24 glucose 4x ity of (TRUE 00:00: daily [place] METRIX 00 Medical GLUCOSE Branch TEST STRIP) strip blood sugar 2020-0 Yes [id number] Check U nivers diagnostic 2-24 glucose 4x ity of (TRUE 00:00: daily [place] METRIX 00 Medical GLUCOSE Branch TEST STRIP) strip blood sugar 2020-0 Yes [id number] Check U nivers diagnostic 2-24 glucose 4x ity of (TRUE 00:00: daily [place] METRIX 00 Medical GLUCOSE Branch TEST STRIP) strip blood sugar 2020-0 2020- No [id number] Check Univers diagnostic 2-24 03-26 glucose 4x it y of (TRUE 00:00: 00:00 daily [place] METRIX 00 :00 Medical GLUCOSE Branch TEST STRIP) strip blood sugar 2019-0 2020- No [id number] Check Univers diagnostic 2-24 -26 glucose 4x it y of (TRUE 00:00: 00:00 daily [place] METRIX 00 :00 Medical GLUCOSE Branch TEST STRIP) strip blood sugar 2020-0 2020- No [id number] [facility] 2-24 -26 glucose 4x it y of (TRUE 00:00: 00:00 daily [place] METRIX 00 :00 Medical GLUCOSE Branch TEST STRIP) strip blood sugar 2019-0 2020- No [id number] [facility] 2-24 -26 glucose 4x it y of (TRUE 00:00: 00:00 daily [place] METRIX 00 :00 Medical GLUCOSE Branch TEST STRIP) strip lancets 28 2020-0 Yes [id number] Check [facility] [place] gauge Misc 1-29 glucose 4x ity of 00:00: daily [place] 00 Medical Branch lancets 28 2020-0 Yes [id number] Check [facility] [place] gauge Misc 1-29 glucose 4x ity of 00:00: daily [place] [facility] lancets 28 2020-0 Yes [id number] Check [facility] [place] gauge Misc 1-29 glucose 4x ity of 00:00: daily [place] [facility] lancets 28 2020-0 Yes [id number] Check [facility] [place] gauge Misc 1-29 glucose 4x ity of 00:00: daily [place] 00 [facility] lancets 28 2020-0 Yes [id number] Check [facility] [place] gauge Misc 1-29 glucose 4x ity of 00:00: daily [place] [facility] lancets 28 2020-0 Yes [id number] Check [facility] [place] gauge Misc 1-29 glucose 4x ity of 00:00: daily [place] 00 [facility] lancets 28 2020-0 Yes [id number] Check [facility] [place] gauge Misc 1-29 glucose 4x ity of 00:00: daily [place] [facility] lancets 28 2020-0 Yes [id number] Check [facility] [place] gauge Misc 1-29 glucose 4x ity of 00:00: daily Medical [facility] lancets 28 2020-0 Yes [id number] Check [place] gauge Misc 1-29 glucose 4x ity of 00:00: daily Medical [facility] lancets 28 2020-0 Yes [id number] Check [place] gauge Misc 1-29 glucose 4x ity of 00:00: daily [facility] Branch lancets 28 2020-0 Yes [id number] Check [place] gauge Misc 1-29 glucose 4x ity of 00:00: daily [facility] lancets 28 2020-0 Yes [id number] Check [place] gauge Misc 1-29 glucose 4x ity of 00:00: daily [facility] lancets 28 2020-0 Yes [id number] Check [place] gauge Misc 1-29 glucose 4x ity of 00:00: daily Medical Branch lancets 28 2020-0 Yes [id number] Check [place] gauge Misc 1-29 glucose 4x ity of 00:00: daily Medical Branch lancets 28 2020-0 Yes [id number] Check [place] gauge Misc 1-29 glucose 4x ity of 00:00: daily [facility] lancets 28 2020-0 Yes [id number] Check [place] gauge Misc 1-29 glucose 4x ity of 00:00: daily [facility] lancets 28 2020-0 Yes [id number] Check [place] gauge Misc 1-29 glucose 4x ity of 00:00: daily [facility] lancets 28 2020-0 Yes [id number] Check [place] gauge Misc 1-29 glucose 4x ity of 00:00: daily [facility] Branch lancets 28 2020-0 Yes [id number] Check [place] gauge Misc 1-29 glucose 4x ity of 00:00: daily [facility] lancets 28 2020-0 Yes [id number] Check [place] gauge Misc 1-29 glucose 4x ity of 00:00: daily [facility] Branch lancets 28 2020-0 Yes [id number] Check [place] gauge Misc 1-29 glucose 4x ity of 00:00: daily [facility] lancets 28 2020-0 Yes [id number] Check [place] gauge Misc 1-29 glucose 4x ity of 00:00: daily Medical Branch lancets 28 2020-0 Yes [id number] Check [place] gauge Misc 1-29 glucose 4x ity of 00:00: daily Medical Branch lancets 28 2020-0 Yes [id number] Check [place] gauge Misc 1-29 glucose 4x ity of 00:00: daily [facility] Branch lancets 28 2020-0 Yes [id number] Check [place] gauge Misc 1-29 glucose 4x ity of 00:00: daily [facility] Branch lancets 28 2020-0 Yes [id number] Check [place] gauge Misc 1-29 glucose 4x ity of 00:00: daily [facility] Branch lancets 28 2020-0 Yes [id number] Check [place] gauge Misc 1-29 glucose 4x ity of 00:00: daily Medical Branch lancets 28 2020-0 Yes [id number] Check [place] gauge Misc 1-29 glucose 4x ity of 00:00: daily Medical Branch lancets 28 2020-0 Yes [id number] Check [place] gauge Misc 1-29 glucose 4x ity of 00:00: daily Medical Branch lancets 28 2020-0 Yes [id number] Check [place] gauge Misc 1-29 glucose 4x ity of 00:00: daily [facility] Branch lancets 28 2020-0 Yes [id number] Check [place] gauge Misc 1-29 glucose 4x ity of 00:00: daily Medical Branch lancets 28 2020-0 Yes [id number] Check [place] gauge Misc 1-29 glucose 4x ity of 00:00: daily Medical Branch lancets 28 2020-0 Yes [id number] Check [place] gauge Misc 1-29 glucose 4x ity of 00:00: daily Medical Branch lancets 28 2020-0 Yes [id number] Check [place] gauge Misc 1-29 glucose 4x ity of 00:00: daily [facility] Branch lancets 28 2020-0 Yes [id number] Check [place] gauge Misc 1-29 glucose 4x ity of 00:00: daily [facility] Branch lancets 28 2020-0 Yes [id number] Check [place] gauge Misc 1-29 glucose 4x ity of 00:00: daily [place] 00 [facility] Branch lancets 28 2020-0 Yes [id number] Check [facility] [place] gauge Misc 1-29 glucose 4x ity of 00:00: daily [facility] Branch lancets 28 2020-0 Yes [id number] Check [place] gauge Misc 1-29 glucose 4x ity of 00:00: daily Medical Branch lancets 28 2020-0 Yes [id number] Check [place] gauge Misc 1-29 glucose 4x ity of 00:00: daily Medical Branch lancets 28 2020-0 Yes [id number] Check [place] gauge Misc 1-29 glucose 4x ity of 00:00: daily [facility] Branch lancets 28 2020-0 Yes [id number] Check [place] gauge Misc 1-29 glucose 4x ity of 00:00: daily [facility] Branch lancets 28 2020-0 Yes [id number] Check [place] gauge Misc 1-29 glucose 4x ity of 00:00: daily [facility] Branch lancets 28 2020-0 Yes [id number] Check [place] gauge Misc 1-29 glucose 4x ity of 00:00: daily Medical Branch lancets 28 2020-0 Yes [id number] Check [place] gauge Misc 1-29 glucose 4x ity of 00:00: daily Medical Branch lancets 28 2020-0 Yes [id number] Check [place] gauge Misc 1-29 glucose 4x ity of 00:00: daily Medical Branch lancets 28 2020-0 Yes [id number] Check [place] gauge Misc 1-29 glucose 4x ity of 00:00: daily [facility] Branch lancets 28 2020-0 Yes [id number] Check [place] gauge Misc 1-29 glucose 4x ity of 00:00: daily Medical Branch lancets 28 2020-0 Yes [id number] Check [place] gauge Misc 1-29 glucose 4x ity of 00:00: daily Medical Branch lancets 28 2020-0 Yes [id number] Check [place] gauge Misc 1-29 glucose 4x ity of 00:00: daily Medical Branch lancets 28 2020-0 Yes [id number] Check [place] gauge Misc 1-29 glucose 4x ity of 00:00: daily Medical Branch lancets 28 2020-0 Yes [id number] Check [place] gauge Misc 1-29 glucose 4x ity of 00:00: daily [place] [facility] lancets 28 2019-0 Yes [id number] Check [facility] [place] gauge Misc 1-29 glucose 4x ity of 00:00: daily Medical Branch lancets 28 2019-0 Yes [id number] Check [facility] [place] gauge Misc 1-29 glucose 4x ity of 00:00: daily [place] [facility] lancets 28 2019-0 Yes [id number] Check [facility] [place] gauge Misc 1-29 glucose 4x ity of 00:00: daily [place] [facility] lancets 28 2019-0 2020- No [id number] Check [facility] gauge Misc 1-29 08-20 glucose 4x it y of 00:00: 00:00 daily [place] 00 :00 [facility] cephALEXin 2020- No 500mg 500 mg, [facility] [place] (KEFLEX) 03-14 Oral, ity of capsule 500 20:00: 18:55 [place]CE, 1 [place] mg 00 :00 dose, [facility] 03/14/19 at Branch 1400, CARLOS
Re ason for Anti-Infec tive: Documented Infection< br>Documen sergey Infection Site: Urine
D uration of Therapy: 10 days metoclopram 2019- No 10mg 10 mg, [facility] vers [place] HCl 03-14 Slow IV ity of (REGLAN) 19:15: 18:11 Push, [place] injection 00 :00 ONCE, 1 Medical 10 mg dose, [facility] 03/14/19 at 1315, CARLOS proMETHazin 2019- No 12.5mg 12.5 mg, [facility] e 03-14 IV ity of (PHENERGAN) 18:00: 16:52 Piggyback, [place] 12.5 mg in 00 :00 ONCE, 1 Medica l NaCl 0.9% dose, [facility] Branc h (NS) 50 mL 03/14/19 at piggyback 1200, 50 mL morpHINE 2019- No 4mg 4 mg, Slow [place] injection 4 03-14 IV Push, ity of mg 17:45: 16:51 ONCE, 1 [place] 00 :00 dose, [facility] 03/14/19 at Branch 1145, Routine NaCl 0.9% [...] piggyback 1030, 50 mL cephALEXin 2019- No [id number] 500mg Take 1 [facility] (KEFLEX) 03-14 capsule by ity of 500 mg 00:00: 05:59 mouth 3 [place] capsule 00 :00 (three) Medical times Branch daily for 10 days. cephALEXin 2019- No [id number] 500mg Take 1 [facility] (KEFLEX) 03-14 capsule [...] mg-35 mcg (28) tablet albuterol 2019-0 Yes [id number] 2{puff} Inhale 2 [facility] 90 1-13 Puffs ity of mcg/actuati 00:00: every 6 [place] as on inhaler 00 (six) Medical hours as Branch needed for Wheezing or Shortness of Breath. albuterol 2019-0 Yes [id number] 2{puff} Inhale 2 [facility] 90 1-13 Puffs ity of mcg/actuati 00:00: every 6 [place] as on inhaler 00 (six) Medical hours as Branch needed for Wheezing or Shortness of Breath. aspirin 81 2019-0 Yes [id number] 81mg Take 1 U nivers mg EC 1-13 tablet by ity of tablet 00:00: mouth [place] 00 daily. Medical Branch aspirin 81 2019-0 Yes [id number] 81mg Take 1 U n[facility] mg EC 1-13 tablet by ity of tablet 00:00: mouth [place] 00 daily. Medical Branch albuterol 2019-0 Yes [id number] 2{puff} Inhale 2 [facility] 90 1-13 Puffs ity of mcg/actuati 00:00: every 6 [place] on inhaler 00 (six) Medical hours as Branch needed for Wheezing or Shortness of Breath. aspirin 81 2019-0 Yes [id number] 81mg Take 1 U n[facility] mg EC 1-13 tablet by ity of tablet 00:00: mouth [place] 00 daily. Medical Branch albuterol 0 Yes [id number] 2{puff} Inhale 2 [facility] 90 1-13 Puffs ity of mcg/actuati 00:00: every 6 [place] on inhaler 00 (six) Medical hours as Branch needed for Wheezing or Shortness of Breath. albuterol 0 Yes [id number] 2{puff} Inhale 2 [facility] 90 1-13 Puffs ity of mcg/actuati 00:00: every 6 [place] on inhaler 00 (six) Medical hours as Branch needed for Wheezing or Shortness of Breath. albuterol 0 Yes [id number] 2{puff} Inhale 2 [facility] 90 1-13 Puffs ity of mcg/actuati 00:00: every 6 [place] inhaler 00 (six) Medical hours as Branch needed for Wheezing or Shortness of Breath. aspirin 81 2019-0 Yes [id number] 81mg Take 1 U [facility] mg EC 1-13 tablet by ity of tablet 00:00: mouth [place] 00 daily. Medical Branch albuterol 2019-0 Yes [id number] 2{puff} Inhale 2 [facility] 90 1-13 Puffs ity of mcg/actuati 00:00: every 6 [place] inhaler 00 (six) Medical hours as Branch needed for Wheezing or Shortness of Breath. aspirin 81 2019-0 Yes [id number] 81mg Take 1 U [facility] mg EC 1-13 tablet by ity of tablet 00:00: mouth [place] 00 daily. Medical Branch albuterol 2019-0 Yes [id number] 2{puff} Inhale 2 [facility] 90 1-13 Puffs ity of mcg/actuati 00:00: every 6 [place] on inhaler 00 (six) Medical hours as Branch needed for Wheezing or Shortness of Breath. aspirin 81 2020-0 Yes [id number] 81mg Take 1 U [facility] mg EC 1-13 tablet by ity of tablet 00:00: mouth [place] 00 daily. Medical Branch albuterol 2020-0 Yes [id number] 2{puff} Inhale 2 [facility] 90 1-13 Puffs ity of mcg/actuati 00:00: every 6 [place] as on inhaler 00 (six) Medical hours as Branch needed for Wheezing or Shortness of Breath. aspirin 81 2019-0 Yes [id number] 81mg Take 1 U n[facility] mg EC 1-13 tablet by ity of tablet 00:00: mouth [place] 00 daily. Medical Branch albuterol 2019-0 Yes [id number] 2{puff} Inhale 2 [facility] 90 1-13 Puffs ity of mcg/actuati 00:00: every 6 [place] as on inhaler 00 (six) Medical hours as Branch needed for Wheezing or Shortness of Breath. aspirin 81 2019-0 Yes [id number] 81mg Take 1 [facility] mg EC 1-13 tablet by ity of tablet 00:00: mouth [place] 00 daily. Medical Branch albuterol 2020-0 Yes [id number] 2{puff} Inhale 2 [facility] 90 1-13 Puffs ity of mcg/actuati 00:00: every 6 [place] as on inhaler 00 (six) Medical hours as Branch needed for Wheezing or Shortness of Breath. aspirin 81 2019-0 Yes [id number] 81mg Take 1 [facility] mg EC 1-13 tablet by ity of tablet 00:00: mouth [place] 00 daily. Medical Branch albuterol 2019-0 Yes [id number] 2{puff} Inhale 2 [facility] 90 1-13 Puffs ity of mcg/actuati 00:00: every 6 [place] on inhaler 00 (six) Medical hours as Branch needed for Wheezing or Shortness of Breath. aspirin 81 2019-0 Yes [id number] 81mg Take 1 U [facility] mg EC 1-13 tablet by ity of tablet 00:00: mouth [place] 00 daily. Medical Branch albuterol 2020-0 Yes [id number] 2{puff} Inhale 2 [facility] 90 1-13 Puffs ity of mcg/actuati 00:00: every 6 [place] on inhaler 00 (six) Medical hours as Branch needed for Wheezing or Shortness of Breath. aspirin 81 2020-0 Yes [id number] 81mg Take 1 [facility] mg EC 1-13 tablet by ity of tablet 00:00: mouth [place] 00 daily. Medical Branch albuterol 2020-0 Yes [id number] 2{puff} Inhale 2 [facility] 90 1-13 Puffs ity of mcg/actuati 00:00: every 6 [place] on inhaler 00 (six) Medical hours as Branch needed for Wheezing or Shortness of Breath. aspirin 81 2020-0 Yes [id number] 81mg Take 1 U [facility] mg EC 1-13 tablet by ity of tablet 00:00: mouth [place] 00 daily. Medical Branch albuterol 2020-0 Yes [id number] 2{puff} Inhale 2 [facility] 90 1-13 Puffs ity of mcg/actuati 00:00: every 6 [place] on inhaler 00 (six) Medical hours as Branch needed for Wheezing or Shortness of Breath. aspirin 81 2019-0 Yes [id number] 81mg Take 1 U [facility] mg EC 1-13 tablet by ity of tablet 00:00: mouth [place] 00 daily. Medical Branch albuterol 2020-0 Yes [id number] 2{puff} Inhale 2 [facility] 90 1-13 Puffs ity of mcg/actuati 00:00: every 6 [place] on inhaler 00 (six) Medical hours as Branch needed for Wheezing or Shortness of Breath. aspirin 81 2019-0 Yes [id number] 81mg Take 1 [facility] mg EC 1-13 tablet by ity of tablet 00:00: mouth [place] 00 daily. Medical Branch albuterol 2020-0 Yes [id number] 2{puff} Inhale 2 [facility] 90 1-13 Puffs ity of mcg/actuati 00:00: every 6 [place] on inhaler 00 (six) Medical hours as Branch needed for Wheezing or Shortness of Breath. aspirin 81 2020-0 Yes [id number] 81mg Take 1 [facility] mg EC 1-13 tablet by ity of tablet 00:00: mouth [place] 00 daily. Medical Branch albuterol 2020-0 Yes [id number] 2{puff} Inhale 2 [facility] 90 1-13 Puffs ity of mcg/actuati 00:00: every 6 [place] on inhaler 00 (six) Medical hours as Branch needed for Wheezing or Shortness of Breath. aspirin 81 2020-0 Yes [id number] 81mg Take 1 [facility] mg EC 1-13 tablet by ity of tablet 00:00: mouth [place] 00 daily. Medical Branch albuterol 2020-0 Yes [id number] 2{puff} Inhale 2 [facility] 90 1-13 Puffs ity of mcg/actuati 00:00: every 6 [place] on inhaler 00 (six) Medical hours as Branch needed for Wheezing or Shortness of Breath. aspirin 81 2020-0 Yes [id number] 81mg Take 1 [facility] mg EC 1-13 tablet by ity of tablet 00:00: mouth [place] 00 daily. Medical Branch albuterol 2020-0 Yes [id number] 2{puff} Inhale 2 [facility] 90 1-13 Puffs ity of mcg/actuati 00:00: every 6 [place] on inhaler 00 (six) Medical hours as Branch needed for Wheezing or Shortness of Breath. aspirin 81 2019-0 Yes [id number] 81mg Take 1 U [facility] mg EC 1-13 tablet by ity of tablet 00:00: mouth [place] 00 daily. Medical Branch albuterol 2020-0 Yes [id number] 2{puff} Inhale 2 [facility] 90 1-13 Puffs ity of mcg/actuati 00:00: every 6 [place] on inhaler 00 (six) Medical hours as Branch needed for Wheezing or Shortness of Breath. aspirin 81 2020-0 Yes [id number] 81mg Take 1 U [facility] mg EC 1-13 tablet by ity of tablet 00:00: mouth [place] 00 daily. Medical Branch albuterol 2020-0 Yes [id number] 2{puff} Inhale 2 [facility] 90 1-13 Puffs ity of mcg/actuati 00:00: every 6 [place] on inhaler 00 (six) Medical hours as Branch needed for Wheezing or Shortness of Breath. aspirin 81 2020-0 Yes [id number] 81mg Take 1 U [facility] mg EC 1-13 tablet by ity of tablet 00:00: mouth [place] 00 daily. Medical Branch albuterol 2020-0 Yes [id number] 2{puff} Inhale 2 [facility] 90 1-13 Puffs ity of mcg/actuati 00:00: every 6 [place] as on inhaler 00 (six) Medical hours as Branch needed for Wheezing or Shortness of Breath. aspirin 81 2019-0 Yes [id number] 81mg Take 1 U [facility] mg EC 1-13 tablet by ity of tablet 00:00: mouth [place] 00 daily. Medical Branch albuterol 2020-0 Yes [id number] 2{puff} Inhale 2 [facility] 90 1-13 Puffs ity of mcg/actuati 00:00: every 6 [place] as on inhaler 00 (six) Medical hours as Branch needed for Wheezing or Shortness of Breath. albuterol 2019-0 Yes [id number] 2{puff} Inhale 2 [facility] 90 1-13 Puffs ity of mcg/actuati 00:00: every 6 [place] as on inhaler 00 (six) Medical hours as Branch needed for Wheezing or Shortness of Breath. aspirin 81 0 Yes [id number] 81mg Take 1 U [facility] mg EC 1-13 tablet by ity of tablet 00:00: mouth [place] 00 daily. Medical Branch aspirin 81 0 Yes [id number] 81mg Take 1 U [facility] mg EC 1-13 tablet by ity of tablet 00:00: mouth [place] 00 daily. Medical Branch albuterol 2019-0 Yes [id number] 2{puff} Inhale 2 [facility] 90 1-13 Puffs ity of mcg/actuati 00:00: every 6 [place] as on inhaler 00 (six) Medical hours as Branch needed for Wheezing or Shortness of Breath. aspirin 81 2019-0 Yes [id number] 81mg Take 1 U [facility] mg EC 1-13 tablet by ity of tablet 00:00: mouth [place] 00 daily. Medical Branch albuterol 2019-0 Yes [id number] 2{puff} Inhale 2 [facility] 90 1-13 Puffs ity of mcg/actuati 00:00: every 6 [place] as on inhaler 00 (six) Medical hours as Branch needed for Wheezing or Shortness of Breath. aspirin 81 2019-0 Yes [id number] 81mg Take 1 U [facility] mg EC 1-13 tablet by ity of tablet 00:00: mouth [place] 00 daily. Medical Branch albuterol 2019-0 Yes [id number] 2{puff} Inhale 2 [facility] 90 1-13 Puffs ity of mcg/actuati 00:00: every 6 [place] as on inhaler 00 (six) Medical hours as Branch needed for Wheezing or Shortness of Breath. aspirin 81 2020-0 Yes [id number] 81mg Take 1 U [facility] mg EC 1-13 tablet by ity of tablet 00:00: mouth [place] 00 daily. Medical Branch albuterol 2020-0 Yes [id number] 2{puff} Inhale 2 [facility] 90 1-13 Puffs ity of mcg/actuati 00:00: every 6 [place] as on inhaler 00 (six) Medical hours as Branch needed for Wheezing or Shortness of Breath. aspirin 81 2019-0 Yes [id number] 81mg Take 1 [facility] mg EC 1-13 tablet by ity of tablet 00:00: mouth [place] 00 daily. Medical Branch albuterol 2020-0 Yes [id number] 2{puff} Inhale 2 [facility] 90 1-13 Puffs ity of mcg/actuati 00:00: every 6 [place] as on inhaler 00 (six) Medical hours as Branch needed for Wheezing or Shortness of Breath. aspirin 81 2019-0 Yes [id number] 81mg Take 1 U [facility] mg EC 1-13 tablet by ity of tablet 00:00: mouth [place] 00 daily. Medical Branch albuterol 2020-0 Yes [id number] 2{puff} Inhale 2 [facility] 90 1-13 Puffs ity of mcg/actuati 00:00: every 6 [place] as on inhaler 00 (six) Medical hours as Branch needed for Wheezing or Shortness of Breath. aspirin 81 2020-0 Yes [id number] 81mg Take 1 U [facility] mg EC 1-13 tablet by ity of tablet 00:00: mouth [place] 00 daily. Medical Branch albuterol 2020-0 Yes [id number] 2{puff} Inhale 2 [facility] 90 1-13 Puffs ity of mcg/actuati 00:00: every 6 [place] as on inhaler 00 (six) Medical hours as Branch needed for Wheezing or Shortness of Breath. aspirin 81 2019-0 Yes [id number] 81mg Take 1 U [facility] mg EC 1-13 tablet by ity of tablet 00:00: mouth [place] 00 daily. Medical Branch albuterol 2020-0 Yes [id number] 2{puff} Inhale 2 [facility] 90 1-13 Puffs ity of mcg/actuati 00:00: every 6 [place] as on inhaler 00 (six) Medical hours as Branch needed for Wheezing or Shortness of Breath. aspirin 81 2020-0 Yes [id number] 81mg Take 1 U [facility] mg EC 1-13 tablet by ity of tablet 00:00: mouth [place] 00 daily. Medical Branch albuterol 2020-0 Yes [id number] 2{puff} Inhale 2 [facility] 90 1-13 Puffs ity of mcg/actuati 00:00: every 6 [place] as on inhaler 00 (six) Medical hours as Branch needed for Wheezing or Shortness of Breath. aspirin 81 2019-0 Yes [id number] 81mg Take 1 U [facility] mg EC 1-13 tablet by ity of tablet 00:00: mouth [place] 00 daily. Medical Branch albuterol 2020-0 Yes [id number] 2{puff} Inhale 2 [facility] 90 1-13 Puffs ity of mcg/actuati 00:00: every 6 [place] as on inhaler 00 (six) Medical hours as Branch needed for Wheezing or Shortness of Breath. aspirin 81 2019-0 Yes [id number] 81mg Take 1 U nivers mg EC 1-13 tablet by ity of tablet 00:00: mouth [place] 00 daily. Medical Branch albuterol 2019-0 Yes [id number] 2{puff} Inhale 2 [facility] 90 1-13 Puffs ity of mcg/actuati 00:00: every 6 [place] as on inhaler 00 (six) Medical hours as Branch needed for Wheezing or Shortness of Breath. aspirin 81 2019-0 Yes [id number] 81mg Take 1 U [facility] mg EC 1-13 tablet by ity of tablet 00:00: mouth [place] 00 daily. Medical Branch albuterol 2020-0 Yes [id number] 2{puff} Inhale 2 [facility] 90 1-13 Puffs ity of mcg/actuati 00:00: every 6 [place] as on inhaler 00 (six) Medical hours as Branch needed for Wheezing or Shortness of Breath. aspirin 81 2019-0 Yes [id number] 81mg Take 1 U [facility] mg EC 1-13 tablet by ity of tablet 00:00: mouth [place] 00 daily. Medical Branch albuterol 2020-0 Yes [id number] 2{puff} Inhale 2 [facility] 90 1-13 Puffs ity of mcg/actuati 00:00: every 6 [place] as on inhaler 00 (six) Medical hours as Branch needed for Wheezing or Shortness of Breath. aspirin 81 2020-0 Yes [id number] 81mg Take 1 U [facility] mg EC 1-13 tablet by ity of tablet 00:00: mouth [place] 00 daily. Medical Branch albuterol 2020-0 Yes [id number] 2{puff} Inhale 2 [facility] 90 1-13 Puffs ity of mcg/actuati 00:00: every 6 [place] as on inhaler 00 (six) Medical hours as Branch needed for Wheezing or Shortness of Breath. aspirin 81 2020-0 Yes [id number] 81mg Take 1 U [facility] mg EC 1-13 tablet by ity of tablet 00:00: mouth [place] 00 daily. Medical Branch albuterol 2020-0 Yes [id number] 2{puff} Inhale 2 [facility] 90 1-13 Puffs ity of mcg/actuati 00:00: every 6 [place] as on inhaler 00 (six) Medical hours as Branch needed for Wheezing or Shortness of Breath. albuterol 2020-0 Yes [id number] 2{puff} Inhale 2 [facility] 90 1-13 Puffs ity of mcg/actuati 00:00: every 6 [place] as on inhaler 00 (six) Medical hours as Branch needed for Wheezing or Shortness of Breath. aspirin 81 2020-0 Yes [id number] 81mg Take 1 U nivers mg EC 1-13 tablet by ity of tablet 00:00: mouth [place] 00 daily. Medical Branch aspirin 81 2020-0 Yes [id number] 81mg Take 1 U [facility]ivers mg EC 1-13 tablet by ity of tablet 00:00: mouth [place] 00 daily. Medical Branch albuterol 2020-0 Yes [id number] 2{puff} Inhale 2 [facility] 90 1-13 Puffs ity of mcg/actuati 00:00: every 6 [place] as on inhaler 00 (six) Medical hours as Branch needed for Wheezing or Shortness of Breath. aspirin 81 2020-0 Yes [id number] 81mg Take 1 U nivers mg EC 1-13 tablet by ity of tablet 00:00: mouth [place] 00 daily. Medical Branch albuterol 2020-0 Yes [id number] 2{puff} Inhale 2 [facility] 90 1-13 Puffs ity of mcg/actuati 00:00: every 6 [place] as on inhaler 00 (six) Medical hours as Branch needed for Wheezing or Shortness of Breath. aspirin 81 2020-0 Yes [id number] 81mg Take 1 U [facility]ivers mg EC 1-13 tablet by ity of tablet 00:00: mouth [place] 00 daily. Medical Branch albuterol 2020-0 Yes [id number] 2{puff} Inhale 2 [facility] 90 1-13 Puffs ity of mcg/actuati 00:00: every 6 [place] as on inhaler 00 (six) Medical hours as Branch needed for Wheezing or Shortness of Breath. aspirin 81 2019-0 Yes [id number] 81mg Take 1 U [facility]ivers mg EC 1-13 tablet by ity of tablet 00:00: mouth [place] 00 daily. Medical Branch albuterol 2020-0 Yes [id number] 2{puff} Inhale 2 [facility] 90 1-13 Puffs ity of mcg/actuati 00:00: every 6 [place] as on inhaler 00 (six) Medical hours as Branch needed for Wheezing or Shortness of Breath. aspirin 81 2019-0 Yes [id number] 81mg Take 1 U nivers mg EC 1-13 tablet by ity of tablet 00:00: mouth [place] 00 daily. Medical Branch albuterol 2019-0 Yes [id number] 2{puff} Inhale 2 [facility] 90 1-13 Puffs ity of mcg/actuati 00:00: every 6 [place] as on inhaler 00 (six) Medical hours as Branch needed for Wheezing or Shortness of Breath. aspirin 81 2019-0 Yes [id number] 81mg Take 1 U nivers mg EC 1-13 tablet by ity of tablet 00:00: mouth [place] 00 daily. Medical Branch albuterol 2020-0 Yes [id number] 2{puff} Inhale 2 [facility] 90 1-13 Puffs ity of mcg/actuati 00:00: every 6 [place] as on inhaler 00 (six) Medical hours as Branch needed for Wheezing or Shortness of Breath. aspirin 81 2020-0 Yes [id number] 81mg Take 1 U nivers mg EC 1-13 tablet by ity of tablet 00:00: mouth [place] 00 daily. Medical Branch albuterol 2020-0 Yes [id number] 2{puff} Inhale 2 [facility] 90 1-13 Puffs ity of mcg/actuati 00:00: every 6 [place] as on inhaler 00 (six) Medical hours as Branch needed for Wheezing or Shortness of Breath. aspirin 81 2019-0 Yes [id number] 81mg Take 1 U [facility]ivers mg EC 1-13 tablet by ity of tablet 00:00: mouth [place] 00 daily. Medical Branch albuterol 2020-0 Yes [id number] 2{puff} Inhale 2 [facility] 90 1-13 Puffs ity of mcg/actuati 00:00: every 6 [place] as on inhaler 00 (six) Medical hours as Branch needed for Wheezing or Shortness of Breath. aspirin 81 2019-0 Yes [id number] 81mg Take 1 U [facility] mg EC 1-13 tablet by ity of tablet 00:00: mouth [place] 00 daily. Medical Branch albuterol 2020-0 Yes [id number] 2{puff} Inhale 2 [facility] 90 1-13 Puffs ity of mcg/actuati 00:00: every 6 [facility] as on inhaler 00 (six) Medical hours as Branch needed for Wheezing or Shortness of Breath. aspirin 81 2019-0 Yes [id number] 81mg Take 1 [facility] mg EC 1-13 tablet by ity of tablet 00:00: mouth [place] 00 daily. Medical Branch albuterol 2019-0 Yes [id number] 2{puff} Inhale 2 [facility] 90 1-13 Puffs ity of mcg/actuati 00:00: every 6 [place] on inhaler 00 (six) Medical hours as Branch needed for Wheezing or Shortness of Breath. aspirin 81 2019-0 Yes [id number] 81mg Take 1 [facility] mg EC 1-13 tablet by ity of tablet 00:00: mouth [place] 00 daily. Medical Branch albuterol 2020-0 Yes [id number] 2{puff} Inhale 2 [facility] 90 1-13 Puffs ity of mcg/actuati 00:00: every 6 [place] on inhaler 00 (six) Medical hours as Branch needed for Wheezing or Shortness of Breath. aspirin 81 2019-0 Yes [id number] 81mg Take 1 [facility] mg EC 1-13 tablet by ity of tablet 00:00: mouth [place] 00 daily. Medical Branch albuterol 2020-0 Yes [id number] 2{puff} Inhale 2 [facility] 90 1-13 Puffs ity of mcg/actuati 00:00: every 6 [place] on inhaler 00 (six) Medical hours as Branch needed for Wheezing or Shortness of Breath. aspirin 81 2020-0 Yes [id number] 81mg Take 1 [facility] mg EC 1-13 tablet by ity of tablet 00:00: mouth [place] 00 daily. Medical Branch albuterol 0 Yes [id number] 2{puff} Inhale 2 [facility] 90 1-13 Puffs ity of mcg/actuati 00:00: every 6 [place] on inhaler 00 (six) Medical hours as Branch needed for Wheezing or Shortness of Breath. aspirin 81 Yes [id number] 81mg Take 1 [facility] mg EC 1-13 tablet by ity of tablet 00:00: mouth [place] 00 daily. Medical Branch albuterol Yes [id number] 2{puff} Inhale 2 [facility] 90 1-13 Puffs ity of mcg/actuati 00:00: every 6 [place] on inhaler 00 (six) Medical hours as Branch needed for Wheezing or Shortness of Breath. aspirin 81 Yes [id number] 81mg Take 1 [facility] mg EC 1-13 tablet by ity of tablet 00:00: mouth [place] 00 daily. Medical Branch albuterol Yes [id number] 2{puff} Inhale 2 [facility] 90 1-13 Puffs ity of mcg/actuati 00:00: every 6 [place] on inhaler 00 (six) Medical hours as Branch needed for Wheezing or Shortness of Breath. aspirin 81 Yes [id number] 81mg Take 1 [facility] mg EC 1-13 tablet by ity of tablet 00:00: mouth [place] 00 daily. Medical Branch albuterol 2020- No [id number] 2{puff} Inhale 2 [facility] 90 1-13 08-20 Puffs ity of mcg/actuati 00:00: 00:00 every 6 [place] on inhaler 00 :00 (six) Medical hours as Branch needed for Wheezing or Shortness of Breath. aspirin 81 2020- No [id number] 81mg Take 1 [facility] mg EC 1-13 07-17 tablet by ity of tablet 00:00: 00:00 mouth [place] 00 :00 daily. Medical Branch proMETHazin 2018-02 Yes [id number] 25mg Take 1 [facility] e 25 mg 2-23 tablet by ity of tablet 00:00: mouth [place] 00 every 6 Medical (six) Branch hours as needed for Nausea and Vomiting (N/V). proMETHazin 2018-02 Yes [id number] 25mg Take 1 [facility] e 25 mg 2-23 tablet by ity of tablet 00:00: mouth [place] 00 every 6 Medical (six) Branch hours as needed for Nausea and Vomiting (N/V). proMETHazin 2018-02 Yes [id number] 25mg Take 1 [facility] e 25 mg 2-23 tablet by ity of tablet 00:00: mouth [place] 00 every 6 Medical (six) Branch hours as needed for Nausea and Vomiting (N/V). proMETHazin 2018-02 Yes [id number] 25mg Take 1 [facility] e 25 mg 2-23 tablet by ity of tablet 00:00: mouth [place] 00 every 6 Medical (six) Branch hours as needed for Nausea and Vomiting (N/V). proMETHazin 2018-02 Yes [id number] 25mg Take 1 [facility] e 25 mg 2-23 tablet by ity of tablet 00:00: mouth [place] 00 every 6 Medical (six) Branch hours as needed for Nausea and Vomiting (N/V). proMETHazin 2018-02 Yes [id number] 25mg Take 1 [facility] e 25 mg 2-23 tablet by ity of tablet 00:00: mouth [place] 00 every 6 Medical (six) Branch hours as needed for Nausea and Vomiting (N/V). proMETHazin 2018-02 Yes [id number] 25mg Take 1 [facility] e 25 mg 2-23 tablet by ity of tablet 00:00: mouth [place] 00 every 6 Medical (six) Branch hours as needed for Nausea and Vomiting (N/V). proMETHazin 2018-02 Yes [id number] 25mg Take 1 [facility] e 25 mg 2-23 tablet by ity of tablet 00:00: mouth [place] 00 every 6 Medical (six) Branch hours as needed for Nausea and Vomiting (N/V). proMETHazin 2018-02 Yes [id number] 25mg Take 1 [facility] e 25 mg 2-23 tablet by ity of tablet 00:00: mouth [place] 00 every 6 Medical (six) Branch hours as needed for Nausea and Vomiting (N/V). proMETHazin 2018-02 Yes [id number] 25mg Take 1 [facility] e 25 mg 2-23 tablet by ity of tablet 00:00: mouth [place] 00 every 6 Medical (six) Branch hours as needed for Nausea and Vomiting (N/V). proMETHazin 2018-02 Yes [id number] 25mg Take 1 [facility] e 25 mg 2-23 tablet by ity of tablet 00:00: mouth [place] 00 every 6 Medical (six) Branch hours as needed for Nausea and Vomiting (N/V). proMETHazin 2018-02 Yes [id number] 25mg Take 1 [facility] e 25 mg 2-23 tablet by ity of tablet 00:00: mouth [place] 00 every 6 Medical (six) Branch hours as needed for Nausea and Vomiting (N/V). proMETHazin 2018-02 Yes [id number] 25mg Take 1 [facility] e 25 mg 2-23 tablet by ity of tablet 00:00: mouth [place] 00 every 6 Medical (six) Branch hours as needed for Nausea and Vomiting (N/V). proMETHazin 2018-02 Yes [id number] 25mg Take 1 [facility] e 25 mg 2-23 tablet by ity of tablet 00:00: mouth [place] 00 every 6 Medical (six) Branch hours as needed for Nausea and Vomiting (N/V). proMETHazin 2018-02 Yes [id number] 25mg Take 1 [facility] e 25 mg 2-23 tablet by ity of tablet 00:00: mouth [place] 00 every 6 Medical (six) Branch hours as needed for Nausea and Vomiting (N/V). proMETHazin 2018-02 Yes [id number] 25mg Take 1 [facility] e 25 mg 2-23 tablet by ity of tablet 00:00: mouth [place] 00 every 6 Medical (six) Branch hours as needed for Nausea and Vomiting (N/V). proMETHazin 2018-02 Yes [id number] 25mg Take 1 [facility] e 25 mg 2-23 tablet by ity of tablet 00:00: mouth [place] 00 every 6 Medical (six) Branch hours as needed for Nausea and Vomiting (N/V). proMETHazin 2018-02 Yes [id number] 25mg Take 1 [facility] e 25 mg 2-23 tablet by ity of tablet 00:00: mouth [place] 00 every 6 Medical (six) Branch hours as needed for Nausea and Vomiting (N/V). proMETHazin 2018-02 Yes [id number] 25mg Take 1 [facility] e 25 mg 2-23 tablet by ity of tablet 00:00: mouth [place] 00 every 6 Medical (six) Branch hours as needed for Nausea and Vomiting (N/V). proMETHazin 2018-02 Yes [id number] 25mg Take 1 [facility] e 25 mg 2-23 tablet by ity of tablet 00:00: mouth [place] 00 every 6 Medical (six) Branch hours as needed for Nausea and Vomiting (N/V). proMETHazin 2018-02 Yes [id number] 25mg Take 1 [facility] e 25 mg 2-23 tablet by ity of tablet 00:00: mouth [place] 00 every 6 Medical (six) Branch hours as needed for Nausea and Vomiting (N/V). proMETHazin 2018-02 Yes [id number] 25mg Take 1 [facility] e 25 mg 2-23 tablet by ity of tablet 00:00: mouth [place] 00 every 6 Medical (six) Branch hours as needed for Nausea and Vomiting (N/V). proMETHazin 2018-02 Yes [id number] 25mg Take 1 [facility] e 25 mg 2-23 tablet by ity of tablet 00:00: mouth [place] 00 every 6 Medical (six) Branch hours as needed for Nausea and Vomiting (N/V). proMETHazin 2018-02 Yes [id number] 25mg Take 1 [facility] e 25 mg 2-23 tablet by ity of tablet 00:00: mouth [place] 00 every 6 Medical (six) Branch hours as needed for Nausea and Vomiting (N/V). proMETHazin 2018-02 Yes [id number] 25mg Take 1 [facility] e 25 mg 2-23 tablet by ity of tablet 00:00: mouth [place] 00 every 6 Medical (six) Branch hours as needed for Nausea and Vomiting (N/V). proMETHazin 2018-02 Yes [id number] 25mg Take 1 [facility] e 25 mg 2-23 tablet by ity of tablet 00:00: mouth [place] 00 every 6 Medical (six) Branch hours as needed for Nausea and Vomiting (N/V). proMETHazin 2018-02 Yes [id number] 25mg Take 1 [facility] e 25 mg 2-23 tablet by ity of tablet 00:00: mouth [place] 00 every 6 Medical (six) Branch hours as needed for Nausea and Vomiting (N/V). proMETHazin 2018-02 Yes [id number] 25mg Take 1 [facility] e 25 mg 2-23 tablet by ity of tablet 00:00: mouth [place] 00 every 6 Medical (six) Branch hours as needed for Nausea and Vomiting (N/V). proMETHazin 2018-02 Yes [id number] 25mg Take 1 [facility] e 25 mg 2-23 tablet by ity of tablet 00:00: mouth [place] 00 every 6 Medical (six) Branch hours as needed for Nausea and Vomiting (N/V). proMETHazin 2018-02 Yes [id number] 25mg Take 1 [facility] e 25 mg 2-23 tablet by ity of tablet 00:00: mouth [place] 00 every 6 Medical (six) Branch hours as needed for Nausea and Vomiting (N/V). proMETHazin 2018-02 Yes [id number] 25mg Take 1 [facility] e 25 mg 2-23 tablet by ity of tablet 00:00: mouth [place] 00 every 6 Medical (six) Branch hours as needed for Nausea and Vomiting (N/V). proMETHazin 2018-02 Yes [id number] 25mg Take 1 [facility] e 25 mg 2-23 tablet by ity of tablet 00:00: mouth [place] 00 every 6 Medical (six) Branch hours as needed for Nausea and Vomiting (N/V). proMETHazin 2018-02 Yes [id number] 25mg Take 1 [facility] e 25 mg 2-23 tablet by ity of tablet 00:00: mouth [place] 00 every 6 Medical (six) Branch hours as needed for Nausea and Vomiting (N/V). proMETHazin 2018-02 Yes [id number] 25mg Take 1 [facility] e 25 mg 2-23 tablet by ity of tablet 00:00: mouth [place] 00 every 6 Medical (six) Branch hours as needed for Nausea and Vomiting (N/V). proMETHazin 2018-02 Yes [id number] 25mg Take 1 [facility] e 25 mg 2-23 tablet by ity of tablet 00:00: mouth [place] 00 every 6 Medical (six) Branch hours as needed for Nausea and Vomiting (N/V). proMETHazin 2018-02 Yes [id number] 25mg Take 1 [facility] e 25 mg 2-23 tablet by ity of tablet 00:00: mouth [place] 00 every 6 Medical (six) Branch hours as needed for Nausea and Vomiting (N/V). proMETHazin 2018-02 Yes [id number] 25mg Take 1 [facility] e 25 mg 2-23 tablet by ity of tablet 00:00: mouth [place] 00 every 6 Medical (six) Branch hours as needed for Nausea and Vomiting (N/V). proMETHazin 2018-02 Yes [id number] 25mg Take 1 [facility] e 25 mg 2-23 tablet by ity of tablet 00:00: mouth [place] 00 every 6 Medical (six) Branch hours as needed for Nausea and Vomiting (N/V). proMETHazin 2018-02 Yes [id number] 25mg Take 1 [facility] e 25 mg 2-23 tablet by ity of tablet 00:00: mouth [place] 00 every 6 Medical (six) Branch hours as needed for Nausea and Vomiting (N/V). proMETHazin 2018-02 Yes [id number] 25mg Take 1 [facility] e 25 mg 2-23 tablet by ity of tablet 00:00: mouth [place] 00 every 6 Medical (six) Branch hours as needed for Nausea and Vomiting (N/V). proMETHazin 2018-02 Yes [id number] 25mg Take 1 [facility] e 25 mg 2-23 tablet by ity of tablet 00:00: mouth [place] 00 every 6 Medical (six) Branch hours as needed for Nausea and Vomiting (N/V). proMETHazin 2018-02 Yes [id number] 25mg Take 1 [facility] e 25 mg 2-23 tablet by ity of tablet 00:00: mouth [place] 00 every 6 Medical (six) Branch hours as needed for Nausea and Vomiting (N/V). proMETHazin 2018-02 Yes [id number] 25mg Take 1 [facility] e 25 mg 2-23 tablet by ity of tablet 00:00: mouth [place] 00 every 6 Medical (six) Branch hours as needed for Nausea and Vomiting (N/V). proMETHazin 2018-02 Yes [id number] 25mg Take 1 [facility] e 25 mg 2-23 tablet by ity of tablet 00:00: mouth [place] 00 every 6 Medical (six) Branch hours as needed for Nausea and Vomiting (N/V). proMETHazin 2018-02 Yes [id number] 25mg Take 1 [facility] e 25 mg 2-23 tablet by ity of tablet 00:00: mouth [place] 00 every 6 Medical (six) Branch hours as needed for Nausea and Vomiting (N/V). proMETHazin 2018-02 Yes [id number] 25mg Take 1 [facility] e 25 mg 2-23 tablet by ity of tablet 00:00: mouth [place] 00 every 6 Medical (six) Branch hours as needed for Nausea and Vomiting (N/V). proMETHazin 2018-02 Yes [id number] 25mg Take 1 [facility] e 25 mg 2-23 tablet by ity of tablet 00:00: mouth [place] 00 every 6 Medical (six) Branch hours as needed for Nausea and Vomiting (N/V). proMETHazin 2018-02 Yes [id number] 25mg Take 1 [facility] e 25 mg 2-23 tablet by ity of tablet 00:00: mouth [place] 00 every 6 Medical (six) Branch hours as needed for Nausea and Vomiting (N/V). proMETHazin 2018-02 Yes [id number] 25mg Take 1 [facility] e 25 mg 2-23 tablet by ity of tablet 00:00: mouth [place] 00 every 6 Medical (six) Branch hours as needed for Nausea and Vomiting (N/V). proMETHazin 2018-02 Yes [id number] 25mg Take 1 [facility] e 25 mg 2-23 tablet by ity of tablet 00:00: mouth [place] 00 every 6 Medical (six) Branch hours as needed for Nausea and Vomiting (N/V). proMETHazin 2018-02 Yes [id number] 25mg Take 1 [facility] e 25 mg 2-23 tablet by ity of tablet 00:00: mouth [place] 00 every 6 Medical (six) Branch hours as needed for Nausea and Vomiting (N/V). proMETHazin 2018-02 Yes [id number] 25mg Take 1 [facility] e 25 mg 2-23 tablet by ity of tablet 00:00: mouth [place] 00 every 6 Medical (six) Branch hours as needed for Nausea and Vomiting (N/V). proMETHazin 2018-02 Yes [id number] 25mg Take 1 [facility] e 25 mg 2-23 tablet by ity of tablet 00:00: mouth [place] 00 every 6 Medical (six) Branch hours as needed for Nausea and Vomiting (N/V). proMETHazin 2018-02 Yes [id number] 25mg Take 1 [facility] e 25 mg 2-23 tablet by ity of tablet 00:00: mouth [place] 00 every 6 Medical (six) Branch hours as needed for Nausea and Vomiting (N/V). proMETHazin 2018-02 2020- No [id number] 25mg Take 1 [facility] e 25 mg 2-23 07-17 tablet by ity of tablet 00:00: 00:00 mouth [place] 00 :00 every 6 Medical (six) Branch hours as needed for Nausea and Vomiting (N/V). Blood-Gluco 2018-02 Yes [id number] Check U nivers se Meter 2-02 glucose 4x ity o f (TRUE 00:00: daily [place] METRIX 00 Medical GLUCOSE Branch METER) Misc Blood-Gluco 2018-02 Yes [id number] Check U nivers se Meter 2-02 glucose 4x ity o f (TRUE 00:00: daily [place] METRIX 00 Medical GL[facility]COSE Branch METER) [facility] Yes [id number] Check U nivers se Meter 2-02 glucose 4x ity o f (TRUE 00:00: daily [place] METRIX 00 Medical GLUCOSE Branch METER) [facility] 2018-02 Yes [id number] Check U nivers se Meter 2-02 glucose 4x ity o f (TRUE 00:00: daily [place] METRIX 00 Medical GLUCOSE Branch METER) [facility] 2018-02 Yes [id number] Check U nivers se Meter 2-02 glucose 4x ity o f (TRUE 00:00: daily [place] METRIX 00 Medical GLUCOSE Branch METER) [facility] blood sugar 2018-02 Yes [id number] Check U nivers diagnostic 2-02 glucose 4x ity of (TRUE 00:00: daily [place] METRIX 00 Medical GLUCOSE Branch TEST STRIP) strip Blood-Gluco 2018-02 Yes [id number] Check U nivers se Meter 2-02 glucose 4x ity o f (TRUE 00:00: daily [place] METRIX 00 Medical GLUCOSE Branch METER) [facility] Blood-Gluco 2018-02 Yes [id number] Check U nivers se Meter 2-02 glucose 4x ity o f (TRUE 00:00: daily [place] METRIX 00 Medical GLUCOSE Branch METER) [facility] Blood-Gluco 2018-02 Yes [id number] Check U nivers se Meter 2-02 glucose 4x ity o f (TRUE 00:00: daily [place] METRIX 00 Medical GLUCOSE Branch METER) [facility] Blood-Gluco 2018-02 Yes [id number] Check U nivers se Meter 2-02 glucose 4x ity o f (TRUE 00:00: daily [place] METRIX 00 Medical GLUCOSE Branch METER) Misc Blood-Gluco 2018-02 Yes [id number] Check U nivers se Meter 2-02 glucose 4x ity o f (TRUE 00:00: daily [place] METRIX 00 Medical GLUCOSE Branch METER) [facility] 2018-02 Yes [id number] Check U nivers se Meter 2-02 glucose 4x ity o f (TRUE 00:00: daily [place] METRIX 00 Medical GLUCOSE Branch METER) [facility] Blood-Gluco 2018-02 Yes [id number] Check U nivers se Meter 2-02 glucose 4x ity o f (TRUE 00:00: daily [place] METRIX 00 Medical GLUCOSE Branch METER) Misc Blood-Gluco 2018-02 Yes [id number] Check U nivers se Meter 2-02 glucose 4x ity o f (TRUE 00:00: daily [place] METRIX 00 Medical GLUCOSE Branch METER) Misc Blood-Gluco 2018-02 Yes [id number] Check U nivers se Meter 2-02 glucose 4x ity o f (TRUE 00:00: daily [place] METRIX 00 Medical GLUCOSE Branch METER) Misc Blood-Gluco 2018-02 Yes [id number] Check U nivers se Meter 2-02 glucose 4x ity o f (TRUE 00:00: daily [place] METRIX 00 Medical GLUCOSE Branch METER) Misc Blood-Gluco 2018-02 Yes [id number] Check U nivers se Meter 2-02 glucose 4x ity o f (TRUE 00:00: daily [place] METRIX 00 Medical GLUCOSE Branch METER) Misc Blood-Gluco 2018-02 Yes [id number] Check U nivers se Meter 2-02 glucose 4x ity o f (TRUE 00:00: daily [place] METRIX 00 Medical GLUCOSE Branch METER) Misc Blood-Gluco 2018-02 Yes [id number] Check U nivers se Meter 2-02 glucose 4x ity o f (TRUE 00:00: daily [place] METRIX 00 Medical GLUCOSE Branch METER) Misc Blood-Gluco 2018-02 Yes [id number] Check U nivers se Meter 2-02 glucose 4x ity o f (TRUE 00:00: daily [place] METRIX 00 Medical GLUCOSE Branch METER) Misc Blood-Gluco 2018-02 Yes [id number] Check U nivers se Meter 2-02 glucose 4x ity o f (TRUE 00:00: daily [place] METRIX 00 Medical GLUCOSE Branch METER) Misc blood sugar 2018-02 Yes [id number] Check U nivers diagnostic 2-02 glucose 4x ity of (TRUE 00:00: daily [place] METRIX 00 Medical GLUCOSE Branch TEST STRIP) strip Blood-Gluco 2018-02 Yes [id number] Check U nivers se Meter 2-02 glucose 4x ity o f (TRUE 00:00: daily [place] METRIX 00 Medical GLUCOSE Branch METER) [facility] lancets [facility] 2018-02 Yes [id number] Check Un [place] gauge Misc 2-02 glucose 4x ity of 00:00: daily [place] 00 Medical Branch Blood-Gluco 2018- Yes [id number] Check U nivers se Meter 2-02 glucose 4x ity o f (TRUE 00:00: daily [place] METRIX 00 Medical GLUCOSE Branch METER) [facility] Blood-[facility]uc[facility] 2018-02 Yes [id number] Check U nivers se Meter 2-02 glucose 4x ity o f (TRUE 00:00: daily [place] METRIX 00 Medical GLUCOSE Branch METER) [facility] Blood-Gluco 2018-02 Yes [id number] Check U nivers se Meter 2-02 glucose 4x ity o f (TRUE 00:00: daily [place] METRIX 00 Medical GLUCOSE Branch METER) [facility] Blood-Gluco 2018-02 Yes [id number] Check U nivers se Meter 2-02 glucose 4x ity o f (TRUE 00:00: daily [place] METRIX 00 Medical GLUCOSE Branch METER) [facility] Blood-Gluco 2018-02 Yes [id number] Check U nivers se Meter 2-02 glucose 4x ity o f (TRUE 00:00: daily [place] METRIX 00 Medical GLUCOSE Branch METER) [facility] Blood-Gluco 2018-02 Yes [id number] Check U nivers se Meter 2-02 glucose 4x ity o f (TRUE 00:00: daily [place] METRIX 00 Medical GLUCOSE Branch METER) [facility] Blood-Gluco 2018-02 Yes [id number] Check U nivers se Meter 2-02 glucose 4x ity o f (TRUE 00:00: daily [place] METRIX 00 Medical GLUCOSE Branch METER) [facility] Blood-Gluco 2018- Yes [id number] Check U nivers se Meter 2-02 glucose 4x ity o f (TRUE 00:00: daily [place] METRIX 00 Medical GLUCOSE Branch METER) [facility] 2018-02 Yes [id number] Check U nivers se Meter 2-02 glucose 4x ity o f (TRUE 00:00: daily [place] METRIX 00 Medical GLUCOSE Branch METER) [facility] Blood-Gluco 2018- Yes [id number] Check U nivers se Meter 2-02 glucose 4x ity o f (TRUE 00:00: daily [place] METRIX 00 Medical GLUCOSE Branch METER) [facility] Blood-Gluco 2018-02 Yes [id number] Check U nivers se Meter 2-02 glucose 4x ity o f (TRUE 00:00: daily [place] METRIX 00 Medical GLUCOSE Branch METER) Misc Blood-Gluco 2018-02 Yes [id number] Check U nivers se Meter 2-02 glucose 4x ity o f (TRUE 00:00: daily [place] METRIX 00 Medical GLUCOSE Branch METER) Misc Blood-Gluco 2018-02 Yes [id number] Check U nivers se Meter 2-02 glucose 4x ity o f (TRUE 00:00: daily [place] METRIX 00 Medical GLUCOSE Branch METER) Misc Blood-Gluco 2018-02 Yes [id number] Check U nivers se Meter 2-02 glucose 4x ity o f (TRUE 00:00: daily [place] METRIX 00 Medical GLUCOSE Branch METER) Misc Blood-Gluco 2018-02 Yes [id number] Check U nivers se Meter 2-02 glucose 4x ity o f (TRUE 00:00: daily [place] METRIX 00 Medical GLUCOSE Branch METER) Mis Blood-Gluco 2018-02 Yes [id number] Check U nivers se Meter 2-02 glucose 4x ity o f (TRUE 00:00: daily [place] METRIX 00 Medical GLUCOSE Branch METER) [facility] Blood-Gluco 2018-02 Yes [id number] Check U nivers se Meter 2-02 glucose 4x ity o f (TRUE 00:00: daily [place] METRIX 00 Medical GLUCOSE Branch METER) [facility] blood sugar 2018-02 Yes [id number] Check U nivers diagnostic 2-02 glucose 4x ity of (TRUE 00:00: daily [place] METRIX 00 Medical GLUCOSE Branch TEST STRIP) strip Blood-Gluco 2018-02 Yes [id number] Check U nivers se Meter 2-02 glucose 4x ity o f (TRUE 00:00: daily [place] METRIX 00 Medical GLUCOSE Branch METER) [facility] lancets 28 2018-02 Yes [id number] Check Un [place] gauge Misc 2-02 glucose 4x ity of 00:00: daily [place] 00 Medical Branch Blood-Gluco 2018-02 Yes [id number] Check U nivers se Meter 2-02 glucose 4x ity o f (TRUE 00:00: daily [place] METRIX 00 Medical GLUCOSE Branch METER) [facility] Blood-Gluco 2018- Yes [id number] Check U nivers se Meter 2-02 glucose 4x ity o f (TRUE 00:00: daily [place] METRIX 00 Medical GLUCOSE Branch METER) [facility] Blood-Gluco 2018-02 Yes [id number] Check U nivers se Meter 2-02 glucose 4x ity o f (TRUE 00:00: daily [place] METRIX 00 Medical GLUCOSE Branch METER) [facility] Blood-Gluco 2018-02 Yes [id number] Check U nivers se Meter 2-02 glucose 4x ity o f (TRUE 00:00: daily [place] METRIX 00 Medical GLUCOSE Branch METER) [facility] Blood-Gluco 2018-02 Yes [id number] Check U nivers se Meter 2-02 glucose 4x ity o f (TRUE 00:00: daily [place] METRIX 00 Medical GLUCOSE Branch METER) [facility] Blood-Gluco 2018-02 Yes [id number] Check U nivers se Meter 2-02 glucose 4x ity o f (TRUE 00:00: daily [place] METRIX 00 Medical GLUCOSE Branch METER) [facility] Blood-Gluco 2018-02 Yes [id number] Check U nivers se Meter 2-02 glucose 4x ity o f (TRUE 00:00: daily [place] METRIX 00 Medical GLUCOSE Branch METER) [facility] Blood-Gluco 2018-02 Yes [id number] Check U nivers se Meter 2-02 glucose 4x ity o f (TRUE 00:00: daily [place] METRIX 00 Medical GLUCOSE Branch METER) [facility] Blood-Gluco 2018- Yes [id number] Check U nivers se Meter 2-02 glucose 4x ity o f (TRUE 00:00: daily [place] METRIX 00 Medical GLUCOSE Branch METER) [facility] Blood-Gluco 2018-02 Yes [id number] Check U nivers se Meter 2-02 glucose 4x ity o f (TRUE 00:00: daily [place] METRIX 00 Medical GLUCOSE Branch METER) [facility] Blood-Gluco 2018-02 Yes [id number] Check U nivers se Meter 2-02 glucose 4x ity o f (TRUE 00:00: daily [place] METRIX 00 Medical GLUCOSE Branch METER) [facility] Blood-Gluco 2018- Yes [id number] Check U nivers se Meter 2-02 glucose 4x ity o f (TRUE 00:00: daily [place] METRIX 00 Medical GLUCOSE Branch METER) [facility] Blood-Gluco 2018-02 Yes [id number] Check U nivers se Meter 2-02 glucose 4x ity o f (TRUE 00:00: daily [place] METRIX 00 Medical GLUCOSE Branch METER) [facility] Blood-Gluco 2018-02 Yes [id number] Check U nivers se Meter 2-02 glucose 4x ity o f (TRUE 00:00: daily [place] METRIX 00 Medical GLUCOSE Branch METER) Mis Blood-Gluco 2018-02 Yes [id number] Check U nivers se Meter 2-02 glucose 4x ity o f (TRUE 00:00: daily [place] METRIX 00 Medical GLUCOSE Branch METER) Misc Blood-Gluco 2018-02 Yes [id number] Check U nivers se Meter 2-02 glucose 4x ity o f (TRUE 00:00: daily [place] METRIX 00 Medical GLUCOSE Branch METER) [facility] blood sugar 2018-02 Yes [id number] Check U nivers diagnostic 2-02 glucose 4x ity of (TRUE 00:00: daily [place] METRIX 00 Medical GLUCOSE Branch TEST STRIP) strip Blood-Gluco 2018-02 Yes [id number] Check U nivers se Meter 2-02 glucose 4x ity o f (TRUE 00:00: daily [place] METRIX 00 Medical GLUCOSE Branch METER) [facility] Blood-Gluco 2018-02 2020- No [id number] Check Univers se Meter 2-02 08-20 glucose 4x ity of (TRUE 00:00: 00:00 daily [place] METRIX 00 :00 Medical GLUCOSE Branch METER) [facility] blood sugar 2018-02 2020- No [id number] Check Univers diagnostic 2-02 02-24 glucose 4x it y of (TRUE 00:00: 00:00 daily [place] METRIX 00 :00 Medical GLUCOSE Branch TEST STRIP) strip lancets 28 2018-02 2020- No [id number] Check U nivers gauge [facility] 2-03 19-29 glucose 4x it y [...] no.153/FA/o 1-25 mouth. ity of m3/dha/epa/ 14:24: [facility] 14 Medical ( Branch GUMMIES ORAL) ondansetron [...] Immunizations Ordered Filled Immunization Date Status Comments [facility] e Immunization Name Name TDAP 2019-06-21 Completed [facility] 00:00:00 [facility] (d) Immune 2019-06-21 Completed [facility] 00:00:00 [facility] TDAP 2019-06-21 Completed University 00:00:00 [facility] (d) Immune 2019-06-21 Completed University of Globulin 00:00:00 [facility] TDAP 2019-06-21 Completed University of 00:00:00 [facility] (d) Immune 2019-06-21 Completed [facility] Globulin 00:00:00 [facility] TDAP 2019-06-21 Completed University of 00:00:00 [facility] (d) Immune 2019-06-21 Completed [facility] of Globulin 00:00:00 [facility] TDAP 2019-06-21 Completed University of 00:00:00 [facility] Rho (d) Immune 2019-06-21 Completed [facility] of Globulin 00:00:00 [facility] TDAP 2019-06-21 Completed University of 00:00:00 [facility] Rho (d) Immune 2019-06-21 Completed [facility] of Globulin 00:00:00 [facility] TDAP 2019-06-21 Completed University of 00:00:00 [facility] Rho (d) Immune 2019-06-21 Completed [facility] of Globulin 00:00:00 [facility] TDAP 2019-06-21 Completed University of 00:00:00 [facility] Rho (d) Immune 2019-06-21 Completed [facility] of Globulin 00:00:00 [facility] TDAP 2019-06-21 Completed University of 00:00:00 [facility] Rho (d) Immune 2019-06-21 Completed [facility] of Globulin 00:00:00 [facility] TDAP 2019-06-21 Completed University of 00:00:00 [facility] Rho (d) Immune 2019-06-21 Completed [facility] of Globulin 00:00:00 [facility] TDAP 2019-06-21 Completed University of 00:00:00 [facility] Rho (d) Immune 2019-06-21 Completed [facility] of Globulin 00:00:00 [facility] TDAP 2019-06-21 Completed University of 00:00:00 [facility] Rho (d) Immune 2019-06-21 Completed [facility] of Globulin 00:00:00 [facility] TDAP 2019-06-21 Completed University of 00:00:00 [facility] Rho (d) Immune 2019-06-21 Completed [facility] of Globulin 00:00:00 [facility] Tdap 2019-06-21 Completed University of 00:00:00 [facility] Rho (d) Immune 2019-06-21 Completed [facility] of Globulin 00:00:00 [facility] Tdap 2019-06-21 Completed University of 00:00:00 [facility] Rho (d) Immune 2019-06-21 Completed [facility] of Globulin 00:00:00 [facility] Tdap 2019-06-21 Completed University of 00:00:00 [facility] Rho (d) Immune 2019-06-21 Completed [facility] of Globulin 00:00:00 [facility] Tdap 2019-06-21 Completed University of 00:00:00 [facility] Rho (d) Immune 2019-06-21 Completed [facility] of Globulin 00:00:00 [facility] Tdap 2019-06-21 Completed University of 00:00:00 [facility] Rho (d) Immune 2019-06-21 Completed [facility] of Globulin 00:00:00 [facility] Tdap 2019-06-21 Completed University of 00:00:00 [facility] Rho (d) Immune 2019-06-21 Completed [facility] of Globulin 00:00:00 [facility] Tdap 2019-06-21 Completed University of 00:00:00 [facility] Rho (d) Immune 2019-06-21 Completed [facility] of Globulin 00:00:00 [facility] Tdap 2019-06-21 Completed University of 00:00:00 [facility] Rho (d) Immune 2019-06-21 Completed [facility] of Globulin 00:00:00 [facility] Tdap 2019-06-21 Completed University of 00:00:00 [facility] Rho (d) Immune 2019-06-21 Completed [facility] of Globulin 00:00:00 [facility] Tdap 2019-06-21 Completed University of 00:00:00 [facility] Rho (d) Immune 2019-06-21 Completed [facility] of Globulin 00:00:00 [facility] TDAP 2019-06-21 Completed University of 00:00:00 [facility] Rho (d) Immune 2019-06-21 Completed [facility] of Globulin 00:00:00 [facility] TDAP 2019-06-21 Completed University of 00:00:00 [facility] Rho (d) Immune 2019-06-21 Completed [facility] of Globulin 00:00:00 [facility] TDAP 2019-06-21 Completed University of 00:00:00 [facility] Rho (d) Immune 2019-06-21 Completed [facility] of Globulin 00:00:00 [facility] TDAP 2019-06-21 Completed University of 00:00:00 [facility] Rho (d) Immune 2019-06-21 Completed [facility] of Globulin 00:00:00 [facility] TDAP 2019-06-21 Completed University of 00:00:00 [facility] Rho (d) Immune 2019-06-21 Completed [facility] of Globulin 00:00:00 [facility] TDAP 2019-06-21 Completed University of 00:00:00 [facility] Rho (d) Immune 2019-06-21 Completed [facility] of Globulin 00:00:00 [facility] TDAP 2019-06-21 Completed University of 00:00:00 [facility] Rho (d) Immune 2019-06-21 Completed [facility] of Globulin 00:00:00 [facility] TDAP 2019-06-21 Completed University of 00:00:00 [facility] Rho (d) Immune 2019-06-21 Completed [facility] of Globulin 00:00:00 [facility] TDAP 2019-06-21 Completed University of 00:00:00 [facility] Rho (d) Immune 2019-06-21 Completed [facility] of Globulin 00:00:00 [facility] TDAP 2019-06-21 Completed University of 00:00:00 [facility] Rho (d) Immune 2019-06-21 Completed [facility] of Globulin 00:00:00 [facility] TDAP 2019-06-21 Completed University of 00:00:00 [facility] Rho (d) Immune 2019-06-21 Completed [facility] of Globulin 00:00:00 [facility] Influenza Virus 2019-01-10 Completed Universit y of [facility] .5 mL 00:00:00 [facility] IM 6+ MO Branch Influenza Virus 2019-01-10 Completed Universit y of [facility] .5 mL 00:00:00 [facility] IM 6+ MO Branch Influenza Virus 2019-01-10 Completed Universit y of [facility] .5 mL 00:00:00 [facility] IM 6+ MO [facility] Influenza Virus 2019-01-10 Completed Universit y of [facility] .5 mL 00:00:00 [facility] IM 6+ MO [facility] Influenza Virus 2019-01-10 Completed Universit y of [facility] .5 mL 00:00:00 [facility] IM 6+ MO [facility] Influenza Virus 2019-01-10 Completed Universit y of [facility] .5 mL 00:00:00 [facility] IM 6+ MO Branch Influenza Virus [...] y of [facility] .5 mL 00:00:00 [facility] IM 6+ MO Branch Influenza Virus [...] y of [facility] .5 mL 00:00:00 [facility] IM 6+ MO [facility] Influenza Virus 2019-01-10 Completed Universit y of [facility] .5 mL 00:00:00 [facility] IM 6+ MO [facility] Vital Signs Vital Name Observation Time Observation Value Comments Source Systolic blood 2019-10-21 18:18:00 123 mm[Hg] Univer sity of pressure [facility] Diastolic blood 2019-10-21 18:18:00 78 mm[Hg] Unive rsity of pressure [facility] Heart rate 2019-10-21 18:18:00 80 /min Universi ty [facility] Body temperature 2019-10-21 18:18:00 36.89 [facility] 2019-10-21 18:18:00 16 /min [facility] Body height 2019-10-21 18:18:00 172.7 cm Universi ty [facility] Body weight 2019-10-21 18:18:00 103.59 kg Universi ty [facility] BMI 2019-10-21 18:18:00 34.72 kg/m2 Universi ty [facility] Systolic blood 2019-10-06 20:42:00 131 mm[Hg] Univer sity of pressure [facility] Diastolic blood 2019-10-06 20:42:00 80 mm[Hg] Unive rsity of pressure [facility] Heart rate 2019-10-06 20:42:00 98 /min Universi ty [facility] Body temperature 2019-10-06 20:42:00 36.17 [facility] rate 2019-10-06 20:42:00 16 /min Univ ersity of [facility] Branch Body height 2019-10-06 20:42:00 172.7 cm Universi ty of [facility] Body weight 2019-10-06 20:42:00 103.108 kg Universi ty [facility] BMI 2019-10-06 20:42:00 34.56 kg/m2 Universi ty of [facility] Heart rate 2019-09-02 12:53:00 75 /min Universi ty of [facility] Body temperature 2019-09-02 12:53:00 36 Ana Univ ersity of [facility] Respiratory rate 2019-09-02 12:53:00 18 /min Univ ersity of [facility] Oxygen saturation in 2019-09-02 12:53:00 97 /min University of Arterial blood by [facility] Pulse oximetry Branch Systolic blood 2019-09-02 04:07:00 133 mm[Hg] Univer sity of pressure [facility] Diastolic blood 2019-09-02 04:07:00 74 mm[Hg] Unive rsity of pressure [facility] BMI 2019-08-25 20:08:00 37.14 kg/m2 Universi ty of [facility] Systolic blood 2019-08-25 20:08:00 132 mm[Hg] Univer sity of pressure [facility] Diastolic blood 2019-08-25 20:08:00 83 mm[Hg] Unive rsity of pressure [facility] Heart rate 2019-08-25 20:08:00 97 /min Universi ty of [facility] Body temperature 2019-08-25 20:08:00 37 Ana Univ ersity of [facility] Respiratory rate 2019-08-25 20:08:00 16 /min Univ ersity of [facility] Body height 2019-08-25 20:08:00 172.7 cm Universi ty of [facility] Body weight 2019-08-25 20:08:00 110.791 kg Universi ty of [facility] Systolic blood 2019-08-29 20:27:00 119 mm[Hg] Univer sity of pressure [facility] Diastolic blood 2019-08-29 20:27:00 76 mm[Hg] Unive rsity of pressure [facility] Heart rate 2019-08-29 20:27:00 100 /min Universi ty of [facility] Body temperature 2019-08-29 20:27:00 36.28 Ana Univ ersity of [facility] Respiratory rate 2019-08-29 20:27:00 16 /min Univ ersity of [facility] Body height 2019-08-29 20:27:00 172.7 cm Universi ty [facility] Body weight 2019-08-29 20:27:00 109.77 kg Universi ty [facility] BMI 2019-08-29 20:27:00 36.80 kg/m2 Universi ty [facility] Systolic blood 2019-08-22 12:59:00 133 mm[Hg] Univer sity of pressure [facility] Diastolic blood 2019-08-22 12:59:00 85 mm[Hg] Unive rsity of pressure [facility] Heart rate 2019-08-22 12:59:00 102 /min Universi ty of [facility] Body temperature 2019-08-22 12:59:00 36.33 Ana Univ ersity of [facility] Respiratory rate 2019-08-22 12:59:00 16 /min Univ ersity of [facility] Body height 2019-08-22 12:59:00 172.7 cm Universi ty [facility] Body weight 2019-08-22 12:59:00 110.394 kg Universi ty [facility] BMI 2019-08-22 12:59:00 37.01 kg/m2 [facility] ty [facility] Systolic blood 2019-08-18 19:33:00 124 mm[Hg] Univer sity of pressure [facility] Diastolic blood 2019-08-18 19:33:00 72 mm[Hg] Unive rsity of pressure [facility] Heart rate 2019-08-18 19:33:00 96 /min Universi ty of [facility] Body temperature 2019-08-18 19:33:00 37.06 Ana Univ ersity of [facility] Respiratory rate 2019-08-18 19:33:00 16 /min Univ ersity of [facility] Body height 2019-08-18 19:33:00 172.7 cm Universi ty of [facility] Body weight 2019-08-18 19:33:00 109.856 kg Universi ty [facility] BMI 2019-08-18 19:33:00 36.82 kg/m2 [facility] ty [facility] Systolic blood 2019-08-15 19:23:00 128 mm[Hg] Univer sity of pressure [facility] Diastolic blood 2019-08-15 19:23:00 76 mm[Hg] Unive rsity of pressure [facility] Heart rate 2019-08-15 19:23:00 68 /min Universi ty of [facility] Body temperature 2019-08-15 19:23:00 36.94 Ana Univ ersity of [facility] Respiratory rate 2019-08-15 19:23:00 16 /min Univ ersity of [facility] Body height 2019-08-15 19:23:00 172.7 cm Universi ty [facility] Body weight 2019-08-15 19:23:00 109.997 kg Universi ty [facility] BMI 2019-08-15 19:23:00 36.87 kg/m2 [facility]i ty of [facility] Systolic blood 2019-08-12 20:10:00 131 mm[Hg] Univer sity of pressure [facility] Diastolic blood 2019-08-12 20:10:00 83 mm[Hg] Unive rsity of pressure [facility] Heart rate 2019-08-12 20:10:00 100 /min Universi ty of [facility] Body temperature 2019-08-12 20:10:00 36.89 Ana Univ ersity of [facility] Respiratory rate 2019-08-12 20:10:00 16 /min Univ ersity of [facility] Body height 2019-08-12 20:10:00 172.7 cm Universi ty [facility] [place] [facility] Body weight 2019-08-12 20:10:00 109.856 kg Universi ty of [facility] BMI 2019-08-12 20:10:00 36.82 kg/m2 Universi ty [facility] Systolic blood 2019-08-09 19:31:00 133 mm[Hg] Univer sity of pressure [facility] Diastolic blood 2019-08-09 19:31:00 89 mm[Hg] Unive rsity of pressure [facility] Heart rate 2019-08-09 19:30:00 89 /min Universi ty [facility] Body temperature 2019-08-09 19:30:00 36.44 Ana Univ ersity of [facility] Respiratory rate 2019-08-09 19:30:00 16 /min Univ ersity of [facility] Body height 2019-08-09 19:30:00 172.7 cm Universi ty [facility] Body weight 2019-08-09 19:30:00 111.188 kg [facility]i ty [facility] BMI 2019-08-09 19:30:00 37.27 kg/m2 [facility] ty [facility] Systolic blood 2019-08-03 19:37:00 127 mm[Hg] Univer sity of pressure [facility] Diastolic blood 2019-08-03 19:37:00 78 mm[Hg] Unive rsity of pressure [facility] Heart rate 2019-08-03 19:37:00 93 /min Universi ty [facility] Body temperature 2019-08-03 19:37:00 36.22 Ana Univ ersity of [facility] Respiratory rate 2019-08-03 19:37:00 16 /min Univ ersity of [facility] Body height 2019-08-03 19:37:00 172.7 cm Universi ty [facility] Body weight 2019-08-03 19:37:00 110.819 kg [facility]i ty [facility] BMI 2019-08-03 19:37:00 37.15 kg/m2 [facility] ty [facility] Systolic blood 2019-07-21 13:13:00 139 mm[Hg] Univer sity of pressure [facility] Diastolic blood 2019-07-21 13:13:00 78 mm[Hg] Unive rsity of pressure [facility] Heart rate 2019-07-21 13:13:00 76 /min Universi ty of [facility] Body temperature 2019-07-21 13:13:00 36.56 Ana Univ ersity [facility] Respiratory rate 2019-07-21 13:13:00 16 /min Univ ersity of [facility] Body height 2019-07-21 13:13:00 172.7 cm [facility]i ty [facility] Body weight 2019-07-21 13:13:00 110.423 kg [facility]i ty [facility] BMI 2019-07-21 13:13:00 37.01 kg/m2 [facility] ty [facility] Systolic blood 2019-07-25 19:22:00 129 mm[Hg] Univer sity of pressure [facility] Diastolic blood 2019-07-25 19:22:00 79 mm[Hg] Unive rsity of pressure [facility] Heart rate 2019-07-25 19:22:00 104 /min Universi ty of [facility] Body temperature 2019-07-25 19:22:00 36.94 Ana Univ ersity [facility] Respiratory rate 2019-07-25 19:22:00 16 /min Univ ersity of [facility] Body height 2019-07-25 19:22:00 172.7 cm [facility]i ty [facility] Body weight 2019-07-25 19:22:00 109.969 kg [facility]i ty [facility] BMI 2019-07-25 19:22:00 36.86 kg/m2 [facility] ty [facility] Systolic blood 2019-07-05 15:59:00 131 mm[Hg] Univer sity of pressure [facility] Diastolic blood 2019-07-05 15:59:00 78 mm[Hg] Unive rsity of pressure [facility] Heart rate 2019-07-05 15:59:00 107 /min Universi ty of [facility] Body temperature 2019-07-05 15:59:00 36.78 Ana Univ ersity of [facility] Respiratory rate 2019-07-05 15:59:00 16 /min Univ ersity of [facility] Body height 2019-07-05 15:59:00 172.7 cm [facility]i ty [facility] Body weight 2019-07-05 15:59:00 110.678 kg [facility]i ty [facility] BMI 2019-07-05 15:59:00 37.10 kg/m2 [facility] ty [facility] Systolic blood 2019-06-21 13:51:00 130 mm[Hg] Univer sity of pressure [facility] Diastolic blood 2019-06-21 13:51:00 80 mm[Hg] Unive rsity of pressure [facility] Heart rate 2019-06-21 13:51:00 103 /min Universi ty of [facility] Body temperature 2019-06-21 13:51:00 36.22 Ana Univ ersity of [facility] Respiratory rate 2019-06-21 13:51:00 16 /min Univ ersity of [facility] Body weight 2019-06-21 13:51:00 109.345 kg Universi ty [facility] BMI 2019-06-21 13:51:00 36.65 kg/m2 [facility]i ty [facility] Systolic blood 2019-06-09 01:00:00 120 mm[Hg] Univer sity of pressure [facility] Diastolic blood 2019-06-09 01:00:00 65 mm[Hg] Unive rsity of pressure [facility] Heart rate 2019-06-09 01:00:00 87 /min Universi ty of [facility] Oxygen saturation in 2019-06-09 01:00:00 99 /min University of Arterial blood by [facility] Pulse oximetry Branch Respiratory rate 2019-06-09 00:56:00 18 /min Univ ersity of [facility] Body temperature 2019-06-09 00:30:00 36.83 Ana Univ ersity of [facility] Body height 2019-06-08 23:05:00 172.7 cm Universi ty [facility] Body weight 2019-06-08 23:05:00 108.41 kg Universi ty [facility] BMI 2019-06-08 23:05:00 36.34 kg/m2 [facility]i ty [facility] Systolic blood 2019-06-07 15:03:00 120 mm[Hg] Univer sity of pressure [facility] Diastolic blood 2019-06-07 15:03:00 78 mm[Hg] Unive rsity of pressure [facility] Heart rate 2019-06-07 15:03:00 96 /min Universi ty of [facility] Body temperature 2019-06-07 15:03:00 36.72 Ana Univ ersity of [facility] Respiratory rate 2019-06-07 15:03:00 16 /min Univ ersity of [facility] Body height 2019-06-07 15:03:00 172.7 cm Universi ty [facility] Body weight 2019-06-07 15:03:00 109.118 kg [facility]i ty [facility] BMI 2019-06-07 15:03:00 36.58 kg/m2 [facility] ty [facility] Systolic blood 2019-05-23 13:23:00 135 mm[Hg] Univer sity of pressure [facility] Diastolic blood 2019-05-23 13:23:00 72 mm[Hg] Unive rsity of pressure [facility] Heart rate 2019-05-23 13:23:00 101 /min Universi ty [facility] Body temperature 2019-05-23 13:23:00 36.5 Ana Univ ersity of [facility] Respiratory rate 2019-05-23 13:23:00 16 /min Univ ersity of [facility] Body height 2019-05-23 13:23:00 172.7 cm Universi ty of [facility] Body weight 2019-05-23 13:23:00 107.162 kg [facility]i ty [facility] BMI 2019-05-23 13:23:00 35.92 kg/m2 [facility] ty [facility] Systolic blood 2019-05-09 13:21:00 113 mm[Hg] Univer sity of pressure [facility] Diastolic blood 2019-05-09 13:21:00 71 mm[Hg] Unive rsity of pressure [facility] Heart rate 2019-05-09 13:21:00 90 /min Universi ty of [facility] Body temperature 2019-05-09 13:21:00 36.28 Ana Univ ersity [facility] Respiratory rate 2019-05-09 13:21:00 16 /min Univ ersity of [facility] Body height 2019-05-09 13:21:00 172.7 cm [facility] ty [facility] Body weight 2019-05-09 13:21:00 106.198 kg [facility] ty [facility] BMI 2019-05-09 13:21:00 35.60 kg/m2 [facility] ty [facility] Systolic blood 2019-04-25 13:17:00 116 mm[Hg] Univer sity of pressure [facility] Diastolic blood 2019-04-25 13:17:00 70 mm[Hg] Unive rsity of pressure [facility] Heart rate 2019-04-25 13:17:00 93 /min Universi ty [facility] Body temperature 2019-04-25 13:17:00 36.28 Ana [facility] ersity [facility] Respiratory rate 2019-04-25 13:17:00 16 /min Univ ersity of [facility] Body height 2019-04-25 13:17:00 172.7 cm [facility]i ty [facility] Body weight 2019-04-25 13:17:00 106.652 kg [facility] ty [facility] BMI 2019-04-25 13:17:00 35.75 kg/m2 [facility] ty [facility] Systolic blood 2019-03-28 20:36:00 134 mm[Hg] Univer sity of pressure [facility] Diastolic blood 2019-03-28 20:36:00 74 mm[Hg] Unive rsity of pressure [facility] Heart rate 2019-03-28 20:36:00 100 /min Universi ty of [facility] Body temperature 2019-03-28 20:36:00 36.56 Ana Univ ersity of [facility] Respiratory rate 2019-03-28 20:36:00 16 /min Univ ersity of [facility] Body height 2019-03-28 20:36:00 172.7 cm Universi ty of [facility] Body weight 2019-03-28 20:36:00 106.595 kg Universi ty of [facility] BMI 2019-03-28 20:36:00 35.73 kg/m2 Universi ty of [facility] Systolic blood 2019-03-14 20:00:00 130 mm[Hg] Univer sity of pressure [facility] Diastolic blood 2019-03-14 20:00:00 65 mm[Hg] Unive rsity of pressure [facility] Heart rate 2019-03-14 20:00:00 93 /min Universi ty of [facility] Respiratory rate 2019-03-14 20:00:00 24 /min [facility] Oxygen saturation in 2019-03-14 20:00:00 97 /min University of Arterial blood by [facility] Pulse oximetry Branch Body temperature 2019-03-14 16:10:00 35.94 Ana Univ ersity of [facility] Body height 2019-03-14 16:10:00 172.7 cm Universi ty of [facility] Body weight 2019-03-14 16:10:00 107.502 kg Universi ty of [facility] BMI 2019-03-14 16:10:00 36.04 kg/m2 Universi ty of [facility] Systolic blood 2019-02-28 19:40:00 123 mm[Hg] Univer sity of pressure [facility] Diastolic blood 2019-02-28 19:40:00 78 mm[Hg] Unive rsity of pressure [facility] Heart rate 2019-02-28 19:40:00 94 /min Universi ty of [facility] Body temperature 2019-02-28 19:40:00 36.56 Ana Univ ersity of [facility] Respiratory rate 2019-02-28 19:40:00 16 /min Univ ersity of [facility] Body height 2019-02-28 19:40:00 172.7 cm Universi ty of [facility] Body weight 2019-02-28 19:40:00 108.155 kg [facility] BMI 2019-02-28 19:40:00 36.25 kg/m2 [facility] Procedures Procedure Date / Time Performing Clinician Source Performed POCT TEST 2019-10-21 18:24:00 Chente Naranjo Uni [facility] POCT GLUCOSE (AUTOMATED) 2019-09-02 11:11:00 Marcia Scott Uni [facility] CBC WITH DIFF 2019-09-02 08:40:00 Kei [facility] POCT GLUCOSE (AUTOMATED) 2019-09-02 01:58:00 Marcia Scott [facility] POCT GLUCOSE (AUTOMATED) 2019-09-01 19:30:00 Marcia Scott Uni [facility] POCT GLUCOSE (AUTOMATED) 2019-09-01 11:18:00 Marcia Scott [facility] VENOUS CORD GAS 2019-09-01 07:04:00 Sonal [facility] POCT GLUCOSE (AUTOMATED) 2019-09-01 05:28:00 Marcia Scott [facility] POCT GLUCOSE (AUTOMATED) 2019-08-31 23:08:00 Marcia Scott [facility] POCT GLUCOSE (AUTOMATED) 2019-08-31 18:45:00 Marcia Scott [facility] URINALYSIS 2019-08-31 16:43:00 Maria L [facility] acute hospital PROTEIN CREAT RATIO URINE 2019-08-31 16:43:00 Alicia Lisa [facility] SGOT (ASPARTATE AMINO 2019-08-31 16:07:00 Alicia Lisa [facility]) Medical Branch CREATININE 2019-08-31 16:07:00 Maria L General acute hospital ALANINE AMINO 2019-08-31 16:07:00 Maria L [facility] TRANSFERASE(SGPT Medical Branch LACTATE DEHYDROGENASE 2019-08-31 16:07:00 Alicia Lisa [facility] URIC ACID 2019-08-31 16:07:00 Maria L General acute hospital CBC WITH DIFF 2019-08-31 16:07:00 [facility] SURFACE 2019-08-31 16:07:00 Sonal [facility] ANTIGEN [facility] CBC WITH DIFFERENTIAL 2019-08-31 16:07:[address] [facility] GALV ONLY - SYPHILIS 2019-08-31 16:07:00 [facility]IGM [facility] HB ABO GROUPING 2019-08-31 15:45:00 [facility] IMMUNE GLOBULIN 2019-08-31 15:45:00 Dmitry Choud[facility] POCT GLUCOSE (AUTOMATED) 2019-08-31 14:38:00 Marcia Scott [facility] COVID-19 (ID NOW RAPID 2019-08-31 13:03:00 Marcia Scott [facility] TESTING) Medical Branch HOSPITAL ADMISSION 2019-08-31 05:01:00 Doctor Unassigned, [facility] [place] [facility] POCT URINALYSIS 2019-08-29 20:30:00 Akinsipe, Chente C [facility] NON-STRESS TEST 2019-08-26 00:39:52 Therese Gallegos [facility] POCT URINALYSIS 2019-08-25 20:10:00 Akinsipe Chente C [facility] NON-STRESS TEST 2019-08-22 13:35:32 Akinsipe, Chente C [facility] POCT URINALYSIS 2019-08-22 13:01:00 Akinsipe, Chente C [facility] NON-STRESS TEST 2019-08-18 20:00:54 Catarina Maria [facility] POCT URINALYSIS 2019-08-18 19:33:00 Akinsipe, Chente C [facility] NON-STRESS TEST 2019-08-15 20:15:53 AkinelmoChente quesada [facility]ALYSIS 2019-08-15 19:25:00 Chente Naranjo C Univers ity [facility] PATIENT QUESTIONNAIRE 2019-08-15 05:01:00 Doctor Unassigned, Uni versity of [facility] NON-STRESS TEST 2019-08-12 20:58:13 Chente [facility]aranjo [facility] POCT URINALYSIS 2019-08-12 20:10:00 Chente Naranjo Univers ity [facility] NON-STRESS TEST 2019-08-09 20:28:40 Hollis Cohen Uni versity [facility] POCT URINALYSIS 2019-08-09 19:34:00 Chente Naranjo C [facility] ity [facility] NON-STRESS TEST 2019-08-03 20:24:14 Hollis Cohen Uni versity [facility] NON-STRESS TEST 2019-08-03 20:23:04 Hollis [facility] POCT URINALYSIS 2019-08-03 19:38:00 Chente Naranjo [facility] PATIENT QUESTIONNAIRE 2019-08-03 05:01:00 Doctor Unassigned, Uni versity of [facility] NON-STRESS TEST 2019-07-25 19:41:05 Hollis Cohen [facility] PATIENT QUESTIONNAIRE 2019-07-25 05:01:00 Doctor Unassigned, Uni versity of [facility] POCT URINALYSIS 2019-07-21 13:18:00 Chente Naranjo [facility] ity [facility] POCT URINALYSIS 2019-07-05 16:00:00 Chente Naranjo [facility] ity [facility] PATIENT QUESTIONNAIRE 2019-07-05 05:01:00 Doctor Unassigned, Uni vers[facility] of [facility] POCT URINALYSIS 2019-06-21 13:53:00 Chente Naranjo [facility] TDAP VACCINE, >11 YRS, IM 2019-06-21 13:51:39 Chente Naranjo [facility] PATIENT QUESTIONNAIRE 2019-06-21 05:01:00 Doctor Unassromy, Uni [facility] [place] [facility] [place] US RETROPERITONEAL 2019-06-09 00:40:16 Adum, Merlyn Herrera [facility] COMPLETE [facility] ADC / LCC - DRUG SCREEN 2019-06-08 23:50:00 Adum, Merlyn Herrera [facility] TRIAGE [facility] L&D VISIT (NON-DELIVERED) 2019-06-08 05:01:00 Doctor Feliciano, [facility] POCT URINALYSIS 2019-06-07 15:05:00 Chente Naranjo [facility] PATIENT QUESTIONNAIRE 2019-06-07 05:01:00 Doctor Feliciano, [facility] POCT URINALYSIS 2019-05-23 13:26:00 Chente Naranjo [facility] PATIENT QUESTIONNAIRE 2019-05-23 05:01:00 Doctor Feliciano, [facility] POCT URINALYSIS 2019-05-09 13:22:00 Chente Naranjo [facility] PATIENT QUESTIONNAIRE 2019-05-09 05:01:00 Doctor Feliciano, [facility] POCT RAPID STREP SCREEN 2019-04-25 14:03:00 Chente Naranjo [facility] FOR GROUP A [facility] POCT URINALYSIS 2019-04-25 13:22:00 Chente Naranjo [facility] PATIENT QUESTIONNAIRE 2019-04-25 05:01:00 Doctor Feliciano, [facility] LIPASE 2019-03-14 16:19:00 Gee Turcios [facility] COMP. METABOLIC PANEL 2019-03-14 16:19:00 Gee Turcios [facility] ([id number]) [facility] CBC WITH DIFFERENTIAL 2019-03-14 16:19:00 Gee Turcios [facility] URINALYSIS 2019-03-14 16:19:00 Gee Turcios [facility] CONSENT/REFUSAL FOR 2019-03-14 16:05:17 Doctor Feliciano [facility] DIAGNOSIS AND TREATMENT [place] [facility] NOTICE OF PRIVACY 2019-03-14 16:04:39 Doctor Unassigned, [facility] PRACTICES [place] [facility] GLYCOSYLATED HEMOGLOBIN 2019-02-28 20:17:00 Zenia Contreras Uni [facility] (A1C) [facility] PROTEIN CREAT RATIO URINE 2019-02-28 20:07:00 [facility] BASIC METABOLIC PANEL (NA, 2019-02-28 20:06:00 Zenia Contreras [facility] K, CL, CO2, GLUCOSE, BUN, Medica l [place] CREATININE, CA) POCT URINALYSIS 2019-02-28 19:54:00 Chente Naranjo [facility] Encounters Start End Encounter Admission Attending Care Care Encounter Source Date/Time Date/Time Type Type Clinicians Facility Department ID 2020-12-13 Emergency [facility] [id number] Univers 22:50:29 [facility] 2020-12-13 Outpatient P [facility] PURVI [id number] Univers 18:46:01 ity [facility] 2020-12-13 Emergency [facility] [id number] Univers 18:45:41 [facility] 2021-09-30 2021-09-30 Outpatient R JOSE A [facility] [id number] Univers 14:15:00 14:15:00 CHENTE cervantes [facility] 2020-05-08 2020-05-08 Patient Ben [facility] 1.2.840.114 [id number] Univers 00:00:00 00:00:00 Outreach Neel PRIMARY 350.1.13.10 i ty of [facility] 4.2.7.2.[place]AV[place] [phone] [address] 2019-10-21 2019-10-21 Office Jose A [facility] 1.2.227.572 [id number] Univers 13:08:17 14:21:13 Visit Chente Waters 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 [facility] 1.2.840.114 [id number] Univers 00:00:00 00:00:00 Chente Waters ENGINE TEST CELL TECHNICIAN 350.1.13.10 ity of [place] [address].2.7.2.686 Bhavin as MATERNAL [phone] [facility] ical & CHILD [address] [place] [address] 2019-10-06 2019-10-[address] [facility] 1.2.918.105 [id number] Univers 15:37:54 16:07:08 Jeanette Carey ENGINE TEST CELL TECHNICIAN 350.1.13.10 i ty of Visit [facility] 4.2.7.2.686 Bhavin as MATERNAL [id number] [facility] ical & CHILD [address] [place] [address] 2019-10-06 2019-10-06 Outpatient R CALOS [facility] [id number] Univers 15:45:00 15:45:00 JEANETTE cervantes [facility] 2019-08-31 2019-09-02 Hospital GULSHAN Scott 1.2.840.114 [id number] Univers 07:47:00 11:59:00 Encounter Marcia MCELROY 350.1.13.10 ity of [facility] 4.2.7.2.686 Bhavin as [phone] [facility] 063 [place] 2019-09-01 2019-09-01 Telephone Adin GULSHAN 1.2.840.114 [id number] Univers 00:00:00 00:00:00 Maddi MCELROY 350.1.13.10 i ty of [facility] 4.2.7.2.686 Bhavin as [phone] [facility] 019 [place] 2019-08-25 2019-08-31 Routine Risk, Yce-Dndhi-Lh/High [facility] 1. 2.840.114 [id number] Univers 14:33:40 06:32:54 Catarina Maria ENGINE TEST CELL TECHNICIAN 350.1.13.10 ity of Visit Therese Gallegos REGIONAL 4.2.7.2.686 [place] MATERNAL [phone] [facility] [address] [place] [address] 2019-08-31 2019-08-31 Orders Doctor GULSHAN 1.2.840.114 [id number] Univers 00:00:00 00:00:00 Only Unassigned, LILIBETH 350.1.13.10 ity of [place] [facility] 4.2.7.2.686 Bhavin as [id number] [address] 2019-08-29 2019-08-29 Routine Akinsipe, [facility] 1.2.866.852 [id number] Univers 15:19:37 16:00:52 Chente C ENGINE TEST CELL TECHNICIAN 350.1.13.10 ity of Visit [facility] 4.2.7.2.686 Bhavin as MATERNAL [id number] [facility] & CHILD [address] [place] [address] 2019-08-29 2019-08-29 [facility] [id number] Univers 15:45:00 15:45:00 CHENTE ity o f [facility] 2019-08-26 2019-08-26 Abstract Akinunc health, [facility] 1.2.840.114 [id number] Univers 00:00:00 00:00:00 Chente Waters ENGINE TEST CELL TECHNICIAN 350.1.13.10 ity of [facility] 4.2.7.2.686 Bhavin as MATERNAL [phone] [facility] & [address] 2019-08-25 2019-08-25 House [facility] 1.2 .840.114 [id number] Univers 15:46:14 16:16:14 Visit Nadia Mariady Lula ENGINE TEST CELL TECHNICIAN 350.1.13.10 ity of ElRejicody Herrera [facility] 4.2.7.2.686 [place] Marcia Scott MATERNAL [phone] Medical & CHILD [address] [place] [address] 2019-08-25 2019-08-25 Outpatient R [facility] [id number] Univers 14:30:00 14:30:00 ity of [facility] 2019-08-22 2019-08-22 Routine Akinsipe, [facility] 1.2.114.338 [id number] Univers 07:46:16 08:36:03 Chente Waters ENGINE TEST CELL TECHNICIAN 350.1.13.10 ity of Visit REGIONAL 4.2.7.2.686 Bhavin as MATERNAL [id number] [facility] ical & CHILD [address] [place] [address] 2019-08-22 2019-08-22 Outpatient R AKINELMOPE, [facility] [id number] Univers 07:45:00 07:45:00 CHENTE ity o f [facility] 2019-08-18 2019-08-18 Routine Risk, Dmp-Fnigq-Yj/High [facility] 1. 2.840.114 [id number] Univers 14:16:55 14:31:55 Catarina Maria ENGINE TEST CELL TECHNICIAN 350.1.13.10 ity of Visit REGIONAL 4.2.7.2.686 Bhavin as MATERNAL [id number] [facility] & [address] 2019-08-18 2019-08-18 Outpatient R [facility] [id number] Univers 14:30:00 14:30:00 ity of [facility] 2019-08-15 2019-08-15 Routine Akinpe, [facility] 1.2.162.946 [id number] Univers 14:01:22 14:59:00 Chente Waters ENGINE TEST CELL TECHNICIAN 350.1.13.10 ity of Visit REGIONAL 4.2.7.2.686 Bhavin as MATERNAL [id number] [facility] & CHILD [address] [place] [address] 2019-08-15 2019-08-15 Outpatient R AKINSIPE, [facility] [id number] Univers 14:45:00 14:45:00 CHENTE ity o f [facility] 2019-08-15 2019-08-15 Orders Doctor GAFFNEY 1.2.840.114 [id number] Univers 00:00:00 00:00:00 Only Unassigned, LILIBETH 350.1.13.10 ity of [place] [facility] 4.2.7.2.686 Bhavin as [id number] [address] 2019-08-12 2019-08-12 Routine Akinsipe, [facility] 1.2.486.798 [id number] Univers 14:51:29 15:06:29 Chente Waters ENGINE TEST CELL TECHNICIAN 350.1.13.10 ity of Visit REGIONAL 4.2.7.2.686 Bhavin as MATERNAL [phone] [facility] & [address] 2019-08-12 2019-08-12 Outpatient R [facility] [id number] Univers 14:45:00 14:45:00 ity of [facility] 2019-08-09 2019-08-09 [facility] 1.2.840.114 [id number] Univers 14:21:39 15:34:09 Rospaulnda R ENGINE TEST CELL TECHNICIAN 350.1.13.10 ity of Visit REGIONAL 4.2.7.2.686 Bhavin as MATERNAL [id number] [facility] & [address] 2019-08-09 2019-08-09 Outpatient R [facility] [id number] Univers 14:30:00 14:30:00 ity of [facility] 2019-08-03 2019-08-03 [facility] 1.2.840.114 [id number] Univers 14:24:37 15:27:07 Rospaulnda R ENGINE TEST CELL TECHNICIAN 350.1.13.10 ity of Visit REGIONAL 4.2.7.2.686 Bhavin as MATERNAL [id number] [facility] & [address] 2019-08-03 2019-08-03 Outpatient R AKINRORY [facility] [id number] Univers 14:30:00 14:30:00 CHENTE cervantes o f [facility] 2019-08-03 2019-08-03 Orders Doctor GULSHAN 1.2.840.114 [id number] Univers 00:00:00 00:00:00 Only Unassigned, LILIBETH 350.1.13.10 ity of [place] [facility] 4.2.7.2.686 Bhavin as [id number] [address] 2019-07-28 2019-07-28 House Parent Ultrasound, [facility] 1.2 .840.114 [id number] Univers 15:02:04 15:32:04 Visit Zenia Contreras ENGINE TEST CELL TECHNICIAN 350.1.13.10 ity of REGIONAL 4.2.7.2.686 Bhavin as MATERNAL [phone] Med ical & CHILD 369 [facility] 2019-07-28 2019-07-28 Outpatient P [facility] [id number] Univers 14:30:00 14:30:00 ity of [facility] 2019-07-28 2019-07-[address] [facility] 1.2.840.114 [id number] Univers 00:00:00 00:00:00 Chente Waters ENGINE TEST CELL TECHNICIAN 350.1.13.10 ity of [facility] 4.2.7.2.686 Bhavin as MATERNAL [id number] [facility] ical & CHILD [address] [place] [address] 2019-07-21 2019-07-27 Routine Risk, Hmg-Pkmwp-Ia/High [facility] 1. 2.840.114 [id number] Univers 07:56:06 15:09:25 Therese Gallegos ENGINE TEST CELL TECHNICIAN 350.1.13.10 ity of Visit [facility] 4.2.7.2.686 Bhavin as MATERNAL [id number] [facility] ical & CHILD [address] [place] [address] 2019-07-25 2019-07-[address] [facility] 1.2.840.114 [id number] Univers 14:05:06 14:20:06 Hollis Carlson ENGINE TEST CELL TECHNICIAN 350.1.13.10 ity of Visit [facility] 4.2.7.2.686 Bhavin as MATERNAL [id number] [facility] & CHILD [address] [place] [address] 2019-07-25 2019-07-25 [facility] [id number] Univers 14:00:00 14:00:00 ROSPAULNDA ity o f [facility] 2019-07-25 2019-07-25 Orders Doctor GULSHAN 1.2.840.114 [id number] Univers 00:00:00 00:00:00 Only Unassigned, LILIBETH 350.1.13.10 ity of [place] [facility] 4.2.7.2.686 Bhavin as [id number] [address] 2019-07-21 2019-07-21 Outpatient R [facility] [id number] Univers 08:00:00 08:00:00 ity of [facility] 2019-07-05 2019-07-05 Routine Akinelmope, [facility] 1.2.774.362 [id number] Univers 10:35:04 11:32:12 Chente C ENGINE TEST CELL TECHNICIAN 350.1.13.10 ity of Visit REGIONAL 4.2.7.2.686 Bhavin as MATERNAL [id number] [facility] [address] [place] [address] 2019-07-05 2019-07-05 Outpatient R JOSE [facility] [id number] Univers 10:45:00 10:45:00 CHENTE ity o f [facility] 2019-07-05 2019-07-05 Orders Doctor GULSHAN 1.2.840.114 [id number] Univers 00:00:00 00:00:00 Only Unassigned, LILIBETH 350.1.13.10 ity of [place] [facility] 4.2.7.2.686 Bhavin as [id number] [address] 2019-07-01 2019-07-[address] [facility] 1.2.806.095 [id number] Univers 00:00:00 00:00:00 Chente C ENGINE TEST CELL TECHNICIAN 350.1.13.10 ity of REGIONAL 4.2.7.2.686 Bhavin as MATERNAL [id number] [address] 2019-06-21 2019-06-21 Outpatient R JOSE A, [facility] [id number] Univers 09:30:00 09:30:00 CHENTE cervantes o f [facility] 2019-06-21 2019-06-21 Routine [facility] 1.2.454.618 [id number] Univers 08:37:19 09:24:27 Chente C ENGINE TEST CELL TECHNICIAN 350.1.13.10 ity of Visit REGIONAL 4.2.7.2.686 Bhavin as MATERNAL [id number] [address] 2019-06-21 2019-06-21 House Parent Ultrasound, [facility] 1.2 .840.114 [id number] Univers 08:00:39 08:29:09 Visit Jerilyn Alexander ENGINE TEST CELL TECHNICIAN 350.1.13.10 ity of REGIONAL 4.2.7.2.686 Bhavin as MATERNAL [phone] Med ical & CHILD 369 [facility] 2019-06-21 2019-06-21 Orders Doctor GULSHAN 1.2.840.114 [id number] Univers 00:00:00 00:00:00 Only Unassigned, LILIBETH 350.1.13.10 ity of [place] [facility] 4.2.7.2.686 Bhavin as [phone] [facility] 009 [place] 2019-06-21 2019-06-21 Abstract [facility] 1.2.840.114 [id number] Univers 00:00:00 00:00:00 Chente C ENGINE TEST CELL TECHNICIAN 350.1.13.10 ity of [facility] 4.2.7.2.686 Bhavin as MATERNAL [id number] [facility] ical & CHILD [address] [place] [address] 2019-06-08 2019-06-08 Outpatient [facility] [id number] Univers 17:57:00 21:20:00 MERLYN cervantes of [facility] 2019-06-08 2019-06-08 [facility] 1.2.840.114 [id number] Univers 17:57:00 21:20:00 Encounter Merlyn Kearns 350.1.13.10 ity of [place] 4.2.7.2.686 [facility] [id number] [facility] 083 [place] 2019-06-08 2019-06-08 Nurse GULSHAN Jane 1.2.840.114 [id number] Univers 00:00:00 00:00:00 Triage China MCELROY 350.1.13.10 i ty of [facility] 4.2.7.2.686 Bhavin as [id number] [facility] 019 [place] 2019-06-07 2019-06-07 Routine [facility] 1.2.149.007 [id number] Univers 09:56:26 10:53:56 Chente C ENGINE TEST CELL TECHNICIAN 350.1.13.10 ity of Visit [facility] 4.2.7.2.686 Bhavin as MATERNAL [id number] [facility] & CHILD [address] [place] [address] 2019-06-07 2019-06-07 Out[facility] [id number] Univers 10:15:00 10:15:00 CHENTE ngo f [facility] 2019-06-07 2019-06-07 Orders Doctor GULSHAN 1.2.840.114 [id number] Univers 00:00:00 00:00:00 Only Unassigned, LILIBETH 350.1.13.10 ity of [place] [facility] 4.2.7.2.686 Bhavin as [id number] [address] 2019-05-23 2019-05-23 Routine [facility] 1.2.406.618 [id number] Univers 08:13:36 08:41:45 Chente C ENGINE TEST CELL TECHNICIAN 350.1.13.10 ity of Visit REGIONAL 4.2.7.2.686 Bhavin as MATERNAL [id number] [facility] ical & CHILD [address] [place] [address] 2019-05-23 2019-05-23 Outpatient R [facility] [id number] Univers 08:00:00 08:00:00 CHENTE dolan [facility] 2019-05-23 2019-05-23 Orders Doctor GULSHAN 1.2.840.114 [id number] Univers 00:00:00 00:00:00 Only Unassigned, LILIBETH 350.1.13.10 ity of [place] [facility] 4.2.7.2.686 Bhavin as [id number] [address] 2019-05-12 2019-05-12 Telephone [facility] 1.2.840.114 [id number] Univers 00:00:00 00:00:00 Chente C ENGINE TEST CELL TECHNICIAN 350.1.13.10 ity of REGIONAL 4.2.7.2.686 Bhavin as MATERNAL [id number] [facility] [address] [place] [address] 2019-05-12 2019-05-12 Nurse GULSHAN Woods 1.2.840.114 [id number] Univers 00:00:00 00:00:00 Triage Antonieta Toledo LILIBETH 350.1.13.10 i ty of HOSPITAL 4.2.7.2.686 Bhavin as [id number] [address] 2019-05-11 2019-05-11 Telephone [facility] 1.2.840.114 [id number] Univers 00:00:00 00:00:00 Chente C ENGINE TEST CELL TECHNICIAN 350.1.13.10 ity of [facility] 4.2.7.2.686 Bhavin as MATERNAL [id number] [facility] & [address] 2019-05-11 2019-05-[address] [facility] 1.2.790.810 [id number] Univers 00:00:00 00:00:00 Marcia ENGINE TEST CELL TECHNICIAN 350.1.13.10 i ty of [facility] 4.2.7.2.686 Bhavin as MATERNAL [id number] [address] 2019-05-09 2019-05-09 Routine [facility] 1.2.321.378 [id number] Univers 08:12:20 08:27:20 Chente C ENGINE TEST CELL TECHNICIAN 350.1.13.10 ity of Visit [facility] 4.2.7.2.686 Bhavin as MATERNAL [id number] [address] 2019-05-09 2019-05-09 [facility] [id number] Univers 08:00:00 08:00:00 CHENTE dolan [facility] 2019-05-09 2019-05-09 Orders Doctor GULSHAN 1.2.840.114 [id number] Univers 00:00:00 00:00:00 Only Unassigned, LILIBETH 350.1.13.10 ity of [place] [facility] 4.2.7.2.686 Bhavin as [id number] [address] 2019-04-25 2019-04-25 Routine [facility] 1.2.228.854 [id number] Univers 07:56:58 09:09:40 Chente C ENGINE TEST CELL TECHNICIAN 350.1.13.10 ity of Visit [facility] 4.2.7.2.686 Bhavin as MATERNAL [id number] [address] 2019-04-25 2019-04-25 Outpatient [facility] [id number] Univers 08:00:00 08:00:00 CHENTE dolan [facility] 2019-04-25 2019-04-25 Orders Doctor GULSHAN 1.2.840.114 [id number] Univers 00:00:00 00:00:00 Only Unassigned, LILIBETH 350.1.13.10 ity of [place] [facility] 4.2.7.2.686 Bhavin as [id number] [address] 2019-04-12 2019-04-12 House [facility] 1.2 .840.114 [id number] Univers 08:21:07 09:49:34 Visit Roberto Lobato ENGINE TEST CELL TECHNICIAN 350.1.13.10 ity of [facility] 4.2.7.2.686 Bhavin as MATERNAL [id number] Med ical & CHILD 369 [facility] 2019-04-12 2019-04-12 Outpatient P JOSE [facility] [id number] Univers 08:30:00 08:30:00 ROBERTO cervantes [facility] 2019-04-12 2019-04-12 Abstract [facility] 1.2.840.114 [id number] Univers 00:00:00 00:00:00 Chente C ENGINE TEST CELL TECHNICIAN [id number] ity of [facility] [id number] Bhavin as MATERNAL [phone] [facility] ical & CHILD [address] [place] [address] 2019-04-12 2019-04-12 Telephone [facility] 1.2.840.114 [id number] Univers 00:00:00 00:00:00 Chente C ENGINE TEST CELL TECHNICIAN [id number] ity of [facility] [id number] Bhavin as MATERNAL [phone] [facility] ical & CHILD [address] [place] [address] 2019-04-11 2019-04-11 Telephone [facility] [id number] [id number] Univers 00:00:00 00:00:00 Chente C ENGINE TEST CELL TECHNICIAN 350.1.13.10 ity of [facility] 4.2.7.2.686 Bhavin as MATERNAL [phone] [facility] ical & CHILD [address] [place] [address] 2019-03-28 2019-03-28 Routine Faculty, Dean Vangfranklin [facility] 1.2 .840.114 [id number] [facility] 13:56:14 14:26:14 En Alexandermiguel Mccoy ENGINE TEST CELL TECHNICIAN 350.1.13.10 ity of Visit [facility] 4.2.7.2.686 Bhavin as MATERNAL [phone] [facility] [address] [place] [address] 2019-03-16 2019-03-[address] [facility] 1.2.840.114 [id number] Univers 00:00:00 00:00:00 Chente Waters ENGINE TEST CELL TECHNICIAN 350.1.13.10 ity of [facility] 4.2.7.2.686 Bhavin as MATERNAL [id number] [facility] [address] [place] [address] 2019-03-14 2019-03-14 Emergency Daina Ann [facility] 1.2.840.114 [id number] Univers 10:06:49 14:40:00 Crystal Norris 350.1.13.10 i ty of [place] 4.2.7.2.686 [place] [facility] [phone] [place] [id number] [place] 2019-02-28 2019-03-01 Routine Faculty, [facility] 1.2 .840.114 [id number] Univers 13:30:53 10:06:52 Jamari Hoang ENGINE TEST CELL TECHNICIAN 350.1.13.10 ity of Visit Roberto Lobato [facility] 4.2.7.2.686 [place] Zenia Contreras MATERNAL [phone] Medical & CHILD [address] [place] [address] Results Test Description Test Time Test Comments Results Result Comments Source POCT TEST 2019-10-21 18:24:00 Test Item Value Reference Range Interpretation Comme nts POCT PREG (test code = 1605) Negative On board controls acceptable with C Line (test code = 3574) Yes POCT PREG LOT # (test code = 3575) POCT PREG TEST DATE (test code = 3576) [facility] [id number] 18:24:00 Test Item Value Reference Range Interpretation Comments POCT PREG (test code = 1605) Negative On board controls acceptable with C Yes Line (test code = 3574) POCT PREG LOT # (test code = 3575) POCT PREG TEST DATE (test code = 3576) [facility] GLUCOSE (AUTOMATED)2019-09-02 11:13:00 Test Item Value Reference Range Interpretation Comments POCT GLU (test code = 2086262046) 91 mg/dL 70-110 Lab Interpretation (test code = Normal 40934-2) [facility] with [id number] 09:18:00 Test Item Value Reference Range Interpretation [...] RDW-SD (test code = 42.6 fL 39-49.9 71648-5) RDW-CV (test code = 12.9 % 12-15.5 788-0) PLT (test code = See_Comment [Automated 777-3) message] The sy stem which generated this result transmitted reference range : 166 - 358 10*3/ ?L. The reference r madie was not used to interpret this result as normal/abnormal . MPV (test code = 9.4 fL 9.5-12.9 L 24416-7) NRBC/100 WBC (test See_Comment [Automat ed code = 5362931938) message] The system which generated this result transmitted reference range : 0.0 - 10.0 /100 WBCs. The refer ence range was not u sed to interpret th is result as normal/abnormal . NRBC x10^3 (test code <0.01 See_Comment [Auto mated = 8420316466) message] The s ystem which generated this result transmitted reference range : 10*3/?L. The reference range was not used to interpret this result as normal/abnormal . GRAN MAT (NEUT) % 57.1 % (test code = 770-8) IMM GRAN % (test code 0.50 % = 2970486855) LYMPH % (test code = 31.8 % 736-9) MONO % (test code = 7.6 % 5905-5) EOS % (test code = 2.7 % 713-8) BASO % (test code = 0.3 % 706-2) GRAN MAT x10^3(ANC) 5.94 10*3/uL 1.88-7.09 (test code = 7327834858) IMM GRAN x10^3 (test 0.05 10*3/uL 0-0.06 code = 8108114041) LYMPH x10^3 (test code 3.30 10*3/uL 1.32-3.29 H = 731-0) MONO x10^3 (test code 0.79 10*3/uL 0.33-0.92 = 742-7) EOS x10^3 (test code = 0.28 10*3/uL 0.03-0.39 711-2) BASO x10^3 (test code 0.03 10*3/uL 0.01-0.07 = 704-7) Lab Interpretation Abnormal (test code = 11878-3) [facility] GLUCOSE (AUTOMATED)2019-09-02 02:00:00 Test Item Value Reference Range Interpretation Comments POCT GLU (test code = 8208750591) 103 mg/dL 70-110 Lab Interpretation (test code = Normal 75129-8) [facility] GLUCOSE (AUTOMATED)2019-09-01 19:31:00 Test Item Value Reference Range Interpretation Comments POCT GLU (test code = 7419465774) 105 mg/dL 70-110 Lab Interpretation (test code = Normal 68756-4) [facility] ONLY - SYPHILIS [id number] 14:07:00 Test Item Value Reference Range Interpretation Comments Syphilis IgG/IgM (test Non-reactive Non-reactive code = 85191-9) BALTA (test code = BALTA) Non-reactive - No serologic evidence of T. pallidum infection. Cannot exclude incubating or early syphilis. Submit a second specimen in 2-4 weeks if syphilis is clinically suspected. Equivocal - Further testing to follow. Reactive - Further testing to follow. Lab Interpretation (test Normal code = 61668-6) [facility] 11:19:00 Test Item Value Reference Range Interpretation Comments POCT GLU (test code = 0156973073) 119 mg/dL 70-110 H Lab Interpretation (test code = Abnormal 12897-5) [facility]) IMMUNE [id number] 10:58:29 Test Item Value Reference Range Interpretation Comments RHIG CANDIDATE? No- see comment Patient i s not a (test code = candidate for R hIg- 5055) Patient is Rh N egative and baby is Rh Negative.Perfor med at [facility] Laboratory Services - [facility] Blood [place] [id number] Free: [phone] A No. [id number] [facility]eville[facility] CORD [id number] 07:21:00 Test Item Value Reference Range Interpretation Comments VENOUS BASE EXCESS, mEq/L CORD (test code = 6874514721) VENOUS PH, CORD (test 7.25-7.45 code = 3653266724) VENOUS PC02, CORD See_Comment [Automate d message] The (test code = system which ge nerated 3275224167) this result tra nsmitted reference range : 27 - 49 mmHg. The refer ence range was not used to interpret this result as normal/abnormal . VENOUS PO2, CORD (test See_Comment [Aut omated message] The code = 8124625553) system wh ich generated this result tra nsmitted reference range : 17 - 41 mmHg. The refer ence range was not used to interpret this result as normal/abnormal . VENOUS BICARBONATE, See_Comment QUES [Au tomated message] CORD (test code = The system which generated 5613100281) this result tra nsmitted reference range : 12 - 29 mEq/L. The refe rence range was not used to interpret this result as normal/abnormal . [facility] C[facility] [id number] 07:21:00 Test Item Value Reference Range Interpretation Comments BASE EXCESS, CORD mEq/L (test code = 2286212138) AC PH, CORD (BEAKER) 7.18-7.38 (test code = 5006702927) PC02, CORD (test code See_Comment [Auto mated message] The = 7967129771) system which g enerated this result transmit sergey reference range : 32 - 66 mmHg. The refer ence range was not used to interpret this result as normal/abnormal . PO2, CORD (test code See_Comment [Autom ated message] The = 3335291478) system which g enerated this result transmit sergey reference range : 10 - 30 mmHg. The refer ence range was not used to interpret this result as normal/abnormal . BICARBONATE, CORD See_Comment [Automate d message] The (test code = system which ge nerated this 0335433403) result transmit sergey reference range : 17 - 27 mEq/L. The refe rence range was not used to interpret this result as normal/abnormal . [facility] GLUCOSE (AUTOMATED)2019-09-01 05:35:00 Test Item Value Reference Range Interpretation Comments POCT GLU (test code = 3560935290) 93 mg/dL 70-110 Lab Interpretation (test code = Normal 60940-4) [facility] GLUCOSE (AUTOMATED)2019-08-31 23:09:00 Test Item Value Reference Range Interpretation Comments POCT GLU (test code = 7279223274) 92 mg/dL 70-110 Lab Interpretation (test code = Normal 37656-9) [facility] GLUCOSE (AUTOMATED)2019-08-31 18:58:00 Test Item Value Reference Range Interpretation Comments POCT GLU (test code = 5939748334) 92 mg/dL 70-110 Lab Interpretation (test code = Normal 69241-3) [facility]evilleHepatitis B Surface [id number] 18:14:00 Test Item Value Reference Range Interpretation Comments HBsAg Semi-Quantitative (test code = Negative Negative 5195-3) [facility]evilleType and Screen - ONCE [id number] 17:55:08 Test Item Value Reference Range Interpretation Comments ABO & RH (test code A NEGATIVE Performe d at [facility] = 20) Laboratory Serv [facility] [facility] s [address]Qwsw Free: [phone] A No. [id number] IAT (test code = Negative Performed a t [facility] 1185) Laboratory Serv [facility] Blood [facility] [address] [place] [address] [facility] [address]Juiw Free: [phone] A No. [id number] [facility] BeevilleProtein CREAT Ratio Urine [id number] 17:46:00 Test Item Value Reference Range Interpretation Comments T. PROT U (test code = 2888-6) 19 mg/dL CREAT U (test code = 2445847036) 81.4 mg/dL Protein/Creatinine Ratio Urine 0.0-2.0 (test code = 5612467278) [facility]eville[facility]ric Acid [id number] 17:44:00 Test Item Value Reference Range Interpretation Comments URIC ACID (test code = 8302700348) 4.5 mg/dL 2.9-6 Lab Interpretation (test code = Normal 64686-8) [facility]evilleSerum [id number] 17:44:00 Test Item Value Reference Range Interpretation Comments CREATININE (test code 0.64 mg/dL 0.5-1.04 = 5762749614) eGFR Calculation mL/min/1.73m2 (Non-) (test code = 5744285104) eGFR Calculation mL/min/1.73m2 () (test code = 6797274357) BALTA (test code = BALTA) Association of [...] or urine or abnormalities in imaging tests). [facility]evilleSGOT (Asparate Amino Transfer)2019-08-31 17:44:00 Test Item Value Reference Range Interpretation Comments AST(SGOT) (test code = 28 U/L 13-40 Sligh t hemolysis 4296408727) Lab Interpretation (test code Normal = 77756-4) [facility] BeevilleAlanine Amino Transferase (SGPT)2019-08-31 17:44:00 Test Item Value Reference Range Interpretation Comments ALTv (test code = 1742-6) 15 U/L 5-35 Lab Interpretation (test code = Normal 19863-6) [facility]evilleLactate Bkmdrffydsmxd2852-00-08 17:43:00 Test Item Value Reference Range Interpretation Comments LDH (test code = 3815595901) 551 U/L 300-600 Slight hemolysis Lab Interpretation (test code Normal = 81783-3) [facility]evilleUrinalysis2020-07-15 17:03:00 Test Item Value Reference Range Interpretation Comments APPEARANCE (test code = Hazy Clear A 4528934247) COLOR (test code = Yellow Yellow 2300324904) PH (test code = 4.8-8.0 1053541191) SP GRAVITY (test code = 1.003-1.030 4051735095) GLU U QUAL (test code = Normal Normal 3465033398) BLOOD (test code = Negative Negative 0754143340) KETONES (test code = Negative Negative 9115092977) PROTEIN (test code = Negative Negative 2887-8) UROBILIN (test code = Normal Normal 3547837146) BILIRUBIN (test code = Negative Negative 2862556442) NITRITE (test code = Negative Negative 1169727832) LEUK RONALD (test code = 250/uL Negative A 4838216230) RBC/HPF (test code = See_Comment [Autom ated message] 6572588273) The system [employer] generated this result transmitted ref erence range: 0 - 3 HP F. The reference range was not used to int erpret this result as normal/abnormal . WBC/HPF (test code = See_Comment H [Autom ated message] 3254384905) The system [employer] generated this result transmitted ref erence range: 0 - 5 HP F. The reference range was not used to int erpret this result as normal/abnormal . BACTERIA (test code = Few Negative A 0082872562) MUCOUS (test code = Slight Negative LPF A 0809607032) SQ EPITH (test code = See_Comment H [Auto mated message] 3632530475) The system [employer] generated this result transmitted ref erence range: <=2 HPF. The reference range was not used to int erpret this result as normal/abnormal . Lab Interpretation (test Abnormal code = 78506-7) [facility] WITH [id number] 16:33:00 Test Item Value Reference Range Interpretation [...] RDW-SD (test code = 42.1 fL 39-49.9 89934-3) RDW-CV (test code = 12.9 % 12-15.5 788-0) PLT (test code = See_Comment [Automated 777-3) message] The sy stem which generated this result transmitted reference range : 166 - 358 10*3/ ?L. The reference r madie was not used to interpret this result as normal/abnormal . MPV (test code = 9.8 fL 9.5-12.9 70345-5) NRBC/100 WBC (test See_Comment [Automat ed code = 7837784915) message] The system which generated this result transmitted reference range : 0.0 - 10.0 /100 WBCs. The refer ence range was not u sed to interpret th is result as normal/abnormal . NRBC x10^3 (test code <0.01 See_Comment [Auto mated = 0675243725) message] The s ystem which generated this result transmitted reference range : 10*3/?L. The reference range was not used to interpret this result as normal/abnormal . GRAN MAT (NEUT) % 75.3 % (test code = 770-8) IMM GRAN % (test code 0.40 % = 8511258422) LYMPH % (test code = 17.4 % 736-9) MONO % (test code = 5.8 % 5905-5) EOS % (test code = 0.9 % 713-8) BASO % (test code = 0.2 % 706-2) GRAN MAT x10^3(ANC) 7.58 10*3/uL 1.88-7.09 H (test code = 7668903901) IMM GRAN x10^3 (test 0.04 10*3/uL 0-0.06 code = 1898276279) LYMPH x10^3 (test code 1.75 10*3/uL 1.32-3.29 = 731-0) MONO x10^3 (test code 0.58 10*3/uL 0.33-0.92 = 742-7) EOS x10^3 (test code = 0.09 10*3/uL 0.03-0.39 711-2) BASO x10^3 (test code <0.03 0.01-0.07 = 704-7) Lab Interpretation Abnormal (test code = 57021-1) [facility] GLUCOSE (AUTOMATED)2019-08-31 15:13:00 Test Item Value Reference Range Interpretation Comments POCT GLU (test code = 6293065111) 121 mg/dL 70-110 H Lab Interpretation (test code = Abnormal 78680-1) [facility]evilleCOVID-[facility] (ID NOW RAPID TESTING)2019-08-31 13:50:00 Test Item Value Reference Range Interpretation Comments SARS-CoV-2 Rapid ID NOW Not Detected Not Detected (test code = 54229-2) BALTA (test code = BALTA) ID NOW COVID-19 Assay is an isothermal nucleic acid amplification test intended for the qualitative detection of nucleic acid from SARS-CoV-2 viral RNA in nasopharyngeal ([employer]) specimens. It is used under Emergency Use [...] indicated. Lab Interpretation Normal (test code = 78195-3) [facility] URINALYSIS W SPECIFIC [id number] 20:30:00 Test Item Value Reference Range Interpretation [...] POCT U APPEAR (test code = 3267) [facility] NON-STRESS [id number] 00:40:34NST reactive and reassuring, no [facility]UnCre[facility] [id number] 00:40:34NST reactive and reassuring, no ctxUnMidland Memorial HospitalPOFL URINALYSIS W SPECIFIC [id number] 20:10:00 Test Item Value Reference Range Interpretation [...] POCT U APPEAR (test code = 3267) [facility] URINALYSIS W SPECIFIC [id number] 20:10:00 Test Item Value Reference Range Interpretation [...] POCT U APPEAR (test code = 3267) [facility] NON-STRESS [id number] 13:36:11NST: cat 1, reactive/reassuring, no ctx, +accels, neg decls, moderate variability [facility] NON-STRESS [id number] 13:36:11NST: cat 1, reactive/reassuring, no ctx, +accels, neg decls, moderate variability [facility] URINALYSIS W SPECIFIC [id number] 13:01:00 Test Item Value Reference Range Interpretation [...] POCT U APPEAR (test code = 3267) [facility] URINALYSIS W SPECIFIC [id number] 13:01:00 Test Item Value Reference Range Interpretation [...] POCT U APPEAR (test code = 3267) [facility] NON-STRESS [id number] 20:01:17Cat I [facility] URINALYSIS W SPECIFIC [id number] 19:33:00 Test Item Value Reference Range Interpretation [...] POCT U APPEAR (test code = 3267) [facility] NON-STRESS [id number] 20:16:24NST: cat 1, reactive/reassuring, no ctx, +accels, neg decls, moderate variability [facility] URINALYSIS W SPECIFIC [id number] 19:25:00 Test Item Value Reference Range Interpretation [...] 3267) Lab Interpretation (test code = Abnormal 40351-0) [facility] NON-STRESS [id number] 20:58:42NST: cat 1, reactive/reassuring, no ctx, +accels, neg decls, moderate variability [facility] URINALYSIS W SPECIFIC [id number] 20:10:00 Test Item Value Reference Range Interpretation [...] 3267) Lab Interpretation (test code = Abnormal 37138-4) [facility] NON-STRESS [id number] 20:29:19 Reactive and reassuringUnAnnie [facility] SPECIFIC [id number] 19:34:00 Test Item Value Reference Range Interpretation [...] POCT U APPEAR (test code = 3267) [facility] NON-STRESS [id number] 20:28:49 Reactive and ReassuringUnMidland Memorial HospitalFEPAULD[facility] TEST 2019-08-03 20:28:49Reactive and ReassuringUnMidland Memorial HospitalPOFL URINALYSIS W SPECIFIC [id number] 19:38:00 Test Item Value Reference Range Interpretation [...] POCT U APPEAR (test code = 3267) [facility] URINALYSIS W SPECIFIC [id number] 19:38:00 Test Item Value Reference Range Interpretation [...] POCT U APPEAR (test code = 3267) [facility] NON-STRESS [id number] 19:45:12 Reactive, patient was turned to left side and given waterUnAnnie [facility] URINALYSIS W SPECIFIC [id number] 13:18:00 Test Item Value Reference Range Interpretation [...] POCT U APPEAR (test code = 3267) [facility] URINALYSIS W SPECIFIC [id number] 16:00:00 Test Item Value Reference Range Interpretation [...] POCT U APPEAR (test code = 3267) [facility] URIN[facility] W SPECIFIC [id number] 13:54:00 Test Item Value Reference Range Interpretation [...] POCT U APPEAR (test code = 3267) [facility]evilleUS RETROPERITONEAL [id number] 02:26:35 Bilateral renal enlargement and mild right hydronephrosis. Visualized portions of the liver appearsdiffusely steatotic. Preliminary Report Dictated by Resident: Blaine Vu MD., have reviewed this study and agree with theabove report.RENAL ULTRASOUND HISTORY: Right back pain . TECHNIQUE: A transabdominal renal ultrasound with color Doppler wasperformed. COMPARISON: None. FINDINGS: RIGHT KIDNEY: The right kidney to demonstrates a normal contour andechotexture, pnigkhdxr26.0 x 6.3 x 6.3 cm. No appreciable [...] this study and agree with theabove report. [facility] / [facility] - DRUG SCREEN [id number] 00:55:00 Test Item Value Reference Range Interpretation Comments BENZO U (test code = Negative Negative 5722431072) SCOOTER U (test code = Negative Negative 6424980867) AMPHET (test code = Negative Negative 0709479682) THC (test code = Negative Negative 2248097350) METHADONE (test code = Negative Negative 7922891794) Meth U (test code = Negative Negative 8787423056) OPIATES (test code = Negative Negative 7568432140) Cocaine Metabolite (test Negative Negative code = 8053339049) PROPOXY (test code = Negative Negative 1596959636) Tric U (test code = Negative Negative 0523444040) PCP (test code = Negative Negative 8710621006) OXYCOD (test code = Negative Negative 4714832463) BALTA (test code = BALTA) Urine Drug [...] testing). Lab Interpretation (test Normal code = 11323-4) [facility] URINALYSIS W SPECIFIC [id number] 15:05:00 Test Item Value Reference Range Interpretation [...] POCT U APPEAR (test code = 3267) [facility] URINALYSIS W SPECIFIC [id number] 13:26:00 Test Item Value Reference Range Interpretation [...] POCT U APPEAR (test code = 3267) [facility] URINALYSIS W SPECIFIC [id number] 13:26:00 Test Item Value Reference Range Interpretation [...] POCT U APPEAR (test code = 3267) [facility] URINALYSIS W SPECIFIC [id number] 13:22:00 Test Item Value Reference Range Interpretation [...] POCT U APPEAR (test code = 3267) [facility] RAPID STREP SCREEN FOR GROUP [id number] 14:13:00 Test Item Value Reference Range Interpretation Comments POCT GP A STREP (test code = NEGATIVE Negative - Negative 31474-8) [facility] RAPID STREP SCREEN FOR GROUP [id number] 14:13:00 Test Item Value Reference Range Interpretation Comments POCT GP A STREP (test code = NEGATIVE Negative - Negative 45165-2) [facility] RAPID STREP SCREEN FOR GROUP [id number] 14:13:00 Test Item Value Reference Range Interpretation Comments POCT GP A STREP (test code = NEGATIVE Negative - Negative 20861-7) [facility] URINALYSIS W SPECIFIC [id number] 13:22:00 Test Item Value Reference Range Interpretation [...] POCT U APPEAR (test code = 3267) [facility] URINALYSIS W SPECIFIC [id number] 13:22:00 Test Item Value Reference Range Interpretation [...] POCT U APPEAR (test code = 3267) [facility] SPECIFIC [id number] 13:22:00 Test Item Value Reference Range Interpretation [...] POCT U APPEAR (test code = 3267) [facility]evilleComplete Metabolic [id number] 16:52:00 Test Item Value Reference Range Interpretation Comments NA (test code = 137 mmol/L 135-145 6070365681) K (test code = 3.7 mmol/L 3.5-5 6806461283) CL (test code = 105 mmol/L 98-108 4226791364) CO2 TOTAL (test code = 21 mmol/L 23-31 L 8041739074) AGAP (test code = 2-16 2634050822) BUN (test code = 12 mg/dL 7-23 3894307401) GLUCOSE (test code = 96 mg/dL 70-110 3541665356) CREATININE (test code = 0.52 mg/dL 0.5-1.04 4947981584) TOTAL BILI (test code = 0.2 mg/dL 0.1-1.8 9056280289) CALCIUM (test code = 9.9 mg/dL 8.6-10.6 5362290112) T PROTEIN (test code = 7.8 g/dL 6.3-8.2 2958873012) ALBUMIN (test code = 4.2 g/dL 3.5-5 0234578607) ALK PHOS (test code = 48 U/L 34-122 3951876569) ALTv (test code = 29 U/L 5-35 1742-6) AST(SGOT) (test code = 23 U/L 13-40 4254447963) eGFR Calculation mL/min/1.73m2 (Non-) (test code = 2099338946) eGFR Calculation mL/min/1.73m2 () (test code = 8254660875) BALTA (test code = BALTA) Association of [...] tests). Lab Interpretation Abnormal (test code = 38121-1) [facility]evilleUrinalysis2020-01-27 16:52:00 Test Item Value Reference Range Interpretation Comments APPEARANCE (test code = Cloudy Clear A 6208839402) COLOR (test code = Yellow Yellow 5877952581) PH (test code = 4.8-8.0 7138392041) SP GRAVITY (test code = 1.003-1.030 2347084887) GLU U QUAL (test code = Normal Normal 7108688953) BLOOD (test code = 1+ Negative A 0527317457) KETONES (test code = 20 mg/dL Negative A 1736857827) PROTEIN (test code = Negative Negative 2887-8) UROBILIN (test code = 2.0 mg/dL Normal A 9350883097) BILIRUBIN (test code = Negative Negative 2597710323) NITRITE (test code = Negative Negative 1764885859) LEUK RONALD (test code = 500/uL Negative A 7246825699) RBC/HPF (test code = See_Comment H [Autom ated message] 8028591940) The system [employer] generated this result transmit sergey reference range : 0 - 3 HPF. The refe rence range was not u sed to interpret th is result as normal/abnormal . WBC/HPF (test code = See_Comment H [Autom ated message] 1449383729) The system [employer] generated this result transmit sergey reference range : 0 - 5 HPF. The refe rence range was not u sed to interpret th is result as normal/abnormal . BACTERIA (test code = Many Negative A 5987393921) MUCOUS (test code = Slight Negative LPF A 8091720851) SQ EPITH (test code = HPF 6382307947) Lab Interpretation (test Abnormal code = 23092-6) [facility] BeevilleLipase, [id number] 16:51:00 Test Item Value Reference Range Interpretation Comments LIPASE (test code = 0907489800) 30 U/L 0-220 Lab Interpretation (test code = Normal 24460-8) [facility] [place] [id number] 16:41:00 Test Item Value Reference Range Interpretation Comments WBC (test code = See_Comment [Automated 4590-2) message] The [employer] stem which generated this result transmitted reference [...] (test code = 38.8 fL 39-49.9 L 14323-9) RDW-CV (test code = 12.4 % 12-15.5 788-0) PLT (test code = See_Comment [Automated 777-3) message] The sy stem which generated this result transmitted reference range : 166 - 358 10*3/ ?L. The reference r madie was not used to interpret this result as normal/abnormal . MPV (test code = 9.6 fL 9.5-12.9 50494-8) NRBC/100 WBC (test See_Comment [Automat ed code = 0250648582) message] The system which generated this result transmitted reference range : 0.0 - 10.0 /100 WBCs. The refer ence range was not u sed to interpret th is result as normal/abnormal . NRBC x10^3 (test code <0.01 See_Comment [Auto mated = 7216284457) message] The s ystem which generated this result transmitted reference range : 10*3/?L. The reference range was not used to interpret this result as normal/abnormal . GRAN MAT (NEUT) % 67.9 % (test code = 770-8) IMM GRAN % (test code 0.30 % = 1916462457) LYMPH % (test code = 23.1 % 736-9) MONO % (test code = 6.7 % 5905-5) EOS % (test code = 1.9 % 713-8) BASO % (test code = 0.1 % 706-2) GRAN MAT x10^3(ANC) 7.13 10*3/uL 1.88-7.09 H (test code = 8287991163) IMM GRAN x10^3 (test 0.03 10*3/uL 0-0.06 code = 3667901939) LYMPH x10^3 (test code 2.42 10*3/uL 1.32-3.29 = 731-0) MONO x10^3 (test code 0.70 10*3/uL 0.33-0.92 = 742-7) EOS x10^3 (test code = 0.20 10*3/uL 0.03-0.39 711-2) BASO x10^3 (test code <0.03 0.01-0.07 = 704-7) Lab Interpretation Abnormal (test code = 93054-3) [facility] [place]A1C[facility]2019-03-01 09:53:00 Test Item Value Reference Range Interpretation Comments HGB A1C (test code = 4548-4) 5.3 % 4-6 Lab Interpretation (test code = Normal 49882-0) [facility] [place] CREAT RATIO URINE [id number] 05:47:00 Test Item Value Reference Range Interpretation Comments T. PROT U (test code = 2888-6) 17 mg/dL CREAT U (test code = 5842110224) 142.3 mg/dL Protein/Creatinine Ratio Urine 0.0-2.0 (test code = 6829599236) [facility] [place]OL[facility] PANEL (NA, K, CL, CO2, GLUCOSE, BUN, CREATININE, CA)2019-03-01 05:37:00 Test Item Value Reference Range Interpretation Comments NA (test code = 137 mmol/L 135-145 7221963539) K (test code = 4.1 mmol/L 3.5-5 1967937203) CL (test code = 103 mmol/L 98-108 6815008790) CO2 TOTAL (test code = 21 mmol/L 23-31 L 2697308510) AGAP (test code = 2-16 7704814811) BUN (test code = 7 mg/dL 7-23 4307075438) GLUCOSE (test code = 85 mg/dL 70-110 7929822111) CREATININE (test code = 0.37 mg/dL 0.5-1.04 L 1318120826) CALCIUM (test code = 9.3 mg/dL 8.6-10.6 4677900292) eGFR Calculation mL/min/1.73m2 (Non-) (test code = 8020859610) eGFR Calculation mL/min/1.73m2 () (test code = 1561251586) BALTA (test code = BALTA) Association of [...] tests). Lab Interpretation Abnormal (test code = 12822-4) [facility] URINALYSIS W SPECIFIC [id number] 19:54:00 Test Item Value Reference Range Interpretation [...] POCT U APPEAR (test code = 3267) [facility] [place]"
[2022-01-09] MEDS ORDERED: MORPHINE 4 MG/ML SYR ONE (21:40)
[2022-01-09] MEDS ORDERED: NA CHLORIDE 0.9% 1,000 ML ONE (21:40)
[2022-01-09] MEDS ORDERED: ONDANSETRON 4 MG/2 ML VIAL ONE (21:40)
--- NOTE | 2022-01-09 21:42 | RAD REPORT ---
EXAM DESCRIPTION: CT - Head Brain Wo Cont - 01/09/2022 9:31 pm CLINICAL HISTORY: Headache COMPARISON: None. TECHNIQUE: Computed axial tomography of the head was obtained. IV contrast was not requested. All CT scans are performed using dose optimization technique as appropriate and may include automated exposure control or mA/KV adjustment according to patient size. FINDINGS: An intracranial bleed is not seen . The ventricles are normal in caliber. No significant hypodense areas within the brain visualized No extra-axial fluid collection is noted. Partial empty sella turcica Fluid within the sinuses/ mastoids is not seen. IMPRESSION: No acute intracranial abnormality is seen. If patient's symptoms persist MRI of the bra in would be recommended.
[2022-01-09 22:39] LABS: SARS-COV-2 RT PCR NEGATIVE (NEGATIVE)
--- NOTE | 2022-01-09 22:49 | ER ---
Nurse's Notes [facility] Name: Gideon Chapa Age: 31 yrs Sex: Female : 1990 Arrival Date: 01/09/2022 Time: 21:05 Bed 10 Private MD: Diagnosis: Headache Presentation: 01/09 21:20 Chief complaint: Patient states: "woke up with the worse headache I have ever had". tp1 Tylenol does not relieve pain. Coronavirus screen: Vaccine status: Patient reports being unvaccinated. Ebola Screen: Patient denies exposure to infectious person. Patient denies travel to an Ebola-affected area in the 21 days before illness onset. Initial Sepsis Screen: Does the patient meet any 2 criteria? No. Patient's initial sepsis screen is negative. Does the patient have a suspected source of infection? No. Patient's initial sepsis screen is negative. Risk Assessment: Do you want to hurt yourself or someone else? Patient reports no desire to harm self or others. Onset of symptoms was January 09, 2022. 21:20 Method Of Arrival: Ambulatory tp1 21:20 Acuity: AGUSTO 3 tp1 Triage Assessment: 21:22 Headache History: Denies prior headaches. General: Appears in no apparent distress. tp1 uncomfortable, Behavior is calm, cooperative. Pain: Complains of pain in head Pain does not radiate. Pain currently is 10 out of 10 on a pain scale. Pain began this morning. EENT: No signs and/or symptoms were reported regarding the EENT system. Neuro: Level of Consciousness is awake, alert, obeys commands, Oriented to person, place, time, situation, Pupils are PERRLA. Cardiovascular: Patient's skin is warm and dry. Respiratory: Airway is patent Respiratory effort is even, unlabored. GI: Reports nausea, vomiting. : No signs and/or symptoms were reported regarding the genitourinary system. Derm: Skin is pink, warm \\T\\ dry. Musculoskeletal: Circulation, motion, and sensation intact. INFRASTRUCTURE DIRECTOR: 21:22 Verified tp1 Historical: - Allergies: 21:22 Codeine; tp1 - PMHx: 21:22 GALLSTONES; Hypertension; Kidney stones; gestational diabetes; tp1 21:22 pre eclampsia; tp1 - Immunization history:: Client reports having NOT received the Covid vaccine. - Social history:: Smoking status: Patient reports the use of cigarette tobacco products, smokes one pack cigarettes per day. - Family history:: not pertinent. - Hospitalizations: : No recent hospitalization is reported. Screenin:25 Abuse screen: Denies threats or abuse. Denies injuries from another. Nutritional tp1 screening: No deficits noted. Tuberculosis screening: No symptoms or risk factors identified. Fall Risk None identified. Assessment: 21:25 Reassessment: see triage assessment. tp1 22:20 Reassessment: Patient appears in no apparent distress at this time. No changes from tp1 previously documented assessment. resting with eye closed, respirations even and unlabored. Vital Signs: 21:20 BP 105 / 51; Pulse 82; Resp 16; Temp 98.4; Pulse Ox 100% on R/A; Weight 113.4 kg; tp1 Height 5 ft. 8 in. (172.72 cm); 22:53 BP 104 / 54; Pulse 81; Resp 16; Pulse Ox 99% on R/A; tp1 21:20 Body Mass Index 38.01 (113.40 kg, 172.72 cm) tp1 Reading Coma Score: 22:42 Eye Response: spontaneous(4). Verbal Response: oriented(5). Motor Response: obeys rn commands(6). Total: 15. ED Course: 21:05 Patient arrived in ED. ja2 21:11 David Angel MD is Attending Physician. rn 21:22 Triage completed. tp1 21:22 Arm band placed on. tp1 21:25 Patient has correct armband on for positive identification. Bed in low position. Call tp1 light in reach. 21:32 CT Head Brain wo Cont In Process Unspecified. EDMS 21:53 No provider procedures requiring assistance completed. Inserted saline lock: 20 gauge tp1 in right antecubital area, using aseptic technique. 21:54 COVID-19/FLU A+B Sent. tp1 22:14 Rakel Chaparro, ENOC is Primary Nurse. tp1 22:53 IV discontinued, intact, bleeding controlled, No redness/swelling at site. Pressure tp1 dressing applied. Administered Medications: 21:45 Drug: Zofran (Ondansetron) 4 mg Route: IVP; Site: right antecubital; tp1 22:20 Follow up: Response: Marked relief of symptoms tp1 21:48 Drug: NS 0.9% 1000 ml Route: IV; Rate: 1000 ml; Site: right antecubital; tp1 22:54 Follow up: IV Status: Completed infusion; IV Intake: 1000ml tp1 21:54 Drug: morphine 4 mg Route: IVP; Infused Over: 4 mins; Site: right antecubital; tp1 22:20 Follow up: Response: Pain is decreased tp1 Medication: 21:25 VIS not applicable for this client. tp1 Intake: 22:54 IV: 1000ml; Total: 1000ml. tp1 Outcome: 22:43 Discharge ordered by . rn 22:53 Discharged to home ambulatory. tp1 22:53 Condition: good 22:53 Discharge instructions given to patient, Instructed on discharge instructions, follow up and referral plans. Demonstrated understanding of instructions, follow-up care. 22:53 Patient left the ED. tp1 Signatures: Dispatcher [employer] David Houston MD MD rn Alexander, Jessica ja2 Parker, Tiffany RN RN tp1
--- NOTE | 2022-01-09 22:49 | EDPHYS ---
Physician Documentation [facility] Name: Gideon Chapa Age: 31 yrs Sex: Female : 1990 Arrival Date: 01/09/2022 Time: 21:05 Bed 10 Private MD: ED Physician David Angel HPI: 01/09 21:37 This 31 yrs old Female presents to ER via Ambulatory with complaints of Headache. rn 21:37 The patient complains of pain to the forehead. The patient describes the headache as rn aching. Onset: The symptoms/episode began/occurred today. Associated signs and symptoms: Pertinent positives: This patient does not have any pertinent positive signs or symptoms associated with a headache. Pertinent negatives: altered mental status, fever, neck stiffness, rash, vision loss. Severity of symptoms: At its worst the pain was moderate, in the emergency department the pain is unchanged. Headache History: The patient has had previous headaches and this one is different than previous episodes. The symptoms are alleviated by nothing. the symptoms are aggravated by nothing. The patient has not experienced similar symptoms in the past. The patient has been recently seen at the [facility] Emergency Department. Pt reports headache, behind eyes, began today, seen by me yesterday for abd pain and nausea/vomiting. Is 18 weeks . No hx of clots. NO trauma. NO focal neuro complaints. REports abd pain better. Taking tylenol and not better. . 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 - Social history:: Smoking status: Patient reports the use of cigarette tobacco products, smokes one pack cigarettes per day. - Family history:: not pertinent. - Hospitalizations: : No recent hospitalization is reported. ROS: 21:37 Constitutional: Negative for fever, chills, and weight loss, Eyes: Negative for injury, rn pain, redness, and discharge, ENT: Negative for injury, pain, and discharge, Neck: Negative for injury, pain, and swelling, Cardiovascular: Negative for chest pain, palpitations, and edema, Respiratory: Negative for shortness of breath, cough, wheezing, and pleuritic chest pain, Abdomen/GI: Negative for abdominal pain, diarrhea, and constipation, Back: Negative for injury and pain, MS/Extremity: Negative for injury and deformity, Skin: Negative for injury, rash, and discoloration, Neuro: + headache, negative for focal weakness/numbness/seizure Exam: 21:37 Constitutional: This is a well developed, well nourished patient who is awake, alert, rn and in no acute distress. Head/Face: Normocephalic, atraumatic. Eyes: Pupils equal round and reactive to light, extra-ocular motions intact. Periorbital areas with no swelling, redness, or edema. Neck: Trachea midline, no thyromegaly or masses palpated, and no cervical lymphadenopathy. Supple, full range of motion without nuchal rigidity, or vertebral point tenderness. No Meningismus. Cardiovascular: Regular rate and rhythm. No pulse deficits. Respiratory: No increased work of breathing, no retractions or nasal flaring. Abdomen/GI: Soft, non-tender Skin: Warm, dry MS/ Extremity: Pulses equal, no cyanosis. Neuro: Awake and alert, GCS 15, oriented to person, place, time, and situation. Cranial nerves II-XII grossly intact. Motor strength 5/5 in all extremities. Sensory grossly intact. Cerebellar exam normal. Normal gait. Vital Signs: 21:20 BP 105 / 51; Pulse 82; Resp 16; Temp 98.4; Pulse Ox 100% on R/A; Weight 113.4 kg; tp1 Height 5 ft. 8 in. (172.72 cm); 22:53 BP 104 / 54; Pulse 81; Resp 16; Pulse Ox 99% on R/A; tp1 21:20 Body Mass Index 38.01 (113.40 kg, 172.72 cm) tp1 [place] Coma Score: 22:42 Eye Response: spontaneous(4). Verbal Response: oriented(5). Motor Response: obeys rn commands(6). Total: 15. MDM: 21:11 Patient medically screened. rn 22:42 Differential diagnosis: hypertensive headache, intracerebral hemorrhage, migraine, rn sinusitis, tension headache, vasomotor headache, viral cephalgia. Data reviewed: vital signs, nurses notes, lab test result(s), radiologic studies, CT scan, and as a result, I will discharge patient. Counseling: I had a detailed discussion with the patient and/or guardian regarding: the historical points, exam findings, and any diagnostic results supporting the discharge/admit diagnosis, lab results, radiology results, the need for outpatient follow up, to return to the emergency department if symptoms worsen or persist or if there are any questions or concerns that arise at home. Response to treatment: the patient's symptoms have markedly improved after treatment, sleeping, pain free, and as a result, I will discharge patient. Special discussion: I discussed with the patient/guardian in detail that at this point there is no indication for admission to the hospital. It is understood, however, that if the symptoms persist or worsen the patient needs to return immediately for re-evaluation. Based on the history and exam findings, there is no indication for further emergent testing or inpatient evaluation. I discussed with the patient/guardian the need to see the OB Gyne specialist for further evaluation of the symptoms. I discussed with the patient/guardian the need to see the primary care provider for further evaluation of the symptoms. 01/09 21:19 Order name: COVID-19/FLU A+B; Complete Time: 22:42 rn 01/09 21:19 Order name: CT Head Brain wo Cont; Complete Time: 21:44 rn 01/09 21:19 Order name: IV Start; Complete Time: 21:54 rn Administered Medications: 21:45 Drug: Zofran (Ondansetron) 4 mg Route: IVP; Site: right antecubital; tp1 22:20 Follow up: Response: Marked relief of symptoms tp1 21:48 Drug: NS 0.9% 1000 ml Route: IV; Rate: 1000 ml; Site: right antecubital; tp1 22:54 Follow up: IV Status: Completed infusion; IV Intake: 1000ml tp1 21:54 Drug: morphine 4 mg Route: IVP; Infused Over: 4 mins; Site: right antecubital; tp1 22:20 Follow up: Response: Pain is decreased tp1 Disposition Summary: 01/09/22 22:43 Discharge Ordered Location: Home rn Problem: new rn Symptoms: have improved rn Condition: Stable rn Diagnosis - Headache rn Followup: rn - With: Private Physician - When: As needed - Reason: Recheck today's complaints, Re-evaluation by your physician Discharge Instructions: - Discharge Summary Sheet rn - General Headache Without Cause rn Forms: - Medication Reconciliation Form rn - Thank You Letter rn - Antibiotic rn cardiology - Prescription Opioid Use rn Signatures: Dispatcher [employer] David Houston MD MD rn Parker, Tiffany, RN RN tp1
[2022-01-09 22:58] VITALS: TEMP 98.4
[2022-01-09 23:00] VITALS: BP 104/54; O2SAT 99
== END 2022-01-09 22:53 | disposition home or self-care (01) ==
LOC: ER 21:02
DX: O99.891 Other specified diseases and conditions complicating pregnancy (principal); R51.9 Headache, unspecified; Z3A.18 18 weeks gestation of pregnancy; Z20.822 Contact with and (suspected) exposure to COVID-19
CPT/HCPCS: 96361; 0240U; 70450; 96375; 96374; 99284; J7030; J2405